=== PATIENT | female | born 1970 | race Caucasian/White ===

== ENCOUNTER → 2021-03-16 15:21 | Outpatient (CLI) | payer MEDICARE, OTHER, SELFPAY ==
[2021-03-16 16:30] LABS: Basophils % 0.6 % (0.1-2.0); Eosinophils # 0.3 K/mm3 (0.0-0.4); Eosinophils % 3.9 % (0.1-12.0); Hematocrit 34.4 % (37.0-47.0); Lymphocytes # 2.3 K/mm3 (0.7-4.5); Lymphocytes % 35.5 % (10-50); Mean Corpuscular HGB Conc 31.9 g/dL (31.8-35.4); Mean Corpuscular Hemoglobin 25.2 pg (27.0-31.2); Mean Corpuscular Volume 78.9 fl (81-99); Mean Platelet Volume 7.7 fl (7.4-10.4); Monocytes # 0.5 K/mm3 (0.1-1.0); Monocytes % 7.7 % (1.7-9.3); Neutrophils # 3.3 K/mm3 (1.8-7.8); Neutrophils % 52.3 % (37.0-80.0); Platelet Count 226 K/mm3 (142-424); Red Blood Count 4.36 M/mm3 (4.20-5.40); White Blood Count 6.4 K/mm3 (4.8-10.8)
[2021-03-16 17:13] LABS: Free Thyroxine Index 2.5 ug/dL (5.93-13.13); T4 (Thyroxine) 8.7 ug/dl (5.53-11.0); Triiodothryronine (T3) Uptake 29 % (23.5-40.5)
[2021-03-16 17:26] LABS: Thyroid Stimulating Hormone 1.66 uIU/mL (0.465-4.68)
[2021-03-18 12:27] LABS: FSH 79.2 mIU/mL (.)
== END ==
PROVIDERS: Visit Provider Obstetrics & Gynecology
DX: N93.8 Other specified abnormal uterine and vaginal bleeding (principal); Z79.899 Other long term (current) drug therapy
CPT/HCPCS: 36415; 83001; 84436; 84443; 84479; 85025

== ENCOUNTER → 2021-03-19 13:24 | Outpatient (CLI) | payer MEDICARE, OTHER, SELFPAY ==
--- NOTE | 2021-03-19 13:24 | US_ITS ---
PROCEDURE: US TRANSVAGINAL CLINICAL INDICATION: abnormal bleeding COMPARISON: No exams were available for comparison FINDINGS: UTERUS: 11cm x 9cmx 6cm. There is diffuse increased echogenicity in the central aspect of the uterus suggesting diffuse endometrial thickening. The margins are somewhat ill-defined. LEFT OVARY: [id number] with a volume of 14.1ml. RIGHT OVARY: [id number] with a volume of 6.6ml. Long the posterior aspect of the uterine fundus on the left there is a 3 cm area of slight decreased echogenicity which may represent a fibroid IMPRESSION: Enlarged uterus with grossly thickened endometrium measuring 5 cm in thickness. This could also represent no unusual appearance of fibroid within the endometrial area. Endometrial carcinoma is also consideration. There does appear to be at 3 cm fibroid along the uterine fundus posteriorly on the left. Dictated by: Martin Rhodes MD 03/19/2021 16:59 Martin Rhodes MD in [facility] 03/19/2021 16:59
== END ==
PROVIDERS: PCP Emergency Medicine; Visit Provider Obstetrics & Gynecology
DX: N93.9 Abnormal uterine and vaginal bleeding, unspecified (principal)
CPT/HCPCS: 76830

== ENCOUNTER → 2021-04-14 14:29 | Outpatient (CLI) | payer MEDICARE, OTHER, SELFPAY | PROVIDERS: Visit Provider Family Medicine | DX: Z20.822 Contact with and (suspected) exposure to COVID-19 (principal) | CPT/HCPCS: U0003 ==

== ENCOUNTER → 2021-04-16 11:33 | Outpatient (CLI) | payer MEDICARE, OTHER, SELFPAY ==
--- NOTE | 2021-04-16 11:35 | CT_ITS ---
PROCEDURE: CT ABDOMEN PELVIS W CON CLINICAL INDICATION: ENDOMETRIAL CANCER COMPARISON: CT CT CHEST W CON from 04/16/2021 TECHNIQUE: IV Contrast: 75ML Isovue 370 Oral Contrast 450ml Redicat Axial images obtained with sagittal and coronal reformats. All CT scans at the facility use one or more dose reduction, viz: automated exposure control, ma/kV adjustment per patient size (including targeted exams where dose is matched to indication, i.e. head), or iterative reconstruction technique. FINDINGS: LOWER THORAX: No acute finding ABDOMEN & PELVIS: There is a 2.6 by 1.5 x 1.6 cm lesion in the right hepatic lobe segment 7. This demonstrates peripheral puddling of contrast and may represent a hemangioma. MRI with hemangioma protocol may confirm in this patient with a history of endometrial cancer. An 8 mm enhancing nodule is present in the right hepatic lobe posteriorly, segment 7, and may also be due to a hemangioma. There is focal thickening the gallbladder wall inferiorly with some heterogeneous density at this area. Consider gallbladder ultrasound for further evaluation. The spleen and adrenal glands have an unremarkable appearance. There is mild prominence of the right renal collecting system and right ureter to the mid aspect of the right ureter. The pancreas has an unremarkable appearance. There is a moderate amount of retained colonic feces. Numerous unopacified bowel loops are present which could obscure or mimic pathology. No evidence of appendicitis or diverticulitis. The uterus is enlarged measuring 10 cm longitudinal, 6 cm AP, and 9 cm transverse. There is diffuse heterogeneous density within the endometrial area consistent with uterine carcinoma. There is some lobulation along the superior left aspect of the uterus but does not appear to extend through the uterine wall. No obvious pelvic adenopathy. Numerous unopacified bowel loops makes evaluation difficult. There is prominence of the periuterine veins. No ascites evident. No bony destructive process. IMPRESSION: 1. Heterogeneous uterine mass consistent with endometrial carcinoma. No obvious extra uterine spread locally with no obvious pelvic adenopathy. There are prominent periuterine veins. 2. There are 2 enhancing lesions of the right hepatic lobe. These could be due to hemangiomas versus vascular metastasis. MRI of the liver with hemangioma protocol suggested for further evaluation. 3. Focal thickening of the gallbladder wall at the lower fundus nonspecific. This could be evaluated also with MRI and ultrasound. 4. Multiple unopacified bowel loops in the abdomen or pelvis which could obscure or mimic pathology. Dictated by: Martin Rhodes MD 04/16/2021 16:04 Martin Rhodes MD in [facility] 04/16/2021 16:04
--- NOTE | 2021-04-16 11:35 | CT_ITS ---
PROCEDURE: CT CHEST W CON CLINCAL INDICATION: ENDOMETRIAL CANCER COMPARISON: No exams were available for comparison TECHNIQUE: IV Contrast: 75ml Isovue 370 Axial images obtained with sagittal and coronal reformats. All CT scans at the facility use one or more dose reduction, viz: automated exposure control, ma/kV adjustment per patient size (including targeted exams where dose is matched to indication, i.e. head), or iterative reconstruction technique. FINDINGS: HEART AND MEDIASTINAL STRUCTURES: Unremarkable. LUNGS AND PLEURAL SPACES: There are paraseptal emphysematous changes with some scattered areas of scarring and evidence of old granulomatous disease with a few calcified granulomas. There is some faint ground-glass attenuation in the right upper lobe posteriorly and in the right lung base posteriorly nonspecific. No suspicious pulmonary nodules evident. No effusions. BONY STRUCTURES: Degenerative changes are present in the thoracic spine. No bony destructive process apparent UPPER ABDOMEN: Please see abdomen report ADDITIONAL FINDINGS: No other significant abnormalities. IMPRESSION: No evidence of metastatic disease. Paraseptal emphysema with COPD changes. Minimal ground-glass attenuation in the right upper lobe and right lung base posteriorly nonspecific possibly related to small airway disease versus early inflammatory/infectious process. Old granulomatous disease Dictated by: Martin Rhodes MD 04/16/2021 13:28 Martin Rhodes MD in [facility] 04/16/2021 13:28
== END ==
PROVIDERS: PCP Physician Assistant; Visit Provider Obstetrics & Gynecology Gynecologic Oncology
DX: C54.1 Malignant neoplasm of endometrium (principal)
CPT/HCPCS: 71260; 74177; Q9967

== ENCOUNTER → 2021-05-12 11:27 | Outpatient (CLI) | payer MEDICARE, OTHER, SELFPAY ==
[2021-05-12 11:57] LABS: Basophils # 0.1 K/mm3 (0-0.2); Eosinophils # 0.3 K/mm3 (0.0-0.4); Eosinophils % 4.4 % (0.1-12.0); Hematocrit 39.1 % (37.0-47.0); Hemoglobin 12.1 g/dL (12.2-16.2); Lymphocytes # 2.2 K/mm3 (0.7-4.5); Lymphocytes % 30.4 % (10-50); Mean Corpuscular Hemoglobin 26.5 pg (27.0-31.2); Mean Corpuscular Volume 85.7 fl (81-99); Mean Platelet Volume 7.6 fl (7.4-10.4); Monocytes # 0.6 K/mm3 (0.1-1.0); Monocytes % 7.9 % (1.7-9.3); Neutrophils # 4.1 K/mm3 (1.8-7.8); Neutrophils % 56.3 % (37.0-80.0); Platelet Count 364 K/mm3 (142-424); Red Blood Count 4.57 M/mm3 (4.20-5.40); Red Cell Distribution Width 17.3 % (11.5-17.5); White Blood Count 7.2 K/mm3 (4.8-10.8)
[2021-05-12 12:26] LABS: Chloride 104 mmol/L (98-107); Potassium 5.2 mmoL/L (3.5-5.1); Sodium 141 mmol/L (136-145)
[2021-05-12 12:29] LABS: Alanine Aminotransferase 20 U/L (12-78); Albumin Level 4.4 g/dl (3.5-5.0); Albumin/Globulin Ratio 1.1 (1.1-1.8); Alkaline Phosphatase 83 U/L (38-126); Anion Gap 13.2 mEq/L (5-15); Aspartate Amino Transferase 30 U/L (14-36); Bilirubin,Total 0.2 mg/dl (0.2-1.3); Blood Urea Nitrogen 12 mg/dl (7-17); Carbon Dioxide 29 mmol/L (22.0-30.0); Estimated Glomerular Filt Rate 107 ml/min (>60); GFR (African American) 129 ML/MIN (>60); Total Protein,Serum 8.4 g/dl (6.3-8.2)
[2021-05-12 12:30] LABS: Calcium 9.9 mg/dl (8.4-10.2); Glucose 103 mg/dl (74-100)
== END ==
PROVIDERS: Visit Provider Obstetrics & Gynecology Gynecologic Oncology
DX: C54.1 Malignant neoplasm of endometrium (principal)
CPT/HCPCS: 36415; 80053; 85025

== ENCOUNTER → 2021-05-19 11:00 | Outpatient (CLI) | payer MEDICARE, OTHER, SELFPAY ==
[2021-05-19 11:41] LABS: Basophils % 0.9 % (0.1-2.0); Eosinophils # 0.2 K/mm3 (0.0-0.4); Eosinophils % 4.1 % (0.1-12.0); Hematocrit 38.6 % (37.0-47.0); Hemoglobin 12.2 g/dL (12.2-16.2); Lymphocytes # 1.6 K/mm3 (0.7-4.5); Lymphocytes % 35.2 % (10-50); Mean Corpuscular HGB Conc 31.5 g/dL (31.8-35.4); Mean Corpuscular Hemoglobin 27.1 pg (27.0-31.2); Mean Corpuscular Volume 86.1 fl (81-99); Monocytes # 0.1 K/mm3 (0.1-1.0); Neutrophils # 2.6 K/mm3 (1.8-7.8); Neutrophils % 57.8 % (37.0-80.0); Platelet Count 261 K/mm3 (142-424); Red Blood Count 4.48 M/mm3 (4.20-5.40); Red Cell Distribution Width 17.1 % (11.5-17.5); White Blood Count 4.5 K/mm3 (4.8-10.8)
[2021-05-19 11:57] LABS: Alanine Aminotransferase 20 U/L (12-78); Albumin Level 4.2 g/dl (3.5-5.0); Albumin/Globulin Ratio 1.2 (1.1-1.8); Alkaline Phosphatase 55 U/L (38-126); Anion Gap 10.2 mEq/L (5-15); Aspartate Amino Transferase 27 U/L (14-36); Bilirubin,Total 0.3 mg/dl (0.2-1.3); Blood Urea Nitrogen 8 mg/dl (7-17); Calcium 9.5 mg/dl (8.4-10.2); Carbon Dioxide 27 mmol/L (22.0-30.0); Chloride 106 mmol/L (98-107); Estimated Glomerular Filt Rate 132 ml/min (>60); GFR (African American) 159 ML/MIN (>60); Globulin 3.5 g/dL (1.3-3.2); Glucose 109 mg/dl (74-100); Potassium 4.2 mmoL/L (3.5-5.1); Sodium 139 mmol/L (136-145); Total Protein,Serum 7.7 g/dl (6.3-8.2)
== END ==
PROVIDERS: Visit Provider Obstetrics & Gynecology Gynecologic Oncology
DX: C54.1 Malignant neoplasm of endometrium (principal)
CPT/HCPCS: 36415; 80053; 85025

== ENCOUNTER → 2021-05-26 11:28 | Outpatient (CLI) | payer MEDICARE, OTHER, SELFPAY ==
[2021-05-26 11:53] LABS: Basophils % 0.6 % (0.1-2.0); Eosinophils # 0.1 K/mm3 (0.0-0.4); Eosinophils % 1.9 % (0.1-12.0); Hematocrit 34.9 % (37.0-47.0); Hemoglobin 10.8 g/dL (12.2-16.2); Lymphocytes # 1.5 K/mm3 (0.7-4.5); Lymphocytes % 35.7 % (10-50); Mean Corpuscular HGB Conc 30.8 g/dL (31.8-35.4); Mean Corpuscular Hemoglobin 26.9 pg (27.0-31.2); Mean Corpuscular Volume 87.2 fl (81-99); Mean Platelet Volume 7.2 fl (7.4-10.4); Monocytes # 0.7 K/mm3 (0.1-1.0); Monocytes % 16.3 % (1.7-9.3); Neutrophils % 45.5 % (37.0-80.0); Platelet Count 258 K/mm3 (142-424); Red Blood Count 4.01 M/mm3 (4.20-5.40); Red Cell Distribution Width 17.3 % (11.5-17.5); White Blood Count 4.3 K/mm3 (4.8-10.8)
[2021-05-26 14:06] LABS: Chloride 104 mmol/L (98-107); Potassium 4.7 mmoL/L (3.5-5.1); Sodium 138 mmol/L (136-145)
[2021-05-26 14:09] LABS: Alanine Aminotransferase 22 U/L (12-78); Albumin Level 3.9 g/dl (3.5-5.0); Albumin/Globulin Ratio 1.2 (1.1-1.8); Alkaline Phosphatase 73 U/L (38-126); Anion Gap 11.7 mEq/L (5-15); Aspartate Amino Transferase 29 U/L (14-36); Blood Urea Nitrogen 9 mg/dl (7-17); Calcium 8.9 mg/dl (8.4-10.2); Carbon Dioxide 27 mmol/L (22.0-30.0); Estimated Glomerular Filt Rate 132 ml/min (>60); GFR (African American) 159 ML/MIN (>60); Globulin 3.3 g/dL (1.3-3.2); Glucose 88 mg/dl (74-100); Total Protein,Serum 7.2 g/dl (6.3-8.2)
[2021-05-26 14:28] LABS: Bilirubin,Total 0.1 mg/dl (0.2-1.3)
== END ==
PROVIDERS: Visit Provider Obstetrics & Gynecology Gynecologic Oncology
DX: C54.1 Malignant neoplasm of endometrium (principal)
CPT/HCPCS: 36415; 80053; 85025

== ENCOUNTER → 2021-06-02 12:27 | Outpatient (CLI) | payer MEDICARE, OTHER, SELFPAY ==
[2021-06-02 13:20] LABS: Basophils % 0.9 % (0.1-2.0); Eosinophils # 0.1 K/mm3 (0.0-0.4); Hematocrit 36.2 % (37.0-47.0); Hemoglobin 11.4 g/dL (12.2-16.2); Lymphocytes # 1.8 K/mm3 (0.7-4.5); Lymphocytes % 36.7 % (10-50); Mean Corpuscular HGB Conc 31.5 g/dL (31.8-35.4); Mean Corpuscular Volume 85.6 fl (81-99); Mean Platelet Volume 7.9 fl (7.4-10.4); Monocytes # 0.5 K/mm3 (0.1-1.0); Monocytes % 10.4 % (1.7-9.3); Neutrophils # 2.6 K/mm3 (1.8-7.8); Platelet Count 227 K/mm3 (142-424); Red Blood Count 4.23 M/mm3 (4.20-5.40); Red Cell Distribution Width 17.8 % (11.5-17.5)
[2021-06-02 13:43] LABS: Chloride 105 mmol/L (98-107); Potassium 4.2 mmoL/L (3.5-5.1); Sodium 139 mmol/L (136-145)
[2021-06-02 13:45] LABS: Alanine Aminotransferase 15 U/L (12-78); Aspartate Amino Transferase 27 U/L (14-36); Blood Urea Nitrogen 6 mg/dl (7-17); Estimated Glomerular Filt Rate 132 ml/min (>60); GFR (African American) 159 ML/MIN (>60)
[2021-06-02 13:46] LABS: Albumin Level 4.1 g/dl (3.5-5.0); Albumin/Globulin Ratio 1.2 (1.1-1.8); Alkaline Phosphatase 74 U/L (38-126); Anion Gap 13.2 mEq/L (5-15); Bilirubin,Total 0.1 mg/dl (0.2-1.3); Calcium 9.5 mg/dl (8.4-10.2); Carbon Dioxide 25 mmol/L (22.0-30.0); Globulin 3.5 g/dL (1.3-3.2); Glucose 90 mg/dl (74-100); Total Protein,Serum 7.6 g/dl (6.3-8.2)
== END ==
PROVIDERS: Visit Provider Obstetrics & Gynecology Gynecologic Oncology
DX: C54.1 Malignant neoplasm of endometrium (principal)
CPT/HCPCS: 36415; 80053; 85025

== ENCOUNTER → 2021-06-09 13:50 | Outpatient (CLI) | payer MEDICARE, OTHER, SELFPAY ==
[2021-06-09 14:29] LABS: Basophils % 0.8 % (0.1-2.0); Eosinophils # 0.1 K/mm3 (0.0-0.4); Hemoglobin 10.8 g/dL (12.2-16.2); Lymphocytes # 1.8 K/mm3 (0.7-4.5); Mean Corpuscular HGB Conc 31.8 g/dL (31.8-35.4); Mean Corpuscular Hemoglobin 27.4 pg (27.0-31.2); Mean Corpuscular Volume 85.9 fl (81-99); Mean Platelet Volume 8.1 fl (7.4-10.4); Monocytes # 0.4 K/mm3 (0.1-1.0); Monocytes % 6.7 % (1.7-9.3); Neutrophils # 3.2 K/mm3 (1.8-7.8); Neutrophils % 57.6 % (37.0-80.0); Platelet Count 236 K/mm3 (142-424); Red Blood Count 3.96 M/mm3 (4.20-5.40); Red Cell Distribution Width 17.8 % (11.5-17.5); White Blood Count 5.5 K/mm3 (4.8-10.8)
[2021-06-09 15:47] LABS: Alanine Aminotransferase 12 U/L (12-78); Albumin Level 4.1 g/dl (3.5-5.0); Albumin/Globulin Ratio 1.2 (1.1-1.8); Alkaline Phosphatase 61 U/L (38-126); Anion Gap 9.6 mEq/L (5-15); Aspartate Amino Transferase 23 U/L (14-36); Bilirubin,Total 0.2 mg/dl (0.2-1.3); Blood Urea Nitrogen 12 mg/dl (7-17); Calcium 9.4 mg/dl (8.4-10.2); Carbon Dioxide 28 mmol/L (22.0-30.0); Chloride 105 mmol/L (98-107); Estimated Glomerular Filt Rate 132 ml/min (>60); GFR (African American) 159 ML/MIN (>60); Globulin 3.3 g/dL (1.3-3.2); Glucose 91 mg/dl (74-100); Potassium 4.6 mmoL/L (3.5-5.1); Sodium 138 mmol/L (136-145); Total Protein,Serum 7.4 g/dl (6.3-8.2)
== END ==
PROVIDERS: Visit Provider Obstetrics & Gynecology Gynecologic Oncology
DX: C54.1 Malignant neoplasm of endometrium (principal)
CPT/HCPCS: 36415; 80053; 85025

== ENCOUNTER → 2021-06-16 11:09 | Outpatient (CLI) | payer MEDICARE, OTHER, SELFPAY ==
[2021-06-16 11:31] LABS: Basophils % 0.8 % (0.1-2.0); Eosinophils # 0.2 K/mm3 (0.0-0.4); Eosinophils % 4.5 % (0.1-12.0); Hematocrit 38.8 % (37.0-47.0); Lymphocytes # 1.3 K/mm3 (0.7-4.5); Mean Corpuscular Hemoglobin 27.2 pg (27.0-31.2); Mean Corpuscular Volume 87.7 fl (81-99); Mean Platelet Volume 8.6 fl (7.4-10.4); Monocytes # 0.1 K/mm3 (0.1-1.0); Neutrophils # 2.2 K/mm3 (1.8-7.8); Neutrophils % 57.8 % (37.0-80.0); Platelet Count 328 K/mm3 (142-424); Red Blood Count 4.42 M/mm3 (4.20-5.40); Red Cell Distribution Width 17.6 % (11.5-17.5); White Blood Count 3.8 K/mm3 (4.8-10.8)
[2021-06-16 13:11] LABS: Alanine Aminotransferase 16 U/L (12-78); Albumin Level 4.4 g/dl (3.5-5.0); Albumin/Globulin Ratio 1.4 (1.1-1.8); Alkaline Phosphatase 56 U/L (38-126); Anion Gap 9.9 mEq/L (5-15); Aspartate Amino Transferase 27 U/L (14-36); Bilirubin,Total 0.5 mg/dl (0.2-1.3); Blood Urea Nitrogen 10 mg/dl (7-17); Calcium 9.6 mg/dl (8.4-10.2); Carbon Dioxide 29 mmol/L (22.0-30.0); Chloride 103 mmol/L (98-107); Estimated Glomerular Filt Rate 132 ml/min (>60); GFR (African American) 159 ML/MIN (>60); Globulin 3.2 g/dL (1.3-3.2); Glucose 100 mg/dl (74-100); Potassium 4.9 mmoL/L (3.5-5.1); Sodium 137 mmol/L (136-145); Total Protein,Serum 7.6 g/dl (6.3-8.2)
== END ==
PROVIDERS: Visit Provider Obstetrics & Gynecology Gynecologic Oncology
DX: C54.1 Malignant neoplasm of endometrium (principal)
CPT/HCPCS: 36415; 80053; 85025

== ENCOUNTER → 2021-06-23 13:26 | Outpatient (CLI) | payer MEDICARE, OTHER, SELFPAY ==
[2021-06-23 14:13] LABS: Basophils % 1.1 % (0.1-2.0); Eosinophils # 0.1 K/mm3 (0.0-0.4); Eosinophils % 2.2 % (0.1-12.0); Hematocrit 33.5 % (37.0-47.0); Lymphocytes # 1.9 K/mm3 (0.7-4.5); Lymphocytes % 51.1 % (10-50); Mean Corpuscular HGB Conc 32.7 g/dL (31.8-35.4); Mean Corpuscular Hemoglobin 28.4 pg (27.0-31.2); Mean Corpuscular Volume 86.8 fl (81-99); Monocytes # 0.5 K/mm3 (0.1-1.0); Monocytes % 14.4 % (1.7-9.3); Neutrophils # 1.1 K/mm3 (1.8-7.8); Neutrophils % 31.1 % (37.0-80.0); Platelet Count 226 K/mm3 (142-424); Red Blood Count 3.86 M/mm3 (4.20-5.40); Red Cell Distribution Width 18.6 % (11.5-17.5); White Blood Count 3.6 K/mm3 (4.8-10.8)
[2021-06-23 14:14] LABS: MANUAL DIFFERENTIAL MANUAL DIFFERENTIAL (MANUAL DIFF)
[2021-06-23 14:29] LABS: Eosinophils % 2 % (0-3); Lymphocytes % 44 % (10-50); Monocytes % 26 % (2-9); Neutrophils % 28 % (42-76); Platelet Estimate Normal; Total Cells Counted 100
[2021-06-23 14:30] LABS: Microcytosis 1+; Spherocytes 1+
[2021-06-23 14:34] LABS: Alanine Aminotransferase 23 U/L (12-78); Albumin Level 4.1 g/dl (3.5-5.0); Albumin/Globulin Ratio 1.3 (1.1-1.8); Alkaline Phosphatase 56 U/L (38-126); Anion Gap 10.9 mEq/L (5-15); Aspartate Amino Transferase 34 U/L (14-36); Blood Urea Nitrogen 8 mg/dl (7-17); Calcium 9.2 mg/dl (8.4-10.2); Carbon Dioxide 29 mmol/L (22.0-30.0); Chloride 106 mmol/L (98-107); Estimated Glomerular Filt Rate 107 ml/min (>60); GFR (African American) 129 ML/MIN (>60); Globulin 3.1 g/dL (1.3-3.2); Glucose 84 mg/dl (74-100); Potassium 4.9 mmoL/L (3.5-5.1); Sodium 141 mmol/L (136-145); Total Protein,Serum 7.2 g/dl (6.3-8.2)
[2021-06-23 14:35] LABS: Bilirubin,Total 0.1 mg/dl (0.2-1.3)
== END ==
PROVIDERS: Visit Provider Obstetrics & Gynecology Gynecologic Oncology
DX: C54.1 Malignant neoplasm of endometrium (principal)
CPT/HCPCS: 36415; 80053; 85007; 85025

== ENCOUNTER → 2021-06-30 12:47 | Outpatient (CLI) | payer MEDICARE, OTHER, SELFPAY ==
[2021-06-30 13:04] LABS: Basophils % 0.7 % (0.1-2.0); Eosinophils % 0.9 % (0.1-12.0); Hematocrit 36.1 % (37.0-47.0); Hemoglobin 11.7 g/dL (12.2-16.2); Lymphocytes # 1.8 K/mm3 (0.7-4.5); Lymphocytes % 39.6 % (10-50); Mean Corpuscular HGB Conc 32.5 g/dL (31.8-35.4); Mean Corpuscular Volume 86.4 fl (81-99); Monocytes # 0.5 K/mm3 (0.1-1.0); Monocytes % 10.9 % (1.7-9.3); Neutrophils # 2.2 K/mm3 (1.8-7.8); Neutrophils % 47.9 % (37.0-80.0); Platelet Count 157 K/mm3 (142-424); Red Blood Count 4.18 M/mm3 (4.20-5.40); Red Cell Distribution Width 19.4 % (11.5-17.5); White Blood Count 4.6 K/mm3 (4.8-10.8)
[2021-06-30 15:11] LABS: Alanine Aminotransferase 10 U/L (12-78); Albumin Level 4.3 g/dl (3.5-5.0); Albumin/Globulin Ratio 1.3 (1.1-1.8); Alkaline Phosphatase 59 U/L (38-126); Anion Gap 12.7 mEq/L (5-15); Aspartate Amino Transferase 30 U/L (14-36); Bilirubin,Total 0.2 mg/dl (0.2-1.3); Blood Urea Nitrogen 16 mg/dl (7-17); Calcium 9.3 mg/dl (8.4-10.2); Carbon Dioxide 29 mmol/L (22.0-30.0); Chloride 104 mmol/L (98-107); Estimated Glomerular Filt Rate 89 ml/min (>60); GFR (African American) 108 ML/MIN (>60); Globulin 3.3 g/dL (1.3-3.2); Glucose 86 mg/dl (74-100); Potassium 4.7 mmoL/L (3.5-5.1); Sodium 141 mmol/L (136-145); Total Protein,Serum 7.6 g/dl (6.3-8.2)
== END ==
PROVIDERS: Visit Provider Obstetrics & Gynecology Gynecologic Oncology
DX: C54.1 Malignant neoplasm of endometrium (principal)
CPT/HCPCS: 36415; 80053; 85025

== ENCOUNTER → 2021-07-16 13:47 | Outpatient (CLI) | payer MEDICARE, OTHER, SELFPAY ==
[2021-07-16 14:29] LABS: Basophils % 0.3 % (0.1-2.0); Eosinophils # 0.1 K/mm3 (0.0-0.4); Eosinophils % 1.5 % (0.1-12.0); Hematocrit 30.7 % (37.0-47.0); Hemoglobin 10.1 g/dL (12.2-16.2); Lymphocytes % 46.1 % (10-50); Mean Corpuscular HGB Conc 32.8 g/dL (31.8-35.4); Mean Corpuscular Hemoglobin 28.3 pg (27.0-31.2); Mean Corpuscular Volume 86.3 fl (81-99); Mean Platelet Volume 7.9 fl (7.4-10.4); Monocytes # 0.6 K/mm3 (0.1-1.0); Monocytes % 13.8 % (1.7-9.3); Neutrophils # 1.6 K/mm3 (1.8-7.8); Neutrophils % 38.4 % (37.0-80.0); Platelet Count 267 K/mm3 (142-424); Red Blood Count 3.56 M/mm3 (4.20-5.40); White Blood Count 4.3 K/mm3 (4.8-10.8)
[2021-07-16 16:33] LABS: Alanine Aminotransferase 20 U/L (12-78); Albumin/Globulin Ratio 1.3 (1.1-1.8); Anion Gap 6.3 mEq/L (5-15); Aspartate Amino Transferase 29 U/L (14-36); Blood Urea Nitrogen 10 mg/dl (7-17); Calcium 9.2 mg/dl (8.4-10.2); Carbon Dioxide 28 mmol/L (22.0-30.0); Chloride 105 mmol/L (98-107); Estimated Glomerular Filt Rate 106 ml/min (>60); GFR (African American) 129 ML/MIN (>60); Globulin 3.1 g/dL (1.3-3.2); Glucose 109 mg/dl (74-100); Potassium 4.3 mmoL/L (3.5-5.1); Sodium 135 mmol/L (136-145); Total Protein,Serum 7.1 g/dl (6.3-8.2)
[2021-07-16 16:34] LABS: Alkaline Phosphatase 55 U/L (38-126)
[2021-07-16 17:09] LABS: Bilirubin,Total 0.1 mg/dl (0.2-1.3)
== END ==
PROVIDERS: Visit Provider Obstetrics & Gynecology Gynecologic Oncology
DX: C54.1 Malignant neoplasm of endometrium (principal)
CPT/HCPCS: 36415; 80053; 85025

== ENCOUNTER → 2021-07-21 12:50 | Outpatient (CLI) | payer MEDICARE, OTHER, SELFPAY ==
[2021-07-21 13:15] LABS: Basophils % 0.5 % (0.1-2.0); Eosinophils % 0.5 % (0.1-12.0); Hematocrit 34.2 % (37.0-47.0); Hemoglobin 10.8 g/dL (12.2-16.2); Lymphocytes # 1.5 K/mm3 (0.7-4.5); Lymphocytes % 39.1 % (10-50); Mean Corpuscular HGB Conc 31.5 g/dL (31.8-35.4); Mean Corpuscular Volume 88.8 fl (81-99); Mean Platelet Volume 7.1 fl (7.4-10.4); Monocytes # 0.6 K/mm3 (0.1-1.0); Neutrophils # 1.7 K/mm3 (1.8-7.8); Neutrophils % 44.8 % (37.0-80.0); Platelet Count 175 K/mm3 (142-424); Red Blood Count 3.85 M/mm3 (4.20-5.40); Red Cell Distribution Width 20.3 % (11.5-17.5); White Blood Count 3.8 K/mm3 (4.8-10.8)
[2021-07-21 14:27] LABS: Alanine Aminotransferase 16 U/L (12-78); Albumin Level 4.3 g/dl (3.5-5.0); Albumin/Globulin Ratio 1.3 (1.1-1.8); Alkaline Phosphatase 64 U/L (38-126); Anion Gap 11.5 mEq/L (5-15); Aspartate Amino Transferase 30 U/L (14-36); Bilirubin,Total 0.3 mg/dl (0.2-1.3); Blood Urea Nitrogen 8 mg/dl (7-17); Calcium 9.5 mg/dl (8.4-10.2); Carbon Dioxide 29 mmol/L (22.0-30.0); Chloride 101 mmol/L (98-107); Estimated Glomerular Filt Rate 131 ml/min (>60); GFR (African American) 159 ML/MIN (>60); Globulin 3.3 g/dL (1.3-3.2); Glucose 108 mg/dl (74-100); Potassium 4.5 mmoL/L (3.5-5.1); Sodium 137 mmol/L (136-145); Total Protein,Serum 7.6 g/dl (6.3-8.2)
== END ==
PROVIDERS: Visit Provider Obstetrics & Gynecology Gynecologic Oncology
DX: C54.1 Malignant neoplasm of endometrium (principal)
CPT/HCPCS: 36415; 80053; 85025

== ENCOUNTER → 2021-07-28 09:56 | Outpatient (CLI) | payer MEDICARE, OTHER, SELFPAY ==
[2021-07-28 10:29] LABS: Basophils % 0.2 % (0.1-2.0); Eosinophils # 0.1 K/mm3 (0.0-0.4); Eosinophils % 1.3 % (0.1-12.0); Hematocrit 34.2 % (37.0-47.0); Hemoglobin 11.2 g/dL (12.2-16.2); Lymphocytes # 1.1 K/mm3 (0.7-4.5); Mean Corpuscular HGB Conc 32.7 g/dL (31.8-35.4); Mean Corpuscular Hemoglobin 28.7 pg (27.0-31.2); Mean Corpuscular Volume 87.8 fl (81-99); Mean Platelet Volume 7.5 fl (7.4-10.4); Monocytes # 0.4 K/mm3 (0.1-1.0); Monocytes % 9.1 % (1.7-9.3); Neutrophils # 2.7 K/mm3 (1.8-7.8); Neutrophils % 63.3 % (37.0-80.0); Platelet Count 149 K/mm3 (142-424); Red Cell Distribution Width 20.6 % (11.5-17.5); White Blood Count 4.3 K/mm3 (4.8-10.8)
[2021-07-28 11:01] LABS: Chloride 103 mmol/L (98-107)
[2021-07-28 11:02] LABS: Potassium 4.5 mmoL/L (3.5-5.1); Sodium 139 mmol/L (136-145)
[2021-07-28 11:04] LABS: Alanine Aminotransferase 16 U/L (12-78); Alkaline Phosphatase 60 U/L (38-126); Anion Gap 11.5 mEq/L (5-15); Aspartate Amino Transferase 27 U/L (14-36); Bilirubin,Total 0.2 mg/dl (0.2-1.3); Blood Urea Nitrogen 10 mg/dl (7-17); Carbon Dioxide 29 mmol/L (22.0-30.0); Estimated Glomerular Filt Rate 106 ml/min (>60); GFR (African American) 129 ML/MIN (>60)
[2021-07-28 11:05] LABS: Albumin Level 4.3 g/dl (3.5-5.0); Albumin/Globulin Ratio 1.3 (1.1-1.8); Calcium 9.3 mg/dl (8.4-10.2); Globulin 3.2 g/dL (1.3-3.2); Glucose 89 mg/dl (74-100); Total Protein,Serum 7.5 g/dl (6.3-8.2)
== END ==
PROVIDERS: Visit Provider Obstetrics & Gynecology Gynecologic Oncology
DX: C54.1 Malignant neoplasm of endometrium (principal)
CPT/HCPCS: 36415; 80053; 85025

== ENCOUNTER → 2021-08-04 09:16 | Outpatient (CLI) | payer MEDICARE, OTHER, SELFPAY ==
[2021-08-04 09:48] LABS: Basophils % 0.8 % (0.1-2.0); Eosinophils # 0.3 K/mm3 (0.0-0.4); Eosinophils % 9.5 % (0.1-12.0); Hematocrit 34.2 % (37.0-47.0); Hemoglobin 11.1 g/dL (12.2-16.2); Lymphocytes # 0.9 K/mm3 (0.7-4.5); Lymphocytes % 26.2 % (10-50); Mean Corpuscular HGB Conc 32.5 g/dL (31.8-35.4); Mean Corpuscular Hemoglobin 29.2 pg (27.0-31.2); Mean Corpuscular Volume 89.9 fl (81-99); Mean Platelet Volume 8.1 fl (7.4-10.4); Monocytes # 0.4 K/mm3 (0.1-1.0); Monocytes % 12.2 % (1.7-9.3); Neutrophils # 1.7 K/mm3 (1.8-7.8); Neutrophils % 51.3 % (37.0-80.0); Platelet Count 268 K/mm3 (142-424); Red Cell Distribution Width 22.2 % (11.5-17.5); White Blood Count 3.4 K/mm3 (4.8-10.8)
[2021-08-04 10:52] LABS: Alanine Aminotransferase 15 U/L (12-78); Albumin Level 4.2 g/dl (3.5-5.0); Albumin/Globulin Ratio 1.3 (1.1-1.8); Alkaline Phosphatase 53 U/L (38-126); Anion Gap 11.4 mEq/L (5-15); Aspartate Amino Transferase 29 U/L (14-36); Bilirubin,Total 0.2 mg/dl (0.2-1.3); Blood Urea Nitrogen 8 mg/dl (7-17); Calcium 9.5 mg/dl (8.4-10.2); Carbon Dioxide 29 mmol/L (22.0-30.0); Chloride 101 mmol/L (98-107); Estimated Glomerular Filt Rate 106 ml/min (>60); GFR (African American) 129 ML/MIN (>60); Globulin 3.2 g/dL (1.3-3.2); Glucose 96 mg/dl (74-100); Potassium 4.4 mmoL/L (3.5-5.1); Sodium 137 mmol/L (136-145); Total Protein,Serum 7.4 g/dl (6.3-8.2)
== END ==
PROVIDERS: Visit Provider Obstetrics & Gynecology Gynecologic Oncology
DX: C54.1 Malignant neoplasm of endometrium (principal)
CPT/HCPCS: 36415; 80053; 85025

== ENCOUNTER → 2021-08-11 09:41 | Outpatient (CLI) | payer MEDICARE, OTHER, SELFPAY ==
[2021-08-11 10:52] LABS: Chloride 101 mmol/L (98-107)
[2021-08-11 10:53] LABS: Potassium 4.2 mmoL/L (3.5-5.1); Sodium 137 mmol/L (136-145)
[2021-08-11 10:55] LABS: Alanine Aminotransferase 20 U/L (12-78); Alkaline Phosphatase 51 U/L (38-126); Anion Gap 9.2 mEq/L (5-15); Aspartate Amino Transferase 37 U/L (14-36); Bilirubin,Total 0.2 mg/dl (0.2-1.3); Blood Urea Nitrogen 6 mg/dl (7-17); Carbon Dioxide 31 mmol/L (22.0-30.0); Estimated Glomerular Filt Rate 106 ml/min (>60); GFR (African American) 129 ML/MIN (>60)
[2021-08-11 10:56] LABS: Albumin Level 4.1 g/dl (3.5-5.0); Albumin/Globulin Ratio 1.3 (1.1-1.8); Globulin 3.2 g/dL (1.3-3.2); Glucose 91 mg/dl (74-100); Total Protein,Serum 7.3 g/dl (6.3-8.2)
[2021-08-11 11:48] LABS: Basophils % 1.4 % (0.1-2.0); Eosinophils # 0.2 K/mm3 (0.0-0.4); Eosinophils % 6.5 % (0.1-12.0); Hematocrit 33.9 % (37.0-47.0); Hemoglobin 10.8 g/dL (12.2-16.2); Lymphocytes # 0.6 K/mm3 (0.7-4.5); Lymphocytes % 21.9 % (10-50); Mean Corpuscular Hemoglobin 29.7 pg (27.0-31.2); Mean Corpuscular Volume 92.6 fl (81-99); Mean Platelet Volume 7.8 fl (7.4-10.4); Monocytes # 0.7 K/mm3 (0.1-1.0); Monocytes % 26.3 % (1.7-9.3); Neutrophils # 1.2 K/mm3 (1.8-7.8); Neutrophils % 43.8 % (37.0-80.0); Platelet Count 265 K/mm3 (142-424); Red Blood Count 3.66 M/mm3 (4.20-5.40); Red Cell Distribution Width 22.6 % (11.5-17.5); White Blood Count 2.7 K/mm3 (4.8-10.8)
[2021-08-11 11:52] LABS: MANUAL DIFFERENTIAL MANUAL DIFFERENTIAL (MANUAL DIFF)
[2021-08-11 14:18] LABS: Eosinophils % 4 % (0-3); Lymphocytes % 25 % (10-50); Monocytes % 24 % (2-9); Neutrophils % 47 % (42-76); Total Cells Counted 100
[2021-08-11 14:19] LABS: Platelet Estimate Normal; Spherocytes 2+; Tear Drop Cells 1+
== END ==
PROVIDERS: Visit Provider Obstetrics & Gynecology Gynecologic Oncology
DX: C54.1 Malignant neoplasm of endometrium (principal)
CPT/HCPCS: 36415; 80053; 85007; 85025

== ENCOUNTER → 2021-08-18 09:17 | Outpatient (CLI) | payer MEDICARE, OTHER, SELFPAY ==
[2021-08-18 09:49] LABS: Basophils % 1.4 % (0.1-2.0); Eosinophils # 0.1 K/mm3 (0.0-0.4); Eosinophils % 4.4 % (0.1-12.0); Hematocrit 32.9 % (37.0-47.0); Hemoglobin 10.6 g/dL (12.2-16.2); Lymphocytes # 0.5 K/mm3 (0.7-4.5); Mean Corpuscular HGB Conc 32.3 g/dL (31.8-35.4); Mean Corpuscular Hemoglobin 29.3 pg (27.0-31.2); Mean Corpuscular Volume 90.6 fl (81-99); Mean Platelet Volume 7.7 fl (7.4-10.4); Monocytes # 0.4 K/mm3 (0.1-1.0); Monocytes % 13.4 % (1.7-9.3); Neutrophils # 1.9 K/mm3 (1.8-7.8); Neutrophils % 63.7 % (37.0-80.0); Platelet Count 182 K/mm3 (142-424); Red Blood Count 3.63 M/mm3 (4.20-5.40); Red Cell Distribution Width 22.2 % (11.5-17.5)
[2021-08-18 10:34] LABS: Alanine Aminotransferase 14 U/L (12-78); Albumin Level 4.2 g/dl (3.5-5.0); Albumin/Globulin Ratio 1.4 (1.1-1.8); Alkaline Phosphatase 50 U/L (38-126); Anion Gap 8.6 mEq/L (5-15); Aspartate Amino Transferase 28 U/L (14-36); Bilirubin,Total 0.3 mg/dl (0.2-1.3); Blood Urea Nitrogen 8 mg/dl (7-17); Calcium 9.1 mg/dl (8.4-10.2); Carbon Dioxide 30 mmol/L (22.0-30.0); Chloride 103 mmol/L (98-107); Estimated Glomerular Filt Rate 106 ml/min (>60); GFR (African American) 129 ML/MIN (>60); Globulin 3.1 g/dL (1.3-3.2); Glucose 90 mg/dl (74-100); Potassium 4.6 mmoL/L (3.5-5.1); Sodium 137 mmol/L (136-145); Total Protein,Serum 7.3 g/dl (6.3-8.2)
== END ==
PROVIDERS: PCP Emergency Medicine; Visit Provider Obstetrics & Gynecology Gynecologic Oncology
DX: C54.1 Malignant neoplasm of endometrium (principal)
CPT/HCPCS: 36415; 80053; 85025

== ENCOUNTER → 2021-08-25 10:19 | Outpatient (CLI) | payer MEDICARE, OTHER, SELFPAY ==
[2021-08-25 10:40] LABS: Basophils % 0.8 % (0.1-2.0); Eosinophils # 0.3 K/mm3 (0.0-0.4); Eosinophils % 5.1 % (0.1-12.0); Hematocrit 34.3 % (37.0-47.0); Hemoglobin 10.8 g/dL (12.2-16.2); Lymphocytes # 0.6 K/mm3 (0.7-4.5); Lymphocytes % 11.8 % (10-50); Mean Corpuscular HGB Conc 31.5 g/dL (31.8-35.4); Mean Corpuscular Hemoglobin 29.6 pg (27.0-31.2); Mean Corpuscular Volume 93.9 fl (81-99); Mean Platelet Volume 7.8 fl (7.4-10.4); Monocytes # 0.6 K/mm3 (0.1-1.0); Monocytes % 10.5 % (1.7-9.3); Neutrophils # 3.8 K/mm3 (1.8-7.8); Neutrophils % 71.8 % (37.0-80.0); Platelet Count 300 K/mm3 (142-424); Red Blood Count 3.66 M/mm3 (4.20-5.40); Red Cell Distribution Width 22.3 % (11.5-17.5); White Blood Count 5.2 K/mm3 (4.8-10.8)
[2021-08-25 11:16] LABS: Chloride 105 mmol/L (98-107); Potassium 4.8 mmoL/L (3.5-5.1); Sodium 135 mmol/L (136-145)
[2021-08-25 11:18] LABS: Alanine Aminotransferase 14 U/L (12-78); Aspartate Amino Transferase 27 U/L (14-36); Blood Urea Nitrogen 9 mg/dl (7-17); Estimated Glomerular Filt Rate 106 ml/min (>60); GFR (African American) 129 ML/MIN (>60)
[2021-08-25 11:19] LABS: Albumin Level 4.3 g/dl (3.5-5.0); Albumin/Globulin Ratio 1.3 (1.1-1.8); Alkaline Phosphatase 46 U/L (38-126); Anion Gap 5.8 mEq/L (5-15); Bilirubin,Total 0.3 mg/dl (0.2-1.3); Calcium 9.4 mg/dl (8.4-10.2); Carbon Dioxide 29 mmol/L (22.0-30.0); Globulin 3.4 g/dL (1.3-3.2); Glucose 104 mg/dl (74-100); Total Protein,Serum 7.7 g/dl (6.3-8.2)
== END ==
PROVIDERS: Visit Provider Obstetrics & Gynecology Gynecologic Oncology
DX: C54.1 Malignant neoplasm of endometrium (principal)
CPT/HCPCS: 36415; 80053; 85025

== ENCOUNTER → 2021-09-01 13:07 | Outpatient (CLI) | payer MEDICARE, OTHER, SELFPAY ==
[2021-09-01 14:01] LABS: Basophils % 0.5 % (0.1-2.0); Eosinophils # 0.2 K/mm3 (0.0-0.4); Eosinophils % 4.2 % (0.1-12.0); Hematocrit 33.6 % (37.0-47.0); Hemoglobin 10.7 g/dL (12.2-16.2); Lymphocytes % 16.6 % (10-50); Mean Corpuscular Hemoglobin 30.3 pg (27.0-31.2); Mean Corpuscular Volume 94.7 fl (81-99); Mean Platelet Volume 7.5 fl (7.4-10.4); Monocytes # 0.5 K/mm3 (0.1-1.0); Monocytes % 9.5 % (1.7-9.3); Neutrophils % 69.1 % (37.0-80.0); Platelet Count 339 K/mm3 (142-424); Red Blood Count 3.55 M/mm3 (4.20-5.40); White Blood Count 5.7 K/mm3 (4.8-10.8)
[2021-09-01 14:19] LABS: Chloride 103 mmol/L (98-107)
[2021-09-01 14:20] LABS: Potassium 4.8 mmoL/L (3.5-5.1); Sodium 138 mmol/L (136-145)
[2021-09-01 14:22] LABS: Blood Urea Nitrogen 12 mg/dl (7-17); Estimated Glomerular Filt Rate 106 ml/min (>60); GFR (African American) 129 ML/MIN (>60)
[2021-09-01 14:23] LABS: Alanine Aminotransferase 16 U/L (12-78); Albumin Level 4.6 g/dl (3.5-5.0); Albumin/Globulin Ratio 1.4 (1.1-1.8); Alkaline Phosphatase 46 U/L (38-126); Anion Gap 11.8 mEq/L (5-15); Aspartate Amino Transferase 30 U/L (14-36); Bilirubin,Total 0.2 mg/dl (0.2-1.3); Calcium 9.7 mg/dl (8.4-10.2); Carbon Dioxide 28 mmol/L (22.0-30.0); Globulin 3.4 g/dL (1.3-3.2); Glucose 95 mg/dl (74-100)
== END ==
PROVIDERS: PCP Emergency Medicine; Visit Provider Obstetrics & Gynecology Gynecologic Oncology
DX: C54.1 Malignant neoplasm of endometrium (principal)
CPT/HCPCS: 36415; 80053; 85025

== ENCOUNTER → 2021-09-08 13:19 | Outpatient (CLI) | payer MEDICARE, OTHER, SELFPAY ==
[2021-09-08 14:24] LABS: Basophils # 0.1 K/mm3 (0-0.2); Basophils % 1.7 % (0.1-2.0); Eosinophils # 0.2 K/mm3 (0.0-0.4); Eosinophils % 4.4 % (0.1-12.0); Hematocrit 34.1 % (37.0-47.0); Hemoglobin 10.9 g/dL (12.2-16.2); Lymphocytes # 0.6 K/mm3 (0.7-4.5); Lymphocytes % 13.3 % (10-50); Mean Corpuscular Hemoglobin 30.7 pg (27.0-31.2); Mean Platelet Volume 7.5 fl (7.4-10.4); Monocytes # 0.5 K/mm3 (0.1-1.0); Monocytes % 11.8 % (1.7-9.3); Neutrophils % 68.8 % (37.0-80.0); Platelet Count 248 K/mm3 (142-424); Red Blood Count 3.55 M/mm3 (4.20-5.40); Red Cell Distribution Width 21.1 % (11.5-17.5); White Blood Count 4.3 K/mm3 (4.8-10.8)
[2021-09-08 14:44] LABS: Chloride 103 mmol/L (98-107)
[2021-09-08 14:45] LABS: Potassium 4.6 mmoL/L (3.5-5.1); Sodium 135 mmol/L (136-145)
[2021-09-08 14:47] LABS: Alanine Aminotransferase 19 U/L (12-78); Alkaline Phosphatase 54 U/L (38-126); Aspartate Amino Transferase 28 U/L (14-36); Bilirubin,Total 0.4 mg/dl (0.2-1.3); Blood Urea Nitrogen 8 mg/dl (7-17); Estimated Glomerular Filt Rate 106 ml/min (>60); GFR (African American) 129 ML/MIN (>60)
[2021-09-08 14:48] LABS: Albumin Level 4.5 g/dl (3.5-5.0); Albumin/Globulin Ratio 1.4 (1.1-1.8); Anion Gap 9.6 mEq/L (5-15); Calcium 9.7 mg/dl (8.4-10.2); Carbon Dioxide 27 mmol/L (22.0-30.0); Globulin 3.2 g/dL (1.3-3.2); Glucose 104 mg/dl (74-100); Total Protein,Serum 7.7 g/dl (6.3-8.2)
== END ==
PROVIDERS: PCP Emergency Medicine; Visit Provider Obstetrics & Gynecology Gynecologic Oncology
DX: C54.1 Malignant neoplasm of endometrium (principal)
CPT/HCPCS: 36415; 80053; 85025

== ENCOUNTER → 2021-09-29 09:59 | Outpatient (CLI) | payer MEDICARE, OTHER, SELFPAY ==
[2021-09-29 10:45] LABS: Basophils % 0.8 % (0.1-2.0); Eosinophils # 0.1 K/mm3 (0.0-0.4); Eosinophils % 3.2 % (0.1-12.0); Hematocrit 32.8 % (37.0-47.0); Hemoglobin 10.8 g/dL (12.2-16.2); Lymphocytes # 0.5 K/mm3 (0.7-4.5); Lymphocytes % 18.6 % (10-50); Mean Corpuscular Hemoglobin 31.4 pg (27.0-31.2); Mean Corpuscular Volume 95.1 fl (81-99); Mean Platelet Volume 8.3 fl (7.4-10.4); Monocytes # 0.2 K/mm3 (0.1-1.0); Monocytes % 6.2 % (1.7-9.3); Neutrophils # 2.1 K/mm3 (1.8-7.8); Neutrophils % 71.3 % (37.0-80.0); Platelet Count 217 K/mm3 (142-424); Red Blood Count 3.45 M/mm3 (4.20-5.40); Red Cell Distribution Width 18.7 % (11.5-17.5); White Blood Count 2.9 K/mm3 (4.8-10.8)
[2021-09-29 11:06] LABS: Alanine Aminotransferase 32 U/L (12-78); Albumin Level 4.4 g/dl (3.5-5.0); Albumin/Globulin Ratio 1.5 (1.1-1.8); Alkaline Phosphatase 58 U/L (38-126); Anion Gap 7.3 mEq/L (5-15); Aspartate Amino Transferase 42 U/L (14-36); Bilirubin,Total 0.3 mg/dl (0.2-1.3); Blood Urea Nitrogen 5 mg/dl (7-17); Calcium 9.1 mg/dl (8.4-10.2); Carbon Dioxide 28 mmol/L (22.0-30.0); Chloride 106 mmol/L (98-107); Estimated Glomerular Filt Rate 131 ml/min (>60); GFR (African American) 159 ML/MIN (>60); Glucose 101 mg/dl (74-100); Potassium 4.3 mmoL/L (3.5-5.1); Sodium 137 mmol/L (136-145); Total Protein,Serum 7.4 g/dl (6.3-8.2)
== END ==
PROVIDERS: Visit Provider Obstetrics & Gynecology Gynecologic Oncology
DX: C54.1 Malignant neoplasm of endometrium (principal)
CPT/HCPCS: 36415; 80053; 85025

== ENCOUNTER → 2021-10-06 12:09 | Outpatient (CLI) | payer MEDICARE, OTHER, SELFPAY ==
[2021-10-06 12:59] LABS: Basophils % 2.1 % (0.1-2.0); Eosinophils # 0.1 K/mm3 (0.0-0.4); Eosinophils % 2.3 % (0.1-12.0); Hematocrit 35.4 % (37.0-47.0); Hemoglobin 11.2 g/dL (12.2-16.2); Lymphocytes # 0.6 K/mm3 (0.7-4.5); Lymphocytes % 26.9 % (10-50); Mean Corpuscular HGB Conc 31.7 g/dL (31.8-35.4); Mean Corpuscular Hemoglobin 31.1 pg (27.0-31.2); Mean Corpuscular Volume 98.1 fl (81-99); Mean Platelet Volume 7.8 fl (7.4-10.4); Monocytes # 0.3 K/mm3 (0.1-1.0); Monocytes % 16.2 % (1.7-9.3); Neutrophils # 1.1 K/mm3 (1.8-7.8); Neutrophils % 52.5 % (37.0-80.0); Platelet Count 193 K/mm3 (142-424); Red Blood Count 3.61 M/mm3 (4.20-5.40); Red Cell Distribution Width 18.3 % (11.5-17.5); White Blood Count 2.1 K/mm3 (4.8-10.8)
[2021-10-06 13:24] LABS: Alanine Aminotransferase 29 U/L (12-78); Albumin Level 4.4 g/dl (3.5-5.0); Albumin/Globulin Ratio 1.3 (1.1-1.8); Alkaline Phosphatase 48 U/L (38-126); Anion Gap 7.5 mEq/L (5-15); Aspartate Amino Transferase 36 U/L (14-36); Bilirubin,Total 0.3 mg/dl (0.2-1.3); Blood Urea Nitrogen 8 mg/dl (7-17); Calcium 9.3 mg/dl (8.4-10.2); Carbon Dioxide 28 mmol/L (22.0-30.0); Chloride 106 mmol/L (98-107); Estimated Glomerular Filt Rate 131 ml/min (>60); GFR (African American) 159 ML/MIN (>60); Globulin 3.3 g/dL (1.3-3.2); Glucose 88 mg/dl (74-100); Potassium 4.5 mmoL/L (3.5-5.1); Sodium 137 mmol/L (136-145); Total Protein,Serum 7.7 g/dl (6.3-8.2)
== END ==
PROVIDERS: PCP Family Medicine; Referring Provider Obstetrics & Gynecology Gynecologic Oncology; Visit Provider Obstetrics & Gynecology
DX: C54.1 Malignant neoplasm of endometrium (principal)
CPT/HCPCS: 36415; 80053; 85025

== ENCOUNTER → 2021-10-26 16:06 | Outpatient (CLI) | payer MEDICARE, OTHER, SELFPAY ==
[2021-10-26 17:00] LABS: Eosinophils % 0.5 % (0.1-12.0); Hematocrit 33.1 % (37.0-47.0); Hemoglobin 10.6 g/dL (12.2-16.2); Lymphocytes % 42.2 % (10-50); Mean Corpuscular Hemoglobin 32.8 pg (27.0-31.2); Mean Corpuscular Volume 102.4 fl (81-99); Mean Platelet Volume 8.3 fl (7.4-10.4); Monocytes # 0.5 K/mm3 (0.1-1.0); Monocytes % 23.2 % (1.7-9.3); Neutrophils # 0.8 K/mm3 (1.8-7.8); Platelet Count 210 K/mm3 (142-424); Red Blood Count 3.23 M/mm3 (4.20-5.40); White Blood Count 2.3 K/mm3 (4.8-10.8)
[2021-10-26 17:06] LABS: MANUAL DIFFERENTIAL MANUAL DIFFERENTIAL (MANUAL DIFF)
[2021-10-26 17:42] LABS: Chloride 107 mmol/L (98-107); Potassium 4.5 mmoL/L (3.5-5.1); Sodium 141 mmol/L (136-145)
[2021-10-26 17:44] LABS: Blood Urea Nitrogen 10 mg/dl (7-17); Estimated Glomerular Filt Rate 106 ml/min (>60)
[2021-10-26 17:45] LABS: Alanine Aminotransferase 25 U/L (12-78); Albumin Level 4.4 g/dl (3.5-5.0); Albumin/Globulin Ratio 1.3 (1.1-1.8); Alkaline Phosphatase 57 U/L (38-126); Anion Gap 10.5 mEq/L (5-15); Aspartate Amino Transferase 31 U/L (14-36); Bilirubin,Total 0.2 mg/dl (0.2-1.3); Carbon Dioxide 28 mmol/L (22.0-30.0); GFR (African American) 129 ML/MIN (>60); Globulin 3.3 g/dL (1.3-3.2); Total Protein,Serum 7.7 g/dl (6.3-8.2)
[2021-10-26 17:46] LABS: Glucose 54 mg/dl (74-100)
[2021-10-26 20:47] LABS: Anisocytosis 3+; Lymphocytes % 50 % (10-50); Macrocytosis 1+; Monocytes % 6 % (2-9); Neutrophils % 44 % (42-76); Platelet Estimate Normal; Total Cells Counted 100
== END ==
PROVIDERS: PCP Family Medicine; Referring Provider Obstetrics & Gynecology Gynecologic Oncology; Visit Provider Obstetrics & Gynecology
DX: C54.1 Malignant neoplasm of endometrium (principal)
CPT/HCPCS: 36415; 80053; 85007; 85025

== ENCOUNTER → 2021-11-20 13:47 | Outpatient (CLI) | payer MEDICARE, OTHER, SELFPAY ==
[2021-11-20 14:31] LABS: Basophils % 0.7 % (0.1-2.0); Eosinophils % 0.8 % (0.1-12.0); Hematocrit 30.5 % (37.0-47.0); Lymphocytes # 0.8 K/mm3 (0.7-4.5); Lymphocytes % 34.8 % (10-50); Mean Corpuscular HGB Conc 32.6 g/dL (31.8-35.4); Mean Corpuscular Hemoglobin 32.8 pg (27.0-31.2); Mean Corpuscular Volume 100.6 fl (81-99); Mean Platelet Volume 8.3 fl (7.4-10.4); Monocytes # 0.5 K/mm3 (0.1-1.0); Monocytes % 19.7 % (1.7-9.3); Neutrophils % 44.1 % (37.0-80.0); Platelet Count 162 K/mm3 (142-424); Red Blood Count 3.03 M/mm3 (4.20-5.40); White Blood Count 2.3 K/mm3 (4.8-10.8)
[2021-11-20 14:48] LABS: Chloride 107 mmol/L (98-107); Potassium 4.1 mmoL/L (3.5-5.1); Sodium 141 mmol/L (136-145)
[2021-11-20 14:51] LABS: Alanine Aminotransferase 21 U/L (12-78); Albumin Level 4.1 g/dl (3.5-5.0); Albumin/Globulin Ratio 1.4 (1.1-1.8); Alkaline Phosphatase 51 U/L (38-126); Anion Gap 10.1 mEq/L (5-15); Aspartate Amino Transferase 30 U/L (14-36); Bilirubin,Total 0.3 mg/dl (0.2-1.3); Blood Urea Nitrogen 10 mg/dl (7-17); Carbon Dioxide 28 mmol/L (22.0-30.0); Estimated Glomerular Filt Rate 106 ml/min (>60); GFR (African American) 129 ML/MIN (>60); Globulin 2.9 g/dL (1.3-3.2)
[2021-11-20 14:52] LABS: Calcium 8.6 mg/dl (8.4-10.2); Glucose 93 mg/dl (74-100)
== END ==
PROVIDERS: PCP Family Medicine; Referring Provider Obstetrics & Gynecology Gynecologic Oncology; Visit Provider Obstetrics & Gynecology
DX: C54.1 Malignant neoplasm of endometrium (principal)
CPT/HCPCS: 36415; 80053; 85025

== ENCOUNTER → 2022-01-13 10:57 | Outpatient (CLI) | payer MEDICARE, OTHER, SELFPAY ==
[2022-01-13 11:27] LABS: Basophils # 0.1 K/mm3 (0-0.2); Basophils % 2.2 % (0.1-2.0); Eosinophils # 0.5 K/mm3 (0.0-0.4); Eosinophils % 8.8 % (0.1-12.0); Hematocrit 35.3 % (37.0-47.0); Hemoglobin 11.6 g/dL (12.2-16.2); Lymphocytes # 0.9 K/mm3 (0.7-4.5); Lymphocytes % 16.4 % (10-50); Mean Corpuscular HGB Conc 32.7 g/dL (31.8-35.4); Mean Corpuscular Hemoglobin 33.8 pg (27.0-31.2); Mean Corpuscular Volume 103.2 fl (81-99); Mean Platelet Volume 7.7 fl (7.4-10.4); Monocytes # 0.5 K/mm3 (0.1-1.0); Monocytes % 8.9 % (1.7-9.3); Neutrophils # 3.6 K/mm3 (1.8-7.8); Neutrophils % 63.8 % (37.0-80.0); Platelet Count 285 K/mm3 (142-424); Red Blood Count 3.42 M/mm3 (4.20-5.40); Red Cell Distribution Width 18.6 % (11.5-17.5); White Blood Count 5.6 K/mm3 (4.8-10.8)
[2022-01-13 11:45] LABS: Chloride 104 mmol/L (98-107)
[2022-01-13 11:46] LABS: Potassium 4.7 mmoL/L (3.5-5.1); Sodium 142 mmol/L (136-145)
[2022-01-13 11:48] LABS: Alanine Aminotransferase 19 U/L (12-78); Aspartate Amino Transferase 32 U/L (14-36); Blood Urea Nitrogen 9 mg/dl (7-17); Estimated Glomerular Filt Rate 67 ml/min (>60); GFR (African American) 81 ML/MIN (>60)
[2022-01-13 11:49] LABS: Albumin Level 4.5 g/dl (3.5-5.0); Albumin/Globulin Ratio 1.4 (1.1-1.8); Alkaline Phosphatase 65 U/L (38-126); Anion Gap 11.7 mEq/L (5-15); Bilirubin,Total 0.4 mg/dl (0.2-1.3); Carbon Dioxide 31 mmol/L (22.0-30.0); Globulin 3.2 g/dL (1.3-3.2); Glucose 114 mg/dl (74-100); Total Protein,Serum 7.7 g/dl (6.3-8.2)
== END ==
PROVIDERS: PCP Family Medicine; Referring Provider Obstetrics & Gynecology Gynecologic Oncology; Visit Provider Obstetrics & Gynecology
DX: C54.1 Malignant neoplasm of endometrium (principal)
CPT/HCPCS: 36415; 80053; 85025

== ENCOUNTER → 2022-01-26 14:49 | Outpatient (CLI) | payer MEDICARE, OTHER, SELFPAY ==
[2022-01-26 16:24] LABS: Basophils % 0.7 % (0.1-2.0); Eosinophils # 0.1 K/mm3 (0.0-0.4); Eosinophils % 4.1 % (0.1-12.0); Hematocrit 33.4 % (37.0-47.0); Lymphocytes # 0.7 K/mm3 (0.7-4.5); Lymphocytes % 21.7 % (10-50); Mean Corpuscular HGB Conc 32.9 g/dL (31.8-35.4); Mean Corpuscular Hemoglobin 33.7 pg (27.0-31.2); Mean Corpuscular Volume 102.4 fl (81-99); Mean Platelet Volume 7.8 fl (7.4-10.4); Monocytes # 0.4 K/mm3 (0.1-1.0); Monocytes % 11.9 % (1.7-9.3); Neutrophils # 2.1 K/mm3 (1.8-7.8); Neutrophils % 61.6 % (37.0-80.0); Platelet Count 206 K/mm3 (142-424); Red Blood Count 3.26 M/mm3 (4.20-5.40); Red Cell Distribution Width 17.5 % (11.5-17.5); White Blood Count 3.4 K/mm3 (4.8-10.8)
[2022-01-26 16:31] LABS: Alanine Aminotransferase 26 U/L (12-78); Albumin/Globulin Ratio 1.2 (1.1-1.8); Alkaline Phosphatase 63 U/L (38-126); Anion Gap 10.2 mEq/L (5-15); Aspartate Amino Transferase 39 U/L (14-36); Blood Urea Nitrogen 12 mg/dl (7-17); Calcium 9.3 mg/dl (8.4-10.2); Carbon Dioxide 28 mmol/L (22.0-30.0); Chloride 103 mmol/L (98-107); Estimated Glomerular Filt Rate 89 ml/min (>60); GFR (African American) 108 ML/MIN (>60); Globulin 3.4 g/dL (1.3-3.2); Glucose 100 mg/dl (74-100); Potassium 4.2 mmoL/L (3.5-5.1); Sodium 137 mmol/L (136-145); Total Protein,Serum 7.4 g/dl (6.3-8.2)
[2022-01-26 16:40] LABS: Bilirubin,Total < 0.1 mg/dl (0.2-1.3)
== END ==
PROVIDERS: PCP Emergency Medicine; Referring Provider Obstetrics & Gynecology Gynecologic Oncology; Visit Provider Obstetrics & Gynecology
DX: C54.1 Malignant neoplasm of endometrium (principal)
CPT/HCPCS: 36415; 80053; 85025

== ENCOUNTER → 2022-02-04 10:59 | Outpatient (POV) | payer MEDICARE, OTHER, SELFPAY ==
[2022-02-04 13:27] VITALS: BP 123/72; PULSE 80; RESP 20; TEMP 36.6; O2SAT 100; BMI 16.6
--- NOTE | 2022-02-04 15:36 | HMH.PMCON ---
Assessment and Plan (1) Postherpetic neuralgia Status: Acute Category: Medical Code(s): B02.29 - Other postherpetic nervous system involvement - Assessment and plan all Dx Assessment and Plan for all problems:: We will schedule the patient for peripheral block for postherpetic neuralgia at right-sided T6-T7 dermatome. Patient has been instructed to contact the clinic with any concerns before the next appointment. Dr. Poe has reviewed this note and agrees with this plan of care. This note was dictated using voice recognition software and make contain errors or omissions. HPI - Data of Consult Patient: new to practice Consult date: 02/04/22 Requesting Physician: BALTA Hernandez - Consult Narrative History of present illness: Ms. Colindres is a 51 year old female who presents today as a new patient. Patient is referred to us for postherpetic neuralgia. Patient is currently being treated for uterine cancer at [facility] and is currently on chemo and radiation. She started to notice blistering rashes several weeks ago. She was treated for shingles by her primary care and has finished her course of antiviral medications. She continues to have pain around her right sided mid thoracic area. Rates her pain as 6 out of 10. For pain, she takes gabapentin 600 mg daily as prescribed by an outside clinic. She states that this medication is somewhat helping her pain. CC: BALTA Hernandez [place] History I have reviewed the patient's past medical history: Yes Medical History: Reports:: Anxiety, Cancer, Depression, Hyperlipidemia, Hypertension Denies:: Diabetes Mellitus Type 2 *Have you ever received a pneumonia vaccine?: No *Have you received a flu vaccine this season?: No Other Medical History: Reports: Arthritis, Fibromyalgia, Hypothyroidism, Other Laterality Cases: Left: Arthroscopy Knee Other Surgeries: Yes: Cancer Surgery, Hysterectomy-Total, Tubal Ligation Amputation: No Fractures: No - *Social History Smoking Status: Current every day smoker Tobacco Type: cigarettes # Packs/Day (cigarettes): 1 Alcohol Intake: never Alcohol Intake Frequency:: holidays/special occasions only Substance Use Type: marijuana *Occupational Status:: other *Travel in the last 8 weeks: None - Psychiatric History Pschychiatric History:: Reports:: Anxiety, Depression Family Hx:: Diabetes, Heart Attack, Hypertension, Hyperlipidemia, Asthma, Anemia, Thyroid Disorder, Stroke, Alcoholism, Coronary Artery Disease Review of Systems - Review of Systems Review of Systems: General: No recent weight changes, no fever, no sleep disturbances Respiratory: No cough, no shortness of air, no recurring pulmonary infections Cardiovascular/peripheral vascular: No chest pain, no palpitations, no edema, no shortness of breath Gastrointestinal: No new onset incontinence, normal bowel movements reported Genitourinary: No new onset incontinence Musculoskeletal: Mid back pain Psychiatric: [Normal mood/affect] Neurological: [Denies weakness in extremities], [denies balance issues] Meds Home Medications Medication Instructions Recorded Confirmed Type albuterol sulfate 90 mcg/actuation 2 puff INHALATION Q6H PRN 03/16/21 02/04/22 History aerosol inhaler ALPRAZolam [Xanax 0.5mg tab] 0.5 mg PO TID 02/04/22 02/04/22 History Duloxetine HCl [Cymbalta] See Rx Instructions .ROUTE .COMPLEX 02/04/22 02/04/22 History Ferrous Sulfate See Rx Instructions .ROUTE .COMPLEX 02/04/22 02/04/22 History Gabapentin 600 mg PO HS 02/04/22 02/04/22 History Levothyroxine Sodium [Synthroid See Rx Instructions .ROUTE .COMPLEX 02/04/22 02/04/22 History 50mcg (0.05mg) tab] Metoprolol Tartrate [Lopressor See Rx Instructions .ROUTE .COMPLEX 02/04/22 02/04/22 History 25mg tablet] Nicotine [Nicotine Patch See Rx Instructions .ROUTE .COMPLEX 02/04/22 02/04/22 History 21mg/24hrs] Omeprazole See Rx Instructions .ROUTE .COMPLEX 02/04/22 02/04/22 History Oxybutynin
== END ==
PROVIDERS: Visit Provider Student in an Organized Health Care Education/Training Program
DX: B02.29 Other postherpetic nervous system involvement (principal); M19.90 Unspecified osteoarthritis, unspecified site; Z72.0 Tobacco use
CPT/HCPCS: 99202; G0463

== ENCOUNTER → 2022-02-09 15:36 | Outpatient (CLI) | payer MEDICARE, OTHER, SELFPAY ==
--- NOTE | 2022-02-09 15:40 | MR_ITS ---
PROCEDURE INFORMATION: Exam: MR Thoracic Spine Without Contrast Exam date and time: 02/09/2022 3:52 PM Age: 51 years old Clinical indication: Pain in thoracic spine; Additional info: Chronic back pain TECHNIQUE: Imaging protocol: Magnetic resonance imaging of the thoracic spine without contrast. COMPARISON: CT CHEST W CON 04/16/2021 12:03 PM FINDINGS: Bones/joints: No acute abnormality. Multiple chronic Schmorl's nodes are noted along the inferior endplate of T7, the superior endplate of T9, the inferior endplate of T11, and the superior endplate of T12. Spinal cord: Normal signal. No cord compression. Discs/Spinal canal/Neural foramina: Mild degenerative changes of the thoracic spine are present. There is a tiny central disc protrusion at T6-7, without significant canal stenosis. A tiny right paracentral disc protrusion is present at T7-8, without significant canal stenosis. At T11-12, there is mild diffuse circumferential disc bulging, without significant canal stenosis. Soft tissues: Unremarkable. Liver: There is a nonspecific 11 mm high T2 signal lesion in the right hepatic lobe, possibly representing a cyst. IMPRESSION: 1. No acute abnormality. 2. Chronic findings as discussed above.
--- NOTE | 2022-02-09 15:40 | MR_ITS ---
PROCEDURE INFORMATION: Exam: MR Cervical Spine Without Contrast Exam date and time: 02/09/2022 3:52 PM Age: 51 years old Clinical indication: Neck pain; Additional info: Chronic back pain. History of uterine cancer. Chemo and radiation 4 months ago. Mid back pain. Shoulder and arm pain. Patient states she has ms. TECHNIQUE: Imaging protocol: Magnetic resonance imaging of the cervical spine without contrast. COMPARISON: CT CHEST W CON 04/16/2021 12:03 PM FINDINGS: Limitations: The study is mildly limited due to patient motion artifact. Bones/joints: No acute fracture is identified. There is reversal of the normal cervical lordosis. There is minor anterolisthesis of C3 on C4 and retrolisthesis of C4 on C5. Spinal cord: The cervical cord is of normal signal intensity and size. C2-C3: Moderate right facet arthropathy is present. There is no spinal canal or neural foraminal stenosis. C3-C4: There is severe right facet arthropathy with fusion of the facets. There is no significant spinal canal or neural foraminal stenosis. C4-C5: There is a shallow broad-based posterior disc osteophyte complex, moderate uncinate spurring, and mild facet arthropathy. This is causing minimal spinal canal stenosis, moderate left foraminal stenosis, and minimal right foraminal stenosis. C5-C6: There is a shallow broad-based posterior disc osteophyte complex, mild uncinate spurring, and mild facet arthropathy. There is no significant spinal canal or neural foraminal stenosis. C6-C7: There is shallow broad-based posterior disc bulging, mild uncinate spurring, thickening of the ligamentum flavum, and mild facet arthropathy. This is causing mild left foraminal stenosis. There is no significant spinal canal or right foraminal stenosis. C7-T1: There is moderate facet arthropathy, more pronounced on the left. This is causing mild left foraminal stenosis. There is no spinal canal or right foraminal stenosis. Soft tissues: The prevertebral soft tissues are within normal limits. Vasculature: The right vertebral artery flow void is absent, concerning for severe slow flow or occlusion. IMPRESSION: 1. Degenerative changes of the cervical spine as discussed above 2. The right vertebral artery flow void is absent, concerning for severe slow flow or occlusion. Further evaluation is recommended.
== END ==
PROVIDERS: PCP Emergency Medicine; Visit Provider Student in an Organized Health Care Education/Training Program
DX: M54.2 Cervicalgia (principal); M54.6 Pain in thoracic spine; M54.50 Low back pain, unspecified
CPT/HCPCS: 72141; 72146; 76376

== ENCOUNTER → 2022-02-16 11:42 | Outpatient (CLI) | payer MEDICARE, OTHER, SELFPAY ==
[2022-02-16 11:56] LABS: Basophils # 0.1 K/mm3 (0-0.2); Eosinophils # 0.2 K/mm3 (0.0-0.4); Eosinophils % 4.5 % (0.1-12.0); Hematocrit 35.1 % (37.0-47.0); Hemoglobin 11.1 g/dL (12.2-16.2); Lymphocytes % 25.8 % (10-50); Mean Corpuscular HGB Conc 31.6 g/dL (31.8-35.4); Mean Corpuscular Hemoglobin 32.7 pg (27.0-31.2); Mean Corpuscular Volume 103.4 fl (81-99); Mean Platelet Volume 9.1 fl (7.4-10.4); Monocytes # 0.5 K/mm3 (0.1-1.0); Neutrophils # 2.3 K/mm3 (1.8-7.8); Neutrophils % 55.7 % (37.0-80.0); Platelet Count 260 K/mm3 (142-424); Red Cell Distribution Width 16.6 % (11.5-17.5)
[2022-02-16 12:19] LABS: Chloride 105 mmol/L (98-107); Potassium 4.4 mmoL/L (3.5-5.1); Sodium 137 mmol/L (136-145)
[2022-02-16 12:21] LABS: Blood Urea Nitrogen 11 mg/dl (7-17); Estimated Glomerular Filt Rate 106 ml/min (>60); GFR (African American) 129 ML/MIN (>60)
[2022-02-16 12:22] LABS: Alanine Aminotransferase 20 U/L (12-78); Albumin Level 4.1 g/dl (3.5-5.0); Albumin/Globulin Ratio 1.3 (1.1-1.8); Alkaline Phosphatase 56 U/L (38-126); Anion Gap 7.4 mEq/L (5-15); Aspartate Amino Transferase 32 U/L (14-36); Bilirubin,Total 0.3 mg/dl (0.2-1.3); Calcium 9.4 mg/dl (8.4-10.2); Carbon Dioxide 29 mmol/L (22.0-30.0); Globulin 3.2 g/dL (1.3-3.2); Glucose 102 mg/dl (74-100); Total Protein,Serum 7.3 g/dl (6.3-8.2)
== END ==
PROVIDERS: PCP Emergency Medicine; Visit Provider Obstetrics & Gynecology
DX: C54.1 Malignant neoplasm of endometrium (principal)
CPT/HCPCS: 36415; 80053; 85025

== ENCOUNTER → 2022-02-19 14:30 | Outpatient (CLI) | payer MEDICARE, OTHER, SELFPAY ==
--- NOTE | 2022-02-19 14:33 | MR_ITS ---
FINAL REPORT CLINICAL HISTORY: CHRONIC BACK PAIN. LOW BACK PAIN. History of uterine cancer. bilateral leg pain. FINDINGS: Multiplanar MR imaging of the lumbar spine was performed without contrast. On the sagittal T2-weighted images, there is abnormal signal at the L5-S1 disc space. There is a prominent S1-2 disc. The vertebrae are of normal height. The vertebral alignment is normal. L1-2: There is no significant canal stenosis or neural foraminal narrowing. L2-3: There is no significant canal stenosis or neural foraminal narrowing. L3-4: There is no significant canal stenosis or neural foraminal narrowing. L4-5: There is no significant canal stenosis or neural foraminal narrowing. L5-S1: Moderate diffuse disc bulge and endplate hypertrophy are present. There is moderate bilateral neural foraminal narrowing. S1-2: There is no significant canal stenosis or neural foraminal narrowing. IMPRESSION: Moderate diffuse disc bulge at L5-S1 with endplate hypertrophy and moderate bilateral neural foraminal narrowing. Reviewed, Interpreted and Dictated by Gustavo Franco MD Transcribed by Lida Bhatt Authenticated and [facility]
== END ==
PROVIDERS: PCP Emergency Medicine; Visit Provider Student in an Organized Health Care Education/Training Program
DX: M54.2 Cervicalgia (principal); M54.6 Pain in thoracic spine; M54.50 Low back pain, unspecified
CPT/HCPCS: 72148; 76376

== ENCOUNTER → 2022-02-22 10:48 | Outpatient (POV) | payer MEDICARE, OTHER, SELFPAY ==
[2022-02-22 11:35] VITALS: BP 112/51; PULSE 70; RESP 20; TEMP 36.6; O2SAT 99; BMI 17.9
--- NOTE | 2022-02-22 14:49 | HMH.PAINSOAP ---
[facility] Pain Management SOAP Note Subjective:: Patient is a pleasant 51-year-old female who presents today for follow-up. Patient is currently being treated for postherpetic neuralgia, chronic neck, mid back, low back pain. Patient is also being treated for uterine cancer at ; she has a follow-up with them in March. When we last saw this patient, she just finished her antivirals for shingles. I started her on a compounding cream and schedule the patient for a peripheral block for postherpetic neuralgia right-sided T6-T7 dermatome. She was not able to make it to her appointment however, patient states that she has been using the compounding cream and it has been helping significantly. Additionally, patient presents today to discuss her cervical, thoracic, and lumbar MRI. She is also having pain around her right upper buttock that radiates around her right leg. She cannot tolerate any prolonged activity such as sitting, standing, and walking. She rates her pain today as 8 out of 10. She takes gabapentin 600 mg daily for pain. Joe [phone] with an active morphine equivalent of 0. Review of Systems: General: No recent weight changes, no fever, no sleep disturbances Respiratory: No cough, no shortness of air, no recurring pulmonary infections Cardiovascular/peripheral vascular: No chest pain, no palpitations, no edema, no shortness of breath Gastrointestinal: No new onset incontinence, normal bowel movements reported Genitourinary: No new onset incontinence Musculoskeletal: Neck pain, mid back pain, low back pain, right hip pain Psychiatric: [Normal mood/affect] Neurological: [Denies weakness in extremities], [denies balance issues] Objective:: Physical Exam: General: Alert and oriented x3, no acute distress, pleasant and cooperative Lungs: Respirations even and unlabored, symmetrical chest expansion Eyes: PERRL Musculoskeletal: Flexion and extension of cervical, thoracic, lumbar [spine] somewhat guarded secondary to pain, [antalgic gait noted]; right SI is positive for ZITA, Wily's, [place]'s, Gaenslen's, compression, and distraction. Tender to palpation around the right greater trochanteric bursa Neurological: Speech clear, no gross sensory deficit Assessment:: Chronic neck, mid back, low back pain, sacroiliitis, greater trochanteric bursitis, uterine cancer Plan:: Imaging: Cervical MRI FINDINGS: Limitations: The study is mildly limited due to patient motion artifact. Bones/joints: No acute fracture is identified. There is reversal of the normal cervical lordosis. There is minor anterolisthesis of C3 on C4 and retrolisthesis of C4 on C5. Spinal cord: The cervical cord is of normal signal intensity and size. C2-C3: Moderate right facet arthropathy is present. There is no spinal canal or neural foraminal stenosis. C3-C4: There is severe right facet arthropathy with fusion of the facets. There is no significant spinal canal or neural foraminal stenosis. C4-C5: There is a shallow broad-based posterior disc osteophyte complex, moderate uncinate spurring, and mild facet arthropathy. This is causing minimal spinal canal stenosis, moderate left foraminal stenosis, and minimal right foraminal stenosis. C5-C6: There is a shallow broad-based posterior disc osteophyte complex, mild uncinate spurring, and mild facet arthropathy. There is no significant spinal canal or neural foraminal stenosis. C6-C7: There is shallow broad-based posterior disc bulging, mild uncinate spurring, thickening of the ligamentum flavum, and mild facet arthropathy. This is causing mild left foraminal stenosis. There is no significant spinal canal or right foraminal stenosis. C7-T1: There is moderate facet arthropathy, more pronounced on the left. This is causing mild left foraminal stenosis. There is no spinal canal or right foraminal stenosis. Soft tissues: The prevertebral soft tissues are within normal limits.
== END ==
PROVIDERS: Visit Provider Student in an Organized Health Care Education/Training Program
DX: M46.1 Sacroiliitis, not elsewhere classified (principal); M70.60 Trochanteric bursitis, unspecified hip; M54.2 Cervicalgia; M54.50 Low back pain, unspecified; G89.29 Other chronic pain; C55 Malignant neoplasm of uterus, part unspecified
CPT/HCPCS: 99212; G0463

== ENCOUNTER 2022-03-02 11:44 | Day surgery (SDC) | payer MEDICARE, OTHER, SELFPAY ==
[2022-03-02 12:00] VITALS: BP 112/71; PULSE 63; RESP 20; TEMP 36.4; O2SAT 99; BMI 17.6
[2022-03-02 12:03] VITALS: BP 113/42; PULSE 61; RESP 20
[2022-03-02 12:13] VITALS: BP 98/57; PULSE 50; RESP 17; O2SAT 99
--- NOTE | 2022-03-02 12:39 | HMH.PMPROC ---
- Procedure Date: 03/02/22 Time: 12:39 Anesthesiologist:: Frantz Leger CRNA Complications:: None Pre-procedure Diagnosis:: Right sacroiliitis. Post-procedure Diagnosis:: Same Indications for Procedure:: This patient is a pleasant 51-year-old female that presents to our injection clinic today for a scheduled right since SI joint injection as well as right trochanteric bursa injection. However, patient informs me she is not having any pain over the right trochanteric bursa. Her only complaint is the right SI joint area. She has extreme point tenderness over the right SI joint. She rates the pain 9/10. She describes pain as constant, dull, intermittent, constant. Patient reports it depends on what she is doing. She has difficulty transitioning from the sitting position to the standing position. Procedure Details:: Procedure: Right sacroliliac joint injection under fluoroscopy Informed consent was obtained and the risk and benefits of the procedure were explained to the patient.~ The patient was taken to the procedure room and noninvasive monitors were placed including noninvasive blood pressure cuff and pulse oximeter.~ The patient was placed prone on the procedure table.~ The~ right hip was cleansed using Betadine as a cleansing solution.~ C-arm fluorosocpy was used to view the right SI joint.~ The skin and subcutaneous tissues were anesthetized using Lidocaine 1.5% and a 25-gauge needle.~ After this, a 22-gauge spinal needle was inserted under fluoroscopic guidance into the inferior aspect of the right SI joint.~ Omnipaque dye was injected and a good spread was seen throughout the joint.~ After this, approximately 5 mL of bupivacaine 0.25% and Depo-Medrol 40 mg was incrementally injected into the sacroiliac joint.~ The patient tolerated the procedure well with no complications.~ The patient was observed in the Pain Clinic, then discharged home neurologically intact.~ Plan and Disposition:: Patient was discharged without incident.
== END 2022-03-02 12:14 | disposition home or self-care (01) ==
LOC: SC.PAINP 11:44
PROVIDERS: PCP Family Medicine; Visit Provider Nurse Anesthetist, Certified Registered
DX: M46.1 Sacroiliitis, not elsewhere classified (principal); M53.3 Sacrococcygeal disorders, not elsewhere classified; M70.61 Trochanteric bursitis, right hip
CPT/HCPCS: 27096; G0260; J1040

== ENCOUNTER → 2022-03-11 17:18 | Outpatient (CLI) | payer MEDICARE, OTHER, SELFPAY ==
--- NOTE | 2022-03-11 17:18 | MR_ITS ---
PROCEDURE INFORMATION: Exam: MRA Head Without Contrast; Arteriography Exam date and time: 03/11/2022 5:42 PM Age: 51 years old Clinical indication: Pain; Headache; Additional info: Abnormal vertebral artery. Abnormal mri. Right arm pain and numbness. Right sided neck pain. TECHNIQUE: Imaging protocol: Magnetic resonance angiography head without contrast. Naua-bg-fulmhr (TOF) technique was utilized for this exam. Exam focused on the arteries. COMPARISON: MR CERVICAL SPINE WO CON 02/09/2022 3:52 PM FINDINGS: ANTERIOR CIRCULATION: Right internal carotid artery: Intracranial segment is patent with no significant stenosis. No aneurysm. Right middle cerebral artery: No occlusion or significant stenosis. No aneurysm. Right anterior cerebral artery: No occlusion or significant stenosis. No aneurysm. Left internal carotid artery: Intracranial segment is patent with no significant stenosis. No aneurysm. Left middle cerebral artery: No occlusion or significant stenosis. No aneurysm. Left anterior cerebral artery: No occlusion or significant stenosis. No aneurysm. POSTERIOR CIRCULATION: Right vertebral artery: Non dominant. No occlusion or significant stenosis. No aneurysm. Left vertebral artery: Dominant. No occlusion or significant stenosis. No aneurysm. Basilar artery: No occlusion or significant stenosis. No aneurysm. Right posterior cerebral artery: No occlusion or significant stenosis. No aneurysm. Left posterior cerebral artery: No occlusion or significant stenosis. No aneurysm. Right posterior communicating artery: Right posterior communicating artery is prominent. Left posterior communicating artery: The left posterior communicating artery appears hypoplastic. IMPRESSION: 1. 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 2. Otherwise unremarkable MRA of the [id number].
--- NOTE | 2022-03-11 17:18 | MR_ITS ---
PROCEDURE INFORMATION: Exam: MRA Neck Without Contrast Exam date and time: 03/11/2022 5:42 PM Age: 51 years old Clinical indication: Pain; Headache; Additional info: Abnormal vertebral artery TECHNIQUE: Imaging protocol: Magnetic resonance angiography of the neck without contrast. Xskv-ex-hzbgwt (TOF) technique was utilized for this exam. COMPARISON: MR CERVICAL SPINE WO CON 02/09/2022 3:52 PM FINDINGS: Right common carotid artery: No stenosis. No dissection or occlusion. Right internal carotid artery: No stenosis of the extracranial segment. No dissection or occlusion. Right external carotid artery: No stenosis. No dissection or occlusion of the origin. Right vertebral artery: Absent. Either hypoplastic or occluded. Left common carotid artery: No stenosis. No dissection or occlusion. Left internal carotid artery: No stenosis of the extracranial segment. No dissection or occlusion. Left external carotid artery: No stenosis. No dissection or occlusion of the origin. Left vertebral artery: No stenosis. No dissection or occlusion. IMPRESSION: 1. 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 2. MRA of the neck is otherwise unremarkable. REFERENCES: NASCET CRITERIA. The degree of internal carotid artery stenosis is based on NASCET criteria. Normal is no stenosis. Mild is less than 50% stenosis. Moderate is 50-69% stenosis. Severe is 70% to 99% stenosis. Total occlusion is no detectable patent lumen.
== END ==
PROVIDERS: PCP Family Medicine; Visit Provider Family Medicine
DX: G45.0 Vertebro-basilar artery syndrome (principal)
CPT/HCPCS: 70544; 70547

== ENCOUNTER → 2022-03-12 16:21 | Outpatient (CLI) | payer MEDICARE, OTHER, SELFPAY ==
[2022-03-12 16:59] LABS: Basophils % 0.6 % (0.1-2.0); Eosinophils # 0.1 K/mm3 (0.0-0.4); Eosinophils % 2.6 % (0.1-12.0); Hematocrit 36.7 % (37.0-47.0); Hemoglobin 11.2 g/dL (12.2-16.2); Lymphocytes # 0.6 K/mm3 (0.7-4.5); Lymphocytes % 10.5 % (10-50); Mean Corpuscular HGB Conc 30.6 g/dL (31.8-35.4); Mean Corpuscular Hemoglobin 32.3 pg (27.0-31.2); Mean Corpuscular Volume 105.5 fl (81-99); Mean Platelet Volume 8.3 fl (7.4-10.4); Monocytes # 0.5 K/mm3 (0.1-1.0); Neutrophils # 4.1 K/mm3 (1.8-7.8); Neutrophils % 77.3 % (37.0-80.0); Platelet Count 233 K/mm3 (142-424); Red Blood Count 3.48 M/mm3 (4.20-5.40); Red Cell Distribution Width 15.8 % (11.5-17.5); White Blood Count 5.3 K/mm3 (4.8-10.8)
[2022-03-12 17:21] LABS: Alanine Aminotransferase 22 U/L (12-78); Albumin Level 4.3 g/dl (3.5-5.0); Albumin/Globulin Ratio 1.4 (1.1-1.8); Alkaline Phosphatase 66 U/L (38-126); Anion Gap 7.8 mEq/L (5-15); Aspartate Amino Transferase 33 U/L (14-36); Blood Urea Nitrogen 16 mg/dl (7-17); Calcium 9.4 mg/dl (8.4-10.2); Carbon Dioxide 29 mmol/L (22.0-30.0); Chloride 105 mmol/L (98-107); Estimated Glomerular Filt Rate 106 ml/min (>60); GFR (African American) 129 ML/MIN (>60); Glucose 119 mg/dl (74-100); Potassium 3.8 mmoL/L (3.5-5.1); Sodium 138 mmol/L (136-145); Total Protein,Serum 7.3 g/dl (6.3-8.2)
[2022-03-12 17:26] LABS: Bilirubin,Total < 0.1 mg/dl (0.2-1.3)
== END ==
PROVIDERS: Obstetrics & Gynecology; PCP Emergency Medicine; Visit Provider Obstetrics & Gynecology Gynecologic Oncology
DX: C54.1 Malignant neoplasm of endometrium (principal)
CPT/HCPCS: 36415; 80053; 85025

== ENCOUNTER → 2022-03-16 11:17 | Outpatient (POV) | payer MEDICARE, OTHER, SELFPAY ==
[2022-03-16 11:49] VITALS: BP 123/63; PULSE 61; RESP 20; TEMP 36.4; O2SAT 100; BMI 17.4
--- NOTE | 2022-03-16 12:13 | HMH.PAINSOAP ---
[facility] Pain Management SOAP Note Subjective:: Patient is a pleasant 51-year-old female who presents today for follow-up for right SI joint injection on 03/02/2022. Patient is currently being treated for postherpetic neuralgia, chronic neck, mid back, low back pain, sacroiliitis. Patient states that she did get some relief from this injection. She states that she got about 40%'s improvements lasting a couple days. Today she rates her pain a 8 out of 10. She states her pain is in her low back radiating to her bilateral extremities as well as her neck, shoulders radiating to bilateral arms. She states that this is a constant aching, sharp, numbness sensation that is worse with increased activity. She cannot tolerate any prolonged activity such as sitting, standing, or walking. Patient states normal activities of daily living such as blow drying her hair or getting items from the cabinets are unbearable with numbness and pain that radiates into her arms. Patient states she does take gabapentin 300 mg during the day and 600 mg at night. She denies any side effects from this medication. She states this medication does help her pain symptoms. Patient has also used [id number] Tylenol with minimal improvement. She states she has used topical creams such as Aspercreme, lidocaine patches and most recently her compounding cream that she was prescribed for shingles. Patient denies any new trauma or injury to the site. She denies any change to the location or type of pain she experiences. Her Joe is [phone]. It has been reviewed and is appropriate. Patient is also being treated for uterine cancer at ; she has a follow-up with them in March. Review of Systems: General: No recent weight changes, no fever, no sleep disturbances Respiratory: No cough, no shortness of air, no recurring pulmonary infections Cardiovascular/peripheral vascular: No chest pain, no palpitations, no edema, no shortness of breath Gastrointestinal: No new onset incontinence, normal bowel movements reported Genitourinary: No new onset incontinence Musculoskeletal: Neck pain, mid back pain, low back pain, right hip pain, shoulder pain Psychiatric: [Normal mood/affect] Neurological: [Denies weakness in extremities], [denies balance issues] Objective:: Physical Exam: General: Alert and oriented x3, no acute distress, pleasant and cooperative Lungs: Respirations even and unlabored, symmetrical chest expansion Eyes: PERRL Musculoskeletal: Flexion and extension of cervical, thoracic, lumbar [spine] somewhat guarded secondary to pain, [antalgic gait noted]; point tenderness along cervical spine and right shoulder. Tender to palpation around the lumbar spine and right greater trochanteric bursa Neurological: Speech clear, no gross sensory deficit Imaging: Cervical MRI FINDINGS: Limitations: The study is mildly limited due to patient motion artifact. Bones/joints: No acute fracture is identified. There is reversal of the normal cervical lordosis. There is minor anterolisthesis of C3 on C4 and retrolisthesis of C4 on C5. Spinal cord: The cervical cord is of normal signal intensity and size. C2-C3: Moderate right facet arthropathy is present. There is no spinal canal or neural foraminal stenosis. C3-C4: There is severe right facet arthropathy with fusion of the facets. There is no significant spinal canal or neural foraminal stenosis. C4-C5: There is a shallow broad-based posterior disc osteophyte complex, moderate uncinate spurring, and mild facet arthropathy. This is causing minimal spinal canal stenosis, moderate left foraminal stenosis, and minimal right foraminal stenosis. C5-C6: There is a shallow broad-based posterior disc osteophyte complex, mild uncinate spurring, and mild facet arthropathy. There is no significant spinal canal or neural foraminal stenosis. C6-C7: There is shallow broad-based posterior disc bulging, mild uncinate
== END ==
PROVIDERS: PCP Emergency Medicine; Visit Provider Nurse Anesthetist, Certified Registered
DX: M50.123 Cervical disc disorder at C6-C7 level with radiculopathy (principal); M46.1 Sacroiliitis, not elsewhere classified; C55 Malignant neoplasm of uterus, part unspecified; G89.3 Neoplasm related pain (acute) (chronic)
CPT/HCPCS: 99212; G0463

== ENCOUNTER 2022-03-26 10:50 | Day surgery (SDC) | payer MEDICARE, OTHER, SELFPAY ==
[2022-03-26 10:59] VITALS: BP 110/58; PULSE 68; TEMP 36.4; O2SAT 98; BMI 17.4
--- NOTE | 2022-03-26 11:21 | HMH.PMPROC ---
- Procedure Date: 03/26/22 Time: 11:21 Anesthesiologist:: Frantz Leger CRNA Complications:: None Pre-procedure Diagnosis:: Degenerative disc disease cervical spine multilevels. Cervical disc bulge multilevel. Cervical radiculopathy. Post-procedure Diagnosis:: Same. Indications for Procedure:: This patient is a pleasant 51-year-old female that comes our injection clinic today for a cervical epidural steroid injection. She complains of cervical neck pain. Cervical radicular symptoms bilateral arms. She rates her pain 7/10. Procedure Details:: Procedure:Cervical epidural steroid injection Informed consent was obtained and the risks and benefits of the procedure were explained to the patient. The patient was taken to the procedure room and noninvasive monitors placed, including noninvasive blood pressure cuff and pulse oximeter. The neck was prepped using Betadine as a cleansing solution. The C6-C7 interspace was palpated. The skin and subcutaneous tissues were anesthetized using lidocaine 1.5% and a 25-gauge needle. After this an 18-gauge Touhy epidural needle was placed into the C6-C7 interspace and advanced using loss of resistance to air until the epidural space was encountered. After confirmation of needle placement in the epidural space, a solution containing lidocaine 1.5%, 4 mL and Depo-Medrol 80 mg was incrementally injected into the cervical epidural space.~ The patient tolerated the procedure well with no complications. The patient was observed in the Pain Clinic and then discharged home neurologically intact. Plan and Disposition:: Patient was discharged without incident.
[2022-03-26 11:22] VITALS: BP 117/65; PULSE 70; RESP 18; O2SAT 97
== END 2022-03-26 11:23 | disposition home or self-care (01) ==
LOC: SC.PAINP 10:50
PROVIDERS: PCP Emergency Medicine; Visit Provider Nurse Anesthetist, Certified Registered
DX: M50.123 Cervical disc disorder at C6-C7 level with radiculopathy (principal)
CPT/HCPCS: 62321; J1040

== ENCOUNTER 2022-06-18 10:34 | Emergency (ER) | payer MEDICARE, OTHER, SELFPAY ==
[2022-06-18] VITALS (8 sets, daily range): BP systolic 105–140; BP diastolic 65–89; PULSE 58–85; RESP 10–24; TEMP 36.8; O2SAT 97–100; BMI 17.3
--- NOTE | 2022-06-18 10:34 | ECG_ITS ---
APPROVED REPORT Exam: Resting ECG HR:83 bpm ECG Measurements Heart Rate 83 AXES CO 161 P 78 QRSd 68 QRS 70 QT 332 T 79 QTc 372 Conclusion SINUS RHYTHM NORMAL ECG UNCONFIRMED REPORT Electronically signed by : Carlos Reynoso MD 06/18/2022 19:59:16
--- NOTE | 2022-06-18 10:48 | XR_ITS ---
FINAL REPORT CLINICAL HISTORY: CHEST PAIN FINDINGS: SINGLE-VIEW CHEST The heart size is normal. The mediastinum is normal. The lungs are clear. There is no pneumothorax. IMPRESSION: No acute cardiopulmonary process. Reviewed, Interpreted and Dictated by Gustavo Franco MD Transcribed by Lida Bhatt Authenticated and . [facility]
--- NOTE | 2022-06-18 10:49 | PC.NURSE ---
PT STATES SHE IS NOT ALLOWED TO TAKE ASA
[2022-06-18 10:57] LABS: Chloride 99 mmol/L (98-107); Potassium 4.6 mmoL/L (3.5-5.1); Sodium 140 mmol/L (136-145)
--- NOTE | 2022-06-18 10:57 | CT_ITS ---
FINAL REPORT TECHNIQUE: Thin section axial CT images were performed from the lung apices to the upper abdomen after the administration of IV contrast. 3-D and MIP reconstructions performed. This study was performed with techniques to keep radiation doses as low as reasonably achievable (ALARA). Individualized dose reduction techniques using automated exposure control or adjustment of mA and/or kV according to the patient''s size were employed. CLINICAL HISTORY: concern for PE, sob, chest pain FINDINGS: There is no evidence for pulmonary embolism. The thoracic aorta is patent without evidence of dissection. There is no axillary adenopathy. There is no mediastinal or hilar adenopathy. The heart size is normal. There is no pleural or pericardial effusion. Lung window images demonstrate no suspicious pulmonary nodule or infiltrate. There is a calcified granuloma in the lingula. There is mild central lobular emphysema in the lung apices. Limited images of the upper abdomen are unremarkable. IMPRESSION: No evidence of pulmonary embolism or aortic dissection. Reviewed, Interpreted and Dictated by Gustavo Franco MD Transcribed by Orlando Brock Authenticated and [facility]
[2022-06-18 11:00] LABS: Anion Gap 13.6 mEq/L (5-15); Blood Urea Nitrogen 14 mg/dl (7-17); Carbon Dioxide 32 mmol/L (22.0-30.0); Creatinine Clearance Estimated 72 mL/min (50-200); Estimated Glomerular Filt Rate 89 ml/min (>60); GFR (African American) 108 ML/MIN (>60); Glucose 95 mg/dl (74-100)
[2022-06-18 11:08] LABS: Basophils # 0.1 K/mm3 (0-0.2); Basophils % 1.1 % (0.1-2.0); Eosinophils # 0.2 K/mm3 (0.0-0.4); Eosinophils % 3.7 % (0.1-12.0); Hemoglobin 12.7 g/dL (12.2-16.2); Lymphocytes % 19.9 % (10-50); Mean Corpuscular HGB Conc 31.1 g/dL (31.8-35.4); Mean Corpuscular Hemoglobin 29.7 pg (27.0-31.2); Mean Corpuscular Volume 95.6 fl (81-99); Mean Platelet Volume 7.3 fl (7.4-10.4); Monocytes # 0.5 K/mm3 (0.1-1.0); Monocytes % 9.5 % (1.7-9.3); Neutrophils # 3.3 K/mm3 (1.8-7.8); Neutrophils % 65.8 % (37.0-80.0); Platelet Count 314 K/mm3 (142-424); Red Blood Count 4.29 M/mm3 (4.20-5.40)
[2022-06-18 11:13] LABS: Troponin I < 0.01 ng/ml (0.00-0.034)
--- NOTE | 2022-06-18 12:13 | HMH.EDCP ---
Discharge Plan Disposition Patient Disposition: Home, Self-Care Condition: Good Prescriptions Prescriptions: No Action albuterol sulfate [ProAir HFA] 90 mcg/actuation HFA aerosol inhaler 2 puff IH Q6H PRN (Reason: soa) dronabinol 5 mg capsule 5 mg PO PRN alprazolam 1 mg tablet 1 mg PO TID PRN (Reason: anxiety) Qty: 90 0RF cefdinir 300 mg capsule 300 mg PO BID 10 Days Qty: 20 0RF Myrbetriq 50 mg tablet extended release 24 hr 50 mg PO DAILY Qty: 30 3RF meloxicam 15 mg tablet 15 mg PO DAILY PRN (Reason: jaw pain) Qty: 30 2RF methylprednisolone [Medrol (Russel)] 4 mg tablets,dose pack See Rx Instructions PO PER PKG DIR Qty: 21 0RF Rx Instructions: PO PER PKG DIR gabapentin 600 mg tablet 600 mg PO HS Qty: 30 0RF hydroxyzine pamoate 25 mg capsule See Rx Instructions .ROUTE .COMPLEX Qty: 90 5RF Dose Instruction: TAKE ONE CAPSULE BY MOUTH THREE TIMES DAILY MAY CAUSE DROWSINESS Rx Instructions: TAKE ONE CAPSULE BY MOUTH THREE TIMES DAILY MAY CAUSE DROWSINESS cyclobenzaprine 10 mg tablet See Rx Instructions .ROUTE .COMPLEX Qty: 90 5RF Dose Instruction: TAKE ONE TABLET BY MOUTH THREE TIMES DAILY MAY CAUSE DROWSINESS Rx Instructions: TAKE ONE TABLET BY MOUTH THREE TIMES DAILY MAY CAUSE DROWSINESS oxybutynin chloride 10 MG tablet extended release 24 hr See Rx Instructions .Route .COMPLEX Rx Instructions: Take one tablet by mouth daily omeprazole 40 MG capsule,delayed release(DR/EC) See Rx Instructions .Route .COMPLEX Rx Instructions: Take one capsule by mouth daily levothyroxine 50 MCG tablet See Rx Instructions .Route .COMPLEX Rx Instructions: Take one tablet by mouth every morning ferrous sulfate 325 MG tablet See Rx Instructions .Route .COMPLEX Rx Instructions: Take one tablet by mouth daily nicotine 1 EACH patch 24 hour See Rx Instructions .Route .COMPLEX Rx Instructions: APPLY 1 PATCH TOPICALLY 1 TIME EACH DAY AT THE SAME TIME metoprolol tartrate 25 MG tablet See Rx Instructions .Route .COMPLEX Rx Instructions: Take one tablet by mouth twice daily duloxetine 60 MG capsule,delayed release(DR/EC) See Rx Instructions .Route .COMPLEX Rx Instructions: Take one capsule by mouth daily Referrals Follow up/Referrals: Isaiah Bonilla MD [Primary Care Provider] - See instructions Clinical Impressions Clinical Impression: Chest pain Instructions Patient Instructions: DI for Atypical Chest Pain Discharge ED Provider: Jeff Dominguez Chest Pain HPI General Chief Complaint: Chest Pain Stated Complaint: chest pain Time Seen by Provider: 06/18/22 10:40 Mode of Arrival: Ambulatory Source of Information: Patient Limitations: No Limitations Description of Symptoms (Recalled from ER Triage Doc. by RN): c/o left sided chest pain that goes down her side, soa and states that taking a deep breath makes the pain worse, symptoms started yesterday History of Present Illness HPI narrative: Patient is a 51-year-old female with a past medical history of uterine cancer status post resection currently undergoing chemotherapy cycles who presents with left-sided chest pain. She says that her symptoms started yesterday. They have been getting progressively worse. She locates her symptoms on the left side of her chest. It does not radiate from that area. She says it is worse when she takes a deep breath and better when she takes shallow breaths. She denies any shortness of breath. No history of blood clot. No leg swelling. Denies any fever or chills. She does have sputum production but denies any changes in it. Denies any numbness or tingling into her jaw or extremities. Denies any nausea or diaphoresis. Related Data Home Medications Medication Instructions Recorded Confirmed albuterol sulfate 90 mcg/actuation 2 puff inhalation Q6
--- NOTE | 2022-06-18 12:50 | PC.NURSE ---
contacting rad to check on status of Ct results.
== END 2022-06-18 14:20 | disposition home or self-care (01) ==
PROVIDERS: Emergency Provider Student in an Organized Health Care Education/Training Program; PCP Emergency Medicine
DX: R07.9 Chest pain, unspecified (principal); R06.02 Shortness of breath; C54.1 Malignant neoplasm of endometrium; Z98.51 Tubal ligation status; Z79.899 Other long term (current) drug therapy; F41.9 Anxiety disorder, unspecified; F32.A Depression, unspecified; E03.9 Hypothyroidism, unspecified; Z72.0 Tobacco use
CPT/HCPCS: 71045; 71275; 80048; 84484; 85025; 93005; 99285; Q9967

== ENCOUNTER 2022-07-16 13:32 | Emergency (ER) | payer MEDICARE, OTHER, SELFPAY ==
[2022-07-16 14:00] VITALS: BP 127/59; PULSE 83; RESP 16; TEMP 37; O2SAT 97; BMI 17.3
--- NOTE | 2022-07-16 14:16 | XR_ITS ---
FINAL REPORT CLINICAL HISTORY: CONGESTION, h/o pleurisy, c/o rt side chest pain COMPARISON: 06/18/2022 FINDINGS: Two views of the chest were obtained. The heart size and pulmonary vascularity are within normal limits. The mediastinum is normal. No acute pulmonary abnormality is identified. There is no pneumothorax. The bony thorax is intact. IMPRESSION: No active cardiopulmonary disease. Reviewed, Interpreted and Dictated by Donell Treadwell III, MD Transcribed by Lida Bhatt Authenticated and [facility]
--- NOTE | 2022-07-16 15:16 | EXP.UTC ---
Discharge Plan Disposition Patient Disposition: Home, Self-Care Condition: Good Prescriptions Prescriptions: New benzonatate [benzonatate] 100 mg capsule 100 mg PO TIDP PRN (Reason: Cough) Qty: 30 0RF methylprednisolone 4 mg Tablets,Dose Pack 4 mg PO DIRECTED Qty: 21 0RF cefdinir 300 mg capsule 300 mg PO BID Qty: 20 0RF No Action albuterol sulfate [ProAir HFA] 90 mcg/actuation HFA aerosol inhaler 2 puff IH Q6H PRN (Reason: soa) dronabinol 5 mg capsule 5 mg PO PRN Myrbetriq 50 mg tablet extended release 24 hr 50 mg PO DAILY Qty: 30 3RF meloxicam 15 mg tablet 15 mg PO DAILY PRN (Reason: jaw pain) Qty: 30 2RF cetirizine [Zyrtec] 10 mg tablet 10 mg PO DAILY PRN (Reason: allergy symptoms) Qty: 30 2RF fluticasone propionate [Flonase Allergy Relief] 50 mcg/actuation spray,suspension 1 spray intranasal DAILY Qty: 16 2RF Rx Instructions: administer into each nostril prednisone 20 mg tablet 20 mg PO BID 5 Days Qty: 10 0RF polyethylene glycol 3350 [Miralax] 17 gram/dose powder 17 g PO DAILY Qty: 238 2RF gabapentin 600 mg tablet 600 mg PO HS Qty: 30 0RF hydroxyzine pamoate 25 mg capsule See Rx Instructions .ROUTE .COMPLEX Qty: 90 5RF Dose Instruction: TAKE ONE CAPSULE BY MOUTH THREE TIMES DAILY MAY CAUSE DROWSINESS Rx Instructions: TAKE ONE CAPSULE BY MOUTH THREE TIMES DAILY MAY CAUSE DROWSINESS cyclobenzaprine 10 mg tablet See Rx Instructions .ROUTE .COMPLEX Qty: 90 5RF Dose Instruction: TAKE ONE TABLET BY MOUTH THREE TIMES DAILY MAY CAUSE DROWSINESS Rx Instructions: TAKE ONE TABLET BY MOUTH THREE TIMES DAILY MAY CAUSE DROWSINESS alprazolam 1 mg tablet 1 mg PO TID PRN (Reason: anxiety) Qty: 90 0RF omeprazole 40 mg capsule,delayed release(DR/EC) See Rx Instructions .ROUTE .COMPLEX Qty: 90 5RF Dose Instruction: TAKE ONE CAPSULE BY MOUTH EVERY DAY Rx Instructions: TAKE ONE CAPSULE BY MOUTH EVERY DAY oxybutynin chloride 10 mg tablet extended release 24hr See Rx Instructions .ROUTE .COMPLEX Qty: 90 5RF Dose Instruction: TAKE ONE TABLET BY MOUTH EVERY DAY Rx Instructions: TAKE ONE TABLET BY MOUTH EVERY DAY metoprolol tartrate 25 mg tablet See Rx Instructions .ROUTE .COMPLEX Qty: 180 5RF Dose Instruction: TAKE ONE TABLET BY MOUTH TWICE DAILY Rx Instructions: TAKE ONE TABLET BY MOUTH TWICE DAILY levothyroxine 50 mcg tablet See Rx Instructions .ROUTE .COMPLEX Qty: 90 5RF Dose Instruction: TAKE ONE TABLET BY MOUTH EVERY DAY Rx Instructions: TAKE ONE TABLET BY MOUTH EVERY DAY ferrous sulfate [FeroSul] 325 mg (65 mg iron) tablet See Rx Instructions .ROUTE .COMPLEX Qty: 90 5RF Dose Instruction: TAKE ONE TABLET BY MOUTH EVERY DAY Rx Instructions: TAKE ONE TABLET BY MOUTH EVERY DAY nicotine 1 EACH patch 24 hour See Rx Instructions .Route .COMPLEX Rx Instructions: APPLY 1 PATCH TOPICALLY 1 TIME EACH DAY AT THE SAME TIME duloxetine 60 MG capsule,delayed release(DR/EC) See Rx Instructions .Route .COMPLEX Rx Instructions: Take one capsule by mouth daily Referrals Follow up/Referrals: Isaiah Bonilla MD [Primary Care Provider] - See instructions Activity Restrictions/Add. Instructions Additional Instructions/Restrictions: Drink plenty of fluids. Take tylenol or ibuprofen for pain or fever. Take the medications as directed. Follow up with your regular doctor. GO TO THE ER FOR ANY WORSENING SYMPTOMS Clinical Impressions Clinical Impression: Acute bronchitis, Pleurisy Instructions Patient Instructions: DI for Pleurisy, DI for Acute Bronchitis Discharge ED Provider: Brody Manzanares [facility] HPI General Stated complaint: right side pain,lower lung Mode of Arrival: Ambulatory Source of Information: Patient Limitations: No Limitations Time Seen by Provider:
[2022-07-16 15:48] VITALS: BP 127/59; PULSE 83; RESP 16; TEMP 37; O2SAT 97; BMI 17.3
[2022-07-16 16:00] VITALS: BP 127/59; PULSE 83; RESP 16; TEMP 37
== END 2022-07-16 16:01 | disposition home or self-care (01) ==
LOC: ER 14:06 → UTC 14:06
PROVIDERS: Emergency Provider Nurse Practitioner Family; PCP Emergency Medicine
DX: J20.9 Acute bronchitis, unspecified (principal)
CPT/HCPCS: 71046; 99212; G0463

== ENCOUNTER → 2022-07-19 15:17 | Outpatient (CLI) | payer MEDICARE, OTHER, SELFPAY | PROVIDERS: PCP Emergency Medicine; Visit Provider Obstetrics & Gynecology Gynecologic Oncology | DX: C54.1 Malignant neoplasm of endometrium (principal) ==

== ENCOUNTER → 2022-09-06 15:38 | Outpatient (CLI) | payer MEDICARE, OTHER, SELFPAY ==
[2022-09-08 11:58] LABS: Cancer Antigen (CA) 125 23.7 U/mL (0.0-38.1)
== END ==
PROVIDERS: Nurse Practitioner Family; PCP Emergency Medicine; Visit Provider Obstetrics & Gynecology Gynecologic Oncology
DX: C54.1 Malignant neoplasm of endometrium (principal)
CPT/HCPCS: 36415; 86316

== ENCOUNTER → 2022-11-10 14:08 | Outpatient (CLI) | payer MEDICARE, OTHER, SELFPAY ==
--- NOTE | 2022-11-10 14:16 | XR_ITS ---
FINAL REPORT TECHNIQUE: Chest PA & Lateral CLINICAL HISTORY: Shortness of breath COMPARISON: 07/16/2022 FINDINGS: 2 views of the chest were performed. The heart size is normal. The mediastinum is within normal limits. There is no acute cardiopulmonary process. There are no pleural effusions. There is no pneumothorax. The bony thorax appears intact. IMPRESSION: No acute cardiopulmonary process. Reviewed, Interpreted and Dictated by Gustavo Franco MD Transcribed by Rosalva Aguilar Authenticated and [facility]
== END ==
PROVIDERS: PCP Nurse Practitioner Family; Visit Provider Nurse Practitioner Family
DX: R07.9 Chest pain, unspecified (principal)
CPT/HCPCS: 71046

== ENCOUNTER → 2022-11-19 12:49 | Outpatient (CLI) | payer MEDICARE, OTHER, SELFPAY | PROVIDERS: PCP Nurse Practitioner Family; Visit Provider Nurse Practitioner Family | DX: R07.9 Chest pain, unspecified (principal); R06.09 Other forms of dyspnea | CPT/HCPCS: 93306; 94060; 94618; 94726; 94729 ==

== ENCOUNTER → 2023-05-17 14:42 | Outpatient (CLI) | payer MEDICARE, OTHER, SELFPAY ==
[2023-05-19 09:04] LABS: Cancer Antigen (CA) 125 22.9 U/mL (0.0-38.1)
== END ==
PROVIDERS: PCP Emergency Medicine; Visit Provider Obstetrics & Gynecology Gynecologic Oncology
DX: C54.1 Malignant neoplasm of endometrium (principal)
CPT/HCPCS: 36415; 86316

== ENCOUNTER → 2023-06-02 22:31 | Outpatient (CLI) | payer MEDICARE, OTHER, SELFPAY ==
[2023-06-02 19:37] LABS: Basophils % 0.4 % (0.1-2.0); Eosinophils # 0.2 K/mm3 (0.0-0.4); Eosinophils % 3.8 % (0.1-12.0); Hematocrit 39.4 % (37.0-47.0); Lymphocytes # 1.4 K/mm3 (0.7-4.5); Lymphocytes % 31.6 % (10-50); Mean Corpuscular HGB Conc 33.1 g/dL (31.8-35.4); Mean Corpuscular Hemoglobin 31.7 pg (27.0-31.2); Mean Corpuscular Volume 95.5 fl (81-99); Mean Platelet Volume 8.9 fl (7.4-10.4); Monocytes # 0.5 K/mm3 (0.1-1.0); Monocytes % 10.7 % (1.7-9.3); Neutrophils # 2.3 K/mm3 (1.8-7.8); Neutrophils % 53.5 % (37.0-80.0); Platelet Count 209 K/mm3 (142-424); Red Blood Count 4.12 M/mm3 (4.20-5.40); Red Cell Distribution Width 15.1 % (11.5-17.5); White Blood Count 4.4 K/mm3 (4.8-10.8)
[2023-06-02 19:43] LABS: Alanine Aminotransferase 24 U/L (12-78); Albumin Level 4.3 g/dl (3.5-5.0); Albumin/Globulin Ratio 1.3 (1.1-1.8); Alkaline Phosphatase 66 U/L (38-126); Anion Gap 13.3 mEq/L (5-15); Aspartate Amino Transferase 39 U/L (14-36); Bilirubin,Total 0.2 mg/dl (0.2-1.3); Blood Urea Nitrogen 15 mg/dl (7-17); Calcium 9.4 mg/dl (8.4-10.2); Carbon Dioxide 25 mmol/L (22.0-30.0); Chloride 105 mmol/L (98-107); Chol/HDL Ratio 4.2 (1-3.5); Cholesterol 175 mg/dl (140-200); Estimated Glomerular Filt Rate 106 ml/min (>60); GFR (African American) 128 ML/MIN (>60); Globulin 3.3 g/dL (1.3-3.2); Glucose 82 mg/dl (74-100); HDL Cholesterol 42 mg/dl (40-60); Potassium 4.3 mmoL/L (3.5-5.1); Sodium 139 mmol/L (136-145); Total Protein,Serum 7.6 g/dl (6.3-8.2); Triglycerides 49 mg/dl (30-150); VLDL Cholesterol 10 mg/dL (0-40)
[2023-06-02 19:54] LABS: Direct LDL Cholesterol 108.62 mg/dL (100-129)
[2023-06-02 20:00] LABS: 25-OH Vitamin D, Total 50.5 ng/mL (30-100)
[2023-06-02 20:14] LABS: Thyroid Stimulating Hormone 0.58 uIU/mL (0.465-4.68)
== END ==
PROVIDERS: PCP Nurse Practitioner Family; Visit Provider Nurse Practitioner Family
DX: R53.83 Other fatigue (principal); E55.9 Vitamin D deficiency, unspecified; F41.9 Anxiety disorder, unspecified; N93.8 Other specified abnormal uterine and vaginal bleeding; R07.89 Other chest pain; Z68.1 Body mass index [BMI] 19.9 or less, adult
CPT/HCPCS: 80053; 80061; 82306; 84443; 85025

== ENCOUNTER 2023-08-31 22:09 | Outpatient (CLI) | payer MEDICARE, OTHER, SELFPAY ==
[2023-09-01 00:12] LABS: Amphetamine/Metha Screen,Urine Negative ng/ml (<1000)
[2023-09-01 00:13] LABS: Barbiturates Screen,Urine Negative ng/ml (<200); Benzodiazepines Screen,Urine Negative ng/ml (<200)
[2023-09-01 00:14] LABS: Cannabinoid Screen,Urine Positive ng/ml (<50); Cocaine Screen,Urine Negative ng/ml (<300)
[2023-09-01 00:15] LABS: Methadone Screen,Urine Negative ng/ml (<300)
[2023-09-01 00:16] LABS: Opiate Screen,Urine Negative ng/ml (<300); Phencyclidine Screen,Urine Negative ng/ml (<25)
[2023-09-08 09:22] LABS: Gabapentin,Urine Negative (.)
[2023-09-08 19:45] LABS: Alprazolam Negative (Cutoff=100); Benzodiazepines Negative ng/mL (Cutoff=100); Clonazepam Negative (Cutoff=100); Flurazepam Negative (Cutoff=100); Lorazepam Negative (Cutoff=100); Midazolam Negative (Cutoff=100); Temazepam Negative (Cutoff=100); Triazolam Negative (Cutoff=100)
== END 2023-08-31 23:59 ==
LOC: LAB.DROPOF 22:10
PROVIDERS: PCP Nurse Practitioner Family; Visit Provider Nurse Practitioner Family
DX: F41.9 Anxiety disorder, unspecified (principal); Z79.899 Other long term (current) drug therapy; M51.16 Intervertebral disc disorders with radiculopathy, lumbar region
CPT/HCPCS: 80307; 80346

== ENCOUNTER 2023-11-05 13:42 | Emergency (ER) | payer MEDICARE, OTHER, SELFPAY ==
[2023-11-05 13:55] VITALS: BP 137/72; PULSE 88; RESP 19; TEMP 37; O2SAT 98; BMI 18.3
--- NOTE | 2023-11-05 14:05 | ED_ITS ---
Discharge Plan Disposition Patient Disposition: Home, Self-Care Condition: Good Prescriptions Prescriptions: New amoxicillin-pot clavulanate 875-125 mg Tablet 1 tab PO Q12H Qty: 20 0RF ciprofloxacin-dexamethasone 0.3-0.1 % Drops,Suspension 2 drp Ear-Left BID 7 Days Qty: 1 0RF methylprednisolone 4 mg Tablets,Dose Pack 4 mg PO DIRECTED 6 Days Qty: 21 0RF Rx Instructions: Take 1 pack as directed for 6 days No Action albuterol sulfate [ProAir HFA] 90 mcg/actuation HFA aerosol inhaler 2 puff IH Q4-6H PRN (Reason: soa) Qty: 8.5 2RF dronabinol 2.5 mg capsule 2.5 mg PO DAILY albuterol sulfate 1.25 mg/3 mL solution for nebulization 1.25 mg inhalation QID PRN (Reason: shortness of breath or wheezing) Qty: 75 1RF venlafaxine 75 mg capsule,extended release 24hr 75 mg PO DAILY triamcinolone acetonide 0.5 % cream 1 applic topical BID Qty: 60 0RF Anoro Ellipta 62.5-25 mcg/actuation blister with device 1 inh inhalation DAILY 90 Days Qty: 180 2RF nicotine (polacrilex) 2 mg gum 2 mg buccal Q2H PRN (Reason: nicotine cravings) Qty: 396 0RF Rx Instructions: Weeks 1 to 6: Chew 1 piece every 2 hours As NEEDED Weeks 7 to 9: Chew 1 piece every 4 hors As NEEDED Weeks 1o to 12: Chew 1 piece every 8 hours As NEEDED fluocinolone 0.01 % solution 1 applic topical BID Qty: 60 0RF Vraylar 1.5 mg capsule 1.5 mg PO DAILY Qty: 30 2RF fluticasone propionate 50 mcg/actuation spray,suspension See Rx Instructions .ROUTE .COMPLEX Qty: 16 2RF Dose Instruction: instill 1 SPRAY IN EACH NOSTRIL EVERY DAY Rx Instructions: instill 1 SPRAY IN EACH NOSTRIL EVERY DAY hydroxyzine pamoate 25 mg capsule See Rx Instructions .ROUTE .COMPLEX Qty: 90 5RF Dose Instruction: TAKE ONE CAPSULE BY MOUTH THREE TIMES DAILY MAY CAUSE DROWSINESS Rx Instructions: TAKE ONE CAPSULE BY MOUTH THREE TIMES DAILY MAY CAUSE DROWSINESS ferrous sulfate [FeroSul] 325 mg (65 mg iron) tablet See Rx Instructions .ROUTE .COMPLEX Qty: 90 5RF Dose Instruction: TAKE ONE TABLET BY MOUTH EVERY DAY Rx Instructions: TAKE ONE TABLET BY MOUTH EVERY DAY metoprolol tartrate 25 mg tablet See Rx Instructions .ROUTE .COMPLEX Qty: 180 5RF Dose Instruction: TAKE ONE TABLET BY MOUTH TWICE DAILY Rx Instructions: TAKE ONE TABLET BY MOUTH TWICE DAILY omeprazole 40 mg capsule,delayed release(DR/EC) See Rx Instructions .ROUTE .COMPLEX Qty: 90 5RF Dose Instruction: TAKE ONE CAPSULE BY MOUTH EVERY DAY Rx Instructions: TAKE ONE CAPSULE BY MOUTH EVERY DAY levothyroxine 50 mcg tablet See Rx Instructions .ROUTE .COMPLEX Qty: 90 5RF Dose Instruction: TAKE ONE TABLET BY MOUTH EVERY DAY Rx Instructions: TAKE ONE TABLET BY MOUTH EVERY DAY cetirizine 10 mg tablet See Rx Instructions .ROUTE .COMPLEX Qty: 30 2RF Dose Instruction: TAKE ONE TABLET BY MOUTH EVERY DAY NEEDED FOR ALLERGY SYMPTOMS Rx Instructions: TAKE ONE TABLET BY MOUTH EVERY DAY NEEDED FOR ALLERGY SYMPTOMS meloxicam 15 mg tablet See Rx Instructions .ROUTE .COMPLEX Qty: 30 2RF Dose Instruction: TAKE ONE TABLET BY MOUTH EVERY DAY NEEDED FOR jaw pain --TAKE WITH FOOD-- Rx Instructions: TAKE ONE TABLET BY MOUTH EVERY DAY NEEDED FOR jaw pain --TAKE WITH FOOD-- Myrbetriq 50 mg tablet extended release 24 hr See Rx Instructions .ROUTE .COMPLEX Qty: 30 2RF Dose Instruction: TAKE ONE TABLET BY MOUTH EVERY DAY Rx Instructions: TAKE ONE TABLET BY MOUTH EVERY DAY alprazolam 1 mg tablet 1 mg PO TID PRN (Reason: anxiety) Qty: 75 0RF Referrals Follow up/Referrals: Toribio Corado APRN [Primary Care Provider] - See instructions Activity Restrictions/Add. Instructions Additional Instructions/Restrictions: Take tylenol or ibuprofen for pain or fever. Take the medications as directed. Instill the ear drops in your left ear as directed. Follow up with your regular doctor. GO TO THE ER FOR ANY WORSENING SYMPTOMS Clinical Impressions Clinical Impression: Acute left otitis media, Left otitis externa Instructions Patient Instructions: How to Instill Ear Drops, Middle Ear Infection, DI for Otitis Externa Discharge ED Provider: Brody Manzanares [facility] General Stated complaint: left ear infected Time Seen by Provider: 03/30/24 14:05 History of Present Illness Provider Complaint: She states that she has had worsening left ear pain for the past approx 2 weeks. She states that about 4 days ago she began having tannish drainage from that ear. Her hearing is decreased in that ear now. She has a history of getting kind of frequent ear infections. Related Data Home Medications Medication Instructions Recorded Confirmed venlafaxine 75 mg capsule,extended 75 mg PO DAILY 12/03/22 08/31/23 release 24 hr dronabinol 2.5 mg capsule 2.5 mg PO DAILY 03/03/23 08/31/23 Previous Rx's Medication Instructions Recorded albuterol sulfate 90 mcg/actuation 2 puff inhalation Q4-6H PRN soa 10/07/22 aerosol inhaler (ProAir HFA) #8.5 grams albuterol sulfate 1.25 mg/3 mL 1.25 mg (3 mL) inhalation QID PRN 11/10/22 solution for nebulization shortness of breath or wheezing #75 mL triamcinolone acetonide 0.5 % 1 applic topical BID itching - 12/03/22 topical cream body #60 grams nicotine (polacrilex) 2 mg gum 2 mg buccal Q2H PRN nicotine 02/22/23 cravings #396 ea umeclidinium 62.5 mcg-vilanterol 1 inh inhalation DAILY 90 days 02/22/23 25 mcg/actuation powdr for #180 ea inhalation (Anoro Ellipta) fluticasone propionate 50 See Rx Instructions .Route 06/20/23 mcg/actuation nasal .COMPLEX #16 grams spray,suspension hydroxyzine pamoate 25 mg capsule See Rx Instructions .Route 06/20/23 .COMPLEX #90 caps ferrous sulfate 325 mg (65 mg See Rx Instructions .Route 07/20/23 iron) tablet (FeroSul) .COMPLEX #90 tabs levothyroxine 50 mcg tablet See Rx Instructions .Route 08/05/23 .COMPLEX #90 tabs metoprolol tartrate 25 mg tablet See Rx Instructions .Route 08/05/23 .COMPLEX #180 tabs omeprazole 40 mg capsule,delayed See Rx Instructions .Route 08/05/23 release .COMPLEX #90 caps cariprazine 1.5 mg capsule 1.5 mg PO DAILY #30 caps 08/31/23 (Vraylar) fluocinolone 0.01 % topical 1 applic topical BID itching - 08/31/23 solution scalp #60 mL cetirizine 10 mg tablet See Rx Instructions .Route 09/20/23 .COMPLEX #30 tabs meloxicam 15 mg tablet See Rx Instructions .Route 09/20/23 .COMPLEX #30 tabs mirabegron 50 mg tablet,extended See Rx Instructions .Route 09/20/23 release 24 hr (Myrbetriq) .COMPLEX #30 tabs alprazolam 1 mg tablet 1 mg PO TID PRN anxiety #75 tabs 10/06/23 amoxicillin 875 mg-potassium 1 tab PO Q12H #20 tabs 11/05/23 clavulanate 125 mg tablet ciprofloxacin 0.3 %-dexamethasone 2 drp Ear-Left BID 7 days #1 ea 11/05/23 0.1 % ear drops,suspension methylprednisolone 4 mg tablets in 4 mg PO DIRECTED 6 days #21 tabs 11/05/23 a dose pack Allergies Allergy/AdvReac Type Severity Reaction Status Date / Time aspirin AdvReac Verified 08/31/23 15:02 ibuprofen AdvReac Verified 08/31/23 15:02 PFSH [facility] Disclaimer: The information contained in this section may have been updated after the patient was seen, as this information can be updated by other users. Medical History Adenocarcinoma of endometrium, stage 3 Anemia due to chronic blood loss Anxiety and depression Chronic back pain Chronic neck pain Dyspnea on exertion Encounter for screening for malignant neoplasm of lung Hypothyroidism Smoking greater than 30 pack years Tobacco abuse counseling Tobacco abuse disorder Surgical History History of hysterectomy History of tubal ligation Family History Other Asthma Hypertension Stroke Social History Smoking Status: Current every day smoker tobacco type: cigarettes packs per day: 1 alcohol intake: never substance use type: marijuana current occupational status: other Travel in the last 8 weeks: None ROS Obtained: Yes All systems reviewed & no additional complaints except as documented Constitutional Constitutional: Denies chills, Reports fever(s) and Reports poor appetite Eyes Eyes: Denies eye discharge ENT Ears, Nose, Mouth, and Throat: Denies ear discharge, Reports otalgia, Denies hearing loss, Denies sinus pain and Reports sore throat Cardiovascular Cardiovascular: Denies chest pain and Denies dyspnea Respiratory Respiratory: Denies chest congestion, Reports cough and Denies dyspnea Gastrointestinal Gastrointestingal: Denies abdominal pain, diarrhea, nausea or vomiting Musculoskeletal Musculoskeletal: Denies arthralgias Integumentary/Breasts Skin/Breast: Denies rash Physical Exam General General appearance: alert and in no apparent distress Head Head exam: atraumatic, normocephalic and normal inspection Eye Eye exam: Present normal appearance; Absent PERRL or EOMI ENT ENT exam: Present mucous membranes moist and normal external ear exam Expanded ENT Exam TM/Canal exam: Left TM: canal discharge and canal tenderness and Bilateral TM: erythema, bulging and effusion Nose exam: Absent sinus tenderness Nasal speculum exam: Bilateral: normal Mouth exam: Present normal external inspection and other; Absent drooling Teeth exam: Present normal inspection Throat exam: Present tonsillar erythema and tonsillomegaly Neck Neck exam: Present normal inspection, full ROM and trachea midline; Absent tenderness, meningismus or lymphadenopathy Chest Chest inspection: Present normal inspection and symmetric chest wall rise; Absent tenderness Respiratory Respiratory exam: Present normal lung sounds bilaterally; Absent respiratory distress, wheezes or stridor Cardiovascular Cardiovascular exam: Present regular rate, normal rhythm and normal heart sounds; Absent tachycardia or irregular rhythm Abdominal Exam Abdominal exam: Present soft and normal bowel sounds; Absent distention, tenderness, guarding, rebound or rigidity Extremities Exam Extremities exam: Present normal inspection and normal capillary refill; Absent tenderness, joint swelling or calf tenderness Back Exam Back exam: Present normal inspection and full ROM; Absent tenderness, CVA tenderness (R) or CVA tenderness (L) Neurological Exam Neurological exam: Present alert, oriented X3, CN II-XII intact, normal gait and reflexes normal; Absent motor sensory deficit Psychiatric Psychiatric exam: Present normal affect and normal mood Skin Skin exam: Present warm, dry, intact and normal color Lymphatic Lymphatic Findings: no adenopathy Medical Decision Making Medical Records Medical records reviewed: No I reviewed the patient's medical records. Joe Inquiry Pt receiving controlled substance: No
[2023-11-05 14:40] VITALS: BP 137/72; PULSE 88; RESP 19; TEMP 37; O2SAT 98
== END 2023-11-05 14:44 | disposition home or self-care (01) ==
PROVIDERS: Emergency Provider Nurse Practitioner Family; PCP Nurse Practitioner Family
DX: H66.92 Otitis media, unspecified, left ear (principal); H60.92 Unspecified otitis externa, left ear; F17.210 Nicotine dependence, cigarettes, uncomplicated; E03.9 Hypothyroidism, unspecified
CPT/HCPCS: 99212; 99214; G0463

== ENCOUNTER 2024-03-22 09:35 | Emergency (ER) | payer MEDICARE, OTHER, SELFPAY ==
--- NOTE | 2024-03-22 10:24 | ED_ITS ---
Discharge Plan Disposition Patient Disposition: Home, Self-Care Condition: Good Prescriptions Prescriptions: No Action albuterol sulfate [ProAir HFA] 90 mcg/actuation HFA aerosol inhaler 2 puff IH Q4-6H PRN (Reason: soa) Qty: 8.5 2RF dronabinol 2.5 mg capsule 2.5 mg PO DAILY venlafaxine 75 mg capsule,extended release 24hr 75 mg PO DAILY gabapentin 300 mg capsule 300 mg PO DAILY Patient Comments: TAKE ONE CAPSULE BY MOUTH EVERY DAY IN THE MORNING MAY CAUSE DROWSINESS gabapentin 600 mg tablet 600 mg PO HS Patient Comments: TAKE ONE TABLET BY MOUTH EVERY NIGHT MAY CAUSE DROWSINESS dronabinol 5 mg capsule 5 mg PO DAILY alprazolam 1 mg tablet 1 mg PO BID PRN (Reason: anxiety) Qty: 60 1RF Vraylar 1.5 mg capsule 1.5 mg PO DAILY Qty: 30 2RF metoprolol tartrate 25 mg tablet See Rx Instructions .ROUTE .COMPLEX Qty: 180 5RF Dose Instruction: TAKE ONE TABLET BY MOUTH TWICE DAILY Rx Instructions: TAKE ONE TABLET BY MOUTH TWICE DAILY omeprazole 40 mg capsule,delayed release(DR/EC) See Rx Instructions .ROUTE .COMPLEX Qty: 90 5RF Dose Instruction: TAKE ONE CAPSULE BY MOUTH EVERY DAY Rx Instructions: TAKE ONE CAPSULE BY MOUTH EVERY DAY levothyroxine 50 mcg tablet See Rx Instructions .ROUTE .COMPLEX Qty: 90 5RF Dose Instruction: TAKE ONE TABLET BY MOUTH EVERY DAY Rx Instructions: TAKE ONE TABLET BY MOUTH EVERY DAY Anoro Ellipta 62.5-25 mcg/actuation blister with device See Rx Instructions .ROUTE .COMPLEX Qty: 180 2RF Dose Instruction: INHALE 1 PUFF BY MOUTH EVERY DAY Rx Instructions: INHALE 1 PUFF BY MOUTH EVERY DAY cetirizine 10 mg tablet See Rx Instructions .ROUTE .COMPLEX Qty: 90 3RF Dose Instruction: TAKE ONE TABLET BY MOUTH EVERY DAY NEEDED FOR ALLERGY SYMPTOMS Rx Instructions: TAKE ONE TABLET BY MOUTH EVERY DAY NEEDED FOR ALLERGY SYMPTOMS fluticasone propionate 50 mcg/actuation spray,suspension See Rx Instructions .ROUTE .COMPLEX Qty: 16 2RF Dose Instruction: instill 1 SPRAY IN EACH NOSTRIL EVERY DAY Rx Instructions: instill 1 SPRAY IN EACH NOSTRIL EVERY DAY hydroxyzine pamoate 25 mg capsule See Rx Instructions .ROUTE .COMPLEX Qty: 90 2RF Dose Instruction: TAKE ONE CAPSULE BY MOUTH THREE TIMES DAILY MAY CAUSE DROWSINESS Rx Instructions: TAKE ONE CAPSULE BY MOUTH THREE TIMES DAILY MAY CAUSE DROWSINESS mirabegron [Myrbetriq] 50 mg tablet extended release 24 hr See Rx Instructions .ROUTE .COMPLEX Qty: 30 2RF Dose Instruction: TAKE ONE TABLET BY MOUTH EVERY DAY Rx Instructions: TAKE ONE TABLET BY MOUTH EVERY DAY meloxicam 15 mg tablet See Rx Instructions .ROUTE .COMPLEX Qty: 30 2RF Dose Instruction: TAKE ONE TABLET BY MOUTH EVERY DAY NEEDED FOR jaw pain --TAKE WITH FOOD-- Rx Instructions: TAKE ONE TABLET BY MOUTH EVERY DAY NEEDED FOR jaw pain --TAKE WITH FOOD-- Referrals Follow up/Referrals: Toribio Corado APRN [Primary Care Provider] - See instructions Activity Restrictions/Add. Instructions Additional Instructions/Restrictions: Drink plenty of fluids. Take tylenol or ibuprofen for pain or fever. Follow up with your regular doctor. GO TO THE ER FOR ANY WORSENING SYMPTOMS Clinical Impressions Clinical Impression: Contusion of rib on right side, Rib pain on right side Instructions Patient Instructions: DI for Rib Contusion Print Language Print Language: Slovenian Discharge ED Provider: Brody Manzanares [facility] General Stated complaint: AO 03/19/24, fell, inj right side and ribs Time Seen by Provider: 03/22/24 10:23 History of Present Illness Provider Complaint: She states that 2 days ago she fell backwards into the rocks on her fireplace. She has had right posterior rib pain since then. She denies any neck pain or other complaints. She denies shortness of breath. Related Data Home Medications ?Medication ?Instructions ?Recorded ?Confirmed venlafaxine 75 mg capsule,extended 75 mg PO DAILY 12/03/22 01/12/24 release 24 hr dronabinol 2.5 mg capsule 2.5 mg PO DAILY 03/03/23 08/31/23 dronabinol 5 mg capsule 5 mg PO DAILY 01/12/24 01/12/24 gabapentin 300 mg capsule 300 mg PO DAILY 01/12/24 01/12/24 gabapentin 600 mg tablet 600 mg PO HS 01/12/24 01/12/24 Previous Rx's ?Medication ?Instructions ?Recorded albuterol sulfate 90 mcg/actuation 2 puff inhalation Q4-6H PRN soa 10/07/22 aerosol inhaler (ProAir HFA) #8.5 grams levothyroxine 50 mcg tablet See Rx Instructions .Route 08/05/23 .COMPLEX #90 tabs metoprolol tartrate 25 mg tablet See Rx Instructions .Route 08/05/23 .COMPLEX #180 tabs omeprazole 40 mg capsule,delayed See Rx Instructions .Route 08/05/23 release .COMPLEX #90 caps umeclidinium 62.5 mcg-vilanterol See Rx Instructions .Route 11/22/23 25 mcg/actuation powdr for .COMPLEX #180 blisters inhalation (Anoro Ellipta) cetirizine 10 mg tablet See Rx Instructions .Route 12/21/23 .COMPLEX #90 tabs fluticasone propionate 50 See Rx Instructions .Route 12/22/23 mcg/actuation nasal .COMPLEX #16 grams spray,suspension alprazolam 1 mg tablet 1 mg PO BID PRN anxiety #60 tabs 01/12/24 cariprazine 1.5 mg capsule 1.5 mg PO DAILY #30 caps 01/12/24 (Vraylar) hydroxyzine pamoate 25 mg capsule See Rx Instructions .Route 03/13/24 .COMPLEX #90 caps meloxicam 15 mg tablet See Rx Instructions .Route 03/19/24 .COMPLEX #30 tabs mirabegron 50 mg tablet,extended See Rx Instructions .Route 03/19/24 release 24 hr (Myrbetriq) .COMPLEX #30 tabs Allergies Allergy/AdvReac Type Severity Reaction Status Date / Time aspirin AdvReac Verified 01/12/24 11:23 ibuprofen AdvReac Verified 01/12/24 11:23 [facility] Disclaimer: The information contained in this section may have been updated after the patient was seen, as this information can be updated by other users. Medical History Tobacco abuse counseling Encounter for screening for malignant neoplasm of lung Dyspnea on exertion Smoking greater than 30 pack years Adenocarcinoma of endometrium, stage 3 Chronic back pain Chronic neck pain Tobacco abuse disorder Anxiety and depression Hypothyroidism Anemia due to chronic blood loss Surgical History History of tubal ligation History of hysterectomy Family History Other Asthma Hypertension Stroke Social History Smoking Status: Current every day smoker tobacco type: cigarettes packs per day: 1 alcohol intake: never substance use type: marijuana current occupational status: other Travel in the last 8 weeks: None ROS Obtained: Yes All systems reviewed & no additional complaints except as documented Constitutional Constitutional: Denies chills and Denies fever(s) Eyes Eyes: Denies eye discharge ENT Ears, Nose, Mouth, and Throat: Denies dizziness, Denies otalgia, Denies neck pain and Denies sore throat Cardiovascular Cardiovascular: Reports as per HPI and Denies chest pain Respiratory Respiratory: Denies shortness of breath, Denies chest congestion, Denies cough, Denies stridor and Denies wheezing Gastrointestinal Gastrointestingal: Denies nausea or vomiting Musculoskeletal Musculoskeletal: Reports system reviewed and no additional complaints, except as documented, Denies arthralgias, Denies back pain and Denies neck pain Integumentary/Breasts Skin/Breast: Denies rash Neurologic Neurologic: Denies dizziness and Denies paresthesias Allergic/Immunologic Allergic/Immunologic: Denies wheezing Physical Exam General General appearance: alert and in no apparent distress Head Head exam: atraumatic, normocephalic and normal inspection Eye Eye exam: Present normal appearance, PERRL and EOMI ENT ENT exam: Present normal exam, normal oropharynx, mucous membranes moist, TM's normal bilaterally and normal external ear exam Neck Neck exam: Present normal inspection, full ROM and trachea midline; Absent meningismus or lymphadenopathy Chest Chest inspection: Present symmetric chest wall rise and tenderness Respiratory Respiratory exam: Present normal lung sounds bilaterally; Absent respiratory distress Cardiovascular Cardiovascular exam: Present regular rate and normal rhythm; Absent JVD Abdominal Exam Abdominal exam: Present soft and normal bowel sounds; Absent distention, tenderness or guarding Extremities Exam Extremities exam: Present normal inspection, full ROM and normal capillary refill; Absent calf tenderness Back Exam Back exam: Present normal inspection; Absent tenderness Neurological Exam Neurological exam: Present alert and oriented X3 Psychiatric Psychiatric exam: Present normal affect and normal mood Skin Skin exam: Present warm, dry, intact and normal color Lymphatic Lymphatic Findings: no adenopathy Medical Decision Making Medical Records Medical records reviewed: No I reviewed the patient's medical records. Joe Inquiry Pt receiving controlled substance: No
[2024-03-22 10:25] VITALS: BP 137/66; PULSE 76; RESP 20; TEMP 36.6; O2SAT 99; BMI 16.7
--- NOTE | 2024-03-22 10:25 | XR_ITS ---
FINAL REPORT CLINICAL HISTORY: fall COMPARISON: Chest x-ray dated 11/10/2022 FINDINGS: RIGHT RIBS: A single view of the chest with 3 views of the ribs were obtained. There is no acute cardiopulmonary process. No pneumothorax is identified. There is mild irregularity of the right fifth and sixth ribs distally, consistent with nondisplaced fractures. No other significant bony abnormality is identified. IMPRESSION: Irregularity of the right fifth and sixth ribs distally, consistent with nondisplaced fractures. There is no evidence of pneumothorax. Reviewed, Interpreted and Dictated by Donell Treadwell III, MD Transcribed by Jena Oliver Authenticated and [facility]
[2024-03-22 11:50] VITALS: BP 137/66; PULSE 76; RESP 18; TEMP 36.6; O2SAT 99
== END 2024-03-22 11:50 | disposition home or self-care (01) ==
PROVIDERS: Emergency Provider Nurse Practitioner Family; PCP Nurse Practitioner Family
DX: R07.81 Pleurodynia (principal); S20.211A Contusion of right front wall of thorax, initial encounter; W18.39XA Other fall on same level, initial encounter
CPT/HCPCS: 71101; 99212; 99213; G0463

== ENCOUNTER 2024-04-07 11:24 | Emergency (ER) | payer MEDICARE, OTHER, SELFPAY ==
[2024-04-07 11:31] VITALS: BP 140/74; PULSE 85; O2SAT 100
[2024-04-07 11:33] VITALS: BP 131/75; PULSE 76; RESP 14; TEMP 36.6; O2SAT 97; BMI 16.5
[2024-04-07 12:00] VITALS: BP 132/80; PULSE 72; O2SAT 99
--- NOTE | 2024-04-07 12:00 | XR_ITS ---
PROCEDURE INFORMATION: Exam: XR Right Hand Exam date and time: 04/07/2024 12:05 PM Age: 53 years old Clinical indication: Pain; Hand; Right; Additional info: Thumb injury x 1.5 mo ago TECHNIQUE: Imaging protocol: Radiologic exam of the right hand. Views: 3 or more views. COMPARISON: No relevant prior studies available. FINDINGS: Bones/joints: No acute fracture or malalignment. Mild 1st CMC joint degenerative changes. Cystic change in the lunate is likely degenerative. Soft tissues: Normal. IMPRESSION: No acute fracture or malalignment.
--- NOTE | 2024-04-07 12:01 | HMH.EDGENADL ---
Discharge Plan Disposition Patient Disposition: Home, Self-Care Condition: Good Prescriptions Prescriptions: No Action albuterol sulfate [ProAir HFA] 90 mcg/actuation HFA aerosol inhaler 2 puff IH Q4-6H PRN (Reason: soa) Qty: 8.5 2RF dronabinol 2.5 mg capsule 2.5 mg PO DAILY venlafaxine 75 mg capsule,extended release 24hr 75 mg PO DAILY gabapentin 300 mg capsule 300 mg PO DAILY Patient Comments: TAKE ONE CAPSULE BY MOUTH EVERY DAY IN THE MORNING MAY CAUSE DROWSINESS gabapentin 600 mg tablet 600 mg PO HS Patient Comments: TAKE ONE TABLET BY MOUTH EVERY NIGHT MAY CAUSE DROWSINESS dronabinol 5 mg capsule 5 mg PO DAILY alprazolam 1 mg tablet 1 mg PO BID PRN (Reason: anxiety) Qty: 60 1RF Vraylar 1.5 mg capsule 1.5 mg PO DAILY Qty: 30 2RF metoprolol tartrate 25 mg tablet See Rx Instructions .ROUTE .COMPLEX Qty: 180 5RF Dose Instruction: TAKE ONE TABLET BY MOUTH TWICE DAILY Rx Instructions: TAKE ONE TABLET BY MOUTH TWICE DAILY omeprazole 40 mg capsule,delayed release(DR/EC) See Rx Instructions .ROUTE .COMPLEX Qty: 90 5RF Dose Instruction: TAKE ONE CAPSULE BY MOUTH EVERY DAY Rx Instructions: TAKE ONE CAPSULE BY MOUTH EVERY DAY levothyroxine 50 mcg tablet See Rx Instructions .ROUTE .COMPLEX Qty: 90 5RF Dose Instruction: TAKE ONE TABLET BY MOUTH EVERY DAY Rx Instructions: TAKE ONE TABLET BY MOUTH EVERY DAY Anoro Ellipta 62.5-25 mcg/actuation blister with device See Rx Instructions .ROUTE .COMPLEX Qty: 180 2RF Dose Instruction: INHALE 1 PUFF BY MOUTH EVERY DAY Rx Instructions: INHALE 1 PUFF BY MOUTH EVERY DAY cetirizine 10 mg tablet See Rx Instructions .ROUTE .COMPLEX Qty: 90 3RF Dose Instruction: TAKE ONE TABLET BY MOUTH EVERY DAY NEEDED FOR ALLERGY SYMPTOMS Rx Instructions: TAKE ONE TABLET BY MOUTH EVERY DAY NEEDED FOR ALLERGY SYMPTOMS fluticasone propionate 50 mcg/actuation spray,suspension See Rx Instructions .ROUTE .COMPLEX Qty: 16 2RF Dose Instruction: instill 1 SPRAY IN EACH NOSTRIL EVERY DAY Rx Instructions: instill 1 SPRAY IN EACH NOSTRIL EVERY DAY hydroxyzine pamoate 25 mg capsule See Rx Instructions .ROUTE .COMPLEX Qty: 90 2RF Dose Instruction: TAKE ONE CAPSULE BY MOUTH THREE TIMES DAILY MAY CAUSE DROWSINESS Rx Instructions: TAKE ONE CAPSULE BY MOUTH THREE TIMES DAILY MAY CAUSE DROWSINESS mirabegron [Myrbetriq] 50 mg tablet extended release 24 hr See Rx Instructions .ROUTE .COMPLEX Qty: 30 2RF Dose Instruction: TAKE ONE TABLET BY MOUTH EVERY DAY Rx Instructions: TAKE ONE TABLET BY MOUTH EVERY DAY meloxicam 15 mg tablet See Rx Instructions .ROUTE .COMPLEX Qty: 30 2RF Dose Instruction: TAKE ONE TABLET BY MOUTH EVERY DAY NEEDED FOR jaw pain --TAKE WITH FOOD-- Rx Instructions: TAKE ONE TABLET BY MOUTH EVERY DAY NEEDED FOR jaw pain --TAKE WITH FOOD-- Referrals Follow up/Referrals: Toribio Corado APRN [Primary Care Provider] - See instructions Gibran Gordon DO [Staff Physician] - See instructions Activity Restrictions/Add. Instructions Additional Instructions/Restrictions: You were evaluated in the emergency department today. Please follow-up closely with orthopedics. We have provided you with information for Dr. Gordon. Keep your thumb splint on. Take Tylenol and ibuprofen. Return to the emergency department for new or worsening symptoms. Clinical Impressions Clinical Impression: Injury of thumb, right Print Language Print Language: Divehi Discharge ED Provider: Scarlett Del Real General Adult HPI General Chief complaint: Extremity Injury, Upper Stated complaint: no movement in right thumb Time Seen by Provider: 04/07/24 11:27 Mode of Arrival: Ambulatory Source of Information: Patient Limitations: No Limitations Description of Symptoms (Recalled from ER Triage Doc. by RN): pt states she jammed her R thumb about 1.5 mo ago. pt states she was never seen but is still having issues with ROM and pain. pt states the thumb stays sore and about 3/10 History of Present Illness HPI narrative: This patient is a 53-year-old female with a history of endometrial adenocarcinoma, tobacco use disorder, anxiety and depression, hypothyroidism presenting to the emergency department for evaluation with concern for right thumb issue. Patient states that she jammed her thumb into a door about a month and a half ago. She has been having issues with range of motion and pain since then. She states she is not able to bend the tip of her thumb. She states she still has intact range of motion of the first joint of her thumb. No recent injuries or pain, only the injury a month and a half ago. She reports that she is not been seen for this as she thought that it would just pop back in place and start working again. Related Data Home Medications ?Medication ?Instructions ?Recorded ?Confirmed venlafaxine 75 mg capsule,extended 75 mg PO DAILY 12/03/22 01/12/24 release 24 hr dronabinol 2.5 mg capsule 2.5 mg PO DAILY 03/03/23 08/31/23 dronabinol 5 mg capsule 5 mg PO DAILY 01/12/24 01/12/24 gabapentin 300 mg capsule 300 mg PO DAILY 01/12/24 01/12/24 gabapentin 600 mg tablet 600 mg PO HS 01/12/24 01/12/24 Previous Rx's ?Medication ?Instructions ?Recorded albuterol sulfate 90 mcg/actuation 2 puff inhalation Q4-6H PRN soa 10/07/22 aerosol inhaler (ProAir HFA) #8.5 grams levothyroxine 50 mcg tablet See Rx Instructions .Route 08/05/23 .COMPLEX #90 tabs metoprolol tartrate 25 mg tablet See Rx Instructions .Route 08/05/23 .COMPLEX #180 tabs omeprazole 40 mg capsule,delayed See Rx Instructions .Route 08/05/23 release .COMPLEX #90 caps umeclidinium 62.5 mcg-vilanterol See Rx Instructions .Route 11/22/23 25 mcg/actuation powdr for .COMPLEX #180 blisters inhalation (Anoro Ellipta) cetirizine 10 mg tablet See Rx Instructions .Route 12/21/23 .COMPLEX #90 tabs fluticasone propionate 50 See Rx Instructions .Route 12/22/23 mcg/actuation nasal .COMPLEX #16 grams spray,suspension alprazolam 1 mg tablet 1 mg PO BID PRN anxiety #60 tabs 01/12/24 cariprazine 1.5 mg capsule 1.5 mg PO DAILY #30 caps 01/12/24 (Vraylar) hydroxyzine pamoate 25 mg capsule See Rx Instructions .Route 03/13/24 .COMPLEX #90 caps meloxicam 15 mg tablet See Rx Instructions .Route 03/19/24 .COMPLEX #30 tabs mirabegron 50 mg tablet,extended See Rx Instructions .Route 03/19/24 release 24 hr (Myrbetriq) .COMPLEX #30 tabs Allergies Allergy/AdvReac Type Severity Reaction Status Date / Time aspirin AdvReac Verified 01/12/24 11:23 ibuprofen AdvReac Verified 01/12/24 11:23 [facility] Disclaimer: The information contained in this section may have been updated after the patient was seen, as this information can be updated by other users. Medical History Tobacco abuse counseling Encounter for screening for malignant neoplasm of lung Dyspnea on exertion Smoking greater than 30 pack years Adenocarcinoma of endometrium, stage 3 Chronic back pain Chronic neck pain Tobacco abuse disorder Anxiety and depression Hypothyroidism Anemia due to chronic blood loss Surgical History History of tubal ligation History of hysterectomy Family History Other Asthma Hypertension Stroke Social History Smoking Status: Current every day smoker tobacco type: cigarettes packs per day: 1 alcohol intake: never substance use type: marijuana current occupational status: other Travel in the last 8 weeks: None ROS Obtained: Yes All systems reviewed & no additional complaints except as documented Physical Exam General General appearance: alert and in no apparent distress Head Head exam: atraumatic and normocephalic Eye Eye exam: Present normal appearance, PERRL and EOMI ENT ENT exam: Present normal exam, normal oropharynx, mucous membranes moist and normal external ear exam Neck Neck exam: Present normal inspection, full ROM and trachea midline; Absent tenderness Chest Chest inspection: Present normal inspection and symmetric chest wall rise; Absent tenderness Respiratory Respiratory exam: Present normal lung sounds bilaterally; Absent respiratory distress, wheezes, stridor or accessory muscle use Cardiovascular Cardiovascular exam: Present regular rate and normal rhythm Abdominal Exam Abdominal exam: Present soft; Absent distention, tenderness or guarding Extremities Exam Extremities exam: Present normal capillary refill and other (unable to flex DIP of R thumb. Otherwise, neurovascularly intact); Absent full ROM, tenderness or edema Back Exam Back exam: Present normal inspection and full ROM; Absent tenderness Neurological Exam Neurological exam: Present alert, oriented X3, CN II-XII intact and normal gait; Absent motor sensory deficit Psychiatric Psychiatric exam: Present normal affect and normal mood Skin Skin exam: Present warm and dry Medical Decision Making Medical Records Medical records reviewed: Yes I reviewed the patient's medical records. Joe Inquiry Pt receiving controlled substance: No Vital Signs: 04/07/24 11:31 04/07/24 11:33 04/07/24 12:00 Temperature 97.8 F Temperature Source Oral Pulse Rate 85 72 Pulse Rate [Left] 76 Respiratory Rate 14 Blood Pressure 140/74 132/80 Blood Pressure [Right Arm] 131/75 Blood Pressure Mean 97 Blood Pressure Mean [Right Arm] 93 Blood Pressure Source [Right Arm] Automatic Cuff Blood Pressure Position [Right Arm] Sitting 02 Sat by Pulse Oximetry 100 97 99 Oxygen Delivery Method Room Air Room Air Room Air 04/07/24 12:31 04/07/24 13:08 Temperature 97.8 F Temperature Source Pulse Rate 70 61 Pulse Rate [Left] Respiratory Rate 15 Blood Pressure 121/73 130/68 Blood Pressure [Right Arm] Blood Pressure Mean 88 Blood Pressure Mean [Right Arm] Blood Pressure Source [Right Arm] Blood Pressure Position [Right Arm] 02 Sat by Pulse Oximetry 100 Oxygen Delivery Method Room Air Room Air Lab Data Lab results reviewed: Yes I reviewed the patient's lab results. Orders (Tests/Meds): ORDERS Category Date Time Status Hand XR right minimum 3 views [XR hand RT min 3V] Stat Exams 04/07/24 12:00 Completed Medical Decision Narrative: In summary, this patient is a 53-year-old female presenting to the Emergency Department for evaluation of thumb injury a month and a half ago with limited flexion at the distal joint of the right thumb. Differential diagnoses considered include but are not limited to flexor tendon injury, neurovascular injury, fracture, contusion, dislocation. Ruling out the most morbid conditions drove assessment. It should be noted patient's history includes tobacco dependence and endometrial cancer which may or may not be at goal therapy. This complicates all aspects of care by increasing patient's risk for morbidity. On exam, the patient has inability to flex DIP. Otherwise, she is neurovascularly intact with intact range of motion of her thumb. Workup included XR of the right hand. I independently interpreted x-ray prior to the radiologist read and noted no acute fracture. Please see their read for final interpretation. Ultimately, given concern for tendon injury with her inability to flex at the DIP, patient was placed in a foam splint given instructions for follow-up with orthopedics. I do not feel that emergent transfer is indicated, as the patient's thumb is already been like this for a month and a half. 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 Patient was given instructions for outpatient follow-up, strict return precautions, and she was discharged with the foam splint in stable condition. Critical Care Critical Care Time Critical Care Time: No
[2024-04-07 12:31] VITALS: BP 121/73; PULSE 70; O2SAT 100
--- NOTE | 2024-04-07 12:37 | PC.NURSE ---
Pt ambulatory to bathroom
[2024-04-07 13:08] VITALS: BP 130/68; PULSE 61; RESP 15; TEMP 36.6; O2SAT 99
== END 2024-04-07 13:08 | disposition home or self-care (01) ==
PROVIDERS: Emergency Provider Emergency Medicine; PCP Nurse Practitioner Family
DX: S69.91XA Unspecified injury of right wrist, hand and finger(s), initial encounter (principal); E03.9 Hypothyroidism, unspecified; F17.210 Nicotine dependence, cigarettes, uncomplicated; W23.2XXA Caught, crushed, jammed or pinched between a moving and stationary object, initial encounter; Y92.9 Unspecified place or not applicable
CPT/HCPCS: 73130; 99283

== ENCOUNTER 2024-06-13 14:33 | Outpatient (CLI) | payer MEDICARE, OTHER, SELFPAY ==
[2024-06-13 18:28] LABS: Basophils % 0.7 % (0.1-2.0); Eosinophils # 0.2 K/mm3 (0.0-0.4); Eosinophils % 4.4 % (0.1-12.0); Hematocrit 42.2 % (37.0-47.0); Hemoglobin 14.3 g/dL (12.2-16.2); Lymphocytes # 1.4 K/mm3 (0.7-4.5); Lymphocytes % 28.2 % (10-50); Mean Corpuscular HGB Conc 33.9 g/dL (31.8-35.4); Mean Corpuscular Hemoglobin 31.2 pg (27.0-31.2); Mean Corpuscular Volume 92.1 fl (81-99); Mean Platelet Volume 7.8 fl (7.4-10.4); Monocytes # 0.4 K/mm3 (0.1-1.0); Monocytes % 8.8 % (1.7-9.3); Neutrophils # 2.8 K/mm3 (1.8-7.8); Neutrophils % 57.9 % (37.0-80.0); Platelet Count 219 K/mm3 (142-424); Red Blood Count 4.58 M/mm3 (4.20-5.40); Red Cell Distribution Width 15.6 % (11.5-17.5); White Blood Count 4.9 K/mm3 (4.8-10.8)
[2024-06-13 19:06] LABS: Alanine Aminotransferase 19 U/L (12-78); Albumin Level 4.6 g/dl (3.5-5.0); Albumin/Globulin Ratio 1.3 (1.1-1.8); Alkaline Phosphatase 61 U/L (38-126); Anion Gap 11.3 mEq/L (5-15); Aspartate Amino Transferase 30 U/L (14-36); Bilirubin,Total 0.4 mg/dl (0.2-1.3); Blood Urea Nitrogen 13 mg/dl (7-17); Calcium 9.6 mg/dl (8.4-10.2); Carbon Dioxide 27 mmol/L (22.0-30.0); Chloride 106 mmol/L (98-107); Chol/HDL Ratio 3.8 (1-3.5); Cholesterol 188 mg/dl (140-200); Estimated Glomerular Filt Rate 105 ml/min (>60); GFR (African American) 128 ML/MIN (>60); Globulin 3.5 g/dL (1.3-3.2); Glucose 80 mg/dl (74-100); HDL Cholesterol 50 mg/dl (40-60); Potassium 4.3 mmoL/L (3.5-5.1); Sodium 140 mmol/L (136-145); Total Protein,Serum 8.1 g/dl (6.3-8.2); Triglycerides 103 mg/dl (30-150); VLDL Cholesterol 21 mg/dL (0-40)
[2024-06-13 19:16] LABS: Direct LDL Cholesterol 125.54 mg/dL (100-129)
[2024-06-13 19:36] LABS: Thyroid Stimulating Hormone 3.72 uIU/mL (0.465-4.68)
[2024-06-13 19:37] LABS: 25-OH Vitamin D, Total 44.2 ng/mL (30-100)
[2024-06-13 21:20] LABS: HIV (1&2) Antibody Rapid NONREACTIVE (NONREACTIVE)
[2024-06-15 05:12] LABS: HCV Ab Non Reactive (Non Reactive)
== END 2024-06-13 23:59 | disposition home or self-care (01) ==
LOC: LAB.DROPOF 06-14 10:31
PROVIDERS: PCP Nurse Practitioner Family; Visit Provider Nurse Practitioner Family
DX: Z11.4 Encounter for screening for human immunodeficiency virus [HIV] (principal); F41.9 Anxiety disorder, unspecified; E03.9 Hypothyroidism, unspecified; E55.9 Vitamin D deficiency, unspecified
CPT/HCPCS: 80053; 80061; 82306; 84443; 85025; 86803; 87389

== ENCOUNTER 2024-06-18 14:35 | Outpatient (CLI) | payer MEDICARE, OTHER, SELFPAY ==
--- NOTE | 2024-06-18 14:45 | CT_ITS ---
FINAL REPORT TECHNIQUE: Axial CT images of the face were obtained without contrast. Coronal reformatted images were also obtained. This study was performed with techniques to keep radiation doses as low as reasonably achievable, (ALARA). Individualized dose reduction techniques using automated exposure control or adjustment of mA and/or kV according to the patient''s size were employed. CLINICAL HISTORY: fractured nose years ago, difficulty breathing. no recent trauma FINDINGS: There is a paradoxical left middle turbinate. Mild rightward nasal septal deviation is seen. There is no evidence of fracture.The orbits are intact.The globes are intact.No sinus fluid levels are identified.No soft tissue mass is seen. IMPRESSION: No fracture or acute bony abnormality identified. Paradoxical left middle turbinate. Mild rightward nasal septal deviation. Reviewed, Interpreted and Dictated by Donell Treadwell III, MD Transcribed by Estela Love Authenticated and [facility]
== END 2024-06-18 23:59 | disposition home or self-care (01) ==
LOC: RAD 14:36
PROVIDERS: PCP Nurse Practitioner Family; Visit Provider Nurse Practitioner Family
DX: S02.2XXA Fracture of nasal bones, initial encounter for closed fracture (principal)
CPT/HCPCS: 70486

== ENCOUNTER 2024-07-03 11:04 | Outpatient (CLI) | payer MEDICARE, OTHER, SELFPAY ==
--- NOTE | 2024-07-03 11:05 | MM_ITS ---
PROCEDURE INFORMATION: Exam: Bilateral Screening 3D Mammography Exam date and time: 07/03/2024 10:52 AM Age: 53 years old Clinical indication: Screening examination TECHNIQUE: Imaging protocol: Bilateral Screening tomosynthesis and 2D mammography including computer-aided detection (CAD) when performed. COMPARISON: 1. DMDB DIGITAL MAMM-DX BILATERAL 03/23/2011 1:21 PM 2. DIGMAMMS MAMMOGRAM SCREEN-STORY READER N/C 10/04/2008 2:05 PM FINDINGS: MAMMOGRAPHY: Breast composition: The breasts are extremely dense, which lowers the sensitivity of mammography. Mass: None. Architectural distortion: None. Calcifications: No suspicious calcifications. Asymmetric density: None. Skin thickening: None. Axillary adenopathy: None. IMPRESSION: No mammographic evidence of malignancy. Annual screening is recommended unless otherwise clinically indicated. ASSESSMENT: BI-RADS Category 1: Negative.
== END 2024-07-03 23:59 | disposition home or self-care (01) ==
LOC: RAD 11:05
PROVIDERS: PCP Nurse Practitioner Family; Visit Provider Nurse Practitioner Family
DX: Z12.31 Encounter for screening mammogram for malignant neoplasm of breast (principal)
CPT/HCPCS: 77063; 77067

== ENCOUNTER 2024-07-28 16:14 | Emergency (ER) | payer MEDICARE, OTHER, SELFPAY ==
[2024-07-28 16:16] VITALS: BP 126/54; PULSE 73; RESP 18; TEMP 36.8; O2SAT 100; BMI 16.2
--- NOTE | 2024-07-28 16:35 | HMH.EDGENADL ---
Discharge Plan Disposition Patient Disposition: Home, Self-Care Prescriptions Prescriptions: New cephalexin 500 mg capsule 500 mg PO QID 10 Days Qty: 40 0RF No Action albuterol sulfate [ProAir HFA] 90 mcg/actuation HFA aerosol inhaler 2 puff IH Q4-6H PRN (Reason: soa) Qty: 8.5 2RF dronabinol 2.5 mg capsule 2.5 mg PO DAILY venlafaxine 75 mg capsule,extended release 24hr 75 mg PO DAILY gabapentin 300 mg capsule 300 mg PO DAILY Patient Comments: TAKE ONE CAPSULE BY MOUTH EVERY DAY IN THE MORNING MAY CAUSE DROWSINESS gabapentin 600 mg tablet 600 mg PO HS Patient Comments: TAKE ONE TABLET BY MOUTH EVERY NIGHT MAY CAUSE DROWSINESS dronabinol 5 mg capsule 5 mg PO DAILY ketoconazole 2 % cream 1 applic topical BID Qty: 30 0RF metoprolol tartrate 25 mg tablet See Rx Instructions .ROUTE .COMPLEX Qty: 180 5RF Dose Instruction: TAKE ONE TABLET BY MOUTH TWICE DAILY Rx Instructions: TAKE ONE TABLET BY MOUTH TWICE DAILY omeprazole 40 mg capsule,delayed release(DR/EC) See Rx Instructions .ROUTE .COMPLEX Qty: 90 5RF Dose Instruction: TAKE ONE CAPSULE BY MOUTH EVERY DAY Rx Instructions: TAKE ONE CAPSULE BY MOUTH EVERY DAY levothyroxine 50 mcg tablet See Rx Instructions .ROUTE .COMPLEX Qty: 90 5RF Dose Instruction: TAKE ONE TABLET BY MOUTH EVERY DAY Rx Instructions: TAKE ONE TABLET BY MOUTH EVERY DAY Anoro Ellipta 62.5-25 mcg/actuation blister with device See Rx Instructions .ROUTE .COMPLEX Qty: 180 2RF Dose Instruction: INHALE 1 PUFF BY MOUTH EVERY DAY Rx Instructions: INHALE 1 PUFF BY MOUTH EVERY DAY fluticasone propionate 50 mcg/actuation spray,suspension See Rx Instructions .ROUTE .COMPLEX Qty: 16 1RF Dose Instruction: INSTILL ONE SPRAY IN EACH NOSTRIL DAILY Rx Instructions: INSTILL ONE SPRAY IN EACH NOSTRIL DAILY cetirizine 10 mg tablet See Rx Instructions .ROUTE .COMPLEX Qty: 90 5RF Dose Instruction: TAKE ONE TABLET BY MOUTH EVERY DAY NEEDED FOR ALLERGY SYMPTOMS Rx Instructions: TAKE ONE TABLET BY MOUTH EVERY DAY NEEDED FOR ALLERGY SYMPTOMS hydroxyzine pamoate 25 mg capsule See Rx Instructions .ROUTE .COMPLEX Qty: 90 5RF Dose Instruction: TAKE ONE CAPSULE BY MOUTH THREE TIMES DAILY MAY CAUSE DROWSINESS Rx Instructions: TAKE ONE CAPSULE BY MOUTH THREE TIMES DAILY MAY CAUSE DROWSINESS meloxicam 15 mg tablet See Rx Instructions .ROUTE .COMPLEX Qty: 90 3RF Dose Instruction: TAKE ONE TABLET BY MOUTH EVERY DAY NEEDED FOR jaw pain --TAKE WITH FOOD-- Rx Instructions: TAKE ONE TABLET BY MOUTH EVERY DAY NEEDED FOR jaw pain --TAKE WITH FOOD-- mirabegron [Myrbetriq] 50 mg tablet extended release 24 hr See Rx Instructions .ROUTE .COMPLEX Qty: 90 3RF Dose Instruction: TAKE ONE TABLET BY MOUTH EVERY DAY Rx Instructions: TAKE ONE TABLET BY MOUTH EVERY DAY ferrous sulfate [FeroSul] 325 mg (65 mg iron) tablet See Rx Instructions .ROUTE .COMPLEX Qty: 90 3RF Dose Instruction: TAKE ONE TABLET BY MOUTH EVERY DAY Rx Instructions: TAKE ONE TABLET BY MOUTH EVERY DAY Referrals Follow up/Referrals: Toribio Corado APRN [Primary Care Provider] - See instructions Activity Restrictions/Add. Instructions Additional Instructions/Restrictions: No definitive evidence of localized drainable fluid collection or abscess in your breast and this is most likely consistent with a superficial soft tissue infection called cellulitis of your left breast. I recommend that you follow-up with the comprehensive breast care center at [facility] at given your established relationship there. I recommend that you call [phone] to make an appointment. Clinical Impressions Clinical Impression: Cellulitis of left breast Instructions Patient Instructions: DI for Skin Abscess Print Language Print Language: Yakut Discharge ED Provider: Meena Moreira General Adult HPI General Chief complaint: Skin/Abscess/Foreign Body Stated complaint: left breast is sore Time Seen by Provider: 07/28/24 16:29 History of Present Illness HPI narrative: Patient is a 54-year-old female presenting today with left breast redness and warmth. This is all been going on for the last 24 hours she claims. She has a history of endometrial cancer that is metastatic but is been remission for the last 3 years. She recently missed her surveillance scans. She also states she had a mammogram in the past and was advised to have a follow-up ultrasound which has not been done. She does not carry diagnosis of breast cancer. Denies any fevers or chills or systemic signs or symptoms of illness denies any antibiotic allergies. Related Data Home Medications ?Medication ?Instructions ?Recorded ?Confirmed venlafaxine 75 mg capsule,extended 75 mg PO DAILY 12/03/22 07/16/24 release 24 hr dronabinol 2.5 mg capsule 2.5 mg PO DAILY 03/03/23 07/16/24 dronabinol 5 mg capsule 5 mg PO DAILY 01/12/24 07/16/24 gabapentin 300 mg capsule 300 mg PO DAILY 01/12/24 07/16/24 gabapentin 600 mg tablet 600 mg PO HS 01/12/24 07/16/24 Previous Rx's ?Medication ?Instructions ?Recorded albuterol sulfate 90 mcg/actuation 2 puff inhalation Q4-6H PRN soa 10/07/22 aerosol inhaler (ProAir HFA) #8.5 grams levothyroxine 50 mcg tablet See Rx Instructions .Route 08/05/23 .COMPLEX #90 tabs metoprolol tartrate 25 mg tablet See Rx Instructions .Route 08/05/23 .COMPLEX #180 tabs omeprazole 40 mg capsule,delayed See Rx Instructions .Route 08/05/23 release .COMPLEX #90 caps umeclidinium 62.5 mcg-vilanterol See Rx Instructions .Route 11/22/23 25 mcg/actuation powdr for .COMPLEX #180 blisters inhalation (Anoro Ellipta) fluticasone propionate 50 See Rx Instructions .Route 04/30/24 mcg/actuation nasal .COMPLEX #16 grams spray,suspension cetirizine 10 mg tablet See Rx Instructions .Route 05/25/24 .COMPLEX #90 tabs ferrous sulfate 325 mg (65 mg See Rx Instructions .Route 05/25/24 iron) tablet (FeroSul) .COMPLEX #90 tabs hydroxyzine pamoate 25 mg capsule See Rx Instructions .Route 05/25/24 .COMPLEX #90 caps meloxicam 15 mg tablet See Rx Instructions .Route 05/25/24 .COMPLEX #90 tabs mirabegron 50 mg tablet,extended See Rx Instructions .Route 05/25/24 release 24 hr (Myrbetriq) .COMPLEX #90 tabs ketoconazole 2 % topical cream 1 applic topical BID #30 grams 06/13/24 cephalexin 500 mg capsule 500 mg PO QID 10 days #40 caps 07/28/24 Allergies Allergy/AdvReac Type Severity Reaction Status Date / Time aspirin AdvReac Verified 07/16/24 11:28 ibuprofen AdvReac Verified 07/16/24 11:28 PFSH [facility] Disclaimer: The information contained in this section may have been updated after the patient was seen, as this information can be updated by other users. Medical History (Updated 07/28/24 @ 17:12 by Meena Moreira MD) Nasal septal deviation Nasal obstruction Tobacco abuse counseling Encounter for screening for malignant neoplasm of lung Dyspnea on exertion Smoking greater than 30 pack years Adenocarcinoma of endometrium, stage 3 Chronic back pain Chronic neck pain Tobacco abuse disorder Anxiety and depression Hypothyroidism Anemia due to chronic blood loss Surgical History History of tubal ligation History of hysterectomy Family History Other Asthma Hypertension Stroke Social History Smoking Status: Current every day smoker tobacco type: cigarettes packs per day: 1 alcohol intake: never substance use type: marijuana current occupational status: other Travel in the last 8 weeks: None Have you lived/traveled outside [place] in past 30 days?: No Contact w/someone who lives/traveled outside [place] past 30 days?: No Exposure to someone with infectious disease in past 14 days?: No Do you have a fever (greater than 100.4 F or 38 C)?: No Have you tested positive for COVID-19: No Exposed to someone with COVID-19 in past 14 days?: No Do you have a sore throat?: No Do you have a cough?: No Do you have any weakness?: No Do you have any diarrhea?: No Are you experiencing any unusual bleeding?: No Do you have any muscle aches/pain?: No Do you have any abdominal pain?: No Are you experiencing loss of taste or smell?: No Other Medical History Have you received the Flu Vaccine for this season: No Have you received the Pneumonia Vaccine: No ROS Obtained: Yes All systems reviewed & no additional complaints except as documented Physical Exam General General appearance: alert and in no apparent distress Respiratory Respiratory exam: Present normal lung sounds bilaterally Cardiovascular Cardiovascular exam: Present regular rate Neurological Exam Neurological exam: Present alert and oriented X3 Medical Decision Making Medical Records Screening: Per USPSTF and CDC recommendations, given the prevalence of disease in our region, it is our hospital?s policy to screen for HIV and viral Hepatitis for all patients aged 18 and over and those with ongoing risk factors. Joe Inquiry Pt receiving controlled substance: No Vital Signs: 07/28/24 16:16 Temperature 98.3 F Temperature Source Oral Pulse Rate [Left Radial] 73 Respiratory Rate 18 Blood Pressure [Right Arm] 126/54 L Blood Pressure Mean [Right Arm] 78 02 Sat by Pulse Oximetry 100 Oxygen Delivery Method Room Air Orders (Tests/Meds): ED MEDICATIONS Generic Name Dose Route Start Last Admin Trade Name Freq PRN Reason Stop Dose Admin Cephalexin HCl 500 mg 07/28/24 17:07 Cephalexin 500mg Capsule PO 07/28/24 17:08 ONCE ONE ORDERS Category Date Time Status POCUS Point of Care (ER Only) Stat Exams 07/28/24 16:58 Ordered Medical Decision Narrative: Patient with above history and physical she is currently in a shared space we will get her into a private room and have her get into a gown for a more thorough evaluation. After getting the patient into a gown I was able to examine her breast while having a furniture rental consultant in the room with me. There is a 5 x 5 cm area of erythema and tenderness and induration over the medial and inferior aspect of the left breast. Nipple and remainder of the tissue are unremarkable. I did look at her recent mammogram which did not demonstrate any definitive areas of malignancy. Ultrasound did not demonstrate fluid collection this is most likely superficial breast cellulitis given the onset of symptoms. I have advised that she follow-up with the comprehensive breast care clinic at [facility] given her established relationship there. She was given her first dose of Keflex in the emergency department and sent home with a prescription. Patient was discharged in stable condition. Procedures Miscellaneous Procedure Procedure Performed: Limited soft tissue ultrasound Indication: Redness and tenderness over the left breast Identified structures: Location: Left breast Findings: No localized drainable fluid collection there is cobblestoning and soft tissue that is tracking in the subcutaneous planes Impression: Cellulitis of localized area of the left breast without obvious drainable fluid collection or definitive soft tissue mass Images were saved to permanent archive The study was technically adequate Soft Tissue CPT Codes: CPT Neck: 91434-66 CPT Upper extremity: 87206-86 CPT Axilla: 99865-19 CPT Chest wall: 19875-45 CPT Breast: 24675-55-MJ/LT (complete), 64316-43-ZI/LT (limited), CPT Upper Back: 93843-46 CPT Lower Back: 92636-01 CPT Abdominal Wall: 03342-90 CPT Pelvic Wall: 31069-99 CPT Lower Extremity: 14785-97 CPT Other Soft Tissue: 20742-66 This study was performed by me, and I personally interpreted all images/videos. Based on my clinical judgement, these images were adequate and did not necessitate further imaging. Critical Care Critical Care Time Critical Care Time: No
[2024-07-28] MEDS: cephALEXin 500MG CAPSULE 500 MG PO (17:35)
[2024-07-28 17:41] VITALS: BP 152/90; PULSE 77; RESP 18; TEMP 36.8; O2SAT 99
== END 2024-07-28 17:48 | disposition home or self-care (01) ==
PROVIDERS: Emergency Provider Student in an Organized Health Care Education/Training Program; PCP Nurse Practitioner Family
DX: N61.0 Mastitis without abscess (principal); N64.59 Other signs and symptoms in breast
CPT/HCPCS: 99283

== ENCOUNTER 2025-05-23 09:41 | Outpatient (CLI) | payer MEDICARE, OTHER, SELFPAY ==
--- OUTSIDE RECORDS SUMMARY | 2025-04-11 13:46 | XMS_ITS | Encounter Summary ---
Author Organization [facility] Address [address] [place] [address] Care Team Providers Care Neuropsychology Service Director Name Role Phone Linh Moreira MD Unavailable [phone] Liss Chambers MD Unavailable [phone] Isaiah Bonilla MD Primary Care Provider [phone] Reason for Referral * Imaging (Routine) - Closed Specialty Diagnoses / Procedures Referred By Jasmyne potter Referred To Contact Radiology Diagnoses Endometrial cancer Procedures CT Abdomen Pelvis w IV Contrast Audrey Wilcox APRN [address] [address] Phone: tel: fax: Referral ID Status Reason Start Date Expiration Date Visits Re quested Visits Authorized [id number] Closed 03/14/2025 09/13/2026 1 1 * Imaging (Routine) - Closed Specialty Diagnoses / Procedures Referred By Jasmyne potter Referred To Contact Radiology Diagnoses Endometrial cancer Procedures CT Chest w IV Contrast Audrey Wilcox APRN [address] [address] Phone: tel: fax: Referral ID Status Reason Start Date Expiration Date Visits Re quested Visits Authorized [id number] Closed 03/14/2025 09/13/2026 1 1 Reason for Visit * Imaging (Routine) - Closed Specialty Diagnoses / Procedures Referred By Jasmyne potter Referred To Contact Radiology Diagnoses Endometrial cancer Procedures CT Abdomen Pelvis w IV Contrast Audrey Wilcox APRN [address] [facility] [address] [place] [address] Phone: tel: fax: Referral ID Status Reason Start Date Expiration Date Visits Re quested Visits Authorized [id number] Closed 03/14/2025 09/13/2026 1 1 Encounter Details Date Type Department Care Team (Latest Contact Info) Description 04/11/2025 1:46 PM EDT - 04/11/2025 11:59 PM EDT Hospital Encounter [facility] [address] [place] [address] Endometrial cancer ([facility]) Discharge Disposition: Home or Self Care Social History Tobacco Use Types Packs/Day Years Used Date Smoking Tobacco: Every Day Cigarettes 0.2 30 Passive Smoke Exposure: Current Smokeless Tobacco: Never Comments:One or two a day Alcohol Use Standard Drinks/Week Comments Not Currently 0 (1 standard drink = 0.6 oz pur e alcohol) PHQ-2 Answer Date Recorded Patient Health Questionnaire-2 Score 4 04/03/2024 PHQ-9 Answer Date Recorded Patient Health Questionnaire-9 Score 14 04/03/2024 PHQ-2A Answer Date Recorded Patient Health Questionnaire-2 Score 4 12/28/2022 Comments No Sex and Gender Information Value Date Recorded Sex Assigned at Not on file Legal Sex Female 8:09 PM EDT Gender Identity Female 04/17/2021 12:07 PM EDT Sexual Orientation Not on file documented as of this encounter Medications at Time of Discharge ALPRAZolam (Xanax) 1 MG tablet TAKE ONE TABLET BY MOUTH THREE TIMES DAILY NEEDED FOR ANXIETY MAY CAUSE DROWSINESS 08/27/2022 Breo Ellipta 100-25 MCG/ACT aerosol powder INHALE 1 PUFF BY MOUTH EVERY DAY --RINSE MOUTH AFTER USE-- 12/07/2022 cetirizine (ZyrTEC) 10 MG tablet TAKE ONE TABLET BY MOUTH EVERY DAY NEEDED FOR FOR ALLERGY SYMPTOMS 08/30/2022 dronabinol (Marinol) 5 MG capsule Take 1 capsule (5 mg) by mouth 2 (two) times a day if needed (appetite stimulation). 60 capsule 11/17/2023 FeroSul 325 (65 Fe) MG tablet Take by mouth 1 (one) time each day with breakfast. 02/16/2021 fluticasone (Flonase) 50 MCG/ACT nasal spray instill 1 SPRAY IN EACH NOSTRIL EVERY DAY 12/24/2022 hydrOXYzine HCl (Atarax) 50 MG tablet TAKE ONE TABLET BY MOUTH FOUR TIMES DAILY NEEDED FOR ITCHING MAY CAUSE DROWSINESS 12/03/2022 hydrOXYzine pamoate (Vistaril) 25 MG capsule Take 1 capsule (25 mg) by mouth 3 (three) times a day if needed for itching. ivermectin (Stromectol) 3 MG tablet Take 1 tablet (3 mg) by mouth 1 (one) time per week. Take one dose now, take the second dose after 1 week. 2 tablet 10/14/2023 levothyroxine (Synthroid, Levoxyl) 50 MCG tablet Take 1 tablet (50 mcg) by mouth 1 (one) time each day before breakfast. 03/30/2021 meloxicam (Mobic) 15 MG tablet TAKE ONE TABLET BY MOUTH EVERY DAY NEEDED FOR jaw pain --TAKE WITH FOOD-- 09/13/2022 metoprolol tartrate (Lopressor) 25 MG tablet Take by mouth 2 (two) times a day. 03/30/2021 Myrbetriq 50 MG tablet Take 1 tablet (50 mg) by mouth 1 (one) time each day. 05/18/2022 nicotine polacrilex (Commit) 4 MG lozenge Dissolve 1 lozenge in the mouth every 2 (two) hours as needed for smoking cessation. 100 lozenge 11/20/2024 omeprazole (PriLOSEC) [address] capsule Take 1 capsule (40 mg) by mouth 1 (one) time each day. 03/30/2021 ondansetron ODT (Zofran-ODT) 4 MG disintegrating tablet Take 1 tablet (4 mg) by mouth every 8 (eight) hours if needed for nausea or vomiting. 10 tablet 10/14/2023 venlafaxine XR (Effexor-XR) 75 MG 24 hr capsule TAKE ONE CAPSULE BY MOUTH EVERY DAY do not crush OR chew 30 capsule 3 02/26/2025 Ventolin HFA 108 (90 Base) MCG/ACT inhaler Inhale 1 puff every 4 (four) hours if needed. 02/12/2021 gabapentin (Neurontin) 300 MG capsule TAKE ONE CAPSULE BY MOUTH EVERY DAY IN THE MORNING MAY CAUSE DROWSINESS 30 capsule 03/18/2025 5 gabapentin (Neurontin) 600 MG tablet TAKE ONE TABLET BY MOUTH EVERY NIGHT MAY CAUSE DROWSINESS 30 tablet 03/18/2025 5 documented as of this encounter Miscellaneous Notes * Marytheo Danis Irma Mauro Yoder - 04/11/2025 1:55 PM EDT Images from the original note were not included. 1639 Caring for Yourself after Contrast Imaging If you had ORAL contrast: ? You can go back to your normal diet and activities as tolerated. ? Drink plenty of fluids, unless told otherwise. If you had IV contrast: ? You can go back to your normal diet and activities as tolerated. ? Drink plenty of fluids, unless told otherwise. ? Leave a bandage on the site for 30 minutes (where the IV was inserted or blood was drawn). If you had Intravesical (bladder) contrast: ? Return to normal diet and activity. What you need to know about delayed reaction to IV contrast What is IV Contrast? ? Contrast is a dye that is put into your body through an IV. ? It is used for imaging scans such as CT scans and MRIs. ? The contrast makes blood vessels, organs and other parts of your body show up better on the scan. What do I need to do after IV contrast? ? Drink lots of fluids. This will help flush the contrast out of your system. ? Drink 2-3 extra glasses or bottles of water within 4 hours of your scan. What is a contrast reaction? ? A contrast reaction is a bad side effect from the contrast dye. ? It is rare but it does happen. ? They can be mild - such as sneezing, itching, or hives. ? They can be severe - such as trouble breathing, throat swelling, and irregular heart beat. When do these reactions happen? ? They often happen right after the contrast is injected. ? Some happen hours after going home. Go to the nearest Emergency Department right away if you have any of these symptoms after you leavethe clinic or hospital. ? Sneezing ? Itching in your mouth, throat, eyes, ears, or skin ? Rash or hives ? Throwing up or stomach sickness ? High heart rate or ?racing? of your heart ? Feeling dizzy or woozy ? Feeling short of breath or like you can?t take a deep breath ? Feeling very anxious for no other reason It is very important that these reactions be treated. Tell the doctor or nurse that you are having a reaction to IV contrast dye. Do not ignore any sign of a reaction! All reactions must be assessed by a doctor. Call 911 if you are alone and your reaction is more than mild sneezing or itching. If you have a mild reaction, call to speak with a Radiologist, explain that you havehad a contrast reaction, as this needs to be added to your medical record. documented in this encounter Plan of Treatment Upcoming Encounters Date Type Department Care Team (Late st Contact Info) Description 07/16/2025 1:30 PM EST Office Visit [facility] [address] [place] [address] Audrey Wilcox, LIFT TRUCK OPERATOR [address] [place] [facility] [address] [place] [address] documented as of this encounter Procedures Procedure Name Priority Date/Time Associated Diagnosis Comments CT ABDOMEN PELVIS W IV CONTRAST Routine 04/11/2025 2:49 PM EDT Endometrial cancer (CMS/HCC) CT CHEST W IV CONTRAST Routine 04/11/2025 2:49 PM EDT Endometrial cancer (CMS/HCC) documented in this encounter Results * CT Abdomen Pelvis w IV Contrast (04/11/2025 2:49 PM EDT) Anatomical Region Laterality Modality Abdomen, Pelvis Computed Tomogra phy Impressions 04/11/2025 5:00 PM EDT Chest: No evidence of progression of disease Abdomen/Pelvis: No evidence of disease progression CRITICAL RESULT: No. COMMUNICATION: Per this written report. By electronically signing this report, I, the attending physician, attest that I have personally reviewed the images/data for the above examination(s) and agree with the final edited report. Drafted by ELEAZAR England on 04/11/2025 3:08 PM Final report signed by Kevin Gray MD on 04/11/2025 5:00 PM Narrative 04/11/2025 5:00 PM EDT CLINICAL INDICATION: endometrial cancer TECHNIQUE: Multiple axial CT images were obtained from thoracic inlet through pubic symphysis following administration of IV contrast, Omnipaque 300, 100 mL. Reformatted images in the coronal and sagittal planes were generated from the axial data set to facilitate diagnostic accuracy. Total DLP (Dose-Length Product): 340.97 mGy.cm (accession [id number]), 340.97 mGy.cm (accession [id number]) Please note: The reported value represents the total of one or more individual components during the CT acquisition on this date and at this time, and as such, the same value may appear in more than one CT report depending on the interpreting/reporting physicians. COMPARISON: CT Chest, abdomen and pelvis April 03, 2024. FINDINGS: Chest: Lymph Nodes and Mediastinum: No lymphadenopathy by CT size criteria. No mediastinal mass lesions. No suspicious thyroid findings. Cardiovascular: The heart is normal in caliber. Thoracic great vessels are patent. Lungs and Pleura: Unchanged 5 mm right upper lobe nodule (series 4, image 66). Bilateral calcified granuloma. Central airways are patent. Moderate paraseptal emphysema. No pleural effusions or suspicious thickening. Musculoskeletal and Body Wall: No clearly aggressive bone lesions. Degenerative changes of the spine. Old healed rib fractures. Abdomen/Pelvis: Solid Abdominal Organs: No interval change in the appearance of 2 cm hepatic hemangioma in segment 8 (series 2, image 20). No other suspicious focal liver lesion. Decompressed gallbladder. Unchanged fundal wall thickening of the gallbladder, likely due to focal adenomyosis. No intrahepatic or extrahepatic biliary dilatation. Unremarkable spleen. No suspicious pancreatic findings. No suspicious adrenal findings. No suspicious renal mass lesions. No hydronephrosis. GI Tract/Mesentery/Peritoneum: The large and small bowel appear normal in caliber. No evidence of inflammatory change. No suspicious peritoneal/mesenteric findings. Pelvic Viscera: No suspicious pelvic mass lesions. Changes of hysterectomy and bilateral salpingo-oophorectomy. No recurrent pelvic mass or collection. Lymph Nodes/Vasculature: No lymphadenopathy by CT size criteria. 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 The aortoiliac vasculature is patent and normal in caliber. Free Fluid: No ascites. Musculoskeletal and Body Wall: No aggressive or suspicious findings. Degenerative changes of spine. Procedure Note Kevin Gray MD - 04/11/2025 CLINICAL INDICATION: endometrial cancer TECHNIQUE: Multiple axial CT images were obtained from thoracic inlet through pubicsymphysis following administration of IV contrast, Omnipaque 300, 100 mL.Reformatted images in the coronal and sagittal planes were generated fromthe axial data set to facilitate diagnostic accuracy. Total DLP (Dose-Length Product): 340.97 mGy.cm (accession [id number]),340.97 mGy.cm (accession [id number]) Please note: The reported valuerepresents the total of one or more individual components during the CTacquisition on this date and at this time, and as such, the same value mayappear in more than one CT report depending on the interpreting/reportingphysicians. COMPARISON: CT Chest, abdomen and pelvis April 03, 2024. FINDINGS: Chest: Lymph Nodes and Mediastinum: No lymphadenopathy by CT size criteria. Nomediastinal mass lesions. No suspicious thyroid findings. Cardiovascular: The heart is normal in caliber. Thoracic great vessels arepatent. Lungs and Pleura: Unchanged 5 mm right upper lobe nodule (series 4, image66). Bilateral calcified granuloma. Central airways are patent. Moderateparaseptal emphysema. No pleural effusions or suspicious thickening. Musculoskeletal and Body Wall: No clearly aggressive bone lesions.Degenerative changes of the spine. Old healed rib fractures. Abdomen/Pelvis: Solid Abdominal Organs: No interval change in the appearance of 2 cmhepatic hemangioma in segment 8 (series 2, image 20). No other suspiciousfocal liver lesion. Decompressed gallbladder. Unchanged fundal wallthickening of the gallbladder, likely due to focal adenomyosis. Nointrahepatic or extrahepatic biliary dilatation. Unremarkable spleen. No suspicious pancreatic findings. No suspiciousadrenal findings. No suspicious renal mass lesions. No hydronephrosis. GI Tract/Mesentery/Peritoneum: The large and small bowel appear normal incaliber. No evidence of inflammatory change. No suspiciousperitoneal/mesenteric findings. Pelvic Viscera: No suspicious pelvic mass lesions. Changes of hysterectomyand bilateral salpingo-oophorectomy. No recurrent pelvic mass orcollection. 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 The aortoiliacvasculature is patent and normal in caliber. Free Fluid: No ascites. Musculoskeletal and Body Wall: No aggressive or suspicious findings.Degenerative changes of spine. IMPRESSION: Chest: No evidence of progression of disease Abdomen/Pelvis: No evidence of disease progression CRITICAL RESULT: No. COMMUNICATION: Per this written report. By electronically signing this report, I, the attending physician, attestthat I have personally reviewed the images/data for the aboveexamination(s) and agree with the final edited report. Drafted by ELEAZAR England on 04/11/2025 3:08 PM Final report signed by Kevin Gray MD on 04/11/2025 5:00 PM us Audrey S Jeri LIFT TRUCK OPERATOR IMG CT PROCEDURES Final Resu lt * CT Chest w IV Contrast (04/11/2025 2:49 PM EDT) Anatomical Region Laterality Modality Chest Computed Tomogra phy Impressions 04/11/2025 5:00 PM EDT Chest: No evidence of progression of disease Abdomen/Pelvis: No evidence of disease progression CRITICAL RESULT: No. COMMUNICATION: Per this written report. By electronically signing this report, I, the attending physician, attest that I have personally reviewed the images/data for the above examination(s) and agree with the final edited report. Drafted by ELEAZAR England on 04/11/2025 3:08 PM Final report signed by Kevin Gray MD on 04/11/2025 5:00 PM Narrative 04/11/2025 5:00 PM EDT CLINICAL INDICATION: endometrial cancer TECHNIQUE: Multiple axial CT images were obtained from thoracic inlet through pubic symphysis following administration of IV contrast, Omnipaque 300, 100 mL. Reformatted images in the coronal and sagittal planes were generated from the axial data set to facilitate diagnostic accuracy. Total DLP (Dose-Length Product): 340.97 mGy.cm (accession [id number]), 340.97 mGy.cm (accession [id number]) Please note: The reported value represents the total of one or more individual components during the CT acquisition on this date and at this time, and as such, the same value may appear in more than one CT report depending on the interpreting/reporting physicians. COMPARISON: CT Chest, abdomen and pelvis April 03, 2024. FINDINGS: Chest: Lymph Nodes and Mediastinum: No lymphadenopathy by CT size criteria. No mediastinal mass lesions. No suspicious thyroid findings. Cardiovascular: The heart is normal in caliber. Thoracic great vessels are patent. Lungs and Pleura: Unchanged 5 mm right upper lobe nodule (series 4, image 66). Bilateral calcified granuloma. Central airways are patent. Moderate paraseptal emphysema. No pleural effusions or suspicious thickening. Musculoskeletal and Body Wall: No clearly aggressive bone lesions. Degenerative changes of the spine. Old healed rib fractures. Abdomen/Pelvis: Solid Abdominal Organs: No interval change in the appearance of 2 cm hepatic hemangioma in segment 8 (series 2, image 20). No other suspicious focal liver lesion. Decompressed gallbladder. Unchanged fundal wall thickening of the gallbladder, likely due to focal adenomyosis. No intrahepatic or extrahepatic biliary dilatation. Unremarkable spleen. No suspicious pancreatic findings. No suspicious adrenal findings. No suspicious renal mass lesions. No hydronephrosis. GI Tract/Mesentery/Peritoneum: The large and small bowel appear normal in caliber. No evidence of inflammatory change. No suspicious peritoneal/mesenteric findings. Pelvic Viscera: No suspicious pelvic mass lesions. Changes of hysterectomy and bilateral salpingo-oophorectomy. No recurrent pelvic mass or collection. Lymph Nodes/Vasculature: No lymphadenopathy by CT size criteria. 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 The aortoiliac vasculature is patent and normal in caliber. Free Fluid: No ascites. Musculoskeletal and Body Wall: No aggressive or suspicious findings. Degenerative changes of spine. Procedure Note Kevin Gray MD - 04/11/2025 CLINICAL INDICATION: endometrial cancer TECHNIQUE: Multiple axial CT images were obtained from thoracic inlet through pubicsymphysis following administration of IV contrast, Omnipaque 300, 100 mL.Reformatted images in the coronal and sagittal planes were generated fromthe axial data set to facilitate diagnostic accuracy. Total DLP (Dose-Length Product): 340.97 mGy.cm (accession [id number]),340.97 mGy.cm (accession [id number]) Please note: The reported valuerepresents the total of one or more individual components during the CTacquisition on this date and at this time, and as such, the same value mayappear in more than one CT report depending on the interpreting/reportingphysicians. COMPARISON: CT Chest, abdomen and pelvis April 03, 2024. FINDINGS: Chest: Lymph Nodes and Mediastinum: No lymphadenopathy by CT size criteria. Nomediastinal mass lesions. No suspicious thyroid findings. Cardiovascular: The heart is normal in caliber. Thoracic great vessels arepatent. Lungs and Pleura: Unchanged 5 mm right upper lobe nodule (series 4, image66). Bilateral calcified granuloma. Central airways are patent. Moderateparaseptal emphysema. No pleural effusions or suspicious thickening. Musculoskeletal and Body Wall: No clearly aggressive bone lesions.Degenerative changes of the spine. Old healed rib fractures. Abdomen/Pelvis: Solid Abdominal Organs: No interval change in the appearance of 2 cmhepatic hemangioma in segment 8 (series 2, image 20). No other suspiciousfocal liver lesion. Decompressed gallbladder. Unchanged fundal wallthickening of the gallbladder, likely due to focal adenomyosis. Nointrahepatic or extrahepatic biliary dilatation. Unremarkable spleen. No suspicious pancreatic findings. No suspiciousadrenal findings. No suspicious renal mass lesions. No hydronephrosis. GI Tract/Mesentery/Peritoneum: The large and small bowel appear normal incaliber. No evidence of inflammatory change. No suspiciousperitoneal/mesenteric findings. Pelvic Viscera: No suspicious pelvic mass lesions. Changes of hysterectomyand bilateral salpingo-oophorectomy. No recurrent pelvic mass orcollection. 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 The aortoiliacvasculature is patent and normal in caliber. Free Fluid: No ascites. Musculoskeletal and Body Wall: No aggressive or suspicious findings.Degenerative changes of spine. IMPRESSION: Chest: No evidence of progression of disease Abdomen/Pelvis: No evidence of disease progression CRITICAL RESULT: No. COMMUNICATION: Per this written report. By electronically signing this report, I, the attending physician, humberto I have personally reviewed the images/data for the aboveexamination(s) and agree with the final edited report. Drafted by ELEAZAR England on 04/11/2025 3:08 PM Final report signed by Kevin Gray MD on 04/11/2025 5:00 PM us Audrey Machado Jeri LIFT TRUCK OPERATOR IMG CT PROCEDURES Final Resu lt documented in this encounter Visit Diagnoses Diagnosis Endometrial cancer Malignant neoplasm of corpus uteri, except isthmus documented in this encounter Administered Medications Inactive Administered Medications - up to 3 most recent administrations Medication Order MAR Action Action Date Dose Rate Site iohexol (OMNIPaque) 300 MG/ML injection 100 mL 100 mL, Intravenous, Once in imaging, 1 dose, Starting on Brea 04/11/25 at 1355, Until Brea 04/11/25 at 1438, Routine, Imaging Protocol Orders Given 04/11/2025 2:38 PM EDT 100 mL iohexol (OMNIPaque) 9 MG/ML oral contrast 500 mL 500 mL, Oral, Once in imaging, 1 dose, Starting on Brea 04/11/25 at 1355, Until Brea 04/11/25 at 1403, Routine, Imaging Protocol Orders Given 04/11/2025 2:03 PM EDT 500 mL documented in this encounter Additional Health Concerns Assessment Noted Time PHQ-9 Depression Total Score: 14 024 1:48 PM EDT A fall risk assessment has been complete d for the patient 11/20/2024 2:27 PM EDT documented as of this encounter Care Teams Neuropsychology Service Director Relationship Specialty Start Date End Date Isaiah Bonilla MD [address] [place] [id number] PCP - General 09/27/22 Linh Moreira MD [address] [place] [address] Referring Physician 03/26/21 Liss Chambers MD [address] [place] [phone] Consulting Physician Radiation Therapy 05/26/21 documented as of this encounter
--- NOTE | 2025-05-23 09:44 | MR_ITS ---
FINAL REPORT TECHNIQUE: Multiplanar and multisequence imaging of the lumbar spine was obtained without contrast. 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 hx of hysterectomy. FINDINGS: There is normal alignment of the lumbar vertebral bodies in the sagittal plane. Vertebral body height is preserved. The spinal cord ends at the level of L1. There is normal signal intensity within the substance of the distal spinal cord. There are degenerative endplate changes at L4-5. There is a T2 hyperintense lesion in the superior aspect of L1 which is indeterminate, could represent atypical hemangioma although other etiologies are not excluded. No acute paraspinal abnormality is identified. L1-2: No focal disc herniation, central canal stenosis or neuroforaminal narrowing. L2-3: No focal disc herniation, central canal stenosis or neuroforaminal narrowing. L3-4: No focal disc herniation, central canal stenosis or neuroforaminal narrowing. L4-5: An annular disc bulge is present with degenerative endplate changes and facet osteoarthropathy. Moderate to severe right and moderate left neuroforaminal narrowing. L5-S1: No focal disc herniation, central canal stenosis or neuroforaminal narrowing. IMPRESSION: Abnormality at the superior aspect of L1 which may be related to degenerative endplate marrow changes but given the history of uterine cancer, consider bone scan. Degenerative disc disease at L4-5. Reviewed, Interpreted and Dictated by Floresita Everett MD Transcribed by Lida Bhatt Authenticated and [facility]
--- OUTSIDE RECORDS SUMMARY | 2025-05-23 09:54 | XMS_ITS | Encounter Summary ---
Author Organization [facility] Address [address] [place] [address] Care Team Providers Care Customer Response Representative Name Role Phone Linh Moreira MD Unavailable [phone] Liss Chambers MD Unavailable [phone] Isaiah Bonilla MD Primary Care Provider [phone] Encounter Details Date Type Department Care Team (Latest Contact Info) Description 04/11/2025 Travel Social History Tobacco Use Types Packs/Day Years [...] on file documented as of this encounter Plan of Treatment Upcoming Encounters Date Type Department Care Team ( Contact Info) Description 07/16/2025 1:30 PM EST Office Visit [facility] [address] [place] [address] Audrey Wilcox S, NECK SKEWER [address] [facility] [address] [place] [address] documented as of this encounter Visit Diagnoses Not on filedocumented in this encounter Additional Health Concerns Assessment Noted Time PHQ-9 Depression Total Score: 14 024 1:48 PM EDT A fall risk assessment has been complete d for the patient 11/20/2024 2:27 PM EDT documented as of this encounter Care Teams Customer Response Representative Relationship Specialty Start Date End Date Isaiah Bonilla MD [address] [place] [address] PCP - General 09/27/22 Linh Moreira MD [facility] [address] [address] Referring Physician 03/26/21 Liss Chambers MD [address] [facility] [address] [place] [address] Consulting Physician Radiation Therapy 05/26/21 documented as of this encounter
--- OUTSIDE RECORDS SUMMARY | 2025-05-23 09:54 | XMS_ITS | Encounter Summary ---
Author Organization [facility] Address [address] [place] [address] Care Team Providers Care Map Clerk Name Role Phone Linh Moreira MD Unavailable [phone] Liss Chambers MD Unavailable [phone] Linh Moreira MD Primary Care Provider [phone] Isaiah Bonilla MD Primary Care Provider [phone] Reason for Visit * Reason Comments Med Refill Encounter Details Date Type Department Care Team (Late st Contact Info) Description 09/16/2022 Refill [facility] 800 [facility] [address] [place] [address] Linh Dee MD [address] [id number] Social History Tobacco Use Types Packs/Day Years Used Date Smoking Tobacco: Every Day Cigarettes 1 30 Smokeless Tobacco: Never Alcohol Use Standard Drinks/Week Comments Never 0 (1 standard drink = 0.6 oz pur e alcohol) PHQ-2 Answer Date Recorded Patient Health Questionnaire-2 Score 6 08/31/2022 Comments No Sex and Gender Information Value Date Recorded Sex Assigned at Not on file Legal Sex Female 8:09 PM EDT Gender Identity Female 04/17/2021 12:07 PM EDT Sexual Orientation Not on file COVID-19 Exposure Response Date Recorded In the last 10 days, have yo u been in contact with someone who was confirmed or suspected to have Coronavirus/COVID-19? No / Unsure 08/31/2022 1:26 PM EST documented as of this encounter Miscellaneous Notes * Telephone Encounter - Ifeanyi Cabrales MD - 09/21/2022 2:12 PM EST Refill sent * Telephone Encounter - Ifeanyi Cabrales MD - 09/21/2022 2:09 PM EST ----- Message from Ruben Patel APRN sent at 09/21/2022 1:55 PM EST ----- Regarding: Gabapentin 300 daily Can someone refill her gabapentin to her local pharmacy? Thank you! ruben documented in this encounter Plan of Treatment Upcoming Encounters Date Type Department Care Team (Late st Contact Info) Description 07/16/2025 1:30 PM EST Office Visit [facility] [address] [place] [address] Ruben Wilcox APRN [address] [place] [facility] [address] [place] [address] documented as of this encounter Visit Diagnoses Not on filedocumented in this encounter Additional Health Concerns Assessment Noted Time PHQ-9 Depression Total Score: 24 023 1:44 PM EST A fall risk assessment has been complete d for the patient 08/31/2022 1:44 PM EST documented as of this encounter Care Teams Map Clerk Relationship Specialty Start Date End Date Linh Moreira MD [address] [place] [address] [place] [address] PCP - General 12/01/21 09/26/22 Isaiah Bonilla MD [address] [phone] PCP - General 09/27/22 Linh Moreira MD [facility] [place] [phone] Referring Physician 03/26/21 Liss Chambers MD [address] [place] [address] Consulting Physician Radiation Therapy 05/26/21 documented as of this encounter
--- OUTSIDE RECORDS SUMMARY | 2025-05-23 09:54 | XMS_ITS | Encounter Summary ---
Author Organization [facility] Address [address] [place] [address] Care Team Providers Care Rehabilitation Program Manager Name Role Phone Linh Moreira MD Unavailable [phone] Linh Moreira MD Unavailable [phone] Liss Chambers MD Unavailable [phone] Linh Moreira MD Primary Care Provider [phone] Isaiah Bonilla MD Primary Care Provider [phone] Encounter Details Date Type Department Care Team (Late st Contact Info) Description 04/07/2021 Lab Requisition [facility] [address] [place] [address] Alicja Bowles MD 800 [facility] [address] [place] [address] Excessive and frequent menstruation with regular cycle Social History Tobacco Use Types Packs/Day Years Used Date Smoking Tobacco: Never Assessed Comments Unknown Sex and Gender Information Value Date Recorded Sex Assigned at Not on file Legal Sex Female 8:09 PM EDT Gender Identity Female 04/17/2021 12:07 PM EDT Sexual Orientation Not on file COVID-19 Exposure Response Date Recorded In the last month, have you been in contact with someone who was confirmed or suspected to have Coronavirus / COVID-19? No / Unsure 04/09/2021 10:31 AM EDT documented as of this encounter Plan of Treatment Upcoming Encounters Date Type Department Care Team (Late st Contact Info) Description 07/16/2025 1:30 PM EST Office Visit [facility] [address] [address] Audrey Wilcox, CONSTRUCTION OR LEAK GANG LABORER [address] [place] [address] documented as of this encounter Procedures Procedure Name Priority Date/Time Associated Diagnosis Comments SURGICAL PATHOLOGY CONSULT Routine 04/07/2021 11:30 AM EDT Excessive and frequent menstruation with regular cycle documented in this encounter Results * Surgical Pathology Consult (04/07/2021 11:30 AM EDT) Case Report Sugical Pathology Consult Case: Authorizing Provider: Alcija Bowles MD Collected: 04/07/2021 1130 Ordering Location: [facility] Lab Received: 04/07/2021 1130 Pathologist: Kaylie Good MD Specimen: Endometrium, 1 1:39 PM EDT [facility] Final Diagnosis A. ENDOMETRIUM, BIOPSY (OSS; ; 03/23/2021): - ENDOMETRIAL CARCINOMA WITH HIGH-GRADE FEATURES. SEE NOTE. 1 1:39 PM EDT [facility] at 1339 EDT Comment Sections show a predominance of well-differentiate d gland forming endometrioid adenocarcinoma. There are poorly differentiated solid areas that exhibit high-grade nuclei, dyshesive cells, and some foci with rhabdoid morphology. The differential diagnoses would include: dedifferentiated carcinoma, carcinosarcoma, and less likely grade 3 endometrioid adenocarcinoma. Definitive classification of the tumor would be best made on subsequent tumor resection specimen. Immunohistochemica l stains performed at the outside institution, show the tumor cells are negative for Napsin-A and p53. The p53 demonstrates wild-type (variable staining pattern) with properly working controls. 1 1:39 PM EDT [facility] Tumor Blocks Tumor blocks: A1-A2 1 1:39 PM EDT [facility] Tumor Adequacy for Ancillary Testing Adequate Tissue Present 1 1:39 PM EDT [facility] Clinical Information Diagnosis: N92.0 - Excessive and frequent menstruation with regular cycle [ICD-10-CM] 1 1:39 PM EDT [facility] Gross Description A. [id number] Received along with a corresponding pathology report from [facility] are 6 slide(s) labeled outside case: [id number] collected on 03/23/2021. 1 1:39 PM EDT [facility] Intradepartmental Consultation with Agreement Dr. Bob 1 1:39 PM EDT [facility] Note: A resident was involved in the service. I attest I examined the relevant preparations for the specimens and confirmed the diagnosis or interpretation. 1 1:39 PM EDT [facility] Tissue Endometrial structure / Unknown 04/07/2021 11:30 AM EDT 04/07/2021 11:30 AM EDT us Alicja Bowles MD LAB PATHOLOGY ORDERABLES Edna mccain Result [facility] [address] [phone] documented in this encounter Visit Diagnoses Diagnosis Excessive and frequent menstruation with regular cycle documented in this encounter Care Teams Rehabilitation Program Manager Relationship Specialty Start Date End Date Linh Moreira MD [address] [place] [address] [address] [place] [address] PCP - General 12/01/21 09/26/22 Isaiah Bonilla MD [address] [place] [address] PCP - General 09/27/22 Linh Moreira MD [address] [place] [address] Referring Physician 03/26/21 Linh Moreira MD [address] [place] [address] Referring Physician 05/25/21 05/25/21 Liss Chambers MD [address] [place] [address] Consulting Physician Radiation Therapy 05/26/21 documented as of this encounter
--- OUTSIDE RECORDS SUMMARY | 2025-05-23 09:54 | XMS_ITS | Encounter Summary ---
Author Organization [facility] Address [address] [place] [address] Care Team Providers Care Communication Manager Name Role Phone Linh Moreira MD Unavailable [phone] Liss Chambers MD Unavailable [phone] Linh Moreira MD Primary Care Provider [phone] Isaiah Bonilla MD Primary Care Provider [phone] Encounter Details Date Type Department Care Team (Late st Contact Info) Description 03/11/2022 Orders Only External Location [address] [place] [address] Provider, External Social History Tobacco Use Types Packs/Day Years Used Date Smoking Tobacco: Every Day Cigarettes 1 30 Smokeless Tobacco: Never Alcohol Use Standard Drinks/Week Comments Never 0 (1 standard drink = 0.6 oz pur e alcohol) PHQ-2 Answer Date Recorded Patient Health Questionnaire-2 Score 1 06/11/2021 Comments No Sex and Gender Information Value Date Recorded Sex Assigned at Not on file Legal Sex Female 8:09 PM EDT Gender Identity Female 04/17/2021 12:07 PM EDT Sexual Orientation Not on file documented as of this encounter Plan of Treatment Upcoming Encounters Date Type Department Care Team (Late Contact Info) Description 07/16/2025 1:30 PM EST Office Visit [facility] 800 [facility] [address] [place] [address] Audrey Wilcox, JOAN [address] [place] [address] documented as of this encounter Procedures Procedure Name Priority Date/Time Associated Diagnosis Comments MR ANGIO HEAD WO IV CONTRAST 03/11/2022 5:42 PM EDT documented in this encounter Results * MR Angio Head wo IV Contrast (03/11/2022 5:42 PM EDT) Anatomical Region Laterality Modality Head Magnetic Resonan ce 03/11/2022 5:42 PM EDT us External Provider IMG MRI PROCEDURES Final Resul t documented in this encounter Visit Diagnoses Not on filedocumented in this encounter Additional Health Concerns Assessment Noted Time A fall risk assessment has been complete d for the patient 12/10/2021 12:29 PM EDT documented as of this encounter Care Teams Communication Manager Relationship Specialty Start Date End Date Linh Moreira MD [address] [place] [address] [address] [place] [address] PCP - General 12/01/21 09/26/22 Isaiah Bonilla MD [address] [place] [address] PCP - General 09/27/22 Linh Moreira MD [address] [place] [address] Referring Physician 03/26/21 Liss Chambers MD [address] [place] [address] Consulting Physician Radiation Therapy 05/26/21 documented as of this encounter
--- OUTSIDE RECORDS SUMMARY | 2025-05-23 09:54 | XMS_ITS | Encounter Summary ---
Author Organization [facility] Address [address] [place] [address] Care Team Providers Care Coping Machine Operator Name Role Phone Linh Moreira MD Unavailable [phone] Liss Chambers MD Unavailable [phone] Isaiah Bonilla MD Primary Care Provider [phone] Reason for Visit * Reason Comments Med Refill Encounter Details Date Type Department Care Team (Late st Contact Info) Description 04/25/2025 Refill [facility] 800 [facility] [address] [place] [phone] Shaylee Benavidez MD [address] [place] [address] Social History Tobacco Use Types Packs/Day Years [...] on file documented as of this encounter Miscellaneous Notes * Telephone Encounter - Bonnie Monroy MD - 04/25/2025 3:49 PM EDT PDMP reviewed. Appropriate refill history. Gabapentin refilled. Bonnie Domínguez MD Gynecologic Oncology Fellow PGY7 documented in this encounter Plan of Treatment Upcoming Encounters Date Type Department Care Team (Late st Contact Info) Description 07/16/2025 1:30 PM EST Office Visit [facility] [address] [place] [address] Audrey Wilcox S, STRAIGHT SLICING MACHINE OPERATOR [address] [place] [address] documented as of this encounter Visit Diagnoses Not on filedocumented in this encounter Additional Health Concerns Assessment Noted Time PHQ-9 Depression Total Score: 14 04/03/2 024 1:48 PM EDT A fall risk assessment has been complete d for the patient 11/20/2024 2:27 PM EDT documented as of this encounter Care Teams Coping Machine Operator Relationship Specialty Start Date End Date Isaiah Bonilla MD [address] [place] [address] PCP - General 09/27/22 Linh Moreira MD [address] [address] Referring Physician 03/26/21 Liss Chambers MD [address] [place] [address] Consulting Physician Radiation Therapy 05/26/21 documented as of this encounter
--- OUTSIDE RECORDS SUMMARY | 2025-05-23 09:54 | XMS_ITS ---
Author Organization [facility] Address [address] [place] [address] Care Team Providers Care Endocrinology Teacher Name Role Phone Linh Moreira MD Unavailable [phone] Liss Chambers MD Unavailable [phone] Isaiah Bonilla MD Primary Care Provider [phone] Active Problems Problem Noted Date Diagnosed Date Tobacco use disorder 09/14/2021 HTN (hypertension) 04/17/2021 Hypothyroidism 04/17/2021 Asthma 04/17/2021 Chronic obstructive pulmonary disease 04/17/2021 Endometrial carcinoma 04/17/2021 Cancer Staging:Clinical stage from 04/17/2021:FIGO Stage IB(cT1b, cN0, cM0) - Unsigned Endometrial cancer 04/17/2021 Current Treatment and Therapy Plans No current plan information found. Past Treatment and Therapy Plans Oncology Treatment Plan Name Start Date Discontinue Date Treatment Medications Discontinue Reason Plan Provider Cycles PACLitaxel / CARBOplatin Every 21 Days 1 12/07/2021 CARBOplatin (Paraplatin) IVPB (by AUC: GOG-COCKCROFT GAULT)PACLitax el (Taxol) IVPB 500 mL Therapy Complete Alicja Bowles MD 6 of 6 cycles started Radiation Treatments * Course C1 07/20/2021 - 09/02/2021 Treatment Period Energy Fraction Dose Fractions Total Dose Plans Planned A1A4/Pelvis 07/20/2021 - 09/02/2021 180 cGy 4,500 cGy Reference Points Delivered Pelvis 07/20/2021 - 09/02/2021 4,500 cGy Resolved Problems Problem Noted Date Diagnosed Date Resolved Date Second hand smoke exposure 09/14/2021 0 04/28/2025
--- OUTSIDE RECORDS SUMMARY | 2025-05-23 09:54 | XMS_ITS | Encounter Summary ---
Author Organization [facility] Address [address] [place] [address] Care Team Providers Care Tax Agent Name Role Phone Linh Moreira MD Unavailable [phone] Liss Chambers MD Unavailable [phone] Isaiah Bonilla MD Primary Care Provider [phone] Reason for Visit * Reason Comments Med Refill Encounter Details Date Type Department Care Team (Late st Contact Info) Description 02/24/2023 Refill [facility] 800 [facility] [address] [place] [id number] Ifeanyi Cabrales MD [address] [place] [phone] Social History Tobacco Use Types Packs/Day Years Used Date Smoking Tobacco: Every Day Cigarettes 0.3 30 Passive Smoke Exposure: Current Smokeless Tobacco: Never Comments:One or two a day Alcohol Use Standard Drinks/Week Comments Not Currently 0 (1 standard drink = 0.6 oz pur e alcohol) PHQ-2 Answer Date Recorded Patient Health Questionnaire-2 Score 4 12/28/2022 PHQ-9 Answer Date Recorded Patient Health Questionnaire-9 Score 16 12/28/2022 PHQ-2A Answer Date Recorded Patient Health Questionnaire-2 [...] [address] [place] [address] JeriFazal genaoi S, INDUSTRIAL GAS SERVICER HELPER [address] [place] [address] documented as of this encounter Visit Diagnoses Not on filedocumented in this encounter Additional Health Concerns Assessment Noted Time PHQ-9 Depression Total Score: 16 023 12:34 PM EDT A fall risk assessment has been complete d for the patient 12/28/2022 12:34 PM EDT documented as of this encounter Care Teams Tax Agent Relationship Specialty Start Date End Date Isaiah Bonilla MD [address] [place] [address] PCP - General 09/27/22 Linh Moreira MD [address] [place] [address] Referring Physician 03/26/21 Liss Chambers MD [address] [place] [address] Consulting Physician Radiation Therapy 05/26/21 documented as of this encounter
--- OUTSIDE RECORDS SUMMARY | 2025-05-23 09:54 | XMS_ITS | Encounter Summary ---
Author Organization [facility] Address [address] [place] [address] Care Team Providers Care University Extension Specialist Name Role Phone Linh Moreira MD Unavailable [phone] Liss Chambers MD Unavailable [phone] Isaiah Bonilla MD Primary Care Provider [phone] Reason for Visit * Reason Comments Med Refill Encounter Details Date Type Department Care Team (Late st Contact Info) Description 05/23/2025 Refill [facility] 800 [facility] [address] [place] [phone] Bonnie Monroy MD [address] [place] [address] Social History Tobacco Use Types Packs/Day Years [...] [address] [place] [address] JeriAudrey genao S, SENSITIZED PAPER TESTER [address] [place] [address] documented as of this encounter Visit Diagnoses Not on filedocumented in this encounter Additional Health Concerns Assessment Noted Time PHQ-9 Depression Total Score: 14 024 1:48 PM EDT A fall risk assessment has been complete d for the patient 11/20/2024 2:27 PM EDT documented as of this encounter Care Teams University Extension Specialist Relationship Specialty Start Date End Date Isaiah Bonilla MD [address] [place] [address] PCP - General 09/27/22 Linh Moreira MD [address] [place], [place] [id number] Referring Physician 03/26/21 Liss Chambers MD [address] [place] [address] Consulting Physician Radiation Therapy 05/26/21 documented as of this encounter
--- OUTSIDE RECORDS SUMMARY | 2025-05-23 09:54 | XMS_ITS | Encounter Summary ---
Author Organization [facility] Address [address] [place] [address] Care Team Providers Care Taker Away Name Role Phone Linh Moreira MD Unavailable [phone] Liss Chambers MD Unavailable [phone] Linh Moreira MD Primary Care Provider [phone] Isaiah Bonilla MD Primary Care Provider [phone] Encounter Details Date Type Department Care Team (Late st Contact Info) Description 03/11/2022 Orders Only External Location [address] [place] [address] Provider, External Social History Tobacco [...] EST Office Visit [facility] 800 [facility] [address] [place] [address] Audrey Wilcox, JOAN [address] [place] [address] documented as of this encounter Procedures Procedure Name Priority Date/Time Associated Diagnosis Comments MR ANGIO NECK WO IV CONTRAST 03/11/2022 5:42 PM EDT documented in this encounter Results * MR Angio Neck wo IV Contrast (03/11/2022 5:42 PM EDT) Anatomical Region Laterality Modality Neck Magnetic Resonan ce 03/11/2022 5:42 PM EDT us External Provider IMG MRI PROCEDURES Final Resul t documented in this encounter Visit Diagnoses Not on filedocumented in this encounter Additional Health Concerns Assessment Noted Time A fall risk assessment has been complete d for the patient 12/10/2021 12:29 PM EDT documented as of this encounter Care Teams Taker Away Relationship Specialty Start Date End Date Linh Moreira MD [address] [place] [address] [address] [place] [address] PCP - General 12/01/21 09/26/22 Isaiah Bonilla MD [address] [place] [address] PCP - General 09/27/22 Linh Moreira MD [address] [place] [address] Referring Physician 03/26/21 Liss Chambers MD [address] [place] [address] Consulting Physician Radiation Therapy 05/26/21 documented as of this encounter
--- OUTSIDE RECORDS SUMMARY | 2025-05-23 09:54 | XMS_ITS | Clinical Summary ---
Author Organization [facility] Address [address] [place] [address] Care Team Providers Care Item Repair Manager Name Role Phone Linh Moreira MD Unavailable [phone] Liss Chambers MD Unavailable [phone] Isaiah Bonilla MD Primary Care Provider [phone] Allergies No known active allergies Medications Ventolin HFA 108 (90 Base) MCG/ACT inhaler Inhale 1 puff every 4 (four) hours if needed. Active FeroSul 325 (65 Fe) MG tablet Take by mouth 1 (one) time each day with breakfast. Active levothyroxine (Synthroid, Levoxyl) 50 MCG tablet Take 1 tablet (50 mcg) by mouth 1 (one) time each day before breakfast. Active metoprolol tartrate (Lopressor) 25 MG tablet Take by mouth 2 (two) times a day. Active omeprazole (PriLOSEC) [address] capsule Take 1 capsule (40 mg) by mouth 1 (one) time each day. Active hydrOXYzine pamoate (Vistaril) 25 MG capsule Take 1 capsule (25 mg) by mouth 3 (three) times a day if needed for itching. Active nicotine (Nicoderm CQ) 21 MG/24HR patch Place 1 patch on the skin 1 (one) time each day at the same time. 30 patch Active Myrbetriq 50 MG tablet Take 1 tablet (50 mg) by mouth 1 (one) time each day. Active ALPRAZolam (Xanax) 1 MG tablet TAKE ONE TABLET BY MOUTH THREE TIMES DAILY NEEDED FOR ANXIETY MAY CAUSE DROWSINESS Active meloxicam (Mobic) 15 MG tablet TAKE ONE TABLET BY MOUTH EVERY DAY NEEDED FOR jaw pain --TAKE WITH FOOD-- 023 Active cetirizine (ZyrTEC) 10 MG tablet TAKE ONE TABLET BY MOUTH EVERY DAY NEEDED FOR FOR ALLERGY SYMPTOMS Active hydrOXYzine HCl (Atarax) 50 MG tablet TAKE ONE TABLET BY MOUTH FOUR TIMES DAILY NEEDED FOR ITCHING MAY CAUSE DROWSINESS Active fluticasone (Flonase) 50 MCG/ACT nasal spray instill 1 SPRAY IN EACH NOSTRIL EVERY DAY 023 Active Breo Ellipta 100-25 MCG/ACT aerosol powder INHALE 1 PUFF BY MOUTH EVERY DAY --RINSE MOUTH AFTER USE-- Active ivermectin (Stromectol) 3 MG tablet Take 1 tablet (3 mg) by mouth 1 (one) time per week. Take one dose now, take the second dose after 1 week. 2 tablet Active Additional Information Patient not taking.Reported on 04/03/2024 ondansetron ODT (Zofran-ODT) 4 MG disintegrating tablet Take 1 tablet (4 mg) by mouth every 8 (eight) hours if needed for nausea or vomiting. 10 tablet 024 Active dronabinol (Marinol) 5 MG capsule Take 1 capsule (5 mg) by mouth 2 (two) times a day if needed (appetite stimulation). 60 capsule 024 Active nicotine polacrilex (Commit) 4 MG lozenge Dissolve 1 lozenge in the mouth every 2 (two) hours as needed for smoking cessation. 100 lozenge 025 Active venlafaxine XR (Effexor-XR) 75 MG 24 hr capsule TAKE ONE CAPSULE BY MOUTH EVERY DAY do not crush OR chew 30 capsule 3 025 Active gabapentin (Neurontin) 300 MG capsule TAKE ONE CAPSULE BY MOUTH EVERY DAY IN THE MORNING MAY CAUSE DROWSINESS 30 capsule 025 2024 Active gabapentin (Neurontin) 600 MG tablet TAKE ONE TABLET BY MOUTH EVERY NIGHT MAY CAUSE DROWSINESS 30 tablet 025 Active gabapentin (Neurontin) 600 MG tablet TAKE ONE TABLET BY MOUTH EVERY NIGHT MAY CAUSE DROWSINESS 30 tablet 025 2024 Discontinued gabapentin (Neurontin) 300 MG capsule TAKE ONE CAPSULE BY MOUTH EVERY DAY IN THE MORNING MAY CAUSE DROWSINESS 30 capsule 025 2024 Discontinued Active Problems Problem Noted Date Diagnosed Date Tobacco use disorder 09/14/2021 HTN (hypertension) 04/17/2021 Hypothyroidism 04/17/2021 Asthma 04/17/2021 Chronic obstructive pulmonary disease 04/17/2021 Endometrial carcinoma 04/17/2021 Cancer Staging:Clinical stage from 04/17/2021:FIGO Stage IB(cT1b, cN0, cM0) - Unsigned Endometrial cancer 04/17/2021 Resolved Problems Problem Noted Date Diagnosed Date Resolved Date Second hand smoke exposure 09/14/2021 0 04/28/2025 Encounters Date Type Department Care Team Description 05/23/2025 Refill [facility] [address] [place] [address] Bonnie Monroy MD 04/25/2025 Refill [facility] [address] [place] [address] Shaylee Benavidez MD 04/15/2025 Telephone [facility] [address] [place] [address] Audrey Wilcox APRN 04/15/2025 Telephone [facility] [address] [place] [address] Audrey Wilcox APRN 04/11/2025 1:46 PM EDT - 04/11/2025 11:59 PM EDT Hospital Encounter [facility] [address] [place] [address] Endometrial cancer (CMS/LTAC, LOCATED [facility]IN [facility]) Discharge Disposition: Home or Self Care 04/11/2025 Travel 03/18/2025 Refill [facility] [address] [address] Yesi Dumont MD 03/14/2025 Telephone [facility] [address] [place] [address] Kayley Barrientos MD 02/24/2025 Refill [facility] [address] [place] [address] Audrey Wilcox, JOAN 02/21/2025 Refill [facility] [address] [place] [address] Bonnie Monroy MD from Last 3 Months Family History Medical History Relation Name Comments Breast cancer Cousin Kidney cancer Cousin Heart disease Father Stroke Father Relation Name Status Comments Cousin Alive Father Social History Tobacco Use Types Packs/Day Years Used Date Smoking Tobacco: Every Day Cigarettes 0.2 30 Passive Smoke Exposure: Current Smokeless Tobacco: Never Tobacco Cessation:Ready to Q uit: Not Asked; Counseling Given: Not Answered Comments:One or two a day Alcohol Use [...] PM EDT Sexual Orientation Not on file Last Filed Vital Signs Vital Sign Reading Time Taken Comments Blood Pressure 138/81 11/20/2024 2:22 PM EDT Pulse 79 11/20/2024 2:22 PM EDT Temperature 36.5 C (97.7 F) 11/20/2024 2:22 PM EDT Respiratory Rate 18 11/20/2024 2:22 PM EDT Oxygen Saturation 98% 11/20/2024 2:22 PM EDT Inhaled Oxygen Concentration - - Weight 45.3 kg (99 lb 13.9 oz) 11/20/2024 2:22 P M EDT Height 165.1 cm (5' 5 ) 11/20/2024 2:22 PM EDT Body Mass Index 16.62 11/20/2024 2:22 PM EDT Plan of Treatment Upcoming Encounters Date Type Department Care Team (Late st Contact Info) Description 07/16/2025 1:30 PM EST Office Visit [facility] [address] [place] [address] JeriAudrey S, RADIO NEWS WRITER [address] [place] [address] Health Maintenance Due Date Last Done Comments [facility]-HIV Screening 1972 [facility]-Hepatitis C Screening 1972 [facility]-/Child/Adol SDOH Screenings 1972 [id number] Vaccine (#1) 1977 [facility]- SDOH Screenings 1990 [facility]-Adult SDOH Screenings 1990 [facility]-Hepatitis B Vaccines (1 of 3 - 19+ 3-dose series) 1991 [facility]-Pneumococcal Vaccine: 50+ Years (1 of 2 - PCV) 1991 [facility]-Zoster Vaccines (1 of 2) 1991 CT Colonography 2017 Colonoscopy 2017 FIT-DNA 2017 FIT 2017 FOBT 2017 Sigmoidoscopy 2017 [facility]-Colorectal Cancer Screening 2017 [facility]-Medicare Annual Wellness (AWV) 08/17/2019 08/17/2018 [facility]-Breast Cancer Screening 2022 11/23/2017 [facility]-Depression Screening 04/03/2025 024, 04/03/2024, 03/25/2022, Additional history exists [facility]-Influenza Vaccine (#1) 04/08/202506/13, 07/12/2019, 07/12/2019, Additional history exists [facility]-DTaP,Tdap,and Td Vaccines (2 - Td or Tdap) 01/11/2032 01/10/2022 [facility]-Hepatitis A Vaccines Aged Out 08/17/2018 No longer eligible based on patient's age to complete this topic [facility]-Lung Cancer Screening Discontinued 2024, 04/03/2024, 07/06/2023, Additional history exists HPV Vaccines Aged Out No longer eligi ble based on patient's age to complete this topic [facility]-HIB Vaccines Aged Out No longer e ligible based on patient's age to complete this topic [facility]-IPV Vaccines Aged Out No longer e ligible based on patient's age to complete this topic [facility]-Rotavirus Vaccines Aged Out No lo nger eligible based on patient's age to complete this topic Procedures Procedure Name Priority Date/Time Associated Diagnosis Comments CT ABDOMEN PELVIS W IV CONTRAST Routine 04/11/2025 2:49 PM EDT Endometrial cancer (CMS/HCC) CT CHEST W IV CONTRAST Routine 04/11/2025 2:49 PM EDT Endometrial cancer (CMS/HCC) from Last 3 Months Results * CT Abdomen Pelvis w IV [...] Total DLP (Dose-Length Product): 340.97 mGy.cm (accession [id number]), 340.97 mGy.cm (accession [id number]) Please note: The reported value represents the [...] No lymphadenopathy by CT size criteria. Retroperitoneal/pelvic apirl dissection is noted. The aortoiliac vasculature is [...] Total DLP (Dose-Length Product): 340.97 mGy.cm (accession [id number]),340.97 mGy.cm (accession [id number]) Please note: The reported valuerepresents the total [...] on 04/11/2025 5:00 PM us Audrey S [place] RADIO NEWS WRITER IMG CT PROCEDURES Final Resu lt * [...] Total DLP (Dose-Length Product): 340.97 mGy.cm (accession [id number]), 340.97 mGy.cm (accession [id number]) Please note: The reported value represents the [...] Total DLP (Dose-Length Product): 340.97 mGy.cm (accession [id number]),340.97 mGy.cm (accession [id number]) Please note: The reported valuerepresents the total [...] 04/11/2025 5:00 PM us Audrey S Jeri RADIO NEWS WRITER IMG CT PROCEDURES Final Resu lt from Last 3 Months Insurance [facility] [facility] MEDICAID [facility] MEDICARE Advance Directives * Full Code (Latest Code Status on File) Date Activated Date Inactivated Comments 04/17/2021 5:01 PM 04/19/2021 5:21 PM Question Answer Comments Patient has decision-making capacity? Yes Care Teams Item Repair Manager Relationship Specialty Start Date End Date Isaiah Bonilla MD [address] [place] [address] PCP - General 09/27/22 Linh Moreira MD [facility] [address] [address] Referring Physician 03/26/21 Liss Chambers MD [address] [place] [id number] Consulting Physician Radiation Therapy 05/26/21
--- OUTSIDE RECORDS SUMMARY | 2025-05-23 09:54 | XMS_ITS | Encounter Summary ---
Author Organization [facility] Address [address] [place] [address] Care Team Providers Care Shoe Handler Name Role Phone Linh Moreira MD Unavailable [phone] Liss Chambers MD Unavailable [phone] Isaiah Bonilla MD Primary Care Provider [phone] Encounter Details Date Type Department Care Team (Late st Contact Info) Description 04/15/2025 Telephone [facility] [address] [place] [address] Audrey Wilcox S, LODE MINER BLASTING [address] [facility] [address] [place] [address] Social History Tobacco Use Types Packs/Day Years [...] encounter Miscellaneous Notes * Telephone Encounter - Audrey Wilcox APRN - 04/15/2025 11:08 AM EDT Unable to reach pt, left phone number with family member for callback to discuss CT documented in this encounter Plan of Treatment Upcoming Encounters Date Type Department Care Team (Late st Contact Info) Description 07/16/2025 1:30 PM EST Office Visit [facility] [address] [place] [address] Audrey Wilcox APRN [address] [place] [address] documented as of this encounter Visit Diagnoses Not on filedocumented in this encounter Additional Health Concerns Assessment Noted Time PHQ-9 Depression Total Score: 14 04/03/2 024 1:48 PM EDT A fall risk assessment has been complete d for the patient 11/20/2024 2:27 PM EDT documented as of this encounter Care Teams Shoe Handler Relationship Specialty Start Date End Date Isaiah Bonilla MD [address] [place] [address] PCP - General 09/27/22 Linh Moreira MD [address] [place] [address] Referring Physician 03/26/21 Liss Chambers MD [address] [place] [address] Consulting Physician Radiation Therapy 05/26/21 documented as of this encounter
--- OUTSIDE RECORDS SUMMARY | 2025-05-23 09:54 | XMS_ITS | Encounter Summary ---
Author Organization [facility] Address [address] [place] [address] Care Team Providers Care Building Official Name Role Phone Linh Moreira MD Unavailable [phone] Liss Chambers MD Unavailable [phone] Linh Moreira MD Primary Care Provider [phone] Isaiah Bonilla MD Primary Care Provider [phone] Reason for Visit * Reason Comments Med Refill Encounter Details Date Type Department Care Team (Late st Contact Info) Description 09/05/2021 Refill [facility] [address] [place] [address] Alicja Bowles MD [address] [facility] [address] [place] [address] Social History Tobacco Use Types Packs/Day Years [...] encounter Miscellaneous Notes * Telephone Encounter - Alice Menjivar MD - 09/07/2021 10:57 AM EST Rx refill for gabapentin sent. * Telephone Encounter - Alice Menjivar MD - 09/07/2021 8:55 AM EST Rx se documented in this encounter Plan of Treatment Upcoming Encounters Date Type Department Care Team (Late st Contact Info) Description 07/16/2025 1:30 PM EST Office Visit [facility] [address] [place] [address] Deer RiverAudrey genao S, PRE SCHOOL TEACHER [address] [facility] [address] [place] [address] documented as of this encounter Visit Diagnoses Not on filedocumented in this encounter Additional Health Concerns Assessment Noted Time A fall risk assessment has been complete d for the patient 08/26/2021 8:47 AM EST documented as of this encounter Care Teams Building Official Relationship Specialty Start Date End Date Linh Moreira MD [address] [facility] [address] [place] [address] PCP - General 12/01/21 09/26/22 Isaiah Bonilla MD [address] [place] [address] PCP - General 09/27/22 Linh Moreira MD [address] [address] Referring Physician 03/26/21 Liss Chambers MD 800 [facility] [address] [place] [address] Consulting Physician Radiation Therapy 05/26/21 documented as of this encounter
--- OUTSIDE RECORDS SUMMARY | 2025-05-23 09:54 | XMS_ITS | Encounter Summary ---
Author Organization [facility] Address [address] [place] [address] Care Team Providers Care Home Theater Experience Expert Name Role Phone Linh Moreira MD Unavailable [phone] Liss Chambers MD Unavailable [phone] Isaiah Bonilla MD Primary Care Provider [phone] Encounter Details Date Type Department Care Team (Late st Contact Info) Description 04/15/2025 Telephone [facility] [address] [place] [address] Audrey Wilcox S, DIRECTOR OF ANESTHESIA SERVICES [address] [facility] [address] [place] [address] Social History Tobacco Use Types Packs/Day Years [...] encounter Miscellaneous Notes * Telephone Encounter - Margot Worley - 04/15/2025 11:20 AM EDT Patient returned your call. documented in this encounter Plan of Treatment Upcoming Encounters Date Type Department Care Team (Late st Contact Info) Description 07/16/2025 1:30 PM EST Office Visit [facility] [address] [place] [address] Audrey Wilcox APRN [address] [place] [address] documented as of this encounter Visit Diagnoses Not on filedocumented in this encounter Additional Health Concerns Assessment Noted Time PHQ-9 Depression Total Score: 14 024 1:48 PM EDT A fall risk assessment has been complete d for the patient 11/20/2024 2:27 PM EDT documented as of this encounter Care Teams Home Theater Experience Expert Relationship Specialty Start Date End Date Isaiah Bonilla MD [address] [place] [address] PCP - General 09/27/22 Linh Moreira MD [address] [place] [address] Referring Physician 03/26/21 Liss Chambers MD [address] [place] [address] Consulting Physician Radiation Therapy 05/26/21 documented as of this encounter
--- NOTE | 2025-05-23 10:16 | CA_ITS ---
APPROVED REPORT EXAM: Comprehensive 2D, Doppler, and color-flow Echocardiogram Shredder Tender Peat: Samantha Saavedra RDCS Ht: 5 ft 5 in Wt: 97lbs BSA: 1.45 BP: 144/83 mmHg Indications: HAYES M-Mode Dimensions RVDd 1.85 cm (0.9-2.6) LA Diam 1.76 cm (1.9-4.0) LVDd 4.76 cm (3.5-5.7) LVDs 3.51 cm (3.5-5.7) IVSd 0.47 cm (0.6-1.1) PWd 0.66 cm (0.6-1.1) EF (Teich) 51.40% FS 26.30% EDV (Teich) 105.40 mL ESV (Teich) 51.20 mL LV Diastology E Decel Time 190 (160-240 msec) E/A Ratio 1.2 Mitral Valve MV E Max Tim. 82.0 (40-130 cm/s) MV A Velocity 69.0 (40-130 cm/s) E/A Ratio 1.18 MV PHT 56.0 ms Tricuspid Valve TR P. Velocity 238.00 cm/s RAP Estimate 10.00 mmHg RVSP 32.70 mmHg Left Ventricle The left ventricle is normal size. Left ventricular systolic function is normal. The left ventricular ejection fraction is within the normal range. There is normal left ventricular wall thickness. There is normal LV segmental wall motion. The left ventricular diastolic function is normal. LVEF is 55% Right Ventricle The right ventricle is normal size. The right ventricular systolic function is normal. Atria The left atrium size is normal. The right atrium size is normal. There is no color Doppler evidence of interatrial shunt. Aortic Valve The aortic valve opens well. There is no hemodynamically significant aortic valvular stenosis. No aortic regurgitation is present. Mitral Valve The mitral valve is normal in structure. No evidence of mitral valve stenosis. Mild mitral regurgitation is present. Tricuspid Valve The tricuspid valve leaflets are thin and pliable. Mild tricuspid regurgitation. RVSP is 20-25 mmHg. Pulmonic Valve The pulmonary valve is grossly normal in structure. Trace pulmonic valve regurgitation is present. Great Vessels The aortic root is normal in size. IVC is normal in size and collapses >50% with inspiration. Pericardium There is no pericardial effusion. Other Information Study Quality: Fair Conclusion Normal biventricular systolic function. Mild MR, mild TR. Electronically signed by : Sara Guadalupe MD 05/30/2025 00:22:40
--- NOTE | 2025-05-23 10:17 | US_ITS ---
FINAL REPORT TECHNIQUE: Ankle-brachial indices were obtained. CLINICAL HISTORY: claudication,rest pain,smoker,htn FINDINGS: Right KASANDRA: 1.1, normal. Left KASANDRA: 0.95, borderline. IMPRESSION: Normal KASANDRA on the right and borderline KASANDRA and left. Reviewed, Interpreted and Dictated by Floresita Everett MD Transcribed by Lida Bhatt Authenticated and [facility]
== END 2025-05-23 23:59 | disposition home or self-care (01) ==
LOC: RAD 09:41
PROVIDERS: PCP Physician Assistant; Visit Provider Physician Assistant
DX: I08.1 Rheumatic disorders of both mitral and tricuspid valves (principal); M51.369 Other intervertebral disc degeneration, lumbar region without mention of lumbar back pain or lower extremity pain; M79.661 Pain in right lower leg; R93.7 Abnormal findings on diagnostic imaging of other parts of musculoskeletal system; R09.89 Other specified symptoms and signs involving the circulatory and respiratory systems; R32 Unspecified urinary incontinence
CPT/HCPCS: 72148; 93306; 93923

== ENCOUNTER 2025-05-31 09:39 | Outpatient (CLI) | payer MEDICARE, OTHER, SELFPAY ==
--- OUTSIDE RECORDS SUMMARY | 2025-04-11 13:46 | XMS_ITS | Encounter Summary ---
Author Organization [facility] Address [address] [place] [address] Care Team Providers Care Medicaid Billing Specialist Name Role Phone Linh Moreira MD Unavailable [phone] Liss Chambers MD Unavailable [phone] Isaiah Bonilla MD Primary Care Provider [phone] Reason for Referral * Imaging (Routine) - Closed Specialty Diagnoses / Procedures Referred By Jasmyne potter Referred To Contact Radiology Diagnoses Endometrial cancer Procedures CT Abdomen Pelvis w IV Contrast Audrey Wilcox APRN [address] [address] Phone: tel: fax: Referral ID Status Reason Start Date Expiration Date Visits Re quested Visits Authorized [id number] Closed 03/14/2025 09/13/2026 1 1 * Imaging (Routine) - Closed Specialty Diagnoses / Procedures Referred By Jasmyne potter Referred To Contact Radiology Diagnoses Endometrial cancer Procedures CT Chest w IV Contrast Audrey Wilcox APRN [address] [address] Phone: tel: fax: Referral ID Status Reason Start Date Expiration Date Visits Re quested Visits Authorized [id number] Closed 03/14/2025 09/13/2026 1 1 Reason for Visit * Imaging (Routine) - Closed Specialty Diagnoses / Procedures Referred By Jasmyne potter Referred To Contact Radiology Diagnoses Endometrial cancer Procedures CT Abdomen Pelvis w IV Contrast Audrey Wilcox APRN [address] [facility] [address] [place] [address] Phone: tel: fax: Referral ID Status Reason Start Date Expiration Date Visits Re quested Visits Authorized [id number] Closed 03/14/2025 09/13/2026 1 1 Encounter Details Date Type Department Care Team (Latest Contact Info) Description 04/11/2025 1:46 PM EDT - 04/11/2025 11:59 PM EDT Hospital Encounter [facility] [address] [place] [address] Endometrial cancer ([facility]) Discharge Disposition: Home or Self [...] [address] [place] [address] Audrey Wilcox, DOOR TO DOOR LEAD GENERATION [address] [place] [facility] [address] [place] [address] documented as of this encounter Procedures Procedure [...] Total DLP (Dose-Length Product): 340.97 mGy.cm (accession [id number]), 340.97 mGy.cm (accession [id number]) Please note: The reported value represents the [...] Total DLP (Dose-Length Product): 340.97 mGy.cm (accession [id number]),340.97 mGy.cm (accession [id number]) Please note: The reported valuerepresents the total [...] 04/11/2025 5:00 PM us Audrey S Jeri DOOR TO DOOR LEAD GENERATION IMG CT PROCEDURES Final Resu lt * [...] Total DLP (Dose-Length Product): 340.97 mGy.cm (accession [id number]), 340.97 mGy.cm (accession [id number]) Please note: The reported value represents the [...] Total DLP (Dose-Length Product): 340.97 mGy.cm (accession [id number]),340.97 mGy.cm (accession [id number]) Please note: The reported valuerepresents the total [...] 04/11/2025 5:00 PM us Audrey Machado Jeri DOOR TO DOOR LEAD GENERATION IMG CT PROCEDURES Final Resu lt documented [...] documented as of this encounter Care Teams Medicaid Billing Specialist Relationship Specialty Start Date End Date Isaiah Bonilla MD [address] [place] [address] PCP - General 09/27/22 Linh Moreira MD [address] [place] [address] Referring Physician 03/26/21 Liss Chambers MD [address] [place] [address] Consulting Physician Radiation Therapy 05/26/21 documented as of this encounter
--- OUTSIDE RECORDS SUMMARY | 2025-05-31 09:42 | XMS_ITS | Clinical Summary ---
Author Organization [facility] Address [address] [place] [address] Care Team Providers Care Coloring Room Man Name Role Phone Linh Moreira MD Unavailable [phone] Liss Chambers MD Unavailable [phone] Isaiah Bonilla MD Primary Care Provider [phone] Allergies No known active allergies Medications Ventolin [...] 30 capsule 3 025 Active gabapentin (Neurontin) 600 MG tablet TAKE ONE TABLET BY MOUTH EVERY NIGHT MAY CAUSE DROWSINESS 30 tablet 025 Active gabapentin (Neurontin) 300 MG capsule TAKE ONE CAPSULE BY MOUTH EVERY DAY IN THE MORNING MAY CAUSE DROWSINESS 30 capsule 025 2024 Active gabapentin (Neurontin) 300 MG capsule TAKE ONE CAPSULE BY MOUTH EVERY DAY IN THE MORNING MAY CAUSE DROWSINESS 30 capsule 025 2024 Discontinued gabapentin (Neurontin) 600 MG tablet TAKE ONE TABLET BY MOUTH EVERY NIGHT MAY CAUSE DROWSINESS 30 tablet 025 2024 Discontinued Active Problems Problem Noted [...] [address] [place] [address] Bonnie Monroy MD 04/25/2025 Refill [facility] [address] [place] [address] Shaylee Benavidez MD 04/15/2025 Telephone [facility] [address] [place] [address] Audrey Wilcox APRN 04/15/2025 Telephone [facility] [address] [place] [address] Audrey Wilcox APRN 04/11/2025 1:46 PM EDT - 04/11/2025 11:59 PM EDT Hospital Encounter [facility] [address] [place] [address] Endometrial cancer (CMS/HCC) Discharge Disposition: Home or Self Care 04/11/2025 Travel 03/18/2025 Refill [facility] [address] [place] [address] Yesi Dumont MD 03/14/2025 Telephone [facility] [address] [place] [address] Kayley Barrientos MD from Last 3 Months Family History [...] [address] [place] [address] VernoniaAudrey S, [employer] [address] [place] [address] Health Maintenance Due Date Last Done Comments [facility]-HIV Screening 1972 [facility]-Hepatitis C Screening 1972 [facility]-Infant/Child/Adol SDOH Screenings 1972 [facility]-GSUYL-52 Vaccine (#1) 1977 [facility]- SDOH Screenings 1990 [...] [facility]-Breast Cancer Screening 2022 11/23/2017 [facility]-Depression Screening 04/03/202504/03/ 024, 04/03/2024, 03/25/2022, Additional history exists [facility]-Influenza [...] Total DLP (Dose-Length Product): 340.97 mGy.cm (accession [id number]), 340.97 mGy.cm (accession [id number]) Please note: The reported value represents the [...] Total DLP (Dose-Length Product): 340.97 mGy.cm (accession [id number]),340.97 mGy.cm (accession [id number]) Please note: The reported valuerepresents the total [...] MD on 04/11/2025 5:00 PM us Audrey Wilcox APRN IMG CT PROCEDURES Final Resu lt * [...] Total DLP (Dose-Length Product): 340.97 mGy.cm (accession [id number]), 340.97 mGy.cm (accession [id number]) Please note: The reported value represents the [...] Total DLP (Dose-Length Product): 340.97 mGy.cm (accession [id number]),340.97 mGy.cm (accession [id number]) Please note: The reported valuerepresents the total [...] on 04/11/2025 5:00 PM us Audrey S Vernonia [employer] IMG CT PROCEDURES Final Resu lt from Last 3 [place] [address] [employer] [facility] MEDICAID [facility] MEDICARE Advance Directives * Full Code (Latest Code Status on File) Date Activated Date Inactivated Comments 04/17/2021 5:01 PM 04/19/2021 5:21 PM Question Answer Comments Patient has decision-making capacity? Yes Care Teams Coloring Room Man Relationship Specialty Start Date End Date Isaiah Bonilla MD [address] [place] [address] PCP - General 09/27/22 Linh Moreira MD [facility]0 [place] [address] Referring Physician 03/26/21 Liss Chambers MD [address] [place] [address] Consulting Physician Radiation Therapy 05/26/21
--- OUTSIDE RECORDS SUMMARY | 2025-05-31 09:42 | XMS_ITS | Encounter Summary ---
Author Organization [facility] Address [address] [place] [address] Care Team Providers Care Counter Tender Name Role Phone Lihn Moreira MD Unavailable [phone] Liss Chambers MD Unavailable [phone] Isaiah Bonilla MD Primary Care Provider [phone] Reason for Visit * Reason Comments Med Refill Encounter Details Date Type Department Care Team (Late st Contact Info) Description 05/23/2025 Refill [facility] 800 [facility] [address] [place] [id number] Bonnie Monroy MD [address] [place] [address] Social History Tobacco Use Types Packs/Day Years [...] Telephone Encounter - Bonnie Monroy MD - 05/23/2025 12:05 PM EDT PDMP reviewed. Appropriate refill history. Gabapentin refilled. Bonnie Domínguez MD Gynecologic Oncology Fellow PGY7 documented in this encounter Plan of Treatment Upcoming Encounters Date Type Department Care Team (Late st Contact Info) Description 07/16/2025 1:30 PM EST Office Visit [facility] [address] [place] [address] JeriAudrey genao S, STONE TRIMMER [address] [place] [address] documented as of this encounter Visit Diagnoses Not on filedocumented in this encounter Additional Health Concerns Assessment Noted Time PHQ-9 Depression Total Score: 14 04/03/ 024 1:48 PM EDT A fall risk assessment has been complete d for the patient 11/20/2024 2:27 PM EDT documented as of this encounter Care Teams Counter Tender Relationship Specialty Start Date End Date Isaiah Bonilla MD [address] [place] [address] PCP - General 09/27/22 Linh Moreira MD [facility] [address] [address] Referring Physician 03/26/21 Liss Chambers MD [address] [place] [address] Consulting Physician Radiation Therapy 05/26/21 documented as of this encounter
--- OUTSIDE RECORDS SUMMARY | 2025-05-31 09:42 | XMS_ITS | Encounter Summary ---
Author Organization [facility] Address [address] [place] [address] Care Team Providers Care General Production Manager Name Role Phone Linh Moreira MD Unavailable [phone] Liss Chambers MD Unavailable [phone] Isaiah Bonilla MD Primary Care Provider [phone] Encounter Details Date Type Department Care Team (Late st Contact Info) Description 04/15/2025 Telephone [facility] [address] [place] [address] Audrey Wilcox S, MOTION STUDY TECHNICIAN [address] [facility] [address] [place] [address] Social History Tobacco Use Types Packs/Day Years [...] [address] [place] [address] Audrey Wilcox APRN [address] [place] [address] documented as of this encounter Visit Diagnoses Not on filedocumented in this encounter Additional Health Concerns Assessment Noted Time PHQ-9 Depression Total Score: 14 04/03/2 024 1:48 PM EDT A fall risk assessment has been complete d for the patient 11/20/2024 2:27 PM EDT documented as of this encounter Care Teams General Production Manager Relationship Specialty Start Date End Date Isaiah Bonilla MD [address] [place] [address] PCP - General 09/27/22 Linh Moreira MD [address] [place] [address] Referring Physician 03/26/21 Liss Chambers MD [address] [place] [address] Consulting Physician Radiation Therapy 05/26/21 documented as of this encounter
--- OUTSIDE RECORDS SUMMARY | 2025-05-31 09:42 | XMS_ITS | Encounter Summary ---
Author Organization [facility] Address [address] [place] [address] Care Team Providers Care Billboard Erector Helper Name Role Phone Linh Moreira MD Unavailable [phone] Liss Chambers MD Unavailable [phone] Isaiah Bonilla MD Primary Care Provider [phone] Reason for Visit * Reason Comments Med Refill Encounter Details Date Type Department Care Team (Late st Contact Info) Description 04/25/2025 Refill [facility] 800 [facility] [address] [place] [phone] Shaylee Benavidez MD [address] [place] [address] Social History Tobacco Use Types Packs/Day Years [...] [address] [place] [address] Audrey Wilcox S, INFORMATION ASSURANCE [address] [place] [address] documented as of this encounter Visit Diagnoses Not on filedocumented in this encounter Additional Health Concerns Assessment Noted Time PHQ-9 Depression Total Score: 14 04/03/2 024 1:48 PM EDT A fall risk assessment has been complete d for the patient 11/20/2024 2:27 PM EDT documented as of this encounter Care Teams Billboard Erector Helper Relationship Specialty Start Date End Date Isaiah Bonilla MD [address] [place] [address] PCP - General 09/27/22 Linh Moreira MD [address] [address] Referring Physician 03/26/21 Liss Chambers MD [address] [place] [address] Consulting Physician Radiation Therapy 05/26/21 documented as of this encounter
--- OUTSIDE RECORDS SUMMARY | 2025-05-31 09:42 | XMS_ITS | Encounter Summary ---
Author Organization [facility] Address [address] [place] [address] Care Team Providers Care Farmworker Rice Name Role Phone Linh Moreira MD Unavailable [phone] Liss Chambers MD Unavailable [phone] Linh Moreira MD Primary Care Provider [phone] Isaiah Bonilla MD Primary Care Provider [phone] Reason for Visit * Reason Comments Med Refill Encounter Details Date Type Department Care Team (Late st Contact Info) Description 09/05/2021 Refill [facility] [address] [place] [address] Alicja Bowles MD [address] [facility] [address] [place] [address] Social History Tobacco Use Types [...] Gynecology [address] [place] [address] BlossomAudrey genao S, COMPENSATION AGENT [address] [facility] [address] [place] [address] documented as of this encounter Visit Diagnoses Not on filedocumented in this encounter Additional Health Concerns Assessment Noted Time A fall risk assessment has been complete d for the patient 08/26/2021 8:47 AM EST documented as of this encounter Care Teams Farmworker Rice Relationship Specialty Start Date End Date Linh Moreira MD [address] [facility] [address] [place] [address] PCP - General 12/01/21 09/26/22 Isaiah Bonilla MD [address] [place] [address] PCP - General 09/27/22 Linh Moreira MD [address] [address] Referring Physician 03/26/21 Liss Chambers MD 800 [facility] [address] [place] [address] Consulting Physician Radiation Therapy 05/26/21 documented as of this encounter
--- OUTSIDE RECORDS SUMMARY | 2025-05-31 09:42 | XMS_ITS | Encounter Summary ---
Author Organization [facility] Address [address] [place] [address] Care Team Providers Care Entry Level Truck Driver Name Role Phone Linh Moreira MD Unavailable [phone] Liss Chambers MD Unavailable [phone] Isaiah Bonilla MD Primary Care Provider [phone] Encounter Details Date Type Department Care Team (Late st Contact Info) Description 04/15/2025 Telephone [facility] [address] [place] [address] Audrey Wilcox S, OUTBOARD MOTOR TESTER [address] [facility] [address] [place] [address] Social History Tobacco Use Types Packs/Day Years [...] [address] [place] [address] Audrey Wilcox APRN [address] [place] [address] documented as of this encounter Visit Diagnoses Not on filedocumented in this encounter Additional Health Concerns Assessment Noted Time PHQ-9 Depression Total Score: 14 024 1:48 PM EDT A fall risk assessment has been complete d for the patient 11/20/2024 2:27 PM EDT documented as of this encounter Care Teams Entry Level Truck Driver Relationship Specialty Start Date End Date Isaiah Bonilla MD [address] [place] [address] PCP - General 09/27/22 Linh Moreira MD [address] [place] [address] Referring Physician 03/26/21 Liss Chambers MD [address] [place] [address] Consulting Physician Radiation Therapy 05/26/21 documented as of this encounter
--- OUTSIDE RECORDS SUMMARY | 2025-05-31 09:42 | XMS_ITS | Encounter Summary ---
Author Organization [facility] Address [address] [place] [address] Care Team Providers Care Certified Detention Deputy Name Role Phone Linh Moreira MD Unavailable Liss Chambers MD Unavailable [phone] Isaiah Bonilla MD Primary Care Provider [phone] Encounter Details Date Type Department Care Team [...] [address] [place] [address] Audrey Wilcox S, LIQUID HYDROGEN PLANT OPERATOR [address] [facility] [address] [place] [address] documented as of this encounter Visit Diagnoses Not on filedocumented in this encounter Additional Health Concerns Assessment Noted Time PHQ-9 Depression Total Score: 14 024 1:48 PM EDT A fall risk assessment has been complete d for the patient 11/20/2024 2:27 PM EDT documented as of this encounter Care Teams Certified Detention Deputy Relationship Specialty Start Date End Date Isaiah Bonilla MD [address] [place] [address] PCP - General 09/27/22 Linh Moreira MD [facility] [address] [address] Referring Physician 03/26/21 Liss Chambers MD [address] [facility] [address] [place] [address] Consulting Physician Radiation Therapy 05/26/21 documented as of this encounter
--- OUTSIDE RECORDS SUMMARY | 2025-05-31 09:42 | XMS_ITS ---
Author Organization [facility] Address [address] [place] [address] Care Team Providers Care Perianesthesia Manager Name Role Phone Linh Moreira MD Unavailable [phone] Liss Chambers MD Unavailable [phone] Isaiah Bonilla MD Primary Care Provider [phone] Active Problems Problem Noted Date Diagnosed Date [...]
--- OUTSIDE RECORDS SUMMARY | 2025-05-31 09:42 | XMS_ITS | Encounter Summary ---
Author Organization [facility] Address [address] [place] [address] Care Team Providers Care Coating Operator Name Role Phone Linh Moreira MD Unavailable [phone] Liss Chambers MD Unavailable [phone] Isaiah Bonilla MD Primary Care Provider [phone] Reason for Visit * Reason Comments Med Refill Encounter Details Date Type Department Care Team (Late st Contact Info) Description 02/24/2023 Refill [facility] 800 [facility] [address] [place] [phone] Ifeanyi Cabrales MD [address] [place] [phone] Social History Tobacco Use Types Packs/Day Years [...] [address] [place] [address] JeriFazal genaoi S, KILN CLEANER [address] [place] [address] documented as of this encounter Visit Diagnoses Not on filedocumented in this encounter Additional Health Concerns Assessment Noted Time PHQ-9 Depression Total Score: 16 023 12:34 PM EDT A fall risk assessment has been complete d for the patient 12/28/2022 12:34 PM EDT documented as of this encounter Care Teams Coating Operator Relationship Specialty Start Date End Date Isaiah Bonilla MD [address] [place] [address] PCP - General 09/27/22 Linh Moreira MD [address] [place] [address] Referring Physician 03/26/21 Liss Chambers MD [address] [place] [address] Consulting Physician Radiation Therapy 05/26/21 documented as of this encounter
--- NOTE | 2025-05-31 09:43 | NM_ITS ---
FINAL REPORT CLINICAL HISTORY: ABNORMAL FINDINGS OF dx IMAGING H/O UTERINE CANCER MR LUMBAR SHOWED AN ABNORMALITY TO L1 10:00AM 25.6MCI TC MDP INJ. INTO LT ANT FINDINGS: EXISTING RELEVANT IMAGING STUDIES: No prior bone scan. Left rib imaging. TECHNIQUE: The patient was injected with 25.6 mCi of technetium 99-MDP. 3 hour delayed images were obtained. FINDINGS: There is abnormal activity of at least 3 anterior lateral left mid ribs. When correlated with radiographs, there are healing fractures at this site presumed posttraumatic. Remaining ribs are normal. There is normal uptake of the bony pelvis, calvarium, and spine. Minimal degenerative uptake is noted at the bilateral knees and feet. IMPRESSION: No evidence of metastatic disease. Abnormal uptake of the left ribs considered posttraumatic. Reviewed, Interpreted and Dictated by Jasmine Ladd MD Transcribed by Rosalva Aguilar Authenticated and [facility]
--- OUTSIDE RECORDS SUMMARY | 2025-05-31 09:43 | XMS_ITS | Data Portability ---
Author Organization [employer], [place] - [facility] Address [address] [place] [address] Assessment No assessment recorded. Plan of Treatment Reminders Order Date Submit Date Provider Last Modified By Organization Details Last Modified Time Details Appointments None recorded. Lab magnesium, serum or plasma 2024 025 [facility] [address] [place], [address], 12:07:58 cobalamin and folate panel, serum 2024 025 [facility]), [address] [place], [address], 12:07:57 Hepatitis C IgG Ab, qual, serum 2024 025 ISAEL [facility]), [address] [place], [address], 12:07:57 HIV 1 + 2, meaningful use set 2024 025 ISAEL [facility]), [address] [place], [address], 5 12:07:58 lipid panel, serum 2024 025 [facility]), [address] [place], [address], 5 12:07:56 CMP, serum or plasma 2024 025 ISAEL [facility] [address] [place], [address], 12:07:56 CBC w/ auto diff 2024 025 LINDON [facility]), [address] [place], [address], 12:07:55 vitamin D, 25-hydroxy, total, serum 2024 025 LINDON [facility]), [address] [place], [address], 12:07:58 TSH, ultra-sensi tive, serum 2024 025 [facility] [address] [place], [address], 12:07:57 iron + TIBC + ferritin, serum 2024 [address] [facility]), [address] [place], [address], 12:07:54 Referral neurologist referral 2024 025 [email or web address] Olivarez MD, [address], [place], [address], 14:18:29 Procedures colonoscopy screening (PROC) 2024 025 [email or web address] Shreyas Alfaro MD, [address], [place], [address], 15:55:01 Surgeries None recorded. Imaging MAMMO, screening, bilateral 2024 025 [facility] Scheduling Department -New Scheduling Process, [address], [place], [address], 15:06:34 US, echocardiog paige 2024 025 [facility], [address] [place] [address] E, [place], [address], 5 00:25:38 MRI, lumbar spine, w/o contrast 2024 [facility], [address] [place] [address] E, [place], [address], 5 12:00:20 ankle brachial index, complete 2024 [facility], [address] [place] [address] E, [place], [address], 13:57:40 Medication Orders cetirizine 10 mg tablet 2024 [facility], [address] [place] [address] E [place], [id number], 14:50:40 Flonase Allergy Relief 50 mcg/actuati on nasal spray,suspe nsion 2024 025 [facility], [address] [place] [address] [address] [place], [id number], 14:03:59 Breztri Aerosphere 160 mcg-9mcg-4. 8mcg/actuat ion HFA aerosol inhaler 2024 025 [facility], [address] [place] [address] [address] [place], [id number], 14:50:38 albuterol sulfate HFA 90 mcg/actuati on aerosol inhaler 2024 025 [facility], [address] [place] [address] [place], [id number], 14:04:00 Myrbetriq 50 mg tablet,exte nded release 2024 [facility], [address] [place] [address] E [place], [id number], 14:50:36 hydroxyzine pamoate 25 mg capsule 2024 [facility], [address] [place] [address] E [place], [id number], 14:50:39 venlafaxine ER 75 mg capsule,ext ended release 24 hr 2024 [facility], [address] [place] [address] E [place], [id number], 14:50:38 Lastacaft Once Daily Relief 0.25 % eye drops 2024 [facility], [address] [place] [address] E [place], [id number], 15:39:23 Patient TargetsNo targets recorded. Patient Instructions Encounter Date Encounter Id Patient Instructions Last Modified By Organization Details Last Modified Time 05/10/2025 [id number] allergies: care instructions [email or web address] Not available 05/10/2025 12:11:11 mammogram: about this test [email or web address] Not available 05/10/2025 12:11:49 chronic obstructive pulmonary disease (COPD): care instructions [email or web address] Not available 05/10/2025 12:11:11 learning about copd and how to prevent lung infections [email or web address] Not available 05/10/2025 12:11:11 restless legs syndrome: care instructions Not available 05/10/2025 12:11:11 Stress Incontinence: Care Instructions Not available 05/10/2025 12:11:11 HIV testing: car e instructions [email or web address] Not available 05/10/2025 13:10:00 hives: care instructions [email or web address] Not available 05/10/2025 12:11:11 multiple sclerosis (MS): care instructions Not available 05/10/2025 12:11:11 iron deficiency anemia: care instructions [email or web address] Not available 05/10/2025 12:11:11 Reason for Referral Neurologist Referral for Mul tiple sclerosis Referring Physician: Rosi Zelaya, Family Medicine, Encounter Date: 05/10/2025 Results Created Date Observation Date Name Description Value Unit Range Abnormal Flag Note LastModifiedBy Organization Detail LastModifiedTime 05/10/2005/11/2025 FE+TI BC+FE R iron bind.cap.(TI BC) 322 ug/dL 250-45 0 normal Not Available [facility] ([facility]) [address] [place], [address], 05/11/2025 12:07:54 05/10/2005/11/2025 FE+TI BC+FE R UIBC 287 ug/dL 131-42 5 normal Not Available [facility] ([facility]) [address] [place], [address], 05/11/2025 12:07:54 05/10/2005/11/2025 FE+TI BC+FE R iron 35 ug/dL 27-159 normal Not Available [facility] ([facility]) [address] [place], [address], 05/11/2025 12:07:54 05/10/2005/11/2025 FE+TI BC+FE R iron saturation 11 % 15-55 below low normal Not Available [facility] ([facility]) [address] [place], [address], 05/11/2025 12:07:54 05/10/2005/11/2025 FE+TI BC+FE R ferritin 57 NG/mL 15-150 normal Not Available [facility] ([facility]) [address] [place], [address], 05/11/2025 12:07:54 05/10/2005/11/2025 CBC WITH DIFFE RENTI AL/PL ATELE T WBC 5.0 x10e3 /uL 3.4-10 .8 normal Not Available [facility] ([facility]) [address] [facility], [place], [address], 05/11/2025 12:07:55 05/10/2005/11/2025 CBC WITH DIFFE RENTI AL/PL ATELE T RBC 4.49 x10e6 /uL 3.77-5 .28 normal Not Available [facility] ([facility]) [address] [place], [address], 05/11/2025 12:07:55 05/10/2005/11/2025 CBC WITH DIFFE RENTI AL/PL ATELE T hemoglobin 13.3 g/dL 11.1-1 5.9 normal Not Available [facility] ([facility]) [address] [facility], [place], [address], 05/11/2025 12:07:55 05/10/2005/11/2025 CBC WITH DIFFE RENTI AL/PL ATELE T hematocrit 41.4 % 34.0-4 6.6 normal Not Available [facility] ([facility]) [address] [place], [address], 05/11/2025 12:07:55 05/10/2005/11/2025 CBC WITH DIFFE RENTI AL/PL ATELE T MCV 92 fL 79-97 normal Not Available [facility] ([facility]) [address] [place], [address], 05/11/2025 12:07:55 05/10/2005/11/2025 CBC WITH DIFFE RENTI AL/PL ATELE T MCH 29.6 pg 26.6-3 3.0 normal Not Available [facility] ([facility]) [address] [place], [address], 05/11/2025 12:07:55 05/10/20 25 05/11/2025 CBC WITH DIFFE RENTI AL/PL ATELE T MCHC 32.1 g/dL 31.5-3 5.7 normal Not Available [facility] ([facility]) [address] [facility], [place], [address], 05/11/2025 12:07:55 05/10/2005/11/2025 CBC WITH DIFFE RENTI AL/PL ATELE T RDW 14.0 % 11.7-1 5.4 Not Available [facility] ([facility]) [address] [facility], [place], [address], 05/11/2025 12:07:55 05/10/20 25 05/11/2025 CBC WITH DIFFE RENTI AL/PL ATELE T platelets 231 x10e3 /uL 150-45 0 normal Not Available [facility] ([facility]) [address] [facility], [place], [address], 05/11/2025 12:07:55 05/10/2005/11/2025 CBC WITH DIFFE RENTI AL/PL ATELE T neutrophils 60 % not estab. normal Not Available [facility] ([facility]) [address] [facility], [place], [address], 05/11/2025 12:07:55 05/10/2005/11/2025 CBC WITH DIFFE RENTI AL/PL ATELE T lymphs 26 % not estab. normal Not Available [facility] ([facility]) [address] [facility], [place], [address], 05/11/2025 12:07:55 05/10/20 25 05/11/2025 CBC WITH DIFFE RENTI AL/PL ATELE T monocytes 11 % not estab. normal Not Available [facility] ([facility]) [address] [facility], [place], [address], 05/11/2025 12:07:55 05/10/20 05/11/2025 CBC WITH DIFFE RENTI AL/PL ATELE T eos 3 % not estab. normal Not Available [facility] ([facility]) [address] [place], [address], 05/11/2025 12:07:55 05/10/2005/11/2025 CBC WITH DIFFE RENTI AL/PL ATELE T basos 0 % not estab. normal Not Available [facility] ([facility]) [address] [facility], [place], [address], 05/11/2025 12:07:55 05/10/2005/11/2025 CBC WITH DIFFE RENTI AL/PL ATELE T immature cells [employer] Not Available [facility] ([facility]) [address] [place], [address], 05/11/2025 12:07:55 05/10/2005/11/2025 CBC WITH DIFFE RENTI AL/PL ATELE T neutrophils (absolute) 2.9 x10e3 /uL 1.4-7. 0 normal Not Available [facility] ([facility]) [address] [place], [address], 05/11/2025 12:07:55 05/10/20 25 05/11/2025 CBC WITH DIFFE RENTI AL/PL ATELE T lymphs (absolute) 1.3 x10e3 /uL 0.7-3. 1 normal Not Available [facility] ([facility]) [address] [place], [address], 05/11/2025 12:07:55 05/10/2005/11/2025 CBC WITH DIFFE RENTI AL/PL ATELE T monocytes(ab solute) 0.6 x10e3 /uL 0.1-0. 9 normal Not Available [facility] ([facility]) [address] [place], [address], 05/11/2025 12:07:55 05/10/20 25 05/11/2025 CBC WITH DIFFE RENTI AL/PL ATELE T eos (absolute) 0.2 x10e3 /uL 0.0-0. 4 normal Not Available [facility] ([facility]) [address] [facility], [place], [address], 05/11/2025 12:07:55 05/10/2005/11/2025 CBC WITH DIFFE RENTI AL/PL ATELE T baso (absolute) 0.0 x10e3 /uL 0.0-0. 2 normal Not Available [facility] ([facility]) [address] [facility], [place], [address], 05/11/2025 12:07:55 05/10/2005/11/2025 CBC WITH DIFFE RENTI AL/PL ATELE T immature granulocytes 0 % not estab. Not Available [facility] ([facility]) [address] [facility], [place], [address], 05/11/2025 12:07:55 05/10/2005/11/2025 CBC WITH DIFFE RENTI AL/PL ATELE T immature grans (abs) 0.0 x10e3 /uL 0.0-0. 1 Not Available [facility] ([facility]) [address] [facility], [place], [address], 05/11/2025 12:07:55 05/10/2005/11/2025 CBC WITH DIFFE RENTI AL/PL ATELE T NRBC [employer] Not Available [facility] ([facility]) [address] [facility], [place], [address], 05/11/2025 12:07:55 05/10/2005/11/2025 CBC WITH DIFFE RENTI AL/PL ATELE T hematology comments: [employer]KE WORKER Not Available [facility] ([facility]) [address] [facility], [place], [address], 05/11/2025 12:07:55 05/10/2005/11/2025 COMP. METAB OLIC PANEL (14) glucose 78 mg/dL 70-99 normal Not Available [facility] ([facility]) [address] [place], [address], 05/11/2025 12:07:55 05/10/20 25 05/11/2025 COMP. METAB OLIC PANEL (14) BUN 13 mg/dL 6-24 normal Not Available [facility] ([facility]) [address] [place], [address], 05/11/2025 12:07:55 05/10/20 25 05/11/2025 COMP. METAB OLIC PANEL (14) creatinine 0.62 mg/dL 0.57-1 .00 normal Not Available [facility] ([facility]) [address] [place], [address], 05/11/2025 12:07:55 05/10/20 25 05/11/2025 COMP. METAB OLIC PANEL (14) eGFR 107 mL/mi n/1.7 3 >59 normal Not Available [facility] ([facility]) [address] [place], [address], 05/11/2025 12:07:55 05/10/20 25 05/11/2025 COMP. METAB OLIC PANEL (14) BUN/creatini ne ratio 21 9-23 normal Not Available [facility] ([facility]) [address] [place], [address], 05/11/2025 12:07:55 05/10/20 25 05/11/2025 COMP. METAB OLIC PANEL (14) sodium 139 mmol/ L 134-14 4 normal Not Available [facility] ([facility]) [address] [place], [address], 05/11/2025 12:07:55 05/10/20 25 05/11/2025 COMP. METAB OLIC PANEL (14) potassium 5.0 mmol/ L 3.5-5. 2 normal Not Available [facility] ([facility]) [address] [place], [address], 05/11/2025 12:07:55 05/10/20 25 05/11/2025 COMP. METAB OLIC PANEL (14) chloride 102 mmol/ L 96-106 normal Not Available [facility] ([facility]) [address] [place], [address], 05/11/2025 12:07:55 05/10/20 25 05/11/2025 COMP. METAB OLIC PANEL (14) carbon dioxide, total 23 mmol/ L 20-29 normal Not Available [facility] ([facility]) [address] [place], [address], 05/11/2025 12:07:55 05/10/20 25 05/11/2025 COMP. METAB OLIC PANEL (14) calcium 10.0 mg/dL 8.7-10 .2 normal Not Available [facility] ([facility]) [address] [place], [address], 05/11/2025 12:07:55 05/10/20 25 05/11/2025 COMP. METAB OLIC PANEL (14) protein, total 8.1 g/dL 6.0-8. 5 normal Not Available [facility] ([facility]) [address] [place], [address], 05/11/2025 12:07:55 05/10/20 25 05/11/2025 COMP. METAB OLIC PANEL (14) albumin 4.8 g/dL 3.8-4. 9 normal Not Available [facility] ([facility]) [address] [place], [address], 05/11/2025 12:07:55 05/10/20 25 05/11/2025 COMP. METAB OLIC PANEL (14) globulin, total 3.3 g/dL 1.5-4. 5 Not Available [facility] ([facility]) [address] [facility], [place], [address], 05/11/2025 12:07:55 05/10/2005/11/2025 COMP. METAB OLIC PANEL (14) bilirubin, total 0.3 mg/dL 0.0-1. 2 normal Not Available [facility] ([facility]) [address] [facility], [place], [address], 05/11/2025 12:07:55 05/10/2005/11/2025 COMP. METAB OLIC PANEL (14) alkaline phosphatase 84 IU/L 49-135 normal Not Available [facility] ([facility]) [address] [facility], [place], [address], 05/11/2025 12:07:55 05/10/20 25 05/11/2025 COMP. METAB OLIC PANEL (14) AST (SGOT) 22 IU/L 0-40 normal Not Available [facility] ([facility]) [address] [facility], [place], [address], 05/11/2025 12:07:55 05/10/2005/11/2025 COMP. METAB OLIC PANEL (14) ALT (SGPT) 19 IU/L 0-32 normal Not Available [facility] ([facility]) [address] [facility], [place], [address], 05/11/2025 12:07:55 05/10/20 25 05/11/2025 LIPID PANEL cholesterol, total 169 mg/dL 100-19 9 normal Not Available [facility] ([facility]) [address] [facility], [place], [address], 05/11/2025 12:07:56 05/10/20 25 05/11/2025 LIPID PANEL triglyceride s 63 mg/dL 0-149 normal Not Available [facility] ([facility]) [address] [facility], [place], [address], 05/11/2025 12:07:56 05/10/2005/11/2025 LIPID PANEL HDL cholesterol 45 mg/dL >39 normal Not Available [facility] ([facility]) [address] [facility], [place], [address], 05/11/2025 12:07:56 05/10/2005/11/2025 LIPID PANEL VLDL cholesterol jeanette 12 mg/dL 5-40 Not Available [facility] ([facility]) [address] [facility], [place], [address], 05/11/2025 12:07:56 05/10/2005/11/2025 LIPID PANEL LDL chol calc ([facility]) 112 mg/dL 0-99 above high normal Not Available [facility] ([facility]) [address] [facility], [place], [address], 05/11/2025 12:07:56 05/10/2005/11/2025 LIPID PANEL LDL calc comment: [employer]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 Not Available [facility] ([facility]) [address] [facility], [place], [address], 05/11/2025 12:07:56 05/10/2005/11/2025 HCV ANTIB JOSR CASCA DE(PC R/GEN O) HCV Ab Non Reacti ve non reacti ve Not Available [facility] ([facility]) [address] [facility], [place], [address], 05/11/2025 12:07:57 05/10/2005/11/2025 HCV ANTIB JOSR YINGA DE(PC R/GEN O) interpretati on: Commen t Not infec ranjan with HCV unles s early or acute infec tion is suspe cted (whic h may be delay ed in an immun ocomp romis ed indiv idual ), or other evide nce exist s to indic ate HCV infec tion. Not Available [facility] ([facility]) [address] [facility], [place], [address], 05/11/2025 12:07:57 05/10/2005/11/2025 TSH TSH 1.510 uIU/m L 0.450- 4.500 normal Not Available [facility] ([facility]) [address] [facility], [place], [address], 05/11/2025 12:07:57 05/10/2005/11/2025 VITAM IN D, 25-HY DROXY vitamin D, 25-hydroxy 40.0 NG/mL 30.0-1 00.0 Vitam in D defic iency has been defin ed by the Insti tute of Medic ine and an Endoc rine Socie ty pract ice guide line as a level of serum 25-OH vitam in D less than 20 ng/mL (1,2) . The Endoc rine Socie ty went on to furth er defin e vitam in D insuf ficie ncy as a level betwe en 21 and 29 ng/mL (2). 1. IOM (Inst itute of Medic ine). 2009. Dieta ry refer ence intak es for calci um and D. Pedro ghotra [place]: The Natio nal [facility] Press . 2. Ursula berger MF, [place], [employer] off[employer] err[employer] i [employer], et al. Evalu ation , treat ment, and preve ntion of vitam in D defic iency : an Endoc rine Socie ty clini jeanette pract ice guide line. JCEM. 2010; 96(7) :1911 -30. Not Available [facility] ([facility]) [address] [facility], [place], [address], 05/11/2025 12:07:58 05/10/2005/11/2025 HIV AB/P2 4 AG WITH REFLE X HIV Ab/P24 Ag screen Non Reacti ve non reacti ve HIV-1 /HIV- 2 antib odies and HIV-1 p24 antig en were NOT detec ranjan. There is no labor atory evide nce of HIV infec tion. HIV Negat misael Not Available [facility] ([facility]) [address] [facility], [place], [address], 05/11/2025 12:07:58 05/10/2005/11/2025 MAGNE SIUM magnesium 2.3 mg/dL 1.6-2. 3 normal Not Available [facility] ([facility]) [address] [facility], [place], [address], 05/11/2025 12:07:58 05/23/2005/23/2025 MRI, lumba r spine , w/o contr ast No observ ation record ed. [address], [place], [address], 05/23/2025 13:31:10 05/23/2005/23/2025 ankle brach ial index , compl ete No observ ation record ed. [address], [place], [place], [address], 05/23/2025 14:30:17 05/30/2005/23/2025 US, echoc ardio gram No observ ation record ed. [address], [place], [address], 05/30/2025 12:46:35 Result Notes None recorded. Problems Name Problem SNOMED Code Status Onset Date Resolution Date Notes Provider Name and Address Organization Details Recorded Time Chronic obstructive pulmonary disease 01243829 Active 2024 BALTA Pantoja [address] [place] [address], [address], [employer] 12:04:10 Allergic rhinitis 56255669 Active 2024 BALTA Pantoja [address] [place] [address], [address] 8, [employer] 12:04:26 Restless legs syndrome 48852494 Active 2024 BALTA Pantoja [address] [place] [address], [address] 8, [employer] 12:05:19 Pain in bilateral lower legs 4820152712054 9106 Active 2024 BALTA Pantoja [address] [place] [address], [address] 8, [employer] 12:05:24 Urticaria 532351638 Active 2024 BALTA Pantoja [address] [place] [address], [address]087 8, [employer] 12:06:17 Multiple sclerosis 46129478 Active 2024 BALTA Pantoja [address] [place] [address], [address]406 8, [employer] 12:06:40 Urinary incontinenc e 961440467 Active 2024 BALTA Pantoja [address] [place] [address], [address] 8, [employer] 12:07:29 Recurrent depression 294434997 Active 2024 BALTA Pantoja [address] [place] [address], [address] 8, [employer] 12:09:09 Iron deficiency anemia 25844059 Active 2024 Rosi Zelaya BALTA [address] [place] [address], [address] 8, [employer] 12:10:40 Dyspnea on exertion 93688457 Active 2024 BALTA Pantoja [address] [place] [address], [address] 8, [employer] 12:10:44 Allergic conjunctivi tis of bilateral eyes 9684150965673 02 Active 2024 Rosi Zelaya BALTA [address] [place] [address], [address] 8, [employer] 12:12:09 Problem Notes None recorded. Procedures Surgical History Date Name Laterality Status Provider Name and Address Organization Details Recorded Time Total Hysterectomy completed [employer]. 05/10/2025 11:40:37 Knee Surgery completed [employer]. 05/10/2025 11:40:51 Tubal Ligation completed [employer]. 05/10/2025 11:40:56 Imaging Results None recorded. Procedure Notes None recorded. Medical Equipment None Reported. Allergies Allergen ID Allergen Name Allergen Category Reaction Reaction Severity Criticality Documentation Date Start Date Code Code System Note Provider Name and Address Organization Details Recorded Time 37901 tree and shrub pollen environme nt,medica tion Not available Not available Not available 05/10/2025 [employer], [employer] 11:32:03 73292 aspirin medicatio n Not available Not available Not available 05/10/2025 1191 [employer]Norm [employer], [employer] 11:36:22 66014 ibuprofen medicatio n Not available Not available Not available 05/10/2025 5640 [employer]Norm [employer], [employer] 11:36:28 Medications Name Sig Start Date Stop Date Status Note LastModified by Organization Details LastModified Time venlafaxine ER 75 mg capsule,ext ended release 24 hr TAKE ONE CAPSULE BY MOUTH EVERY DAY active Not Available Not Available No t Available gabapentin 600 mg tablet TAKE ONE TABLET BY MOUTH EVERY NIGHT MAY CAUSE DROWSINES S active Not Available Not Available No t Available doxycycline hyclate 100 mg capsule TAKE ONE CAPSULE BY MOUTH TWICE DAILY FOR 10 DAYS -- FINISH ALL MEDICINE -- 05/10 completed Not Available Not Available Not Available cetirizine 10 mg tablet TAKE ONE TABLET BY MOUTH ONCE DAILY NEEDED active Not Available Not Available No t Available meloxicam 15 mg tablet TAKE ONE TABLET BY MOUTH EVERY DAY NEEDED FOR jaw pain --TAKE WITH FOOD-- 05/10 completed Not Available Not Available Not Available omeprazole 40 mg capsule,del ayed release TAKE ONE CAPSULE BY MOUTH EVERY DAY 05/10 completed Not Available Not Available Not Available doxycycline monohydrate 100 mg capsule TAKE ONE CAPSULE BY MOUTH EVERY TWELVE HOURS FOR FOURTEEN DAYS -- FINISH ALL MEDICINE -- 05/10 completed Not Available Not Available Not Available levothyroxi ne 50 mcg tablet TAKE ONE TABLET BY MOUTH EVERY DAY active Not Available Not Available No t Available cephalexin 500 mg capsule TAKE ONE CAPSULE BY MOUTH FOUR TIMES DAILY FOR 10 DAYS -- FINISH ALL MEDICINE -- 05/10 completed Not Available Not Available Not Available triamcinolo ne acetonide 0.1 % topical ointment APPLY SMALL AMOUNT TOPICALLY TO THE LEFT EYELID TWICE DAILY FOR FOURTEEN DAYS 05/10 completed Not Available Not Available Not Available gabapentin 300 mg capsule TAKE ONE CAPSULE BY MOUTH EVERY DAY IN THE MORNING MAY CAUSE DROWSINES S active Not Available Not Available No t Available albuterol sulfate HFA 90 mcg/actuati on aerosol inhaler Inhale 2 puffs every 4 hours by inhalatio n route as needed for 30 days. 2024 active Not Available Not Available Not Avai lable ketoconazol e 2 % topical cream APPLY TOPICALLY TO THE AFFECTED AREA(S) TWICE DAILY 05/10 completed Not Available Not Available Not Available hydroxyzine pamoate 25 mg capsule TAKE ONE CAPSULE BY MOUTH FOUR TIMES DAILY NEEDED FOR ITCHING active Not Available Not Available No t Available nicotine (polacrilex ) 4 mg buccal lozenge DISSOLVE 1 LOZENGE IN MOUTH EVERY 2 HOURS NEEDED FOR SMOKING CESSATION 05/10 completed Not Available Not Available Not Available metoprolol tartrate 25 mg tablet TAKE ONE TABLET BY MOUTH TWICE DAILY 05/10 completed Not Available Not Available Not Available FeroSul 325 mg (65 mg iron) tablet TAKE ONE TABLET BY MOUTH EVERY DAY active Not Available Not Available No t Available sodium,pota ssium,mag sulfates 17.5 gram-3.13 gram-1.6 gram oral soln DILUTE AND USE DIRECTED; DRINK FULL AMOUNT BY MOUTH EARLY EVENING BEFORE AND NEXT MORNING AT LEAST 4-5 HOURS BEFORE PROCEDURE ; FOLLOW WITH 32 OUNCES OF WATER 05/10 completed Not Available Not Available Not Available Myrbetriq 50 mg tablet,exte nded release TAKE ONE TABLET BY MOUTH EVERY DAY active Not Available Not Available No t Available Anoro Ellipta 62.5 mcg-25 mcg/actuati on powder for inhalation INHALE 1 PUFF BY MOUTH EVERY DAY 05/10 completed Not Available Not Available Not Available Flonase Allergy Relief 50 mcg/actuati on nasal spray,suspe nsion [place] 1 spray every day by intranasa l route for 30 days. 2024 active Not Available Not Available Not Avai lable Vraylar 1.5 mg capsule TAKE ONE CAPSULE BY MOUTH EVERY DAY 05/10 completed Not Available Not Available Not Available Breztri Aerosphere 160 mcg-9mcg-4. 8mcg/actuat ion HFA aerosol inhaler INHALE TWO PUFFS BY MOUTH TWICE DAILY active Not Available Not Available No t Available Lastacaft Once Daily Relief 0.25 % eye drops INSTILL 1 DROP INTO AFFECTED EYE(S) BY OPHTHALMI C ROUTE ONCE DAILY 2024 active Not Available Not Available Not Avai lable Vitals Date Recorded Body weight Body mass index (BMI) Body height Oxygen saturation Oxygen saturation in Arterial blood by Pulse oximetry Heart rate Body temperature Systolic And Diastolic Systolic And Diastolic Provider Name and Address Organization Details Last Updated DateTime 5 67446.9 3 g 16.4 kg/m2 165.1 cm 96 % 96 % 82 /min 98.2 [degF] 142/74 mm[Hg] 136/76 mm[Hg] Melinda [employer] 5 11:46:03 Social History Question Answer Notes LastModified by Organizat ion Details LastModified Time Tobacco Smoking Status Current Every Day Smoker Melinda [employer] 05/10/2025 11:32:03 Do You Have An Advance Directive? No Information not available 05/10/2025 Is Your Home Air Conditioned? Yes Information not available 05/10/2025 What Is Your Level Of Caffeine Consumption? Heavy Information not available 05/10/2025 Are You A Caregiver? No Information not available 05/10/2025 What Type Of Diet Are You Following? REGULAR Information not available 05/10/2025 Which Illicit Or Recreational Drugs Have You Used? Marijuana Information not available 05/10/2025 What Is The Highest Grade Or Level Of School You Have Completed Or The Highest Degree You Have Received? [id number] Information not available 05/10/2025 Have There Been Any Changes To Your Family Or Social Situation? No Information no t available 05/10/2025 Are There Any Guns Present In Your Home? No Information not available 05/10/2025 Which Of Your Hands Is Dominant? Right Information not available 05/10/2025 Do You Engage In Moderate/heavy Exercise (e.g. Brisk Walk, Jogging, Strength Training, Etc)? No Information not available 05/10/2025 How Many Times In The Past Year Have You Used An Illegal Drug Or Used A Prescription Medication For Nonmedical Reasons? 0 Information not available 05/10/2025 How Many Years Have You Used Illicit Or Recreational Drugs? 25 Information not available 05/10/2025 Where Do You Live? Apartment Information not available 05/10/2025 Do You Have A Medical Power Of Category Planner? No Information not available 05/10/2025 What Was The Date Of Your Most Recent Tobacco Screening? 05/10/2025 Information not available 05/10/2025 Do You Have Any Pets? Yes Information not available 05/10/2025 What Is Your Relationship Status? Information not available 05/10/2025 Do You Wear A Seatbelt When Driving Or As A Passenger? Yes Information not available 05/10/2025 Are You Sexually Active? No Information not available 05/10/2025 Do You Have Smoke And Carbon Monoxide Detectors In Your Home? No Information not available 05/10/2025 At What Age Did You Start Smoking Tobacco? 16 Information not available 05/10/2025 Are You Passively Exposed To Smoke? Yes Information no t available 05/10/2025 Are There Any Smokers In Your House? Yes Information not available 05/10/2025 How Much Tobacco Do You Smoke? 1 PPD Information not available 05/10/2025 What Types Of Sporting Activities Do You Participate In? None Information not available 05/10/2025 Has Tobacco Cessation Counseling Been Provided? Yes Information not available 05/10/2025 On What Date Was Tobacco Cessation Counseling Provided? 05/10/2025 Information not available 05/10/2025 How Many Years Have You Smoked Tobacco? 38 Information not available 05/10/2025 Have You Recently Traveled Abroad? No Information not available 05/10/2025 Have You Used IV Drugs? No Information not available 05/10/2025 What Contraceptive Method Was Reported At Start Of This Visit? None Information not available 05/10/2025 Do You Feel Safe In Your Home? Yes Information not available 05/10/2025 Do You Have Any Dietary Restrictions? No Information not available 05/10/2025 What Is Your Reason For Having No Contraceptive Method At Start Of This Visit? Abstinence Information not available 05/10/2025 Sex: Unknown Functional Status Question Answer Note LastModified by Organizat ion Details LastModified Time Do you use any illicit or recreational drugs? Yes Information not available 05/10/2025 Do you or have you ever used any other forms of tobacco or nicotine? No Information not available 05/10/2025 What is your level of alcohol consumption? None Information not available 05/10/2025 Are you currently employed? No Information not available 05/10/2025 Do you have transportation difficulties? No Information not available 05/10/2025 Are you able to care for yourself independently? Yes Information not available 05/10/2025 Mental Status Question Answer Note LastModified by Organization D etails LastModified Time Do you feel stressed (tense, restless, nervous, or anxious, or unable to sleep at night)? [id number] Information not available 05/10/2025 Family History Relationship Description Onset Age of this Age Resolved Age Notes LastModified by Organization Details LastModified Time Mother Heart failure Not available 2024 11:40:02 Father Hepatic failure Not available 2024 11:40:11 Medical History Condition Response Coronary Artery Disease N Other N Gout N Kidney Stones N Blood Diseases N Hyperthyroidism N Blood Transfusion N Breast Cancer N Emergency room visit since last appointm ent. N COPD N Depression Y Dermatologic Disorders N Hypothyroidism N Lung Disease N Developmental or Behavioral Disorders N Defects or Inherited Disease N Breast Problem N Difficulty Swallowing N Anesthesia Complications N History of STI N Meniere's disease N Anxiety Disorder Y Muscle, Joint, or Bone Problems N Autoimmune disease N Vision or Eye Problems N Arthritis N Polyps N Infertility N Mental Disorder N Congenital Anomalies N Acid Reflux (GERD) N Cancer Y Stroke N Neurologic/Epilepsy N Endometriosis N Bladder or Kidney Problems N High Cholesterol N Liver Disease N Organ Transplant N Psychiatric/Mental Health Condition N Fibromyalgia N Dialysis N Schizophrenia N Headaches Y Kidney Disease N Allergies/Hayfever N Heart Problems N Ear or Hearing Problems N Hospitalizations N Learning Disorder N Artificial Joints N Thyroid Problems N GI Problems N Acne N ADD/ADHD N Eating Disorder N Anemia N Constipation N Mental Illness N Ovarian Cancer N Diabetes N Bedwetting N Hepatitis/Liver Disease N Tuberculosis N Eczema N Diverticulitis N Abuse/Domestic Violence N Asthma N Trauma/Violence N Substance Abuse N Amnesia/Cognitive Decline N Reflux/GERD N Depression/ depression N Hepatitis N Heart Disease N Pulmonary Embolism N Tourette Syndrome N Chronic Ear Infections N Pre-Eclampsia N Hypertension Y Chicken Pox N Autism Spectrum Disorder (ASD) N Osteoporosis N Thrombophilias N Gynecological History Statement/Question Response Menses Monthly N Date of Last Pap Smear Current Control Method Hysterectom y Most Recent Mammogram Obstetrics History GPAL:G 0 P 0 0 0 0 Immunizations Vaccine Type Date Status Note Provider Nam e and Address Organization Details Recorded Time Influenza, split virus, trivalent, preservative 5 completed Not Available [facility] 05/10/2025 11:32:02 Influenza, split virus, quadrivalent, PF 6 completed Not Available [facility] 05/10/2025 11:32:02 Hep A, adult 9 completed Not Available [facility] 05/10/2025 11:32:02 Influenza, split virus, quadrivalent, preservative 9 completed Not Available [facility] 05/10/2025 11:32:02 Tdap 2 completed Not Available [facility] 05/10/2025 11:32:02 Influenza, split virus, trivalent, PF 4 completed Not Available [facility] 05/10/2025 11:32:02 Past Encounters Encounter ID Performer Location Encounter Start Date Encounter Closed Date Diagnosis/Indication Diagnosis SNOMED-CT Code Diagnosis ICD10 Code Diagnosis IMO Codes Diagnosis Note [id number] BALTA Pantoja [facility] [address] [place] [address] 05/10/2025 11:31:03 05/10/2025 12:24:37 Chronic obstructive pulmonary disease 73350576 J44.9 926996731 Allergic rhinitis 567526 04 J30.9 2477747309 Restless l egs syndrome 16372328 G25.81 23792 Pain in bi lateral lower legs 5222149477 0549910 M79.661 M79.662 91593900 Urticaria 720560154 L50. 9 85464 Multiple sclerosis 90053 007 G35.D 57009 Urinary incontinence 165 334976 R32 99466692 Recurrent depression 191 979745 F33.9 58062 Iron defic iency anemia 22388535 D50.9 58950492 Dyspnea on exertion 6084 5006 R06.09 515398 Screening mammography 24 114196 Z12.31 0778502201 Screening for malignant neoplasm of colon 712033933 Z12.11 019014 Allergic conjunctivitis of bilateral eyes 0306129125 96412 H10.13 500593 HIV screening 740962342 Z11.4 647825 Viral scre ening status 580062606 Z11.59 524843 Health Concerns Section Related Observation LastModified by Organization Detai ls LastModified Time None Recorded Concern Status LastModified by Organization Details LastModified Time None Recorded Advance Directives Directive N: Payers Insurance Date Sequence Insurance Name Policy Number Policy Rea Covered Member ID Rea Member ID Guarantor Name 05/10/2025 1 [facility] - DUAL ELIGIBLE (MEDICARE REPLACEMENT/A DVANTAGE - HMO) [employer] [place] [id number] [place] 05/10/2025 2 [employer] (MEDICARE REPLACEMENT/A DVANTAGE - HMO) [place] [id number] [place] 05/10/2025 [place] [id number] [place] 05/10/2025 2 [employer] (MEDICARE REPLACEMENT/A DVANTAGE - PPO) [place] [id number] [place] Notes Date Note Type Note Provider Name and Address Organization Details Recorded Time 05/10/2025 text/html ROS as noted in the HPI Patient presents to establish care.Diagnosed with endometrial cancer in late 2020. Had a complete hysterectomy. Has never been on HRT. Was told she had already mostly gone thru menopause thru surgery. Has f/u at every 3 months to monitor that.Patient states that she has had back problems as long as she can remember. When she was a child they thought she had spinal meningitis and had a lumbar puncture. Has had imaging done to evaluate post cancer and states that spine has gotten worse. States at one point she was told she has MS, but doesn't have a great understanding of what that means. Tries to stay active but legs and back are really bothering her. It has really slowed her down the past few months. Legs feel really heavy. When she walks across the parking lot she gets very tired. Has to stop and rest. Gets very short of breath. Feet get really red.She does smoke. Smokes not quite a ppd. Has smoked for roughly 40 years. Is using nicotine lozenges to try to quit currently. Melinda bower, [facility] [employer] 05/10/2025 13:08:41 OBGyn Episode No OBEpisode recorded.
--- OUTSIDE RECORDS SUMMARY | 2025-05-31 09:43 | XMS_ITS | Encounter Summary ---
Author Organization Healthcare Address [address] [place] [address] Care Team Providers Care Banquet Attendant Name Role Phone Linh Moreira MD Unavailable [phone] Liss Chambers MD Unavailable [phone] Linh Moreira MD Primary Care Provider [phone] Isaiah Bonilla MD Primary Care Provider [phone] Encounter Details Date Type Department Care Team (Late st Contact Info) Description 03/11/2022 Orders Only External Location [address] [place] [address] Provider, External Social History Tobacco [...] EST Office Visit [facility] [address] [facility] [address] [place] [address] Audrey Wilcox, JOAN [address] [place] [address] documented as of this encounter Procedures Procedure [...] documented as of this encounter Care Teams Banquet Attendant Relationship Specialty Start Date End Date Linh Moreira MD [address] [place] [address] [address] [place] [address] PCP - General 12/01/21 09/26/22 Isaiah Bonilla MD [address] [place] [address] PCP - General 09/27/22 Linh Moreira MD [address] [place] [address] Referring Physician 03/26/21 Liss Chambers MD [address] [place] [address] Consulting Physician Radiation Therapy 05/26/21 documented as of this encounter
--- OUTSIDE RECORDS SUMMARY | 2025-05-31 09:43 | XMS_ITS | Continuity of Care Document ---
Author Organization [facility], [facility] Address [address] [place] [address] Assessment No assessment recorded. Plan of Treatment Reminders Order Date Submit Date Provider Last Modified By Organization Details Last Modified Time Details Appointments None recorded. Lab magnesium, serum or plasma 2024 025 [facility] ([place]), [address] [place], [address], 12:07:58 cobalamin and folate panel, serum 2024 025 [facility] ([place]), [address] [place], [address], 12:07:57 Hepatitis C IgG Ab, qual, serum 2024 025 [facility] [address] [place], [address], 12:07:57 HIV 1 + 2, meaningful use set 2024 025 [facility] [address] [place], [address], 5 12:07:58 lipid panel, serum 2024 025 [email or web address] ([place]), [address] [place], [address], 5 12:07:56 CMP, serum or plasma 2024 025 ISAEL [facility] ([place]), [address] [place], [address], 12:07:56 CBC w/ auto diff 2024 025 [facility]OS[facility] ([place]), [address] [place], [address], 12:07:55 vitamin D, 25-hydroxy, total, serum 2024 025 ISAEL [facility] ([place]), [address] [place], [address], 12:07:58 TSH, ultra-sensi tive, serum 2024 025 AHOSKIE [facility] ([place]), [address] [place], [address], 12:07:57 iron + TIBC + ferritin, serum 2024 025 [facility] ([place]), [address] [place], [address], 12:07:54 Referral neurologist referral 2024 025 [email or web address] Raiaz Olivarez MD, [address], [place], [address], 14:18:29 Procedures colonoscopy screening (PROC) 2024 025 [email or web address] Shreyas Alfaro MD, [address], [place], [address], 15:55:01 Surgeries None recorded. Imaging MAMMO, screening, bilateral 2024 025 [email or web address] [facility] Scheduling Department -New Scheduling Process, [address], [place], [address], 15:06:34 US, echocardiog paige 2024 025 [facility], [address] [place] [address] [address], [place], [address], 5 00:25:38 MRI, lumbar spine, w/o contrast 2024 025 [facility], [address] [place] [address] E, [place], [address], 12:00:20 ankle brachial index, complete 2024 025 [facility], [address] [place] [address] E, [place], [address], 13:57:40 Medication Orders cetirizine 10 mg tablet 2024 025 [facility], [address] [place] [address] E Allen [place]-[address], [id number], 14:50:40 Flonase Allergy Relief 50 mcg/actuati on nasal spray,suspe nsion 2024 025 [facility], [address] [place] [address] E [place], [id number], 14:03:59 Breztri Aerosphere 160 mcg-9mcg-4. 8mcg/actuat ion HFA aerosol inhaler 2024 025 [facility], [address] [place] [address] E [place], [id number], 5 14:50:38 albuterol sulfate HFA 90 mcg/actuati on aerosol inhaler 2024 025 [facility], [address] [place] [address] E [place] [address], [id number], 14:04:00 Myrbetriq 50 mg tablet,exte nded release 2024 [facility], [address] [place] [address] E Khushi [place], [id number], 14:50:36 hydroxyzine pamoate 25 mg capsule 2024 [facility], [address] [place] [address] E Kh[place], [id number], 14:50:39 venlafaxine ER 75 mg capsule,ext ended release 24 hr 2024 [facility], [address] [place] [address] E Kh[place], [id number], 14:50:38 Lastacaft Once Daily Relief 0.25 % eye drops 2024 [facility], [address] [place] [address] E Khushi [place], [id number], 15:39:23 Patient TargetsNo targets recorded. Patient Instructions Encounter Date Encounter Id Patient Instructions Last Modified By Organization Details Last Modified Time 05/10/2025 [id number] allergies: care instructions [email or web address] Not available 05/10/2025 12:11:11 mammogram: about this test [email or web address] Not available 05/10/2025 12:11:49 chronic obstructive pulmonary disease (COPD): care instructions Not available 05/10/2025 12:11:11 learning about copd and how to prevent lung infections [email or web address] Not available 05/10/2025 12:11:11 restless legs syndrome: care instructions [email or web address] Not available 05/10/2025 12:11:11 Stress Incontinence: Care Instructions [email or web address] Not available 05/10/2025 12:11:11 HIV testing: car e instructions [email or web address] Not available 05/10/2025 13:10:00 hives: care instructions [id number] Not available 05/10/2025 12:11:11 multiple sclerosis (MS): care instructions [email or web address] Not available 05/10/2025 12:11:11 iron deficiency anemia: care instructions [email or web address] Not available 05/10/2025 12:11:11 Reason for Referral Neurologist Referral for Mul tiple sclerosis Referring Physician: Rosi Zelaya, [facility], Encounter Date: 05/10/2025 Results Created Date Observation Date Name Description Value Unit Range Abnormal Flag Note LastModifiedBy Organization Detail LastModifiedTime 05/10/2005/11/2025 FE+TI BC+FE R iron bind.cap.(TI BC) 322 ug/dL 250-45 0 normal Not Available [facility] ([facility]) [address] [place], [address], 05/11/2025 12:07:54 05/10/2005/11/2025 FE+TI BC+FE R UIBC 287 ug/dL 131-42 5 normal Not Available [facility] ([facility]) [address] [place], [address], 05/11/2025 12:07:54 05/10/2005/11/2025 FE+TI BC+FE R iron 35 ug/dL 27-159 normal Not Available [facility] ([facility]) [address] [place], [address], 05/11/2025 12:07:54 05/10/2005/11/2025 FE+TI BC+FE R iron saturation 11 % 15-55 below low normal Not Available [facility] ([facility]) [address] [place], [address], 05/11/2025 12:07:54 05/10/2005/11/2025 FE+TI BC+FE R ferritin 57 NG/mL 15-150 normal Not Available [facility] ([facility]) [address] [place], [address], 05/11/2025 12:07:54 05/10/20 25 05/11/2025 CBC WITH DIFFE RENTI AL/PL ATELE T WBC 5.0 x10e3 /uL 3.4-10 .8 normal Not Available [facility] ([facility]) [address] [facility], [place], [address], 05/11/2025 12:07:55 05/10/2005/11/2025 CBC WITH DIFFE RENTI AL/PL ATELE T RBC 4.49 x10e6 /uL 3.77-5 .28 normal Not Available [facility] ([facility]) [address] [place], [address], 05/11/2025 12:07:55 05/10/2005/11/2025 CBC WITH DIFFE RENTI AL/PL ATELE T hemoglobin 13.3 g/dL 11.1-1 5.9 normal Not Available [facility] ([facility]) [address] [facility], [place], [address], 05/11/2025 12:07:55 05/10/2005/11/2025 CBC WITH DIFFE RENTI AL/PL ATELE T hematocrit 41.4 % 34.0-4 6.6 normal Not Available [facility] ([facility]) [address] [place], [address], 05/11/2025 12:07:55 05/10/2005/11/2025 CBC WITH DIFFE RENTI AL/PL ATELE T MCV 92 fL 79-97 normal Not Available [facility] ([facility]) [address] [place], [address], 05/11/2025 12:07:55 05/10/2005/11/2025 CBC WITH DIFFE RENTI AL/PL ATELE T MCH 29.6 pg 26.6-3 3.0 normal Not Available [facility] ([facility]) [address] [place], [address], 05/11/2025 12:07:55 05/10/20 25 05/11/2025 CBC WITH DIFFE RENTI AL/PL ATELE T MCHC 32.1 g/dL 31.5-3 5.7 normal Not Available [facility] ([facility]) [address] [facility], [place], [address], 05/11/2025 12:07:55 05/10/2005/11/2025 CBC WITH DIFFE RENTI AL/PL ATELE T RDW 14.0 % 11.7-1 5.4 Not Available [facility] ([facility]) [address] [facility], [place], [address], 05/11/2025 12:07:55 05/10/20 25 05/11/2025 CBC WITH DIFFE RENTI AL/PL ATELE T platelets 231 x10e3 /uL 150-45 0 normal Not Available [facility] ([facility]) [address] [facility], [place], [address], 05/11/2025 12:07:55 05/10/2005/11/2025 CBC WITH DIFFE RENTI AL/PL ATELE T neutrophils 60 % not estab. normal Not Available [facility] ([facility]) [address] [facility], [place], [address], 05/11/2025 12:07:55 05/10/2005/11/2025 CBC WITH DIFFE RENTI AL/PL ATELE T lymphs 26 % not estab. normal Not Available [facility] ([facility]) [address] [facility], [place], [address], 05/11/2025 12:07:55 05/10/20 25 05/11/2025 CBC WITH DIFFE RENTI AL/PL ATELE T monocytes 11 % not estab. normal Not Available [facility] ([facility]) [address] [place], [address], 05/11/2025 12:07:55 10/03/20 25 05/11/2025 CBC WITH DIFFE RENTI AL/PL ATELE T eos 3 % not estab. normal Not Available [facility] ([facility]) [address] [facility], [place], [address], 05/11/2025 12:07:55 05/10/20 25 05/11/2025 CBC WITH DIFFE RENTI AL/PL ATELE T basos 0 % not estab. normal Not Available [facility] ([facility]) [address] [facility], [place], [address], 05/11/2025 12:07:55 05/10/2005/11/2025 CBC WITH DIFFE RENTI AL/PL ATELE T immature cells WORKING FOREMAN Not Available [facility] ([facility]) [address] [facility], [place], [address], 05/11/2025 12:07:55 05/10/2005/11/2025 CBC WITH DIFFE RENTI AL/PL ATELE T neutrophils (absolute) 2.9 x10e3 /uL 1.4-7. 0 normal Not Available [facility] ([facility]) [address] [place], [address], 05/11/2025 12:07:55 05/10/20 25 05/11/2025 CBC WITH DIFFE RENTI AL/PL ATELE T lymphs (absolute) 1.3 x10e3 /uL 0.7-3. 1 normal Not Available [facility] ([facility]) [address] [place], [address], 05/11/2025 12:07:55 05/10/2005/11/2025 CBC WITH DIFFE RENTI AL/PL ATELE T monocytes(ab solute) 0.6 x10e3 /uL 0.1-0. 9 normal Not Available [facility] ([facility]) [address] [place], [address], 05/11/2025 12:07:55 05/10/2005/11/2025 CBC WITH DIFFE RENTI AL/PL ATELE T eos (absolute) 0.2 x10e3 /uL 0.0-0. 4 normal Not Available [facility] ([facility]) [address] [facility], [place], [address], 05/11/2025 12:07:55 05/10/2005/11/2025 CBC WITH DIFFE RENTI AL/PL ATELE T baso (absolute) 0.0 x10e3 /uL 0.0-0. 2 normal Not Available [facility] ([facility]) [address] [facility], [place], [address], 05/11/2025 12:07:55 05/10/2005/11/2025 CBC WITH DIFFE RENTI AL/PL ATELE T immature granulocytes 0 % not estab. Not Available [facility] ([facility]) [address] [facility], [place], [address], 05/11/2025 12:07:55 05/10/2005/11/2025 CBC WITH DIFFE RENTI AL/PL ATELE T immature grans (abs) 0.0 x10e3 /uL 0.0-0. 1 Not Available [facility] ([facility]) [address] [facility], [place], [address], 05/11/2025 12:07:55 05/10/2005/11/2025 CBC WITH DIFFE RENTI AL/PL ATELE T NRBC WORKING [employer]EM[employer] Not Available [facility] ([facility]) [address] [facility], [place], [address], 05/11/2025 12:07:55 05/10/2005/11/2025 CBC WITH DIFFE RENTI AL/PL ATELE T hematology comments: WORKING FOREMAN Not Available [facility] ([facility]) [address] [facility], [place], [address], 05/11/2025 12:07:55 05/10/20 25 05/11/2025 COMP. METAB OLIC PANEL (14) glucose 78 mg/dL 70-99 normal Not Available [facility] ([facility]) [address] [place], [address], 05/11/2025 12:07:55 05/10/20 25 05/11/2025 COMP. METAB OLIC PANEL (14) BUN 13 mg/dL 6-24 normal Not Available [facility] ([facility]) [address] [place], [address], 05/11/2025 12:07:55 05/10/20 25 05/11/2025 COMP. METAB OLIC PANEL (14) creatinine 0.62 mg/dL 0.57-1 .00 normal Not Available [facility] ([facility]) [address] [place], [address], 05/11/2025 12:07:55 05/10/20 25 05/11/2025 COMP. METAB OLIC PANEL (14) eGFR 107 mL/mi n/1.7 3 >59 normal Not Available [facility] ([facility]) [address] [place], [address], 05/11/2025 12:07:55 05/10/20 25 05/11/2025 COMP. METAB OLIC PANEL (14) BUN/creatini ne ratio 21 9-23 normal Not Available [facility] ([facility]) [address] [place], [address], 05/11/2025 12:07:55 05/10/20 25 05/11/2025 COMP. METAB OLIC PANEL (14) sodium 139 mmol/ L 134-14 4 normal Not Available [facility] ([facility]) [address] [place], [address], 05/11/2025 12:07:55 05/10/20 25 05/11/2025 COMP. METAB OLIC PANEL (14) potassium 5.0 mmol/ L 3.5-5. 2 normal Not Available [facility] ([facility]) [address] [place] [place], [address], 05/11/2025 12:07:55 05/10/20 25 05/11/2025 COMP. METAB OLIC PANEL (14) chloride 102 mmol/ L 96-106 normal Not Available [facility] ([facility]) [address] [place], [address], 05/11/2025 12:07:55 05/10/20 25 05/11/2025 COMP. METAB OLIC PANEL (14) carbon dioxide, total 23 mmol/ L 20-29 normal Not Available [facility] ([facility]) [address] [place], [address], 05/11/2025 12:07:55 05/10/20 25 05/11/2025 COMP. METAB OLIC PANEL (14) calcium 10.0 mg/dL 8.7-10 .2 normal Not Available [facility] ([facility]) [address] [place], [address], 05/11/2025 12:07:55 05/10/20 25 05/11/2025 COMP. METAB OLIC PANEL (14) protein, total 8.1 g/dL 6.0-8. 5 normal Not Available [facility] ([facility]) [address] [place], [address], 05/11/2025 12:07:55 05/10/20 25 05/11/2025 COMP. METAB OLIC PANEL (14) albumin 4.8 g/dL 3.8-4. 9 normal Not Available [facility] ([facility]) [address] [place], [address], 05/11/2025 12:07:55 05/10/20 25 05/11/2025 COMP. METAB OLIC PANEL (14) globulin, total 3.3 g/dL 1.5-4. 5 Not Available [facility] ([facility]) [address] [place], [address], 05/11/2025 12:07:55 05/10/2005/11/2025 COMP. METAB OLIC PANEL (14) bilirubin, total 0.3 mg/dL 0.0-1. 2 normal Not Available [facility] ([facility]) [address] [place], [address], 05/11/2025 12:07:55 05/10/2005/11/2025 COMP. METAB OLIC PANEL (14) alkaline phosphatase 84 IU/L 49-135 normal Not Available [facility] ([facility]) [address] [place], [address], 05/11/2025 12:07:55 05/10/2005/11/2025 COMP. METAB OLIC PANEL (14) AST (SGOT) 22 IU/L 0-40 normal Not Available [facility] ([facility]) [address] [place], [address], 05/11/2025 12:07:55 05/10/2005/11/2025 COMP. METAB OLIC PANEL (14) ALT (SGPT) 19 IU/L 0-32 normal Not Available [facility] ([facility]) [address] [place], [address], 05/11/2025 12:07:55 05/10/2005/11/2025 LIPID PANEL cholesterol, total 169 mg/dL 100-19 9 normal Not Available [facility] ([facility]) [address] [place], [address], 05/11/2025 12:07:56 05/10/2005/11/2025 LIPID PANEL triglyceride s 63 mg/dL 0-149 normal Not Available [facility] ([facility]) [address] [place], [address], 05/11/2025 12:07:56 05/10/2005/11/2025 LIPID PANEL HDL cholesterol 45 mg/dL >39 normal Not Available [facility] ([facility]) [address] [facility], [place], [address], 05/11/2025 12:07:56 05/10/2005/11/2025 LIPID PANEL VLDL cholesterol jeanette 12 mg/dL 5-40 Not Available [facility] ([facility]) [address] [facility], [place], [address], 05/11/2025 12:07:56 05/10/2005/11/2025 LIPID PANEL LDL chol calc ([facility]) 112 mg/dL 0-99 above high normal Not Available [facility] ([facility]) [address] [facility], [place], [address], 05/11/2025 12:07:56 05/10/2005/11/2025 LIPID PANEL LDL calc comment: WORKING FOREMAN Not Available [facility] ([facility]) [address] [facility], [place], [address], 05/11/2025 12:07:56 05/10/2005/11/2025 VITAM IN B12 AND FOLAT E vitamin B12 879 pg/mL 232-12 45 normal Not Available [facility] ([facility]) [address] [place], [address], 05/11/2025 12:07:56 05/10/2005/11/2025 VITAM IN B12 AND FOLAT E folate (folic acid), serum 18.6 NG/mL >3.0 normal A serum folat e amy ntrat ion of less than 3.1 ng/mL is consi dered to repre sent clini jeanette defic iency . Not Available [facility] ([facility]) [address] [facility], [place], [address], 05/11/2025 12:07:56 05/10/2005/11/2025 HCV ANTIB JOSR CASCA DE(PC R/GEN O) HCV Ab Non Reacti ve non reacti ve Not Available [facility] ([facility]) [address] [facility], [place], [address], 05/11/2025 12:07:57 05/10/2005/11/2025 HCV ANTIB JOSR CASCA DE(PC R/GEN O) interpretati on: Commen t Not infec ranjan with HCV unles s early or acute infec tion is suspe cted (whic h may be delay ed in an immun ocomp romis ed indiv idual ), or other evide nce exist s to indic ate HCV infec tion. Not Available [facility] ([facility]) [address] [facility], [place], [address], 05/11/2025 12:07:57 05/10/2005/11/2025 TSH TSH 1.510 uIU/m L 0.450- 4.500 normal Not Available [facility] ([facility]) [address] [facility], [place], [address], 05/11/2025 12:07:57 05/10/2005/11/2025 VITAM IN D, 25-HY [...] 1. IOM (Inst itute of Medic ine). 2010. Dieta ry refer ence intak es for calci um and D. Pedro ghotra [place]: The [facility] n[facility] Press . 2. Ursula berger [place], Elton avila [place], Azra off-F errar i NGO, et al. Evalu ation , treat ment, and preve ntion of vitam in D defic iency : an Endoc rine Socie ty clini jeanette pract ice guide line. JCEM. 2010; 96(7) :1911 -30. Not Available [facility] ([facility]) [address] [facility], [place], [address], 05/11/2025 12:07:58 05/10/2005/11/2025 HIV AB/P2 4 AG WITH REFLE X HIV Ab/P24 Ag screen Non Reacti ve non reacti ve HIV-1 /HIV- 2 antib odies and HIV-1 p24 antig en were NOT detec ranjan. There is no labor atory evide nce of HIV infec tion. HIV Negat misael Not Available [facility] ([facility]) [address] [facility], [place], [address], 05/11/2025 12:07:58 05/10/2005/11/2025 MAGNE SIUM magnesium 2.3 mg/dL 1.6-2. 3 normal Not Available [facility] ([facility]) [address] [facility], [place], [address], 05/11/2025 12:07:58 05/23/2005/23/2025 MRI, lumba r spine , w/o contr ast No observ ation record ed. [address], [place], [address], 05/23/2025 13:31:10 05/23/2005/23/2025 ankle brach ial index , compl ete No observ ation record ed. [address], [place], [address], 05/23/2025 14:30:17 05/30/20 25 05/23/2025 US, echoc ardio gram No observ ation record ed. [address], [place], [address], 05/30/2025 12:46:35 Result Notes None recorded. Problems Name Problem SNOMED Code Status Onset Date Resolution Date Notes Provider Name and Address Organization Details Recorded Time Chronic obstructive pulmonary disease 12969142 Active 2024 BALTA Pantoja [address] [place] [address], [address], [employer] 12:04:10 Allergic rhinitis 39064176 Active 2024 BALTA Pantoja [address] [place] [address], [address] 8, [employer] 12:04:26 Restless legs syndrome 90115933 Active 2024 BALTA Pantoja [address] [place] [address], [address] 8, [employer] 12:05:19 Pain in bilateral lower legs 5661427067664 9106 Active 2024 BALTA Pantoja [address] [place] [address], [address]37[address] 8, [employer] 12:05:24 Urticaria 612907739 Active 2024 BALTA Pantoja [address] [place] [address], 83[address]302 8, [employer] 12:06:17 Multiple sclerosis 06552009 Active 2024 BALTA Pantoja [address] [place] [address], 10[address]578 8, [employer] 12:06:40 Urinary incontinenc e 238840890 Active 2024 BALTA Pantoja [address] [place] [address], 417[address] 8, [employer] 12:07:29 Recurrent depression 420097330 Active 2024 BALTA Pantoja [address] [place] [address], [address] 8, [employer] 10/03/202 5 12:09:09 Iron deficiency anemia 91840076 Active 2024 Rosi ZelayaBALTA [address] [place] [address], [address]76[address]736 8, [employer]. 12:10:40 Dyspnea on exertion 69310581 Active 2024 Rosi BALTA Zelaya [address] [place] [address], 45[address] 8, [employer] 12:10:44 Allergic conjunctivi tis of bilateral eyes 7455413296916 02 Active 2024 Rosi BALTA Zelaya [address] [place] [address], 623[address] 8, [employer]. 12:12:09 Problem Notes None recorded. Procedures Surgical History Date Name Laterality Status Provider Name and Address Organization Details Recorded Time Total Hysterectomy completed [employer]. 05/10/2025 11:40:37 Knee Surgery completed [employer]. 05/10/2025 11:40:51 Tubal Ligation completed [employer]. 05/10/2025 11:40:56 Imaging Results None recorded. Procedure Notes None recorded. Medical Equipment None Reported. Allergies Allergen ID Allergen Name Allergen Category Reaction Reaction Severity Criticality Documentation Date Start Date Code Code System Note Provider Name and Address Organization Details Recorded Time 31054 tree and shrub pollen environme nt,medica tion Not available Not available Not available 05/10/2025 Melinda Dctio, [employer] 11:32:03 81457 aspirin medicatio n Not available Not available Not available 05/10/2025 1191 RxNorm [employer], [employer] 11:36:22 60999 ibuprofen medicatio n Not available Not available Not available 05/10/2025 5640 RxNorm [employer], [employer] 11:36:28 Medications Name Sig Start Date [...] Relief 50 mcg/actuati on nasal spray,suspe nsion [place] 1 spray every day by intranasa l [...] Address Organization Details Last Updated DateTime 5 91510.9 3 g 16.4 kg/m2 165.1 cm 96 % 96 % 82 /min 98.2 [degF] 142/74 mm[Hg] 136/76 mm[Hg] Melinda [place] - [employer] 11:46:03 Social History Question Answer Notes LastModified by Organizat ion Details LastModified Time Tobacco Smoking Status Current Every Day Smoker Melinda bower [facility] [employer] 05/10/2025 11:32:03 Do You Have An [...] Or The Highest Degree You Have Received? [id number] Information not available 05/10/2025 Have There Been [...] Do You Have A Medical Power Of Tram Operator? No Information not available 05/10/2025 What Was [...] anxious, or unable to sleep at night)? [id number] Information not available 05/10/2025 Family History Relationship Description Onset Age of this Age Resolved Age Notes LastModified by Organization Details LastModified Time Mother Heart failure Not available 2024 11:40:02 Father Hepatic failure Not available 2024 11:40:11 Medical History Condition Response Coronary Artery Disease N Other N Gout N Kidney Stones N Blood Diseases N Hyperthyroidism N Breast Cancer N Blood Transfusion N Emergency room visit since last appointm ent. N Hypothyroidism N Lung Disease N COPD N Dermatologic Disorders N Depression Y Defects or Inherited Disease N Developmental or Behavioral Disorders N Breast Problem N Difficulty Swallowing N [...] N High Cholesterol N Liver Disease N Psychiatric/Mental Health Condition N Organ Transplant N Dialysis N Fibromyalgia N Schizophrenia N Headaches Y Kidney Disease [...] N Pulmonary Embolism N Tourette Syndrome N Pre-Eclampsia N Hypertension Y Chronic Ear Infections N Osteoporosis N Chicken Pox N Autism Spectrum Disorder (ASD) N Thrombophilias N Gynecological History Statement/Question Response [...] virus, quadrivalent, PF 6 completed Not Available [facility] 05/10/2025 11:32:02 Hep A, adult 9 completed Not Available [facility] 05/10/2025 11:32:02 Influenza, split virus, quadrivalent, preservative 9 completed Not Available [facility] 05/10/2025 11:32:02 Tdap 2 completed Not Available [facility] 05/10/2025 11:32:02 Influenza, split virus, trivalent, PF 4 completed Not Available [facility] 05/10/2025 11:32:02 Past Encounters Encounter ID Performer Location Encounter Start Date Encounter Closed Date Diagnosis/Indication Diagnosis SNOMED-CT Code Diagnosis ICD10 Code Diagnosis IMO Codes Diagnosis Note [id number] BALTA Pantoja [facility] [address] [place] [phone] 05/10/2025 11:31:03 05/10/2025 12:24:37 Chronic obstructive pulmonary disease 24430237 J44.9 [id number] Allergic rhinitis 222728 04 J30.9 [id number] Restless l egs syndrome 33422505 G25.81 27233 Pain in bi lateral lower legs 8891393304 4438578 M79.661 M79.662 [id number] Urticaria 500769882 L50. 9 88635 Multiple sclerosis 66787 007 G35.D 38983 Urinary incontinence 165 980146 R32 [id number] Recurrent depression 191 454955 F33.9 88734 Iron defic iency anemia 11606850 D50.9 [id number] Dyspnea on exertion 6084 5006 R06.09 693223 Screening mammography 24 324728 Z12.31 [id number] Screening for malignant neoplasm of colon 775561429 Z12.11 032263 Allergic conjunctivitis of bilateral eyes 3420133921 27088 H10.13 607227 HIV screening 725232497 Z11.4 166459 Viral scre ening status 993166223 Z11.59 656483 Health Concerns Section Related Observation LastModified by Organization Detai ls LastModified Time None Recorded Concern Status LastModified by Organization Details LastModified Time None Recorded Payers Encounter Date Sequence Insurance Name Policy Number Policy Rea Covered Member ID Rea Member ID Guarantor Name 05/10/2025 1 [facility] PLAN - DUAL ELIGIBLE (MEDICARE REPLACEMENT/A DVANTAGE - HMO) [place] Colindres [id number] Indai Colindres Notes Date Note Type Note Provider [...] to try to quit currently. Melinda bower, [employer] 05/10/2025 13:08:41 OBGyn Episode No OBEpisode recorded.
--- OUTSIDE RECORDS SUMMARY | 2025-05-31 09:43 | XMS_ITS | Encounter Summary ---
Author Organization Healthcare Address [address] [place] [address] Care Team Providers Care Physician Extender Name Role Phone Linh Moreira MD Unavailable [phone] Linh Moreira MD Unavailable [phone] Liss Chambers MD Unavailable [phone] Linh Moreira MD Primary Care Provider [phone] Isaiah Bonilla MD Primary Care Provider [phone] Encounter Details Date Type Department Care Team (Late st Contact Info) Description 04/07/2021 Lab Requisition [facility] [address] [place] [address] Alicja Bowles MD 800 [facility] [address] [place] [address] Excessive and frequent menstruation with [...] [address] [place] [address] Audrey Wilcox, JEWELRY ENGRAVER [address] [place] [address] documented as of this encounter Procedures Procedure Name Priority Date/Time Associated Diagnosis Comments SURGICAL PATHOLOGY CONSULT Routine 04/07/2021 11:30 AM EDT Excessive and frequent menstruation with regular cycle documented in this encounter Results * Surgical Pathology Consult (04/07/2021 11:30 AM EDT) Case Report Sugical Pathology Consult Case: Authorizing Provider: Alicja Bowles MD Collected: 04/07/2021 1130 Ordering Location: [facility] Lab Received: 04/07/2021 1130 Pathologist: Kaylie Good MD Specimen: Endometrium, 1 1:39 PM EDT [facility] Final Diagnosis A. ENDOMETRIUM, BIOPSY (OSS; [...] properly working controls. 1 1:39 PM EDT [facility] Tumor Blocks Tumor blocks: A1-A2 1 1:39 PM EDT [facility] Tumor Adequacy for Ancillary Testing Adequate Tissue Present 1 1:39 PM EDT [facility] Clinical Information Diagnosis: N92.0 - Excessive and frequent menstruation with regular cycle [ICD-10-CM] 1 1:39 PM EDT [facility] Gross Description A. [id number] Received along with a corresponding pathology report from [facility] are 6 slide(s) labeled outside case: [id number] collected on 03/23/2021. 1 1:39 PM EDT [facility] Intradepartmental Consultation with Agreement Dr. Bob 1 1:39 PM EDT [facility] Note: A resident was involved in the service. I attest I examined the relevant preparations for the specimens and confirmed the diagnosis or interpretation. 1 1:39 PM EDT [facility] Tissue Endometrial structure / Unknown 04/07/2021 11:30 AM EDT 04/07/2021 11:30 AM EDT us Alicja Bowles MD LAB PATHOLOGY ORDERABLES Edna mccain Result [facility] [address] [place] [id number] documented in this encounter Visit Diagnoses Diagnosis Excessive and frequent menstruation with regular cycle documented in this encounter Care Teams Physician Extender Relationship Specialty Start Date End Date Linh Moreira MD [address] [place] [address] [address] [place] [address] PCP - General 12/01/21 09/26/22 Isaiah Bonilla MD [address] [place] [address] PCP - General 09/27/22 Linh Moreira MD [address] [place] [address] Referring Physician 03/26/21 Linh Moreira MD [address] [place] [address] Referring Physician 05/25/21 05/25/21 Liss Chambers MD [address] [place] [address] Consulting Physician Radiation Therapy 05/26/21 documented as of this encounter
--- OUTSIDE RECORDS SUMMARY | 2025-05-31 09:43 | XMS_ITS | Encounter Summary ---
Author Organization Healthcare Address [address] [place] [address] Care Team Providers Care Alloy Weigher Name Role Phone Linh Moreira MD Unavailable [phone] Liss Chambers MD Unavailable [phone] Linh Moreira MD Primary Care Provider [phone] Isaiah Bonilla MD Primary Care Provider [phone] Encounter Details Date Type Department Care Team (Late st Contact Info) Description 03/11/2022 Orders Only External Location [address] [place] [address] Provider, External Social History Tobacco [...] EST Office Visit [facility] Gynecology 800 [facility] [address] [place] [address] Audrey Wilcox, JOAN [address] [place] [address] documented as of this encounter Procedures Procedure [...] documented as of this encounter Care Teams Alloy Weigher Relationship Specialty Start Date End Date Linh Moreira MD [address] [place] [address] [address] [place] [address] PCP - General 12/01/21 09/26/22 Isaiah Bonilla MD [address] [place] [address] PCP - General 09/27/22 Linh Moreira MD [address] [place] [address] Referring Physician 03/26/21 Liss Chambers MD [address] [place] [address] Consulting Physician Radiation Therapy 05/26/21 documented as of this encounter
--- OUTSIDE RECORDS SUMMARY | 2025-05-31 09:43 | XMS_ITS | Encounter Summary ---
Author Organization [facility] Address [address] [place] [address] Care Team Providers Care Outcomes Specialist Name Role Phone Linh Moreira MD Unavailable [phone] Liss Chambers MD Unavailable [phone] Linh Moreira MD Primary Care Provider [phone] Isaiah Bonilla MD Primary Care Provider [phone] Reason for Visit * Reason Comments Med Refill Encounter Details Date Type Department Care Team (Late st Contact Info) Description 09/16/2022 Refill [facility] Gynecology 800 [facility] [address] [place] [address] Linh Dee MD [address] [place] [id number] Social History Tobacco Use Types Packs/Day Years [...] Gynecology [address] [place] [address] Ruben Wilcox APRN [address] [facility] [address] [place] [address] documented as of this encounter Visit Diagnoses Not on filedocumented in this encounter Additional Health Concerns Assessment Noted Time PHQ-9 Depression Total Score: 24 023 1:44 PM EST A fall risk assessment has been complete d for the patient 08/31/2022 1:44 PM EST documented as of this encounter Care Teams Outcomes Specialist Relationship Specialty Start Date End Date Linh Moreira MD [address] [place] [address] [place] [address] PCP - General 12/01/21 09/26/22 Isaiah Bonilla MD [address] [id number] PCP - General 09/27/22 Linh Moreira MD [facility] [place] [id number] Referring Physician 03/26/21 Liss Chambers MD [address] [place] [address] Consulting Physician Radiation Therapy 05/26/21 documented as of this encounter
[2025-05-31] MEDS: SODIUM CHLORIDE 0.9% 10ML SYR (RAD ONLY) 10 ML IV (10:00)
--- NOTE | 2025-05-31 10:12 | US_ITS ---
PROCEDURE INFORMATION: Exam: US Left Breast, Complete MG Bilateral Diagnostic Breast Tomosynthesis Exam date and time: 05/31/2025 10:00 AM Age: 54 years old Clinical indication: Region of palpable concern left breast. TECHNIQUE: Imaging protocol: Complete ultrasound of all four quadrants of the left breast and the retroareolar regions, including ultrasound of the axilla when performed. Bilateral Diagnostic tomosynthesis and 2D mammography including computer-aided detection (CAD) when performed. Unilateral or bilateral exam. COMPARISON: MG MM DIG SCREENING MAMM BI W/CAD 07/03/2024 10:52 AM FINDINGS: MAMMOGRAPHY: Breast composition: The breasts are extremely dense, which lowers the sensitivity of mammography. Breast mammogram findings: Bilateral full field CC and MLO tomosynthesis views were obtained. Left breast spot compression tomosynthesis views were also obtained. Mass: No suspicious masses. Architectural distortion: None. Calcifications: No suspicious calcifications. Asymmetric density: None. Skin thickening: None. Axillary adenopathy: None. ULTRASOUND: Breast ultrasound findings: Left breast ultrasound: The region of palpable concern and left axilla were evaluated with ultrasound. At 2 o'clock 7 cm from the nipple there is a parallel circumscribed hypoechoic oval mass versus heterogeneous tissue measuring 3.2 x 1.3 x 3.0 cm. No abnormal lymph nodes in the axilla. IMPRESSION: Left breast mass versus heterogeneous tissue is probably benign. Recommend six-month follow-up left breast ultrasound to ensure stability. ASSESSMENT: BI-RADS Category 3: Probably benign.
[2025-05-31] MEDS: ISOTOPE MDP (BONE);1 DOSE VIAL IV (10:27)
--- NOTE | 2025-05-31 13:46 | XR_ITS ---
FINAL REPORT CLINICAL HISTORY: HOT SPOTS LT RIBS ON NUCLEAR BONE SCAN, H/O CA COMPARISON: none FINDINGS: 3 views of the left ribs show no acute fractures. There are healing fractures of the anterior left 5th, 6th, and 7th ribs which appears subacute in age and most likely account for bone scan abnormality. Given location and arrangement, these are most likely posttraumatic without pathologic etiology. There is no pneumothorax or pleural fluid collection. Frontal chest radiograph is unremarkable. IMPRESSION: Multiple left rib fractures accounting for bone scan abnormality, presumed posttraumatic. No acute findings. Reviewed, Interpreted and Dictated by Jasmine Ladd MD Transcribed by Rosalva Aguilar Authenticated and . [facility]
== END 2025-05-31 23:59 | disposition home or self-care (01) ==
PROVIDERS: PCP Physician Assistant; Visit Provider Physician Assistant
DX: N63.21 Unspecified lump in the left breast, upper outer quadrant (principal); R92.332 Mammographic heterogeneous density, left breast; S22.42XA Multiple fractures of ribs, left side, initial encounter for closed fracture
CPT/HCPCS: 71101; 76641; 77062; 77066; 78306; A9503; G0279

== ENCOUNTER 2025-06-19 08:43 | Outpatient (CLI) | payer MEDICARE, OTHER, SELFPAY ==
--- NOTE | 2025-06-19 08:46 | XR_ITS ---
FINAL REPORT TECHNIQUE: Bone densitometry calculations of the lumbar spine and left hip were obtained. CLINICAL HISTORY: MULTIPLE FRACTURES FINDINGS: Using L1-4, the bone mineral density of the spine is 0.781 g/cm2, corresponding to T-score of -2.4. Using the left hip, the bone mineral density of the femoral neck is 0.605 g/cm2, corresponding to a T-score of -2.8. Using the right hip, the bone mineral density of the femoral neck is 0.633 g/cm2, corresponding to a T-score of 2.5. NOTE: T-score: Standard deviation compared with peak bone mass of young adult mean. *Following the recommendations of the International Society of Bone densitometry, classification of hip BMD is based on the lower of two T-scores; total hip or femoral neck. IMPRESSION: Diminished bone mineral density of the lumbar spine compatible with osteopenia. Diminished bone mineral density of both hips compatible with osteoporosis. FRAX not reported because some of the T-scores are at or above -2.5 Reviewed, Interpreted and Dictated by Jasmine Ladd MD Transcribed by Lida Bhatt Authenticated and [facility]
--- OUTSIDE RECORDS SUMMARY | 2025-06-19 08:49 | XMS_ITS | Encounter Summary ---
Author Organization [facility] Address [address] [place] [address] Care Team Providers Care Analytical Clerk Name Role Phone Linh Moreira MD Unavailable [phone] Liss Chambers MD Unavailable [phone] Isaiah Bonilla MD Primary Care Provider [phone] Reason for Visit * Reason Comments Med Refill Encounter Details Date Type Department Care Team (Late st Contact Info) Description 04/25/2025 Refill [facility] Gynecology 800 [facility] [address] [place] [phone] Shaylee Benavidez MD [address] [place] [address] Social History Tobacco Use Types Packs/Day Years [...] [address] [place] [address] Audrey Wilcox S, CASH MANAGEMENT ASSOCIATE [address] [place] [address] documented as of this encounter Visit Diagnoses Not on filedocumented in this encounter Additional Health Concerns Assessment Noted Time PHQ-9 Depression Total Score: 14 04/03/2 024 1:48 PM EDT A fall risk assessment has been complete d for the patient 11/20/2024 2:27 PM EDT documented as of this encounter Care Teams Analytical Clerk Relationship Specialty Start Date End Date Isaiah Bonilla MD [address] [place] [address] PCP - General 09/27/22 Linh Moreira MD [address] [address] Referring Physician 03/26/21 Liss Chambers MD [address] [place] [address] Consulting Physician Radiation Therapy 05/26/21 documented as of this encounter
--- OUTSIDE RECORDS SUMMARY | 2025-06-19 08:49 | XMS_ITS ---
Author Organization [facility] Address [address] [place] [address] Care Team Providers Care Mutuel Cashier Name Role Phone Linh Moreira MD Unavailable [phone] Liss Chambers MD Unavailable [phone] Isaiah Bonilla MD Primary Care Provider [phone] Active Problems Problem Noted Date Diagnosed Date [...]
--- OUTSIDE RECORDS SUMMARY | 2025-06-19 08:49 | XMS_ITS | Encounter Summary ---
Author Organization [facility] Address [address] [place] [address] Care Team Providers Care Per Diem Registered Nurse Name Role Phone Linh Moreira MD Unavailable [phone] Liss Chambers MD Unavailable [phone] Linh Moreira MD Primary Care Provider [phone] Isaiah Bonilla MD Primary Care Provider [phone] Reason for Visit * Reason Comments Med Refill Encounter Details Date Type Department Care Team (Late st Contact Info) Description 09/05/2021 Refill [facility] [address] [place] [address] Alicja Bowles MD [address] [facility] [address] [place] [address] Social History Tobacco Use Types [...] Gynecology [address] [place] [address] BanqueteAudrey genao S, TOWER CRANE OPERATOR [address] [facility] [address] [place] [address] documented as of this encounter Visit Diagnoses Not on filedocumented in this encounter Additional Health Concerns Assessment Noted Time A fall risk assessment has been complete d for the patient 08/26/2021 8:47 AM EST documented as of this encounter Care Teams Per Diem Registered Nurse Relationship Specialty Start Date End Date Linh Moreira MD 12[address] [facility] [address] [place] [address] PCP - General 12/01/21 09/26/22 Isaiah Bonilla MD [address] [place] [address] PCP - General 09/27/22 Linh Moreira MD [address] [address] Referring Physician 03/26/21 Liss Chambers MD 800 [facility] [address] [place] [address] Consulting Physician Radiation Therapy 05/26/21 documented as of this encounter
--- OUTSIDE RECORDS SUMMARY | 2025-06-19 08:49 | XMS_ITS | Encounter Summary ---
Author Organization [facility] Address [address] [place] [address] Care Team Providers Care Sonography Technician Name Role Phone Linh Moreira MD Unavailable [phone] Liss Chambers MD Unavailable [phone] Isaiah Bonilla MD Primary Care Provider [phone] Reason for Visit * Reason Comments Med Refill Encounter Details Date Type Department Care Team (Late st Contact Info) Description 05/23/2025 Refill [facility] Gynecology 800 [facility] [address] [place] [phone] Bonnie Monroy MD [address] [place] [address] Social History Tobacco Use Types Packs/Day Years [...] [address] [place] [address] WacoustaAudrey genao S, CONVEYOR FEEDER [address] [place] [address] documented as of this encounter Visit Diagnoses Not on filedocumented in this encounter Additional Health Concerns Assessment Noted Time PHQ-9 Depression Total Score: 14 04/03/ 024 1:48 PM EDT A fall risk assessment has been complete d for the patient 11/20/2024 2:27 PM EDT documented as of this encounter Care Teams Sonography Technician Relationship Specialty Start Date End Date Isaiah Bonilla MD [address] [place] [address] PCP - General 09/27/22 Linh Moreira MD [facility] [address] [address] Referring Physician 03/26/21 Liss Chambers MD [address] [place] [address] Consulting Physician Radiation Therapy 05/26/21 documented as of this encounter
--- OUTSIDE RECORDS SUMMARY | 2025-06-19 08:50 | XMS_ITS | Continuity of Care Document ---
[facility] Address [address] [address] Assessment No assessment recorded. Plan of Treatment Reminders Order Date Submit Date Provider Last Modified By Organization Details Last Modified Time Details Appointments None recorded. Lab magnesium, serum or plasma 2024 025 [facility] ([place]), [address] [place], [address], 12:07:58 cobalamin and folate panel, serum 2024 025 [facility] ([place]), [address] [place], [address], 12:07:57 Hepatitis C IgG Ab, qual, serum 2024 025 [facility] [address] [place], [address], 12:07:57 HIV 1 + 2, meaningful use set 2024 025 [facility] [address] [place], [address], 5 12:07:58 lipid panel, serum 2024 025 [facility] ([place]), [address] [place], [address], 5 12:07:56 CMP, serum or plasma 2024 025 ISAEL [facility] ([place]), [address] [place], [address], 12:07:56 CBC w/ auto diff 2024 025 [facility] ([place]), [address] [place], [address], 12:07:55 vitamin D, 25-hydroxy, total, serum 2024 025 ISAEL [facility] ([place]), [address] [place], [address], 12:07:58 TSH, ultra-sensi tive, serum 2024 025 [facility] ([place]), [address] [place], [address], 12:07:57 iron + TIBC + ferritin, serum 2024 025 [facility] ([place]), [address] [place], [address], 12:07:54 Referral neurologist referral 2024 025 vin Olivarez MD, [address], [place], [address], 14:18:29 Procedures colonoscopy screening (PROC) 2024 025 [email or web address] Shreyas Alfaro MD, [address], [place], [address], 15:55:01 Surgeries None recorded. Imaging MAMMO, screening, bilateral 2024 025 [email or web address] [facility] Scheduling Department -New Scheduling Process, [address], [place], [address], 5 10:15:49 US, echocardiog paige 2024 025 [facility], [address] [place] [address] E, [place], [address], 5 00:25:38 MRI, lumbar spine, w/o contrast 2024 025 [facility], [address] [place] [address] E, [place], [address], 5 12:00:20 ankle brachial index, complete 2024 025 [facility], [address] [place] [address] E, [place], [address], 13:57:40 Medication Orders cetirizine 10 mg tablet 2024 025 [facility], [address] [place] [address] E [place], [id number], 14:50:40 Flonase Allergy Relief 50 mcg/actuati on nasal spray,suspe nsion 2024 025 [facility], [address] [place] [address] E [place], [id number], 14:03:59 Breztri Aerosphere 160 mcg-9mcg-4. 8mcg/actuat ion HFA aerosol inhaler 2024 025 [facility], [address] [place] [address] [address], [id number], 5 14:50:38 albuterol sulfate HFA 90 mcg/actuati on aerosol inhaler 2024 025 [facility], [address] [place] [address] [address] [place] [address], [id number], 14:04:00 Myrbetriq 50 mg tablet,exte nded release 2024 [facility], [address] [place] [address] [place], [id number], 14:50:36 hydroxyzine pamoate 25 mg capsule 2024 [facility], [address] [place] [address] [place], [id number], 14:50:39 venlafaxine ER 75 mg capsule,ext ended release 24 hr 2024 [facility], [address] [place] [address] [place], [id number], 14:50:38 Lastacaft Once Daily Relief 0.25 % eye drops 2024 [facility], [address] [place] [address] E [place], [id number], 15:39:23 Patient TargetsNo targets recorded. Patient Instructions Encounter Date Encounter Id Patient Instructions Last Modified By Organization Details Last Modified Time 05/10/2025 [id number] allergies: care instructions [email or web address] Not available 05/10/2025 12:11:11 mammogram: about this test [email or web address] Not available 05/10/2025 12:11:49 chronic obstructive pulmonary disease (COPD): care instructions [email or web address] Not available 05/10/2025 12:11:11 learning about copd and how to prevent lung infections [email or web address] Not available 05/10/2025 12:11:11 restless legs syndrome: care instructions Not available 05/10/2025 12:11:11 Stress Incontinence: Care Instructions [email or web address] Not available 05/10/2025 12:11:11 HIV testing: car e instructions [email or web address] Not available 05/10/2025 13:10:00 hives: care instructions [email or web address] Not available 05/10/2025 12:11:11 multiple sclerosis (MS): care instructions [email or web address] Not available 05/10/2025 12:11:11 iron deficiency anemia: care instructions [email or web address] Not available 05/10/2025 12:11:11 Reason for Referral Neurologist Referral for Mul tiple sclerosis Referring Physician: Rosi Zelaya, [facility] Medicine, Encounter Date: 05/10/2025 Results Created Date Observation Date Name Description Value Unit Range Abnormal Flag Note LastModifiedBy Organization Detail LastModifiedTime 05/10/2005/11/2025 FE+TI BC+FE R iron bind.cap.(TI BC) 322 ug/dL 250-45 0 normal Not Available [facility] ([facility]) [address] [place], [address], 05/11/2025 12:07:54 05/10/2005/11/2025 FE+TI BC+FE R UIBC 287 ug/dL 131-42 5 normal Not Available [facility] ([facility]) [address] [place], [address], 05/11/2025 12:07:54 05/10/2005/11/2025 FE+TI BC+FE R iron 35 ug/dL 27-159 normal Not Available [facility] ([facility]) [address] [place], [address], 05/11/2025 12:07:54 05/10/2005/11/2025 FE+TI BC+FE R iron saturation 11 % 15-55 below low normal Not Available [facility] ([facility]) [address] [place], [address], 05/11/2025 12:07:54 05/10/2005/11/2025 FE+TI BC+FE R ferritin 57 NG/mL 15-150 normal Not Available [facility] ([facility]) [address] [place], [address], 05/11/2025 12:07:54 05/10/20 25 05/11/2025 CBC WITH DIFFE RENTI AL/PL ATELE T WBC 5.0 x10e3 /uL 3.4-10 .8 normal Not Available [facility] ([facility]) [address] [facility], [place], [address], 05/11/2025 12:07:55 05/10/2005/11/2025 CBC WITH DIFFE RENTI AL/PL ATELE T RBC 4.49 x10e6 /uL 3.77-5 .28 normal Not Available [facility] ([facility]) [address] [place], [address], 05/11/2025 12:07:55 05/10/2005/11/2025 CBC WITH DIFFE RENTI AL/PL ATELE T hemoglobin 13.3 g/dL 11.1-1 5.9 normal Not Available [facility] ([facility]) [address] [facility], [place], [address], 05/11/2025 12:07:55 05/10/2005/11/2025 CBC WITH DIFFE RENTI AL/PL ATELE T hematocrit 41.4 % 34.0-4 6.6 normal Not Available [facility] ([facility]) [address] [place], [address], 05/11/2025 12:07:55 05/10/2005/11/2025 CBC WITH DIFFE RENTI AL/PL ATELE T MCV 92 fL 79-97 normal Not Available [facility] ([facility]) [address] [place], [address], 05/11/2025 12:07:55 05/10/2005/11/2025 CBC WITH DIFFE RENTI AL/PL ATELE T MCH 29.6 pg 26.6-3 3.0 normal Not Available [facility] ([facility]) [address] [place], [address], 05/11/2025 12:07:55 05/10/20 25 05/11/2025 CBC WITH DIFFE RENTI AL/PL ATELE T MCHC 32.1 g/dL 31.5-3 5.7 normal Not Available [facility] ([facility]) [address] [facility], [place], [address], 05/11/2025 12:07:55 05/10/2005/11/2025 CBC WITH DIFFE RENTI AL/PL ATELE T RDW 14.0 % 11.7-1 5.4 Not Available [facility] ([facility]) [address] [facility], [place], [address], 05/11/2025 12:07:55 05/10/20 25 05/11/2025 CBC WITH DIFFE RENTI AL/PL ATELE T platelets 231 x10e3 /uL 150-45 0 normal Not Available [facility] ([facility]) [address] [facility], [place], [address], 05/11/2025 12:07:55 05/10/2005/11/2025 CBC WITH DIFFE RENTI AL/PL ATELE T neutrophils 60 % not estab. normal Not Available [facility] ([facility]) [address] [facility], [place], [address], 05/11/2025 12:07:55 05/10/2005/11/2025 CBC WITH DIFFE RENTI AL/PL ATELE T lymphs 26 % not estab. normal Not Available [facility] ([facility]) [address] [facility], [place], [address], 05/11/2025 12:07:55 05/10/20 25 05/11/2025 CBC WITH DIFFE RENTI AL/PL ATELE T monocytes 11 % not estab. normal Not Available [facility] ([facility]) [address] [place], [address], 05/11/2025 12:07:55 10/03/20 25 05/11/2025 CBC WITH DIFFE RENTI AL/PL ATELE T eos 3 % not estab. normal Not Available [facility] ([facility]) [address] [facility], [place], [address], 05/11/2025 12:07:55 05/10/20 25 05/11/2025 CBC WITH DIFFE RENTI AL/PL ATELE T basos 0 % not estab. normal Not Available [facility] ([facility]) [address] [facility], [place], [address], 05/11/2025 12:07:55 05/10/2005/11/2025 CBC WITH DIFFE RENTI AL/PL ATELE T immature cells SENIOR EXECUTIVE COMPENSATION ANALYST Not Available [facility] ([facility]) [address] [facility], [place], [address], 05/11/2025 12:07:55 05/10/2005/11/2025 CBC WITH DIFFE RENTI AL/PL ATELE T neutrophils (absolute) 2.9 x10e3 /uL 1.4-7. 0 normal Not Available [facility] ([facility]) [address] [place], [address], 05/11/2025 12:07:55 05/10/20 25 05/11/2025 CBC WITH DIFFE RENTI AL/PL ATELE T lymphs (absolute) 1.3 x10e3 /uL 0.7-3. 1 normal Not Available [facility] ([facility]) [address] [place], [address], 05/11/2025 12:07:55 05/10/2005/11/2025 CBC WITH DIFFE RENTI AL/PL ATELE T monocytes(ab solute) 0.6 x10e3 /uL 0.1-0. 9 normal Not Available [facility] ([facility]) [address] [place], [address], 05/11/2025 12:07:55 05/10/2005/11/2025 CBC WITH DIFFE RENTI AL/PL ATELE T eos (absolute) 0.2 x10e3 /uL 0.0-0. 4 normal Not Available [facility] ([facility]) [address] [facility], [place], [address], 05/11/2025 12:07:55 05/10/2005/11/2025 CBC WITH DIFFE RENTI AL/PL ATELE T baso (absolute) 0.0 x10e3 /uL 0.0-0. 2 normal Not Available [facility] ([facility]) [address] [facility], [place], [address], 05/11/2025 12:07:55 05/10/2005/11/2025 CBC WITH DIFFE RENTI AL/PL ATELE T immature granulocytes 0 % not estab. Not Available [facility] ([facility]) [address] [facility], [place], [address], 05/11/2025 12:07:55 05/10/2005/11/2025 CBC WITH DIFFE RENTI AL/PL ATELE T immature grans (abs) 0.0 x10e3 /uL 0.0-0. 1 Not Available [facility] ([facility]) [address] [facility], [place], [address], 05/11/2025 12:07:55 05/10/2005/11/2025 CBC WITH DIFFE RENTI AL/PL ATELE T NRBC SENIOR EXECUTIVE COMPENSATION ANALYST Not Available [facility] ([facility]) [address] [facility], [place], [address], 05/11/2025 12:07:55 05/10/2005/11/2025 CBC WITH DIFFE RENTI AL/PL ATELE T hematology comments: SENIOR EXECUTIVE COMPENSATION ANALYST Not Available [facility] ([facility]) [address] [facility], [place], [address], 05/11/2025 12:07:55 05/10/20 25 05/11/2025 COMP. METAB OLIC PANEL (14) glucose 78 mg/dL 70-99 normal Not Available [facility] ([facility]) [address] [place], [address], 05/11/2025 12:07:55 05/10/20 25 05/11/2025 COMP. METAB OLIC PANEL (14) BUN 13 mg/dL 6-24 normal Not Available [facility] ([facility]) [address] [place], [address], 05/11/2025 12:07:55 05/10/20 25 05/11/2025 COMP. METAB OLIC PANEL (14) creatinine 0.62 mg/dL 0.57-1 .00 normal Not Available [facility] ([facility]) [address] [place], [address], 05/11/2025 12:07:55 05/10/20 25 05/11/2025 COMP. METAB OLIC PANEL (14) eGFR 107 mL/mi n/1.7 3 >59 normal Not Available [facility] ([facility]) [address] [place], [address], 05/11/2025 12:07:55 05/10/20 25 05/11/2025 COMP. METAB OLIC PANEL (14) BUN/creatini ne ratio 21 9-23 normal Not Available [facility] ([facility]) [address] [place], [address], 05/11/2025 12:07:55 05/10/20 25 05/11/2025 COMP. METAB OLIC PANEL (14) sodium 139 mmol/ L 134-14 4 normal Not Available [facility] ([facility]) [address] [place], [address], 05/11/2025 12:07:55 05/10/20 25 05/11/2025 COMP. METAB OLIC PANEL (14) potassium 5.0 mmol/ L 3.5-5. 2 normal Not Available [facility] ([facility]) [address] [place], [address], 05/11/2025 12:07:55 05/10/20 25 05/11/2025 COMP. METAB OLIC PANEL (14) chloride 102 mmol/ L 96-106 normal Not Available [facility] ([facility]) [address] [place], [address], 05/11/2025 12:07:55 05/10/20 25 05/11/2025 COMP. METAB OLIC PANEL (14) carbon dioxide, total 23 mmol/ L 20-29 normal Not Available [facility] ([facility]) [address] [place], [address], 05/11/2025 12:07:55 05/10/20 25 05/11/2025 COMP. METAB OLIC PANEL (14) calcium 10.0 mg/dL 8.7-10 .2 normal Not Available [facility] ([facility]) [address] [facility] [place], [address], 05/11/2025 12:07:55 05/10/20 25 05/11/2025 COMP. METAB OLIC PANEL (14) protein, total 8.1 g/dL 6.0-8. 5 normal Not Available [facility] ([facility]) [address] [facility] [place], [address], 05/11/2025 12:07:55 05/10/20 25 05/11/2025 COMP. METAB OLIC PANEL (14) albumin 4.8 g/dL 3.8-4. 9 normal Not Available [facility] ([facility]) [address] [place], [address], 05/11/2025 12:07:55 05/10/20 25 05/11/2025 COMP. METAB OLIC PANEL (14) globulin, total 3.3 g/dL 1.5-4. 5 Not Available [facility] ([facility]) [address] [place], [address], 05/11/2025 12:07:55 05/10/2005/11/2025 COMP. METAB OLIC PANEL (14) bilirubin, total 0.3 mg/dL 0.0-1. 2 normal Not Available [facility] ([facility]) [address] [place], [address], 05/11/2025 12:07:55 05/10/2005/11/2025 COMP. METAB OLIC PANEL (14) alkaline phosphatase 84 IU/L 49-135 normal Not Available [facility] ([facility]) [address] [place], [address], 05/11/2025 12:07:55 05/10/2005/11/2025 COMP. METAB OLIC PANEL (14) AST (SGOT) 22 IU/L 0-40 normal Not Available [facility] ([facility]) [address] [place], [address], 05/11/2025 12:07:55 05/10/2005/11/2025 COMP. METAB OLIC PANEL (14) ALT (SGPT) 19 IU/L 0-32 normal Not Available [facility] ([facility]) [address] [place], [address], 05/11/2025 12:07:55 05/10/2005/11/2025 LIPID PANEL cholesterol, total 169 mg/dL 100-19 9 normal Not Available [facility] ([facility]) [address] [place], [address], 05/11/2025 12:07:56 05/10/2005/11/2025 LIPID PANEL triglyceride s 63 mg/dL 0-149 normal Not Available [facility] ([facility]) [address] [place], [address], 05/11/2025 12:07:56 05/10/2005/11/2025 LIPID PANEL HDL cholesterol 45 mg/dL >39 normal Not Available [facility]) [address] [facility], [place], [address], 05/11/2025 12:07:56 05/10/2005/11/2025 LIPID PANEL VLDL cholesterol jeanette 12 mg/dL 5-40 Not Available [facility] ([facility]) [address] [facility], [place], [address], 05/11/2025 12:07:56 05/10/2005/11/2025 LIPID PANEL LDL chol calc ([facility]) 112 mg/dL 0-99 above high normal Not Available [facility] ([facility]) [address] [facility], [place], [address], 05/11/2025 12:07:56 05/10/2005/11/2025 LIPID PANEL LDL calc comment: SENIOR EXECUTIVE COMPENSATION ANALYST Not Available [facility] ([facility]) [address] [facility], [place], [address], 05/11/2025 12:07:56 05/10/2005/11/2025 VITAM IN B12 AND FOLAT E vitamin B12 879 pg/mL 232-12 45 normal Not Available [facility] ([facility]) [address] [place], [address], 05/11/2025 12:07:56 05/10/2005/11/2025 VITAM IN B12 AND FOLAT E folate (folic acid), serum 18.6 NG/mL >3.0 normal A serum folat e amy ntrat ion of less than 3.1 ng/mL is consi dered to repre sent clini jeanette defic iency . Not Available [facility] ([facility]) [address] [facility], [place], [address], 05/11/2025 12:07:56 05/10/2005/11/2025 HCV ANTIB JOSR CASCA DE(PC R/GEN O) HCV Ab Non Reacti ve non reacti ve Not Available [facility] ([facility]) [address] [facility], [place], [address], 05/11/2025 12:07:57 05/10/2005/11/2025 HCV ANTIB JOSR CASCA DE(PC R/GEN O) interpretati on: Commen t Not infec ranjan with HCV unles s early or acute infec tion is suspe cted (whic h may be delay ed in an immun ocomp romis ed indiv idual ), or other evide nce exist s to indic ate HCV infec tion. Not Available [facility] ([facility]) [address] [facility], [place], [address], 05/11/2025 12:07:57 05/10/2005/11/2025 TSH TSH 1.510 uIU/m L 0.450- 4.500 normal Not Available [facility] ([facility]) [address] [facility], [place], [address], 05/11/2025 12:07:57 05/10/2005/11/2025 VITAM IN D, 25-HY [...] Pedro ghotra [place]: [employer] [facility] . 2. Ursula berger MF, Elton avila [place], [employer] errar i [employer], et al. Evalu ation , treat ment, and preve ntion of vitam in D defic iency : an Endoc rine Socie ty clini jeanette pract ice guide line. JCEM. 2010; 96(7) :1911 -30. Not Available [facility] ([facility]) [address] [facility], [place], [address], 05/11/2025 12:07:58 05/10/2005/11/2025 HIV AB/P2 4 AG WITH REFLE X HIV Ab/P24 Ag screen Non Reacti ve non reacti ve HIV-1 /HIV- 2 antib odies and HIV-1 p24 antig en were NOT detec ranjan. There is no labor atory evide nce of HIV infec tion. HIV Negat misael Not Available [facility] ([facility]) [address] [facility], [place], [address], 05/11/2025 12:07:58 05/10/2005/11/2025 MAGNE SIUM magnesium 2.3 mg/dL 1.6-2. 3 normal Not Available [facility] ([facility]) [address] [facility], [place], [address], 05/11/2025 12:07:58 05/23/2005/23/2025 MRI, lumba r spine , w/o contr ast No observ ation record ed. [address], [place], [address], 05/23/2025 13:31:10 05/23/2005/23/2025 ankle brach ial index , compl ete No observ ation record ed. [address], [place], [address], 05/23/2025 14:30:17 05/30/20 25 05/23/2025 US, echoc ardio gram No observ ation record ed. [address], [place], [address], 05/30/2025 12:46:35 05/31/20 25 05/31/2025 NM, bone scan No observ ation record ed. [facility] [address], [place], [place], [address], 05/31/2025 17:37:08 05/31/20 25 05/31/2025 XR, ribs, unila teral , 3 or more view No observ ation record ed. [facility] [address], [place], [place], [address], 05/31/2025 17:37:27 06/04/2005/31/2025 MAMMO , diagn ostic , digit al, bilat eral No observ ation record ed. [email or web address] [facility] [address], [place], [address], 06/04/2025 11:12:29 06/04/2005/31/2025 US, breas t, unila teral No observ ation record ed. [email or web address] [facility] [address], [place], [address], 06/05/2025 13:01:26 Result Notes None recorded. Problems Name Problem SNOMED Code Status Onset Date Resolution Date Notes Provider Name and Address Organization Details Recorded Time Chronic obstructive pulmonary disease 88565272 Active 2024 BALTA Pantoja [address] [place] [address], [address], [employer] 12:04:10 Allergic rhinitis 48745082 Active 2024 BALTA Pantoja [address] [place] [address], [address] 8, [employer] 12:04:26 Restless legs syndrome 82976572 Active 2024 BALTA Pantoja [address] [place] [address], [address] 8, [employer] 12:05:19 Pain in bilateral lower legs 3315506135051 9106 Active 2024 BALTA Pantoja [address] [place] [address], [address] 8, [employer] 12:05:24 Urticaria 400852719 Active 2024 BALTA Pantoja [address] [place] [address], [address] 8, [employer] 12:06:17 Multiple sclerosis 69118384 Active 2024 BALTA Pantoja [address] [place] [address], [address] 8, [employer] 12:06:40 Urinary incontinenc e 447668052 Active 2024 BALTA Pantoja [address] [place] [address], [address] 8, [employer] 12:07:29 Recurrent depression 688236743 Active 2024 BALTA Pantoja [address] [place] [address], [address] 8, [employer] 12:09:09 Iron deficiency anemia 31377909 Active 2024 BALTA Pantoja [address] [place] [address], [address] 8, [employer] 12:10:40 Dyspnea on exertion 92696954 Active 2024 BALTA Pantoja [address] [place] [address], [address] 8, [employer] 12:10:44 Allergic conjunctivi tis of bilateral eyes 1159723831000 02 Active 2024 BALTA Pantoja [address] [place] [address], [address] 8, [employer] 12:12:09 Mass of left breast 0086978137682 9103 Active 2024 BALTA Pantoja [address] [place], [address], [employer] 09:54:01 Abnormal radionuclid e scan 209108871 Active 2024 BALTA Pantoja [address] [place], [address], [employer] 14:52:13 Problem Notes None recorded. Procedures Surgical History Date Name Laterality Status Provider Name and Address Organization Details Recorded Time Total Hysterectomy completed [employer] 05/10/2025 11:40:37 Knee Surgery completed [employer]. 05/10/2025 11:40:51 Tubal Ligation completed [employer]. 05/10/2025 11:40:56 Imaging Results None recorded. Procedure Notes None recorded. Medical Equipment None Reported. Allergies Allergen ID Allergen Name Allergen Category Reaction Reaction Severity Criticality Documentation Date Start Date Code Code System Note Provider Name and Address Organization Details Recorded Time 36316 tree and shrub pollen environme nt,medica tion Not available Not available Not available 05/10/2025 Melinda Alfresco, [employer] 11:32:03 49639 aspirin medicatio n Not available Not available Not available 05/10/2025 1191 RxNorm lensgen, [employer] 11:36:22 46042 ibuprofen medicatio n Not available Not available Not available 05/10/2025 5640 RxNorm [employer], [employer] 11:36:28 Medications Name Sig Start Date [...] Relief 50 mcg/actuati on nasal spray,suspe nsion [place] 1 spray every day by intranasa l [...] and Address Organization Details Last Updated DateTime 24725.9 3 g 16.4 kg/m2 165.1 cm 96 % 96 % 82 /min 98.2 [degF] 142/74 mm[Hg] 136/76 mm[Hg] Melinda Morales [employer]. 11:46:03 Social History Question Answer Notes LastModified by Organizat ion Details LastModified Time Tobacco Smoking Status Current Every Day Smoker Melinda bower [employer]. 05/10/2025 11:32:03 Do You Have An Advance [...] Or The Highest Degree You Have Received? [id number] Information not available 05/10/2025 Have There Been [...] Do You Have A Medical Power Of Account Liaison? No Information not available 05/10/2025 What Was [...] anxious, or unable to sleep at night)? [id number] Information not available 05/10/2025 Family History Relationship [...] virus, trivalent, preservative 5 completed Not Available [facility] 05/10/2025 11:32:02 Influenza, split virus, quadrivalent, PF 6 completed Not Available [facility] 05/10/2025 11:32:02 Hep A, adult 9 completed Not Available [facility] 05/10/2025 11:32:02 Influenza, split virus, quadrivalent, preservative 9 completed Not Available [facility] 05/10/2025 11:32:02 Tdap 2 completed Not Available [facility] 05/10/2025 11:32:02 Influenza, split virus, trivalent, PF 4 completed Not Available [facility] 05/10/2025 11:32:02 Past Encounters Encounter ID Performer Location Encounter Start Date Encounter Closed Date Diagnosis/Indication Diagnosis SNOMED-CT Code Diagnosis ICD10 Code Diagnosis IMO Codes Diagnosis Note [id number] BALTA Pantoja [facility] [address] [place] [address] 05/10/2025 11:31:03 05/10/2025 12:24:37 Chronic obstructive pulmonary disease 67584919 J44.9 128685448 Allergic rhinitis 402309 04 J30.9 [id number] Restless l egs syndrome 44316730 G25.81 25215 Pain in bi lateral lower legs 5320547006 [id number] M79.661 M79.662 [id number] Urticaria [id number] L50. 9 64662 Multiple sclerosis 22122 007 G35.D 00491 Urinary incontinence 165 878356 R32 50007345 Recurrent depression 191 911512 F33.9 71715 Iron defic iency anemia 06502805 D50.9 34635172 Dyspnea on exertion 6084 5006 R06.09 364152 Screening mammography 24 026960 Z12.31 [id number] Screening for malignant neoplasm of colon 316248466 Z12.11 013391 Allergic conjunctivitis of bilateral eyes 2724230003 02597 H10.13 924935 HIV screening 794606259 Z11.4 018060 Viral scre ening status 986440580 Z11.59 295111 Health Concerns Section Related Observation LastModified by Organization Detai ls LastModified Time None Recorded Concern Status LastModified by Organization Details LastModified Time None Recorded Payers Encounter Date Sequence Insurance Name Policy Number Policy Rea Covered Member ID Rea Member ID Guarantor Name 05/10/2025 1 [facility] - DUAL ELIGIBLE (MEDICARE REPLACEMENT/A DVANTAGE - HMO) [id number] Colindres [id number] [place] [employer] Notes Date Note Type Note [...] to try to quit currently. Melinda bower, [employer] 05/10/2025 13:08:41 OBGyn Episode No OBEpisode recorded.
--- OUTSIDE RECORDS SUMMARY | 2025-06-19 08:50 | XMS_ITS | Encounter Summary ---
Author Organization Healthcare Address [address] [place] [address] Care Team Providers Care Herbarium Worker Name Role Phone Linh Moreira MD Unavailable [phone] Liss Chambers MD Unavailable [phone] Linh Moreira MD Primary Care Provider [phone] Isaiah Bonilla MD Primary Care Provider [phone] Encounter Details Date Type Department Care Team (Late st Contact Info) Description 03/11/2022 Orders Only External Location [address] [place] [address] Provider, External Social History Tobacco [...] EST Office Visit [facility] [address] [facility] [address] [place] [address] Audrey Wilcox, JOAN [address] [place] [address] documented as of this encounter Procedures Procedure [...] documented as of this encounter Care Teams Herbarium Worker Relationship Specialty Start Date End Date Linh Moreira MD [address] [place] [address] [address] [place] [address] PCP - General 12/01/21 09/26/22 Isaiah Bonilla MD [address] [place] [address] PCP - General 09/27/22 Linh Moreira MD [address] [place] [address] Referring Physician 03/26/21 Liss Chambers MD [address] [place] [address] Consulting Physician Radiation Therapy 05/26/21 documented as of this encounter
--- OUTSIDE RECORDS SUMMARY | 2025-06-19 08:50 | XMS_ITS | Data Portability ---
Author Organization [employer] Address [address] [place] [address] Assessment No assessment recorded. Plan of Treatment Reminders Order Date Submit Date Provider Last Modified By Organization Details Last Modified Time Details Appointments None recorded. Lab magnesium, serum or plasma 2024 025 [facility] [address] [place], [address], 12:07:58 cobalamin and folate panel, serum 2024 025 [facility] [address] [place], [address], 12:07:57 Hepatitis C IgG Ab, qual, serum 2024 025 ISAEL [facility]), [address] [place], [address], 12:07:57 HIV 1 + 2, meaningful use set 2024 025 [facility] [address] [place], [address], 12:07:58 lipid panel, serum 2024 025 [facility] [address] [place], [address], 5 12:07:56 CMP, serum or plasma 2024 025 ISAEL [facility] [address] [place], [address], 12:07:56 CBC w/ auto diff 2024 025 [place] [facility]), [address] [place], [address], 12:07:55 vitamin D, 25-hydroxy, total, serum 2024 025 [place] [facility]), [address] [place], [address], 12:07:58 TSH, ultra-sensi tive, serum 2024 025 [place] [facility] [address] [place], [address], 12:07:57 iron + TIBC + ferritin, serum 2024 025 [facility]), [address] [place], [address], 12:07:54 Referral neurologist referral 2024 025 vin Olivarez MD, [address], [place], [address], 14:18:29 Procedures colonoscopy screening (PROC) 2024 025 [email or web address] Shreyas Alfaro MD, [address], [place], [address], 15:55:01 Surgeries None recorded. Imaging MAMMO, screening, bilateral 2024 025 [email or web address] [facility] Scheduling Department -New Scheduling Process, [address], [place], [address], 5 10:15:49 US, echocardiog paige 2024 025 [facility] [place], [address] [place] [address] E, [place], [address], 5 00:25:38 MRI, lumbar spine, w/o contrast 2024 [facility] [place], [address] [place] [address] E, [place], [address], 5 12:00:20 ankle brachial index, complete 2024 [facility] [place], [address] [place] [address] E, [place], [address], 13:57:40 Medication Orders cetirizine 10 mg tablet 2024 [facility], [address] [place] [address] E [place], [id number], 14:50:40 Flonase Allergy Relief 50 mcg/actuati on nasal spray,suspe nsion 2024 025 [facility], [address] [place] [address] [address], [id number], 14:03:59 Breztri Aerosphere 160 mcg-9mcg-4. 8mcg/actuat ion HFA aerosol inhaler 2024 025 [facility], [address] [place] [address] [address], [id number], 14:50:38 albuterol sulfate HFA 90 mcg/actuati on aerosol inhaler 2024 025 [facility], [address] [place] [address] [address] [place] [address], [id number], 14:04:00 Myrbetriq 50 mg tablet,exte nded release 2024 [facility], [address] [place] [address] [place], [id number], 14:50:36 hydroxyzine pamoate 25 mg capsule 2024 [facility], [address] [place] [address] [place], [id number], 14:50:39 venlafaxine ER 75 mg capsule,ext ended release 24 hr 2024 [facility], [address] [place] [address] E [place], [id number], 14:50:38 Lastacaft Once Daily Relief 0.25 % eye drops 2024 [facility], [address] [place] [address] E [place], [id number], 15:39:23 Patient TargetsNo targets recorded. Patient Instructions Encounter Date Encounter Id Patient Instructions Last Modified By Organization Details Last Modified Time 05/10/2025 [id number] allergies: care instructions Not available 05/10/2025 12:11:11 mammogram: about this test Not available 05/10/2025 12:11:49 chronic obstructive pulmonary disease (COPD): care instructions [email or web address] Not available 05/10/2025 12:11:11 learning about copd and how to prevent lung infections [email or web address] Not available 05/10/2025 12:11:11 restless legs syndrome: care instructions Not available 05/10/2025 12:11:11 Stress Incontinence: Care Instructions [email or web address] Not available 05/10/2025 12:11:11 HIV testing: car e instructions Not available 05/10/2025 13:10:00 hives: care instructions [email or web address] Not available 05/10/2025 12:11:11 multiple sclerosis (MS): care instructions [email or web address] Not available 05/10/2025 12:11:11 iron deficiency anemia: care instructions [email or web address] Not available 05/10/2025 12:11:11 Reason for Referral Neurologist Referral for Mul tiple sclerosis Referring Physician: Rosi Zelaya, Family Medicine, Encounter Date: 05/10/2025 Results Created Date Observation Date Name Description Value Unit Range Abnormal Flag Note LastModifiedBy Organization Detail LastModifiedTime 05/10/2005/11/2025 FE+TI BC+FE R iron bind.cap.(TI BC) 322 ug/dL 250-45 0 normal Not Available [facility]) [address] [place], [address], 05/11/2025 12:07:54 05/10/2005/11/2025 FE+TI BC+FE R UIBC 287 ug/dL 131-42 5 normal Not Available [facility] ([facility]) [address] [place], [address], 05/11/2025 12:07:54 05/10/2005/11/2025 FE+TI BC+FE R iron 35 ug/dL 27-159 normal Not Available [facility] ([facility]) [address] [place], [address], 05/11/2025 12:07:54 05/10/2005/11/2025 FE+TI BC+FE R iron saturation 11 % 15-55 below low normal Not Available [facility] ([facility]) [address] [place], [address], 05/11/2025 12:07:54 05/10/2005/11/2025 FE+TI BC+FE R ferritin 57 NG/mL 15-150 normal Not Available [facility] ([facility]) [address] [place], [address], 05/11/2025 12:07:54 05/10/2005/11/2025 CBC WITH DIFFE RENTI AL/PL ATELE T WBC 5.0 x10e3 /uL 3.4-10 .8 normal Not Available [facility] ([facility]) [address] [facility], [place], [address], 05/11/2025 12:07:55 05/10/2005/11/2025 CBC WITH DIFFE RENTI AL/PL ATELE T RBC 4.49 x10e6 /uL 3.77-5 .28 normal Not Available [facility] ([facility]) [address] [place], [address], 05/11/2025 12:07:55 05/10/2005/11/2025 CBC WITH DIFFE RENTI AL/PL ATELE T hemoglobin 13.3 g/dL 11.1-1 5.9 normal Not Available [facility] ([facility]) [address] [facility], [place], [address], 05/11/2025 12:07:55 05/10/2005/11/2025 CBC WITH DIFFE RENTI AL/PL ATELE T hematocrit 41.4 % 34.0-4 6.6 normal Not Available [facility] ([facility]) [address] [place], [address], 05/11/2025 12:07:55 05/10/2005/11/2025 CBC WITH DIFFE RENTI AL/PL ATELE T MCV 92 fL 79-97 normal Not Available [facility] ([facility]) [address] [place], [address], 05/11/2025 12:07:55 05/10/2005/11/2025 CBC WITH DIFFE RENTI AL/PL ATELE T MCH 29.6 pg 26.6-3 3.0 normal Not Available [facility] ([facility]) [address] [place], [address], 05/11/2025 12:07:55 05/10/20 25 05/11/2025 CBC WITH DIFFE RENTI AL/PL ATELE T MCHC 32.1 g/dL 31.5-3 5.7 normal Not Available [facility] ([facility]) [address] [facility], [place], [address], 05/11/2025 12:07:55 05/10/2005/11/2025 CBC WITH DIFFE RENTI AL/PL ATELE T RDW 14.0 % 11.7-1 5.4 Not Available [facility] ([facility]) [address] [facility], [place], [address], 05/11/2025 12:07:55 05/10/20 25 05/11/2025 CBC WITH DIFFE RENTI AL/PL ATELE T platelets 231 x10e3 /uL 150-45 0 normal Not Available [facility] ([facility]) [address] [facility], [place], [address], 05/11/2025 12:07:55 05/10/2005/11/2025 CBC WITH DIFFE RENTI AL/PL ATELE T neutrophils 60 % not estab. normal Not Available [facility] ([facility]) [address] [facility], [place], [address], 05/11/2025 12:07:55 05/10/2005/11/2025 CBC WITH DIFFE RENTI AL/PL ATELE T lymphs 26 % not estab. normal Not Available [facility] ([facility]) [address] [facility], [place], [address], 05/11/2025 12:07:55 05/10/20 25 05/11/2025 CBC WITH DIFFE RENTI AL/PL ATELE T monocytes 11 % not estab. normal Not Available [facility] ([facility]) [address] [facility], [place], [address], 05/11/2025 12:07:55 05/10/20 05/11/2025 CBC WITH DIFFE RENTI AL/PL ATELE T eos 3 % not estab. normal Not Available [facility] ([facility]) [address] [place], [address], 05/11/2025 12:07:55 05/10/2005/11/2025 CBC WITH DIFFE RENTI AL/PL ATELE T basos 0 % not estab. normal Not Available [facility] ([facility]) [address] [facility], [place], [address], 05/11/2025 12:07:55 05/10/2005/11/2025 CBC WITH DIFFE RENTI AL/PL ATELE T immature cells VETERINARY LABORATORY TECHNICIAN Not Available [facility]) [address] [place], [address], 05/11/2025 12:07:55 05/10/2005/11/2025 CBC WITH DIFFE RENTI AL/PL ATELE T neutrophils (absolute) 2.9 x10e3 /uL 1.4-7. 0 normal Not Available [facility] ([facility]) [address] [place], [address], 05/11/2025 12:07:55 05/10/20 25 05/11/2025 CBC WITH DIFFE RENTI AL/PL ATELE T lymphs (absolute) 1.3 x10e3 /uL 0.7-3. 1 normal Not Available [facility] ([facility]) [address] [place], [address], 05/11/2025 12:07:55 05/10/2005/11/2025 CBC WITH DIFFE RENTI AL/PL ATELE T monocytes(ab solute) 0.6 x10e3 /uL 0.1-0. 9 normal Not Available [facility] ([facility]) [address] [place], [address], 05/11/2025 12:07:55 05/10/20 25 05/11/2025 CBC WITH DIFFE RENTI AL/PL ATELE T eos (absolute) 0.2 x10e3 /uL 0.0-0. 4 normal Not Available [facility] ([facility]) [address] [facility], [place], [address], 05/11/2025 12:07:55 05/10/2005/11/2025 CBC WITH DIFFE RENTI AL/PL ATELE T baso (absolute) 0.0 x10e3 /uL 0.0-0. 2 normal Not Available [facility] ([facility]) [address] [facility], [place], [address], 05/11/2025 12:07:55 05/10/2005/11/2025 CBC WITH DIFFE RENTI AL/PL ATELE T immature granulocytes 0 % not estab. Not Available [facility] ([facility]) [address] [facility], [place], [address], 05/11/2025 12:07:55 05/10/2005/11/2025 CBC WITH DIFFE RENTI AL/PL ATELE T immature grans (abs) 0.0 x10e3 /uL 0.0-0. 1 Not Available [facility] ([facility]) [address] [facility], [place], [address], 05/11/2025 12:07:55 05/10/2005/11/2025 CBC WITH DIFFE RENTI AL/PL ATELE T NRBC VETERINARY LABORATORY TECHNICIAN Not Available [facility] ([facility]) [address] [facility], [place], [address], 05/11/2025 12:07:55 05/10/2005/11/2025 CBC WITH DIFFE RENTI AL/PL ATELE T hematology comments: VETERINARY LABORATORY TECHNICIAN Not Available [facility] ([facility]) [address] [facility], [place], [address], 05/11/2025 12:07:55 05/10/2005/11/2025 COMP. METAB OLIC PANEL (14) glucose 78 mg/dL 70-99 normal Not Available [facility] ([facility]) [address] [place], [address], 05/11/2025 12:07:55 05/10/20 25 05/11/2025 COMP. METAB OLIC PANEL (14) BUN 13 mg/dL 6-24 normal Not Available [facility] ([facility]) [address] [place], [address], 05/11/2025 12:07:55 05/10/20 25 05/11/2025 COMP. METAB OLIC PANEL (14) creatinine 0.62 mg/dL 0.57-1 .00 normal Not Available [facility] ([facility]) [address] [place], [address], 05/11/2025 12:07:55 05/10/20 25 05/11/2025 COMP. METAB OLIC PANEL (14) eGFR 107 mL/mi n/1.7 3 >59 normal Not Available [facility] ([facility]) [address] [place], [address], 05/11/2025 12:07:55 05/10/20 25 05/11/2025 COMP. METAB OLIC PANEL (14) BUN/creatini ne ratio 21 9-23 normal Not Available [facility] ([facility]) [address] [place], [address], 05/11/2025 12:07:55 05/10/20 25 05/11/2025 COMP. METAB OLIC PANEL (14) sodium 139 mmol/ L 134-14 4 normal Not Available [facility] ([facility]) [address] [place], [address], 05/11/2025 12:07:55 05/10/20 25 05/11/2025 COMP. METAB OLIC PANEL (14) potassium 5.0 mmol/ L 3.5-5. 2 normal Not Available [facility] ([facility]) [address] [place], [address], 05/11/2025 12:07:55 05/10/20 25 05/11/2025 COMP. METAB OLIC PANEL (14) chloride 102 mmol/ L 96-106 normal Not Available [facility] ([facility]) [address] [place], [address], 05/11/2025 12:07:55 05/10/20 25 05/11/2025 COMP. METAB OLIC PANEL (14) carbon dioxide, total 23 mmol/ L 20-29 normal Not Available [facility] ([facility]) [address] [place], [address], 05/11/2025 12:07:55 05/10/20 25 05/11/2025 COMP. METAB OLIC PANEL (14) calcium 10.0 mg/dL 8.7-10 .2 normal Not Available [facility] ([facility]) [address] [place], [address], 05/11/2025 12:07:55 05/10/20 25 05/11/2025 COMP. METAB OLIC PANEL (14) protein, total 8.1 g/dL 6.0-8. 5 normal Not Available [facility] ([facility]) [address] [place], [address], 05/11/2025 12:07:55 05/10/20 25 05/11/2025 COMP. METAB OLIC PANEL (14) albumin 4.8 g/dL 3.8-4. 9 normal Not Available [facility] ([facility]) [address] [place], [address], 05/11/2025 12:07:55 05/10/20 25 05/11/2025 COMP. METAB OLIC PANEL (14) globulin, total 3.3 g/dL 1.5-4. 5 Not Available [facility] ([facility]) [address] [facility], [place], [address], 05/11/2025 12:07:55 05/10/2005/11/2025 COMP. METAB OLIC PANEL (14) bilirubin, total 0.3 mg/dL 0.0-1. 2 normal Not Available [facility] ([facility]) [address] [facility], [place], [address], 05/11/2025 12:07:55 05/10/2005/11/2025 COMP. METAB OLIC PANEL (14) alkaline phosphatase 84 IU/L 49-135 normal Not Available [facility]) [address] [facility], [place], [address], 05/11/2025 12:07:55 05/10/20 25 05/11/2025 COMP. METAB OLIC PANEL (14) AST (SGOT) 22 IU/L 0-40 normal Not Available [facility] ([facility]) [address] [facility], [place], [address], 05/11/2025 12:07:55 05/10/2005/11/2025 COMP. METAB OLIC PANEL (14) ALT (SGPT) 19 IU/L 0-32 normal Not Available [facility] ([facility]) [address] [facility], [place], [address], 05/11/2025 12:07:55 05/10/20 25 05/11/2025 LIPID PANEL cholesterol, total 169 mg/dL 100-19 9 normal Not Available [facility] ([facility]) [address] [facility], [place], [address], 05/11/2025 12:07:56 05/10/20 25 05/11/2025 LIPID PANEL triglyceride s 63 mg/dL 0-149 normal Not Available [facility] ([facility]) [address] [facility], [place], [address], 05/11/2025 12:07:56 05/10/2005/11/2025 LIPID PANEL HDL cholesterol 45 mg/dL >39 normal Not Available [facility]) [address] [facility], [place], [address], 05/11/2025 12:07:56 05/10/2005/11/2025 LIPID PANEL VLDL cholesterol jeanette 12 mg/dL 5-40 Not Available [facility] ([facility]) [address] [facility], [place], [address], 05/11/2025 12:07:56 05/10/2005/11/2025 LIPID PANEL LDL chol calc ([facility]) 112 mg/dL 0-99 above high normal Not Available [facility] ([facility]) [address] [facility], [place], [address], 05/11/2025 12:07:56 05/10/2005/11/2025 LIPID PANEL LDL calc comment: VETERINARY LABORATORY TECHNICIAN Not Available [facility] ([facility]) [address] [facility], [place], [address], 05/11/2025 12:07:56 05/10/2005/11/2025 VITAM IN B12 AND FOLAT E vitamin B12 879 pg/mL 232-12 45 normal Not Available [facility] ([facility]) [address] [facility], [place], [address], 05/11/2025 12:07:56 05/10/2005/11/2025 VITAM IN B12 AND FOLAT E folate (folic acid), serum 18.6 NG/mL >3.0 normal A serum folat e amy ntrat ion of less than 3.1 ng/mL is consi dered to repre sent clini jeanette defic iency . Not Available [facility] ([facility]) [address] [facility], [place], [address], 05/11/2025 12:07:56 05/10/2005/11/2025 HCV ANTIB JOSR CASCA DE(PC R/GEN O) HCV Ab Non Reacti ve non reacti ve Not Available [facility] ([facility]) [address] [facility], [place], [address], 05/11/2025 12:07:57 05/10/2005/11/2025 HCV ANTIB JOSR YINGA DE(PC R/GEN O) interpretati on: Commen t Not infec ranjan with HCV unles s early or acute infec tion is suspe cted (whic h may be delay ed in an immun ocomp romis ed indiv idual ), or other evide nce exist s to indic ate HCV infec tion. Not Available [facility] ([facility]) [address] [facility], [place], [address], 05/11/2025 12:07:57 05/10/2005/11/2025 TSH TSH 1.510 uIU/m L 0.450- 4.500 normal Not Available [facility] ([facility]) [address] [facility], [place], [address], 05/11/2025 12:07:57 05/10/2005/11/2025 VITAM IN D, 25-HY [...] DC: [facility] Nat[facility] [employer] . 2. Ursula berger MF, [place], [employer] errar i [employer], et al. Evalu ation , treat ment, and preve ntion of vitam in D defic iency : an Endoc rine Socie ty clini jeanette pract ice guide line. JCEM. 2010; 96(7) :1911 -30. Not Available [facility] ([facility]) [address] [facility], [place], [address], 05/11/2025 12:07:58 05/10/2005/11/2025 HIV AB/P2 4 AG WITH REFLE X HIV Ab/P24 Ag screen Non Reacti ve non reacti ve HIV-1 /HIV- 2 antib odies and HIV-1 p24 antig en were NOT detec ranjan. There is no labor atory evide nce of HIV infec tion. HIV Negat misael Not Available [facility] ([facility]) [address] [facility], [place], [address], 05/11/2025 12:07:58 05/10/2005/11/2025 MAGNE SIUM magnesium 2.3 mg/dL 1.6-2. 3 normal Not Available [facility] ([facility]) [address] [facility], [place], [address], 05/11/2025 12:07:58 05/23/2005/23/2025 MRI, lumba r spine , w/o contr ast No observ ation record ed. [address], [place], [address], 05/23/2025 13:31:10 05/23/2005/23/2025 ankle brach ial index , compl ete No observ ation record ed. [address], [place], [place], [address], 05/23/2025 14:30:17 05/30/2005/23/2025 US, echoc ardio gram No observ ation record ed. [address], [place], [address], 05/30/2025 12:46:35 05/31/2005/31/2025 NM, bone scan No observ ation record ed. [facility] [address], [place], [place], [address], 05/31/2025 17:37:08 05/31/20 25 05/31/2025 XR, ribs, unila teral , 3 or more view No observ ation record ed. [facility] [address], [place], [place], [address], 05/31/2025 17:37:27 06/04/2005/31/2025 MAMMO , diagn ostic , digit al, bilat eral No observ ation record ed. [email or web address] [facility] [address], [place], [place], [address], 06/04/2025 11:12:29 06/04/2005/31/2025 US, breas t, unila teral No observ ation record ed. [email or web address] [facility] [address], [place], [address], 06/05/2025 13:01:26 Result Notes None recorded. Problems Name Problem SNOMED Code Status Onset Date Resolution Date Notes Provider Name and Address Organization Details Recorded Time Chronic obstructive pulmonary disease 53631209 Active 2024 BALTA Pantoja [address] [place] [address], [address], [employer] 12:04:10 Allergic rhinitis 19066287 Active 2024 BALTA Pantoja [address] [place] [address], [address]95[address] 8, [employer] 12:04:26 Restless legs syndrome 16514377 Active 2024 BALTA Pantoja [address] [place] [address], [address] 8, [employer] 12:05:19 Pain in bilateral lower legs 5453505599006 9106 Active 2024 BALTA Pantoja [address] [place] [address], [address] 8, [employer] 12:05:24 Urticaria 394879778 Active 2024 BALTA Pantoja [address] [place] [address], [address] 8, [employer] 12:06:17 Multiple sclerosis 80161567 Active 2024 BALTA Pantoja [address] [place] [address], [address] 8, [employer] 12:06:40 Urinary incontinenc e 764092366 Active 2024 BALTA Pantoja [address] [place] [address], [address] 8, [employer] 12:07:29 Recurrent depression 579493345 Active 2024 BALTA Pantoja [address] [place] [address], [address] 8, [employer] 12:09:09 Iron deficiency anemia 78148029 Active 2024 BALTA Pantoja [address] [place] [address], [address]63[address] 8, [employer] 12:10:40 Dyspnea on exertion 82717184 Active 2024 BALTA Pantoja [address] [place] [address], [address] 8, [employer] 12:10:44 Allergic conjunctivi tis of bilateral eyes 0023192233289 02 Active 2024 BALTA Pantoja [address] [place] [address], [address] 8, [employer] 12:12:09 Mass of left breast 0310771505368 9103 Active 2024 BALTA Pantoja [address] [place] [address], [address] 8, [employer] 09:54:01 Abnormal radionuclid e scan 132398946 Active 2024 BALTA Pantoja [address] [place], [address], [employer] 14:52:13 Problem Notes None recorded. Procedures Surgical History Date Name Laterality Status Provider Name and Address Organization Details Recorded Time Total Hysterectomy completed [employer] 05/10/2025 11:40:37 Knee Surgery completed [employer]. 05/10/2025 11:40:51 Tubal Ligation completed [employer]. 05/10/2025 11:40:56 Imaging Results None recorded. Procedure Notes None recorded. Medical Equipment None Reported. Allergies Allergen ID Allergen Name Allergen Category Reaction Reaction Severity Criticality Documentation Date Start Date Code Code System Note Provider Name and Address Organization Details Recorded Time 66924 tree and shrub pollen environme nt,medica tion Not available Not available Not available 05/10/2025 Melinda [employer], [employer] 11:32:03 77167 aspirin medicatio n Not available Not available Not available 05/10/2025 1191 RxNorm [employer], [employer] 11:36:22 29092 ibuprofen medicatio n Not available Not available Not available 05/10/2025 5640 RxNorm [employer], [employer] 11:36:28 Medications Name Sig Start Date [...] Relief 50 mcg/actuati on nasal spray,suspe nsion Chetek 1 spray every day by intranasa l [...] Address Organization Details Last Updated DateTime 5 [address].9 3 g 16.4 kg/m2 165.1 cm 96 % 96 % 82 /min 98.2 [degF] 142/74 mm[Hg] 136/76 mm[Hg] Melinda Morales [employer]. 11:46:03 Social History Question Answer Notes LastModified by Organizat ion Details LastModified Time Tobacco Smoking Status Current Every Day Smoker Melinda bower [email or web address]. 05/10/2025 11:32:03 Do You Have An Advance [...] Or The Highest Degree You Have Received? [id number] Information not available 05/10/2025 Have There Been [...] Do You Have A Medical Power Of Follow Up Rep? No Information not available 05/10/2025 What Was [...] anxious, or unable to sleep at night)? [id number] Information not available 05/10/2025 Family History Relationship [...] COPD N Depression Y Dermatologic Disorders N Lung Disease N Hypothyroidism N Developmental or Behavioral Disorders N Defects or Inherited Disease N Breast Problem N Difficulty Swallowing N Anesthesia Complications N History of STI N Anxiety Disorder Y Meniere's disease N Autoimmune disease N Muscle, Joint, or Bone Problems N Vision or Eye Problems N Arthritis N Infertility N Polyps N Mental Disorder N Congenital Anomalies N Acid Reflux (GERD) N Cancer Y Stroke N Neurologic/Epilepsy N Endometriosis N Bladder or Kidney Problems N High Cholesterol N Liver Disease N Psychiatric/Mental Health Condition N Organ Transplant N Fibromyalgia N Headaches Y Schizophrenia N Dialysis N Kidney Disease N Allergies/Hayfever N Heart Problems [...] virus, trivalent, preservative 5 completed Not Available [facility] 05/10/2025 11:32:02 Influenza, split virus, quadrivalent, PF 6 completed Not Available [facility] 05/10/2025 11:32:02 Hep A, adult 9 completed Not Available [facility] 05/10/2025 11:32:02 Influenza, split virus, quadrivalent, preservative 9 completed Not Available [facility] 05/10/2025 11:32:02 Tdap 2 completed Not Available [facility] 05/10/2025 11:32:02 Influenza, split virus, trivalent, PF 4 completed Not Available [facility] 05/10/2025 11:32:02 Past Encounters Encounter ID Performer Location Encounter Start Date Encounter Closed Date Diagnosis/Indication Diagnosis SNOMED-CT Code Diagnosis ICD10 Code Diagnosis IMO Codes Diagnosis Note [id number] BALTA Pantoja [facility] [address] [place] [address] 05/10/2025 11:31:03 05/10/2025 12:24:37 Chronic obstructive pulmonary disease 53271362 J44.9 022120423 Allergic rhinitis 461754 04 J30.9 9398086913 Restless l egs syndrome 58140656 G25.81 14280 Pain in bi lateral lower legs 5607170622 8109796 M79.661 M79.662 26725036 Urticaria 392625193 L50. 9 33402 Multiple sclerosis 17862 007 G35.D 78292 Urinary incontinence 165 742785 R32 41180970 Recurrent depression 191 513148 F33.9 71383 Iron defic iency anemia 89870238 D50.9 16676101 Dyspnea on exertion 6084 5006 R06.09 648370 Screening mammography 24 835033 Z12.31 4124594806 Screening for malignant neoplasm of colon 358642029 Z12.11 886447 Allergic conjunctivitis of bilateral eyes 6482895578 59152 H10.13 629076 HIV screening 653870586 Z11.4 823403 Viral scre ening status 913125464 Z11.59 959949 Health Concerns Section Related Observation LastModified by Organization Detai ls LastModified Time None Recorded Concern Status LastModified by Organization Details LastModified Time None Recorded Advance Directives Directive N: Payers Insurance Date Sequence Insurance Name Policy Number Policy Rea Covered Member ID Rea Member ID Guarantor Name 05/10/2025 1 [facility] - DUAL ELIGIBLE (MEDICARE REPLACEMENT/A DVANTAGE - HMO) [place] [id number] [place] 05/10/2025 2 [employer] (MEDICARE REPLACEMENT/A DVANTAGE - HMO) [place] [id number] [place] 05/10/2025 [place] [id number] [place] 05/10/2025 2 [employer] (MEDICARE REPLACEMENT/A DVANTAGE - PPO) [place] [id number] [place] Notes Date Note Type Note [...] to try to quit currently. Melinda bower, CLARI [employer] 05/10/2025 13:08:41 OBGyn Episode No OBEpisode recorded.
--- OUTSIDE RECORDS SUMMARY | 2025-06-19 08:50 | XMS_ITS | Clinical Summary ---
Author Organization [facility] Address [address] [place] [address] Care Team Providers Care Airplane Pilot Photogrammetry Name Role Phone Linh Moreira MD Unavailable [phone] Liss Chambers MD Unavailable [phone] Isaiah Bonilla MD Primary Care Provider [phone] Allergies No known active allergies Medications Ventolin [...] [address] [place] [address] Bonnie Monroy MD 04/25/2025 Refill [facility] [address] [place] [address] Shaylee Benavidez MD 04/15/2025 Telephone [facility] [address] [place] [address] Audrey Wilcox APRN 04/15/2025 Telephone [facility] [address] [place] [address] Audrey Wilcox APRN 04/11/2025 1:46 PM EDT - 04/11/2025 11:59 PM EDT Hospital Encounter [facility] [address] [place] [address] Endometrial cancer (CMS/HCC) Discharge Disposition: Home or Self Care 04/11/2025 Travel from Last 3 Months Family History Medical [...] [address] [place] [address] Audrey Wilcox, TRICOT KNITTING MACHINE OPERATOR [address] [facility] [address] [place] [address] Health Maintenance Due Date Last Done Comments [facility]-HIV Screening 1972 [facility]-Hepatitis C Screening 1972 [facility]-Infant/Child/Adol SDOH Screenings 1972 [facility]-YAUCU-21 Vaccine (#1) 1977 [facility]- SDOH Screenings 1990 [...] Total DLP (Dose-Length Product): 340.97 mGy.cm (accession [id number]), 340.97 mGy.cm (accession [id number]) Please note: The reported value represents the [...] Total DLP (Dose-Length Product): 340.97 mGy.cm (accession [id number]),340.97 mGy.cm (accession [id number]) Please note: The reported valuerepresents the total [...] 04/11/2025 5:00 PM us Audrey S Jeri TRICOT KNITTING MACHINE OPERATOR IMG CT PROCEDURES Final Resu lt [...] Total DLP (Dose-Length Product): 340.97 mGy.cm (accession [id number]), 340.97 mGy.cm (accession [id number]) Please note: The reported value represents the [...] Total DLP (Dose-Length Product): 340.97 mGy.cm (accession [id number]),340.97 mGy.cm (accession [id number]) Please note: The reported valuerepresents the total [...] signing this report, I, the attending physician, [email or web address] I have personally reviewed the images/data for the aboveexamination(s) and agree with the final edited report. Drafted by ELEAZAR England on 04/11/2025 3:08 PM Final report signed by Kevin Gray MD on 04/11/2025 5:00 PM us Audrey S [place] TRICOT KNITTING MACHINE OPERATOR IMG CT PROCEDURES Final Resu lt from Last 3 Months [place] [address] [place] [address] AETNA [facility] MEDICAID [facility] MEDICARE Advance Directives * Full Code (Latest Code Status on File) Date Activated Date Inactivated Comments 04/17/2021 5:01 PM 04/19/2021 5:21 PM Question Answer Comments Patient has decision-making capacity? Yes Care Teams Airplane Pilot Photogrammetry Relationship Specialty Start Date End Date Isaiah Bonilla MD [address] [place] [address] PCP - General 09/27/22 Linh Moreira MD [address] [place] [address] Referring Physician 03/26/21 Liss Chambers MD [address] [place] [address] Consulting Physician Radiation Therapy 05/26/21
--- OUTSIDE RECORDS SUMMARY | 2025-06-19 08:50 | XMS_ITS | Encounter Summary ---
Author Organization [facility] Address [address] [place] [address] Care Team Providers Care District Leader Name Role Phone Linh Moreira MD Unavailable [phone] Linh Moreira MD Unavailable [phone] Liss Chambers MD Unavailable [phone] Linh Moreira MD Primary Care Provider [phone] Isaiah Bonilla MD Primary Care Provider [phone] Encounter Details Date Type Department Care Team (Late st Contact Info) Description 04/07/2021 Lab Requisition [facility] [address] [place] [address] Alicja Bowles MD 800 [facility] [address] [place] [address] Excessive and frequent menstruation with [...] [address] [place] [address] Audrey Wilcox, MANAGER LONG TERM CARE [address] [place] [address] documented as of this encounter Procedures Procedure Name Priority Date/Time Associated Diagnosis Comments SURGICAL PATHOLOGY CONSULT Routine 04/07/2021 11:30 AM EDT Excessive and frequent menstruation with regular cycle documented in this encounter Results * Surgical Pathology Consult (04/07/2021 11:30 AM EDT) Case Report Sugical Pathology Consult Case: Authorizing Provider: Alicja Bowles MD Collected: 04/07/2021 1130 Ordering Location: [facility] Lab Received: 04/07/2021 1130 Pathologist: Kaylie Good MD Specimen: Endometrium, 1 1:[address] [facility] Final Diagnosis A. ENDOMETRIUM, BIOPSY (OSS; [...] properly working controls. 1 1:39 PM EDT [facility] Tumor Blocks Tumor blocks: A1-A2 1 1:39 PM EDT [facility] Tumor Adequacy for Ancillary Testing Adequate Tissue Present 1 1:39 PM EDT [facility] Clinical Information Diagnosis: N92.0 - Excessive and frequent menstruation with regular cycle [ICD-10-CM] 1 1:39 PM EDT [facility] Gross Description A. [id number] Received along with a corresponding pathology report from [facility] are 6 slide(s) labeled outside case: [id number] collected on 03/23/2021. 1 1:39 PM EDT [facility] Intradepartmental Consultation with Agreement Dr. Bob 1 1:39 PM EDT [facility] Note: A resident was involved in the service. I attest I examined the relevant preparations for the specimens and confirmed the diagnosis or interpretation. 1 1:39 PM EDT [facility] Tissue Endometrial structure / Unknown 04/07/2021 11:30 AM EDT 04/07/2021 11:30 AM EDT us Alicja Bowles MD LAB PATHOLOGY ORDERABLES Edna mccain Result [facility] [address] [place] [id number] documented in this encounter Visit Diagnoses Diagnosis Excessive and frequent menstruation with regular cycle documented in this encounter Care Teams District Leader Relationship Specialty Start Date End Date Linh Moreira MD [address] [place] [address] [address] [place] [address] PCP - General 12/01/21 09/26/22 Isaiah Bonilla MD [address] [place] [address] PCP - General 09/27/22 Linh Moreira MD [address] [place] [address] Referring Physician 03/26/21 Linh Moreira MD [address] [place] [address] Referring Physician 05/25/21 05/25/21 Liss Chambers MD [address] [place] [address] Consulting Physician Radiation Therapy 05/26/21 documented as of this encounter
--- OUTSIDE RECORDS SUMMARY | 2025-06-19 08:50 | XMS_ITS | Encounter Summary ---
Author Organization [facility] Address [address] [place] [address] Care Team Providers Care Help Desk Supervisor Name Role Phone Linh Moreira MD Unavailable [phone] Liss Chambers MD Unavailable [phone] Linh Moreira MD Primary Care Provider [phone] Isaiah Bonilla MD Primary Care Provider [phone] Reason for Visit * Reason Comments Med Refill Encounter Details Date Type Department Care Team (Late st Contact Info) Description 09/16/2022 Refill [facility] 800 [facility] [address] [place] [address] Linh Dee MD [address] [id number] Social History Tobacco Use Types Packs/Day Years [...] Gynecology [address] [place] [address] Ruben Wilcox APRN [address] [facility] [address] [place] [address] documented as of this encounter Visit Diagnoses Not on filedocumented in this encounter Additional Health Concerns Assessment Noted Time PHQ-9 Depression Total Score: 24 023 1:44 PM EST A fall risk assessment has been complete d for the patient 08/31/2022 1:44 PM EST documented as of this encounter Care Teams Help Desk Supervisor Relationship Specialty Start Date End Date Linh Moreira MD [address] [place] [address] [place] [address] PCP - General 12/01/21 09/26/22 Isaiah Bonilla MD [address] [id number] PCP - General 09/27/22 Linh Moreira MD [facility] [id number] Referring Physician 03/26/21 Liss Chambers MD [address] [place] [address] Consulting Physician Radiation Therapy 05/26/21 documented as of this encounter
--- OUTSIDE RECORDS SUMMARY | 2025-06-19 08:50 | XMS_ITS | Encounter Summary ---
Author Organization [facility] Address [address] [place] [address] Care Team Providers Care Regulatory Technician Name Role Phone Linh Moreira MD Unavailable [phone] Liss Chambers MD Unavailable [phone] Isaiah Bonilla MD Primary Care Provider [phone] Reason for Visit * Reason Comments Med Refill Encounter Details Date Type Department Care Team (Late st Contact Info) Description 02/24/2023 Refill [facility] [address] [facility] [address] [place] [phone] Ifeanyi Cabrales MD [address] [id number] Social History Tobacco Use Types Packs/Day Years [...] [address] [place] [address] [place]al genao[place] S, [employer] STRIPPER [address] [place] [address] documented as of this encounter Visit Diagnoses Not on filedocumented in this encounter Additional Health Concerns Assessment Noted Time PHQ-9 Depression Total Score: 16 023 12:34 PM EDT A fall risk assessment has been complete d for the patient 12/28/2022 12:34 PM EDT documented as of this encounter Care Teams Regulatory Technician Relationship Specialty Start Date End Date Isaiah Bonilla MD [address] [place] [address] PCP - General 09/27/22 Linh Moreira MD [address] [place] [address] Referring Physician 03/26/21 Liss Chambers MD [address] [place] [address] Consulting Physician Radiation Therapy 05/26/21 documented as of this encounter
--- OUTSIDE RECORDS SUMMARY | 2025-06-19 08:50 | XMS_ITS | Encounter Summary ---
Author Organization [facility] Address [address] [place] [address] Care Team Providers Care Cloud Systems Architect Name Role Phone Linh Moreira MD Unavailable [phone] Liss Chambers MD Unavailable [phone] Linh Moreira MD Primary Care Provider [phone] Isaiah Bonilla MD Primary Care Provider [phone] Encounter Details Date Type Department Care Team (Late st Contact Info) Description 03/11/2022 Orders Only External Location [address] [place] [address] Provider, External Social History Tobacco [...] EST Office Visit [facility] 800 [facility] [address] [place] [address] Audrey Wilcox, JOAN [address] [place] [address] documented as of this encounter Procedures Procedure [...] documented as of this encounter Care Teams Cloud Systems Architect Relationship Specialty Start Date End Date Linh Moreira MD [address] [place] [address] [address] [place] [address] PCP - General 12/01/21 09/26/22 Isaiah Bonilla MD [address] [place] [address] PCP - General 09/27/22 Linh Moreira MD [address] [place] [address] Referring Physician 03/26/21 Liss Chambers MD [address] [place] [address] Consulting Physician Radiation Therapy 05/26/21 documented as of this encounter
== END 2025-06-19 23:59 | disposition home or self-care (01) ==
LOC: RAD 08:44
PROVIDERS: PCP Physician Assistant; Visit Provider Physician Assistant
DX: M80.00XA Age-related osteoporosis with current pathological fracture, unspecified site, initial encounter for fracture (principal); M85.88 Other specified disorders of bone density and structure, other site
CPT/HCPCS: 77080